=== PATIENT | female | born 1990 | race Caucasian/White ===

== ENCOUNTER 2022-03-30 11:28 | Emergency (ER) | payer OTHER, SELFPAY ==
[2022-03-30 11:35] VITALS: BP 134/80; PULSE 120; O2SAT 100
[2022-03-30 11:52] VITALS: BP 155/80; PULSE 122; RESP 18; TEMP 36.8; O2SAT 99; BMI 36.3
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
== END 2022-03-30 12:04 | disposition home or self-care (01) ==
LOC: HO.ED 12:01
PROVIDERS: Emergency Provider Emergency Medicine
DX: Z04.1 Encounter for examination and observation following transport accident (principal); M25.551 Pain in right hip
CPT/HCPCS: 99282

== ENCOUNTER 2022-10-25 08:35 | Outpatient (AMB) | payer OTHER, SELFPAY ==
[2022-10-25 08:38] VITALS: BP 130/68; PULSE 100; O2SAT 98; BMI 36.8
--- NOTE | 2022-10-25 08:38 | A.OFFPC_ITS ---
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 Allergies No Known Allergies Allergy (Verified 10/25/22 08:51) Medication List - Last Reconciled 10/25/22 by SAWYER Gonzalez etonogestrel (Nexplanon) subdermal Tobacco use date assessed: 10/25/22 Dental Screening Dental Screen Date: 10/25/22 Did you have a dental visit in the last 12 months?: Yes Did you have a dental problem in the last 6 months where you did not have access to dental care?: No Was dental information given to patient?: Patient has dentist HPI HPI Comments History of Present Illness Details 32-year-old new patient past medical history significant for anxiety and depression, presents today to establish care. Patient states numbness left eye that travels to her left side of her lip x1 year. Patient reports was evaluated at [facility] in May, reports her head CT scan was normal. Patient states she was told it was a problem with her nerves. Patient states that they prescribed her gabapetin and baclofen which just made her sleepy so she stopped taking it. Patient reports she continues to having left thigh numbness radiating to left lip that comes and goes and occasionally has some left-sided facial swelling when the numbness occurs. Records requested from [facility]. 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 States did have 1 episode of tingling in her wrist however that has resolved. Previous pcp: Mai Cook @ [facility] in [place]. Currently follows with [facility] for counseling services. [facility] Surgical History (Updated 10/25/22 @ 08:52 by SAWYER Gonzalez) Previous section Family History (Updated 10/25/22 @ 08:52 by SAWYER Gonzalez) Mother No problems noted. Father Diabetes Social History (Updated 10/25/22 @ 08:53 by SAWYER Gonzalez) Housing: House Alcohol intake: never Patient Tobacco Use Status: Never used Tobacco e-Cigarette/Vaping Use: Never Used service: No Current occupational status: employed Cognitive needs: No Hearing needs: No Vision needs: No Questionnaire PHQ-9 Over the last 2 weeks, how often have you been bothered by any of the following problems? 1. Little interest or pleasure in doing things: not at all 2. Feeling down, depressed, or hopeless: not at all 3. Trouble falling or staying asleep, or sleeping too much: not at all 4. Feeling tired or having little energy: not at all 5. Poor appetite or overeating: not at all 6. Feeling bad about yourself - or that you are a failure or have let yourself or your family down: not at all 7. Trouble concentrating on things, such as reading the newspaper or watching television: not at all 8. Moving or speaking so slowly that other people could have noticed. Or the opposite - being so fidgety or restless that you have been moving around a lot more than usual: not at all 9. Thoughts that you would be better off or of hurting yourself in some way: not at all Total score: 0 Depression Screening Interpretation: Negative Source: Developed by Drs. Huy Leon, Pascale Ulloa, Zack Conway and colleagues, with an educational riki from [employer]. Thrive Questionnaire Date Thrive assessed: 10/25/22 I am a: Patient What is your living situation today?: I have a steady place to live Within the past 12 months, did the food you bought not last and you didn't have the money to get more?: Never true Within the past 12 months, did you worry whether your food would run out before you got money to buy more?: Never true Do you have trouble paying for medicines?: No Do you have trouble getting transportation to medical appointments?: No Do you have trouble paying your heating and electricity bill?: No Do you have trouble taking care of your child, family member or friend?: No Do you have trouble with day-to-day activities such as bathing, preparing meals, shopping, managing finances, etc.?: No Are you currently unemployed and looking for a job?: No Are you interested in more education?: No AUDIT C Alcohol Use Questionnaire (AUDIT-C) 1. How often do you have a drink containing alcohol?: Never 3. How often do you have six or more drinks on one occasion?: Never Total Score: 0 ROLANDO-7 AMB Questionnaire ROLANDO-7 Date ROLANDO - 7 assessed: 10/25/22 Feeling nervous, anxious, or on edge: 0 = Not at all Not being able to stop or control worryin = Not at all Worrying too much about different things: 0 = Not at all Trouble relaxin = Not at all Being so restless that it is hard to sit still: 0 = Not at all Becoming easily annoyed or irritable: 0 = Not at all Feeling afraid as if something awful might happen: 0 = Not at all Total ROLANDO-7 score (0-4 normal; 5-9 mild; 10-14 moderate; 15-21 severe): 0 Source: Developed by Drs. Huy Leon, Pascale Ulloa, Zack Conway and colleagues, with an educational riki from [employer]. Review of Systems Const Denies chills, Denies fatigue, Denies fever(s) and Denies poor appetite Eyes Denies no additional complaints ENT Reports Normal hearing present Card Denies chest pain, Denies syncope, Denies rapid heart rate and Denies dyspnea Resp Denies cough and Denies dyspnea GI Denies change in stool character, Denies constipation, Denies diarrhea, Denies nausea and Denies vomiting Denies urinary frequency, Denies dysuria and Denies urinary urgency Neuro Reports Normal hearing present, Denies confusion and Denies syncope Psych Denies confusion Endo Denies fatigue Physical exam (Primary Care) Vital Signs: Last Vital Signs Pulse 100 10/25/22 08:38 BP 130/68 10/25/22 08:38 Pulse Ox 98 10/25/22 08:38 Oxygen Delivery Method Room Air 10/25/22 08:38 BMI result Body Mass Index 36.8 Tobacco/Smoking Status: Tobacco use Status Tobacco use date assessed 10/25/22 10/25/22 08:39 Patient Tobacco Use Status Never used Tobacco 10/25/22 08:53 e-Cigarette/Vaping Use Never Used 10/25/22 08:53 PHQ-9: PHQ-9 Score PHQ-9: Total score 0 10/25/22 08:50 Depression Screening Interpretation: Negative Thrive Assessment: Date of Thrive Assessment Date Thrive assessed 10/25/22 10/25/22 08:39 Const General: No confusion Orientation/consciousness: No confusion HENMT Head: Yes normocephalic and Yes atraumatic Eyes Conjunctivae: conjunctivae normal Chest Chest palpation & inspection: normal inspection of the chest Resp Effort & Inspection: normal respiratory effort Auscultation: clear to auscultation bilaterally, no crackles, no rhonchi and no wheezes Cardio Rate: regular rate Rhythm: regular rhythm Heart sounds: S1 normal heart sound present and S2 normal heart sound present GI Inspection: Yes normal to inspection Neuro General: No confusion Cranial nerves: Yes Normal hearing present Extrem General: No edema Assessment and Plan Assessment & Plan (1) Left facial numbness: Code(s): R20.0 - Anesthesia of skin Plan: Records requested from [facility]. Lab work ordered to further evaluate for any electrolyte or vitamin deficiencies. Referral entered to Neurology (2) Anxiety: Code(s): F41.9 - Anxiety disorder, unspecified Plan: Continue to follow with [facility] (3) Depression: Code(s): F32.A - Depression, unspecified Plan: Continue to follow with [facility]. Denies SI/HI. (4) Right wrist pain: Code(s): M25.531 - Pain in right wrist Plan: Can take [id number] ibuprofen as needed for pain and patient advised to use wrist splint while working and typing. If no improvement can further evaluate with EMG and nerve conduction studies for possible carpal tunnel syndrome. Plan Follow up in 2 months for PE Orders: Orders Vitamin B12 and Folate Today R20.0 - Anesthesia of skin Comprehensive [place]. Panel Fast Today R20.0 - Anesthesia of skin Lipid Panel Today Z13.220 - Encounter for screening for lipoid disorders TSH reflex Free T4 Today R20.0 - Anesthesia of skin Vitamin B1 Today R20.0 - Anesthesia of skin Vitamin D 25-OH Total Today R20.0 - Anesthesia of skin Complete Blood Count Auto Diff Today Z13.0 - Encounter for screening for diseases of the blood and blood-forming organs and certain disorders involving the immune mechanism Referrals Neurology Referral R20.0 - Anesthesia of skin Coding Level of Care Code New Pt Level 4 (62897) Diagnoses Left facial numbness R20.0 Anxiety F41.9 Depression F32.A Right wrist pain M25.531
== END 2022-10-25 09:07 | disposition home or self-care (01) ==
PROVIDERS: Visit Provider Nurse Practitioner Family
DX: R20.0 Anesthesia of skin (principal); F41.9 Anxiety disorder, unspecified; F32.A Depression, unspecified; M25.531 Pain in right wrist
CPT/HCPCS: 99204

== ENCOUNTER 2022-11-02 08:11 | Outpatient (REF) | payer OTHER, SELFPAY ==
[2022-11-02 09:18] LABS: Basophils Percent Auto 0.3 % (0-2); Eosinophils Absolute Auto 0.2 X10*3/uL (0.0-0.4); Hemoglobin 15.9 g/dl (12.0-16.0); Imm Gran Abs Auto 0.04 X10*3/uL (0.00-0.03); Imm Gran Pct Auto 0.4 % (0.0-0.4); Lymphocytes Absolute Auto 1.7 X10*3/uL (1.2-4.9); Lymphocytes Percent Auto 17.9 % (20-40); MANUAL DIFF FLAG NO; Mean Corpuscular HGB Conc 33.8 g/dl (31.0-35.0); Mean Corpuscular Hemoglobin 28.2 pg (27.0-33.0); Mean Corpuscular Volume 83.3 fL (80.0-98.0); Monocytes Absolute Auto 0.8 X10*3/uL (0.1-1.2); Monocytes Percent Auto 8.7 % (2-11); Neutrophils Absolute Auto 6.7 x10*3/uL (2.0-8.3); Neutrophils Percent Auto 70.7 % (45-73); Platelet Count 275 X10*3/uL (160-400); Red Blood Count 5.64 X10*6/uL (4.20-5.50); White Blood Count 9.4 X10*3/uL (4.8-10.8)
[2022-11-02 10:13] LABS: Alanine Aminotransferase 70 U/L (0-31); Albumin Level 4.5 g/dL (3.5-5.0); Alkaline Phosphatase 63 U/L (39-117); Anion Gap 16 (12-20); Aspartate Amino Transferase 31 U/L (5-31); Bilirubin Total 0.4 mg/dL (0.0-1.0); Blood Urea Nitrogen 8 mg/dL (9-16); Calcium 9.6 mg/dL (8.4-10.2); Carbon Dioxide 22 mmol/L (22-29); Chloride 108 mmol/L (96-108); Cholesterol 161 mg/dL; Estimated Glomerular Filt Rate > 60; Glucose Fasting 90 mg/dL (60-99); HDL Cholesterol 55 mg/dL; LDL Cholesterol Calculated 96 mg/dl; Sodium 142 mmol/L (135-145); Total Protein 7.9 g/dL (6.5-8.0); Triglycerides 51 mg/dL
[2022-11-02 10:27] LABS: TSH reflex Free T4 1.74 uIU/mL (0.32-4.0); Vitamin D 25-OH Total 35.4 ng/mL (>30)
[2022-11-02 10:40] LABS: Folate 13.2 ng/mL (> or = 4.0); Vitamin B12 524 pg/mL (200-900)
== END 2022-11-02 08:12 | disposition home or self-care (01) ==
LOC: HO.LAB 08:11
PROVIDERS: PCP Nurse Practitioner Family; Visit Provider Nurse Practitioner Family
DX: R20.0 Anesthesia of skin (principal); R22.0 Localized swelling, mass and lump, head; Z13.220 Encounter for screening for lipoid disorders; Z13.0 Encounter for screening for diseases of the blood and blood-forming organs and certain disorders involving the immune mechanism
CPT/HCPCS: 36415; 80053; 80061; 82306; 82607; 82746; 84443; 85025

== ENCOUNTER 2022-11-03 10:33 | Emergency (ER) | payer OTHER, SELFPAY ==
--- NOTE | ~2022-11-03 | XR_ITS ---
EXAMINATION: XR WRIST, RIGHT CLINICAL INFORMATION: Painful right wrist. COMPARISON: None available. TECHNIQUE: PA, lateral, scaphoid and oblique views of the right wrist. An indicator arrow points to the medial wrist. FINDINGS: The bones and soft tissues are normal. No fracture. Alignment is anatomic with normal joint spaces. No erosions or abnormal soft tissue calcifications. XR/XR wrist RT min 3V IMPRESSION: Unremarkable right wrist.
[2022-11-03 11:01] VITALS: BP 123/90; PULSE 83; RESP 16; TEMP 36.9; O2SAT 99; BMI 36.4
[2022-11-03 12:00] VITALS: BP 114/60; PULSE 71; RESP 16; O2SAT 99
--- NOTE | 2022-11-03 12:10 | ED_ITS ---
HPI - Extremity Problem General Chief complaint: Extremity Injury, Upper Stated complaint: R wrist swollen Time Seen by Provider: 11/03/22 11:23 Source: patient and RN notes reviewed Mode of arrival: ambulatory Limitations: no limitations History of Present Illness HPI Narrative: This is a 32-year-old female, with no significant past medical history, presenting to the emergency department with complaints of right wrist pain and tingling x2 weeks. Patient denies any recent trauma or injury. 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 She was seen by her primary care physician and was given a wrist splint. She has been wearing a wrist splint without any relief. Denies any fevers or chills. No other complaints or concerns at this time. MD Complaint: extremity pain and extremity swelling Onset (ago): week(s) Pain Consistency: constant Location: right and upper extremity Quality: aching Radiation: distal Relieving factors: nothing Exacerbating factors: nothing Associated symptoms: denies other symptoms Related Data Home Medications Medication Instructions Recorded Confirmed etonogestrel 68 mg subdermal subdermal 10/25/22 10/25/22 implant (Nexplanon) Previous Rx's Medication Instructions Recorded ibuprofen 600 mg tablet 600 mg PO Q6H PRN pain #30 tabs 11/03/22 Allergies Allergy/AdvReac Type Severity Reaction Status Date / Time No Known Allergies Allergy Verified 10/25/22 08:51 Review of Systems Review of Systems: Yes all other systems are reviewed and are negative Constitutional: Constitutional: Reports as per [facility] Past Medical History Surgical History Previous section Family History Family History Mother No problems noted. Father Diabetes Social History Social History Housing: House Alcohol intake: never Patient Tobacco Use Status: Never used Tobacco e-Cigarette/Vaping Use: Never Used Advance Directives: No Advance Directives Information Provided: Yes service: No Current occupational status: employed Cognitive needs: No Hearing needs: No Vision needs: No Physical Exam Vital Signs: Vital Signs: Last Vital Signs Temp 98.5 F 11/03/22 11:01 Pulse 71 11/03/22 12:00 Resp 16 11/03/22 12:00 BP 114/60 11/03/22 12:00 Pulse Ox 99 11/03/22 12:00 O2 Del Method Room Air 11/03/22 11:01 BMI result Body Mass Index 36.4 Const: General: cooperative, comfortable and no acute distress Orientation/consciousness: patient oriented x3 Limitations: no limitations HEENT: Head: Yes normal to inspection, Yes normocephalic and Yes atraumatic Ears: hearing grossly normal bilaterally General nose exam: Normal external nose present Face and sinus: Yes normal facial exam Mouth: Normal oral and palatal mucosa present, oropharynx normal and moist mucous membranes Throat: Yes posterior oropharynx normal Eyes: General: appearance normal, both eyes and all related structures Eyelids: Yes eyelids normal Conjunctivae: conjunctivae normal Sclerae: sclerae normal Pupils: Equal, round and reactive pupils present EOM: EOMs intact bilaterally Neck: Neck: Yes normal visual inspection, Yes full ROM and Yes no lymphadenopathy Lymphatic: no lymphadenopathy noted Chest: Chest palpation & inspection: normal inspection of the chest Resp: Effort & Inspection: normal respiratory effort and able to speak in complete sentences Auscultation: clear to auscultation bilaterally, no crackles, no rales, no rhonchi and no wheezes Cardio: Rate: regular rate Rhythm: regular rhythm Heart sounds: S1 normal heart sound present and S2 normal heart sound present GI: Inspection: Yes normal to inspection Skin: General skin exam: no rashes or lesions noted Trauma: no lacerations or abrasions Wounds: no wounds Neuro: General: patient oriented x3 and moves all extremities Cranial nerves: Yes Equal, round and reactive pupils present Extrem: Other: Right upper extremity without any overlying erythema, edema, increased warmth, or swelling. Tenderness to palpation along the right ulna are and radius. Range of motion is limited secondary to pain. Radial pulse 2 +. Extremities well perfused. Patient has positive Tinel's and feelings. General: Yes normal to inspection Right upper extremity: normal to inspection Left upper extremity: normal to inspection Right lower extremity: normal to inspection Left lower extremity: normal to inspection Medical Decision Making Medical Decision Making MDM Narrative: This is a 32-year-old female presenting to the emergency department with complaints of right wrist pain x2 weeks. Patient has positive Tinel's, positive Phalen's. X-ray revealing no bony abnormalities. Patient's symptoms consistent with carpal tunnel syndrome. Patient discharged on a course of ibuprofen. Encouraged to continue wearing wrist splint. Patient also given referral to Orthopedics if any new or worsening symptoms occur or if she would like to follow-up with them. Patient given return precautions. Patient stable for discharge. Differential Diagnosis Differential Diagnoses: The differential diagnosis associated with the presentation includes Wrist sprain, strain, contusion, carpal tunnel syndrome, septic joint-unlikely Independent Interpretation Interpretation: I personally reviewed the radiology report and x-rays, no bony abnormalities. Radiology Impression Discussion of test interpretation with radiology: I have reviewed the radiologist's reading. Radiologist Impression: EXAMINATION: XR WRIST, RIGHT CLINICAL INFORMATION: Painful right wrist.? COMPARISON: None available.? TECHNIQUE: PA, lateral, scaphoid and oblique views of the right wrist. An indicator arrow points to the medial wrist. FINDINGS: The bones and soft tissues are normal. No fracture. Alignment is anatomic with normal joint spaces. No erosions or abnormal soft tissue calcifications.? XR/XR wrist RT min 3V IMPRESSION: Unremarkable right wrist. ? ? Dictated By: Price Yi MD Discharge Plan Discharge Clinical Impression: Acute carpal tunnel syndrome of right wrist Patient Disposition: Home, Self-Care Instructions: Wrist Injury (ED), Paresthesia (ED), Arthralgia (ED), Swollen Joint (ED) Additional Instructions: Your symptoms are likely due to carpal tunnel syndrome. Please continue to wear splint provided by her primary care physician. Your x-rays did not show any broken bones today. Please take prescribed medication as directed for the next 5 days. Ice and resting your right wrist is going to help with the recovery process. I am also giving your a referral to Orthopedics, if your symptoms do not improve over the next 1-2 weeks, please call their office to set up an appointment. If any new or worsening symptoms occur please return for re-evaluation. Prescriptions: New ibuprofen 600 mg tablet 600 mg PO Q6H PRN (Reason: pain) Qty: 30 0RF No Action Nexplanon 68 mg implant subdermal
== END 2022-11-03 12:55 | disposition home or self-care (01) ==
PROVIDERS: Emergency Provider Emergency Medicine; PCP Nurse Practitioner Family
DX: G56.01 Carpal tunnel syndrome, right upper limb (principal)
CPT/HCPCS: 29125; 73110; 99284

== ENCOUNTER 2022-11-05 08:13 | Outpatient (REF) | payer OTHER, SELFPAY ==
[2022-11-11 05:23] LABS: Vitamin B1 8 nmol/L (8-30)
== END 2022-11-05 08:14 | disposition home or self-care (01) ==
LOC: HO.LAB 08:13
PROVIDERS: PCP Nurse Practitioner Family; Visit Provider Nurse Practitioner Family
DX: R20.0 Anesthesia of skin (principal)
CPT/HCPCS: 36415; 84425

== ENCOUNTER 2022-11-06 09:48 | Outpatient (REF) | payer OTHER, SELFPAY ==
--- NOTE | ~2022-11-06 | XR_ITS ---
EXAMINATION: XR HAND, RIGHT CLINICAL INFORMATION: Radial styloid tenosynovitis COMPARISON: Right wrist x-rays of 3 days previous. TECHNIQUE: PA, lateral, and oblique views of the right hand. FINDINGS: The bones and soft tissues are normal. No fracture. Alignment is anatomic. Joint spaces are maintained. No erosions or soft tissue calcifications. XR/XR hand RT min 3V IMPRESSION: Normal right hand.
== END 2022-11-06 09:49 | disposition home or self-care (01) ==
LOC: HO.HOSX 09:48
PROVIDERS: PCP Nurse Practitioner Family; Visit Provider Physical Medicine & Rehabilitation
DX: M25.531 Pain in right wrist (principal); G56.01 Carpal tunnel syndrome, right upper limb; M65.4 Radial styloid tenosynovitis [de Quervain]; R20.0 Anesthesia of skin; Z79.899 Other long term (current) drug therapy
CPT/HCPCS: 73130; 99202

== ENCOUNTER 2022-11-06 09:48 | Outpatient (AMB) | payer OTHER, SELFPAY ==
[2022-11-06 09:53] VITALS: BMI 36.4
--- NOTE | 2022-11-06 09:53 | MHC.OFFVIS ---
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 She was seen at the emergency room where she was given a wrist brace and iburprofen. the ibuprofen is not helpful but the brace provides mild releif. Her pain, numbness & tingling is felt primarily at the base of the right thumb. Allergies No Known Allergies Allergy (Verified 11/06/22 09:58) Medication List - Last Reconciled 11/06/22 by Mayra Sahu MD etonogestrel (Nexplanon) subdermal ibuprofen 600 mg PO Q6H PRN HPI HPI Comments History of Present Illness Details Right handed. History started with spontaneous onset of left sided facial weakness, 1 year. She has seen her PCP. CT scan head reported to be negative, done at [facility]. Neurology referral pending. No EMG done yet. Then 3-4 weeks ago, started to have right sided wrist/hand pain. Denies any fall or inciting injuries. Points to the right radial side of the wrist. Points to below the thumb. Numbness in the same area but denies numbness in other fingers. She admits to a lot of typing at work which could make the numbness even worse. She went to emergency room last Friday. She was prescribed with 600 mg ibuprofen which she has only been taking once a day. She was given a wrist brace. [facility] Surgical History Previous section Family History Mother No problems noted. 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 MSK: Inspection reveals appropriate head and neck positioning. No pain with palpation over the neck musculature. Cervical ROM was full. Spurling's sign negative. Bilateral shoulder ROM WNL. No ligamentous laxity or crepitance. No increased effusion. Hawkin's test is negative. No joint effusion noted. No deformity noted. No intrinsic hand weakness noted}. No atrophy noted. Abram test unable to do due to pain on right radial wrist. Carpal compression test slightly positive at the wrist. Tinel sign negative on elbow. There is some swelling are in right radial wrist but no tenderness over his scaphoid. Strength is 5/5 in all muscle groups tested. No increased tone noted. Neurological: Neurologic examination of the upper and lower extremities was nonfocal with intact sensation, muscle stretch reflexes and without focal motor deficits . Meng?s negative bilaterally. Babinski was down going bilaterally. Clonus was negative. Gait is non-antalgic without loss of balance. Results Reviewed Results Reviewed: I independently reviewed the results of the following: Right wrist x-ray was essentially normal. XR/XR wrist RT min 3V IMPRESSION: Unremarkable right wrist. I reviewed records from the following: Nose from emergency room Assessment & Plan Assessment & Plan (1) De Quervain's tenosynovitis, right: Code(s): M65.4 - Radial styloid tenosynovitis [de Quervain] (2) Carpal tunnel syndrome of right wrist: Code(s): G56.01 - Carpal tunnel syndrome, right upper limb (3) Right wrist pain: Code(s): M25.531 - Pain in right wrist (4) Left facial numbness: Code(s): R20.0 - Anesthesia of skin Plan Exam suggestive of right de Quervain tenosynovitis, but I cannot completely rule out possible carpal tunnel syndrome which would be adding and causing to pain and numbness. She was prescribed ibuprofen 600 mg t.i.d. at the emergency room but she is only taking it once a day. Discussed with patient that she may increase to t.i.d. for at least 7 days with full stomach. Side effects discussed. We will change her brace to a thumb spica splint which she will wear during the day, this is mainly for de Quervain tenosynovitis. She can still wear the resting hand splint at night which would be helpful for carpal tunnel syndrome. We will order NCS/EMG to rule out carpal tunnel syndrome. Because her pain is a little bit more diffuse, we will do had x-rays today. Lastly, will refer her to Occupational therapy. Assessment and plan discussed with patent, and patient was agreeable. All questions were answered thoroughly. Follow-up 6-8 weeks after she has done some OT. Call sooner if symptoms are getting worse. We could consider injection if getting more severe Orders: Orders OT Evaluation and Treatment Today G56.01 - Carpal tunnel syndrome, right upper limb, M25.531 - Pain in right wrist, M65.4 - Radial styloid tenosynovitis [de Quervain] XR hand RT min 3V Today M25.531 - Pain in right wrist, M65.4 - Radial styloid tenosynovitis [de Quervain] NE nerve conduction velocity Today G56.01 - Carpal tunnel syndrome, right upper limb, M25.531 - Pain in right wrist, R20.0 - Anesthesia of skin Coding Level of Care Code New Pt Level 4 (79678) Diagnoses De Quervain's tenosynovitis, right M65.4 Carpal tunnel syndrome of right wrist G56.01 Right wrist pain M25.531 Left facial numbness R20.0
== END 2022-11-06 10:59 | disposition home or self-care (01) ==
PROVIDERS: PCP Nurse Practitioner Family; Visit Provider Physical Medicine & Rehabilitation
DX: M65.4 Radial styloid tenosynovitis [de Quervain] (principal); M25.531 Pain in right wrist; R20.0 Anesthesia of skin
CPT/HCPCS: 99204

== ENCOUNTER 2022-11-14 08:29 | Outpatient (REF) | payer OTHER, SELFPAY ==
[2022-11-14 11:02] LABS: Alanine Aminotransferase 84 U/L (0-31); Albumin Level 4.1 g/dL (3.5-5.0); Alkaline Phosphatase 49 U/L (39-117); Aspartate Amino Transferase 49 U/L (5-31); Bilirubin Direct 0.2 mg/dL (0.0-0.5); Bilirubin Total 0.7 mg/dL (0.0-1.0); Total Protein 7.5 g/dL (6.5-8.0)
== END 2022-11-14 08:30 | disposition home or self-care (01) ==
LOC: HO.LAB 08:29
PROVIDERS: PCP Nurse Practitioner Family; Visit Provider Nurse Practitioner Family
DX: R74.01 Elevation of levels of liver transaminase levels (principal)
CPT/HCPCS: 36415; 80076

== ENCOUNTER 2022-11-23 08:31 | Outpatient (REF) | payer OTHER, SELFPAY ==
[2022-11-23 10:16] LABS: Alanine Aminotransferase 73 U/L (0-31); Albumin Level 4.2 g/dL (3.5-5.0); Alkaline Phosphatase 53 U/L (39-117); Aspartate Amino Transferase 37 U/L (5-31); Bilirubin Direct 0.3 mg/dL (0.0-0.5); Bilirubin Total 0.6 mg/dL (0.0-1.0); Total Protein 7.1 g/dL (6.5-8.0)
[2022-11-25 04:33] LABS: HBS Num1 12.92 mIU/mL (0-7.99); Hepatitis A Antibody IgM 0.21 Index (0-0.79); Hepatitis B Core Antibody Nonreactive (Nonreactive); Hepatitis B Surface Antigen Negative (Negative); ~HepC Num1 0.14 S/CO (0.00-0.79); ~Hepatitis A Antibody IgM Nonreactive (Nonreactive); ~Hepatitis B Surface Antibody REACTIVE (Nonreactive); ~Hepatitis C Antibody Nonreactive (Nonreactive)
== END 2022-11-23 08:32 | disposition home or self-care (01) ==
LOC: HO.LAB 08:31
PROVIDERS: PCP Nurse Practitioner Family; Visit Provider Nurse Practitioner Family
DX: R79.89 Other specified abnormal findings of blood chemistry (principal)
CPT/HCPCS: 36415; 80076; 86704; 86706; 86709; 86803; 87340

== ENCOUNTER 2022-12-05 08:56 | Outpatient (REF) | payer OTHER, SELFPAY ==
--- NOTE | ~2022-12-05 | US_ITS ---
EXAMINATION: US ABDOMEN COMPLETE CLINICAL INFORMATION: Other specified abnormal findings of blood chemistry. COMPARISON: None available. TECHNIQUE: Real-time imaging of the abdominal viscera. FINDINGS: PANCREAS: Normal. ABDOMINAL AORTA: The proximal, mid, and distal segments are normal in caliber. INFERIOR VENA CAVA: Visualized portions are normal. LIVER: The liver is normal in size. The liver contour is normal. There is diffuse increased liver parenchymal echogenicity common with pericholecystic sparing. No focal hepatic lesion. There is no intrahepatic biliary duct dilatation seen. GALLBLADDER: Normal. The gallbladder is physiologically distended without evidence of stones, sludge, polyps, wall thickening or pericholecystic fluid. COMMON BILE DUCT: Normal in caliber measuring 0.4 cm in diameter. RIGHT KIDNEY: Normal. No hydronephrosis. No renal calculi or focal parenchymal lesions. The kidney measures 11.3 cm in maximum dimension. LEFT KIDNEY: Normal. No hydronephrosis. No renal calculi or focal parenchymal lesions. The kidney measures 12.2 cm in maximum dimension. SPLEEN: Normal. The spleen measures 11.5 cm in maximum dimension. FREE FLUID: None. US/US abdomen complete IMPRESSION: There is generalized increase in hepatic echotexture, consistent with fatty infiltration or hepatocellular disease. Please correlate clinically. Characteristic pericholecystic sparing favors fatty infiltration. No focal hepatic mass or intrahepatic biliary dilatation is seen.
== END 2022-12-05 08:57 | disposition home or self-care (01) ==
LOC: HO.US 08:56
PROVIDERS: PCP Nurse Practitioner Family; Visit Provider Nurse Practitioner Family
DX: R79.89 Other specified abnormal findings of blood chemistry (principal)
CPT/HCPCS: 76700

== ENCOUNTER 2022-12-19 10:07 | Outpatient (AMB) | payer OTHER, SELFPAY ==
--- NOTE | 2022-12-19 10:25 | A.OFFVIS_ITS ---
Intake Vital Signs 12/19/22 10:27 Height 4 ft 11 in Weight 180 lb BMI 36.4 Intake Visit Reasons: OV-Right Wrist Intake Note: Kianna 32yr old female presents today for her right hand CTS and De Quervain's tenosynovitis. States braces has helped a little. States she wasn't aware she had to have an EMG done due to no one reaching out to her. States she has not done O.T due to department not reaching out either. Allergies No Known Allergies Allergy (Verified 12/19/22 10:43) Medication List - Last Reconciled 12/19/22 by Mayra Sahu MD etonogestrel (Nexplanon) subdermal ibuprofen 600 mg PO Q6H PRN HPI HPI Comments History of Present Illness Details Right handed. Initially seen for right sided wrist/hand pain. She denied any fall or inciting injuries. She has been wearing a thumb spica splint since the last time I saw her. Reports improvement. 0/10 pain now. Denies any numbness. She did not have the EMG done or OT. [facility] Medical History (Updated 12/10/22 @ 08:21 by SAWYER Gonzalez) Fatty liver disease, nonalcoholic Surgical History Previous section Family History Mother No problems noted. 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 MSK: No joint effusion noted. No deformity noted. No intrinsic hand weakness noted. No atrophy noted. Abram test no negative. Carpal compression test also negative today. Tinel sign negative on elbow. No visible swelling or redness. Strength is 5/5 in all muscle groups tested. No increased tone noted. Neurological: Neurologic examination of the upper and lower extremities was nonfocal with intact sensation, muscle stretch reflexes and without focal motor deficits . Meng?s negative bilaterally. Gait is non-antalgic without loss of balance. Assessment & Plan Assessment & Plan (1) De Quervain's tenosynovitis, right: Code(s): M65.4 - Radial styloid tenosynovitis [de Quervain] Plan De Quervain tenosynovitis appears to have improved since wearing thumb spica splint. She denies any more numbness so we will discontinue orders for EMG. We will still give her a list of OT locations if she decides to go. If pain recu rs, 1st line of treatment is icing, relative rest and wearing the thumb spica splint. Assessment and plan discussed with patient, and patient was agreeable. All questions were answered thoroughly. Mayra Sahu MD, RHODA Board Certified, [place] [employer] and [employer] (ABPMR) Board Certified, [place] [employer] Electro[employer] (ABEM) Coding Level of Care Code Est Pt Level 3 (51876) Diagnoses De Quervain's tenosynovitis, right M65.4
[2022-12-19 10:27] VITALS: BMI 36.4
== END 2022-12-19 10:55 | disposition home or self-care (01) ==
PROVIDERS: PCP Nurse Practitioner Family; Visit Provider Physical Medicine & Rehabilitation
DX: M65.4 Radial styloid tenosynovitis [de Quervain] (principal)
CPT/HCPCS: 99213

== ENCOUNTER → 2022-12-19 10:07 | Outpatient (BNVA) | payer OTHER, SELFPAY | PROVIDERS: PCP Nurse Practitioner Family; Visit Provider Physical Medicine & Rehabilitation | DX: G56.01 Carpal tunnel syndrome, right upper limb (principal); M65.4 Radial styloid tenosynovitis [de Quervain] | CPT/HCPCS: 99212 ==

== ENCOUNTER → 2022-12-20 08:51 | Outpatient (BNVA) | payer OTHER, SELFPAY | PROVIDERS: PCP Nurse Practitioner Family; Visit Provider Physician Assistant Surgical ==

== ENCOUNTER 2023-01-02 10:58 | Outpatient (AMB) | payer OTHER, SELFPAY ==
[2023-01-02 11:10] VITALS: BP 116/78; PULSE 99; O2SAT 98; BMI 37.0
--- NOTE | 2023-01-02 11:10 | MHC.PC.OV ---
Vital Signs 01/02/23 11:10 Height 4 ft 11 in Weight 183 lb BMI 37.0 BP 116/78 Blood Pressure Location Lt brachial Position Sitting Pulse 99 Pulse Source Pulse Oximeter Pulse Oximetry (%) 98 Oxygen Delivery Method Room Air Intake Visit Reasons: Annual exam [employer] Required: No Accompanied by: Self / Same As Patient Allergies No Known Allergies Allergy (Verified 01/02/23 11:25) Medication List - Last Reconciled 01/02/23 by SAWYER Gonzalez etonogestrel (Nexplanon) subdermal ibuprofen 600 mg PO Q6H PRN Tobacco use date assessed: 01/02/23 Dental Screening Dental Screen Date: 01/02/23 Did you have a dental visit in the last 12 months?: Yes Did you have a dental problem in the last 6 months where you did not have access to dental care?: No Was dental information given to patient?: Patient has dentist HPI HPI Comments History of Present Illness Details 32-year-old female past medical history significant for trigeminal neuralgia, right de Quervain tenosynovitis, elevated LFTs. Review of the notes patient currently orthopedic for this which recommended wearing right wrist splint and icing and patient was provided with occupational therapy and area if pain flares up again. Patient denies chest pain, palpitations, shortness of breath and syncope. Patient does still report numbness left-sided face comes and goes, patient states has upcoming appointment with Neurology scheduled. Patient reports that her breasts feel heavier since been on Nexplanon. Patient denies any breast pain, nipple discharge or breast lumps. Patient advised to report this to her OBGYN at her upcoming appointment. Eye exam: November 2022 Pap smear: Apt scheduled 01/12/23 COUNTS INCLUDE 234 BEDS AT THE [facility] Medical History Fatty liver disease, nonalcoholic Surgical History Previous section Family History Mother No problems noted. 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 1. Little interest or pleasure in doing things: not at all 2. Feeling down, depressed, or hopeless: not at all 3. Trouble falling or staying asleep, or sleeping too much: not at all 4. Feeling tired or having little energy: not at all 5. Poor appetite or overeating: not at all 6. Feeling bad about yourself - or that you are a failure or have let yourself or your family down: not at all 7. Trouble concentrating on things, such as reading the newspaper or watching television: not at all 8. Moving or speaking so slowly that other people could have noticed. Or the opposite - being so fidgety or restless that you have been moving around a lot more than usual: not at all 9. Thoughts that you would be better off or of hurting yourself in some way: not at all Total score: 0 Depression Screening Interpretation: Negative Depression Screening Done: Yes 72580 - PHQ-9 Billing: Yes Source: Developed by Drs. Huy Leon, Pascale Ulloa, Zack Conway and colleagues, with an educational riki from [employer]. Thrive Questionnaire Date Thrive assessed: 01/02/23 I am a: Patient What is your living situation today?: I have a steady place to live Within the past 12 months, did the food you bought not last and you didn't have the money to get more?: Never true Within the past 12 months, did you worry whether your food would run out before you got money to buy more?: Never true Do you have trouble paying for medicines?: No Do you have trouble getting transportation to medical appointments?: No Do you have trouble paying your heating and electricity bill?: No Do you have trouble taking care of your child, family member or friend?: No Do you have trouble with day-to-day activities such as bathing, preparing meals, shopping, managing finances, etc.?: No Are you currently unemployed and looking for a job?: No Are you interested in more education?: No Please select the resources that you would like help with: None Currently or been in a relationship where the following occur: no concerns reported AUDIT C Alcohol Use Questionnaire (AUDIT-C) 1. How often do you have a drink containing alcohol?: Never 3. How often do you have six or more drinks on one occasion?: Never Total Score: 0 ROLANDO-7 AMB Questionnaire ROLANDO-7 Date ROLANDO - 7 assessed: 01/02/23 Feeling nervous, anxious, or on edge: 0 = Not at all Not being able to stop or control worryin = Not at all Worrying too much about different things: 0 = Not at all Trouble relaxin = Not at all Being so restless that it is hard to sit still: 0 = Not at all Becoming easily annoyed or irritable: 0 = Not at all Feeling afraid as if something awful might happen: 0 = Not at all Total ROLANDO-7 score (0-4 normal; 5-9 mild; 10-14 moderate; 15-21 severe): 0 Source: Developed by Drs. Huy Leon, Pascale Ulloa, Zack Conway and colleagues, with an educational riki from [employer]. ROLANDO-7 Assessment Billing ROLANDO-7 Assessment Tool: ROLANDO-7 Assessment 19616 Review of Systems Const Denies chills, Denies fatigue, Denies fever(s) and Denies poor appetite Eyes Denies no additional complaints ENT Reports Normal hearing present Card Denies chest pain, Denies syncope, Denies rapid heart rate and Denies dyspnea Resp Denies cough and Denies dyspnea GI Denies change in stool character, Denies constipation, Denies diarrhea, Denies nausea and Denies vomiting Denies urinary frequency, Denies dysuria and Denies urinary urgency Neuro Reports Normal hearing present, Denies confusion and Denies syncope Psych Denies confusion Endo Denies fatigue Physical exam (Primary Care) Vital Signs: Last Vital Signs Pulse 99 01/02/23 11:10 BP 116/78 01/02/23 11:10 Pulse Ox 98 01/02/23 11:10 Oxygen Delivery Method Room Air 01/02/23 11:10 BMI result Body Mass Index 37.0 Tobacco/Smoking Status: Tobacco use Status Tobacco use date assessed 01/02/23 01/02/23 11:14 Patient Tobacco Use Status Never used Tobacco 01/02/23 11:14 e-Cigarette/Vaping Use Never Used 01/02/23 11:14 PHQ-9: PHQ-9 Score PHQ-9: Total score 0 01/02/23 11:16 Depression Screening Interpretation: Negative Thrive Assessment: Date of Thrive Assessment Date Thrive assessed 01/02/23 01/02/23 11:14 Currently or been in a relationship where the following occur: no concerns reported Const General: No confusion Orientation/consciousness: No confusion HENMT Head: Yes normocephalic and Yes atraumatic Ears: external ears normal and TM's normal bilaterally General nose exam: Normal external nose present and Normal nasal mucous membranes and turbinates present Face and sinus: Yes normal facial exam and Yes sinuses nontender Mouth: moist mucous membranes Throat: Yes tonsils normal Eyes Conjunctivae: conjunctivae normal Sclerae: sclerae normal Pupils: Equal, round and reactive pupils present and Pupils normal by confrontation EOM: EOMs intact bilaterally Direct Ophthalmoscopy: normal light reflex Neck Neck: Yes no lymphadenopathy and Yes supple Thyroid: Thyroid normal Chest Chest palpation & inspection: normal inspection of the chest Resp Effort & Inspection: normal respiratory effort Auscultation: clear to auscultation bilaterally, no crackles, no rhonchi and no wheezes Cardio Rate: regular rate Rhythm: regular rhythm Peripheral pulses: radial pulses present and dorsalis pedis present GI Inspection: Yes normal to inspection Palpation (GI): Soft to palpation, nontender and No hepatosplenomegaly present Auscultation: normoactive bowel sounds Skin General skin exam: no rashes or lesions noted Neuro General: No confusion Cranial nerves: Yes Equal, round and reactive pupils present and Yes Normal hearing present Cognition (Neuro): normal cognition Gait exam (Neuro): Normal gait present Motor exam (neuro): 5/5 motor strength present throughout Deep tendon reflexes (DTR's): Right brachioradialis reflex intensity grade: 2+, Left brachioradialis reflex intensity grade: 2+, Right patellar reflex intensity grade: 2+ and Left patellar reflex intensity grade: 2+ Extrem General: No edema Assessment and Plan Assessment & Plan (1) Fatty liver disease, nonalcoholic: Code(s): K76.0 - Fatty (change of) liver, not elsewhere classified Plan: Continue to follow low-cholesterol diet. (2) De Quervain's tenosynovitis, right: Code(s): M65.4 - Radial styloid tenosynovitis [de Quervain] Plan: Continue to use ice and wrist splint as needed for pain. Can follow-up with orthopedic p.r.n.. (3) Physical exam, annual: Code(s): Z00.00 - Encounter for general adult medical examination without abnormal findings Plan: Follow-up in 1 year for annual physical exam. Coding Level of Care Code Est Pt Prev Care 18-39y(34225) Diagnoses Fatty liver disease, nonalcoholic K76.0 De Quervain's tenosynovitis, right M65.4 Physical exam, annual Z00.00 Additional Codes ROLANDO-7 Assessment Billing - ROLANDO-7 Assessment Tool: ROLANDO-7 Assessment 58332 ([id number])
== END 2023-01-02 11:32 | disposition home or self-care (01) ==
PROVIDERS: PCP Nurse Practitioner Family; Visit Provider Nurse Practitioner Family
DX: K76.0 Fatty (change of) liver, not elsewhere classified (principal); M65.4 Radial styloid tenosynovitis [de Quervain]; Z00.00 Encounter for general adult medical examination without abnormal findings
CPT/HCPCS: 99395

== ENCOUNTER 2023-01-07 09:04 | Outpatient (REF) | payer OTHER, SELFPAY ==
[2023-01-09 22:28] LABS: TS Negative Control Passed; TS Panel A 3; TS Panel B 0; TS Positive Control Passed; TSpotTB Negative (Negative)
== END 2023-01-07 09:05 | disposition home or self-care (01) ==
LOC: HO.LAB 09:04
PROVIDERS: PCP Nurse Practitioner Family; Visit Provider Nurse Practitioner Family
DX: Z11.1 Encounter for screening for respiratory tuberculosis (principal)
CPT/HCPCS: 36415; 86481

== ENCOUNTER 2023-06-10 08:03 | Outpatient (REF) | payer OTHER, SELFPAY ==
--- NOTE | ~2023-06-10 | MR_ITS ---
EXAMINATION: MR BRAIN WITH AND WITHOUT CONTRAST CLINICAL INFORMATION: Left-sided facial numbness/swelling, concern for trigeminal neuropathy COMPARISON: None. TECHNIQUE: MRI of the brain was obtained using routine sequences before and following administration of intravenous contrast. A total of 8.5 mL of Gadavist was administered intravenously. FINDINGS: No abnormal enhancement or mass along the intracranial and extracranial course of the trigeminal nerves. Normal fluid signal intensity of Meckel's caves. No evidence of neurovascular compression along the cisternal segments of the trigeminal nerves. Fat within the periorbital fissures, pterygopalatine fossa, trigeminal fat pad, and mandibular alveolar foramina is preserved. No acute infarct. The GRE sequence is without susceptibility artifact to suggest acute or chronic blood products. No extra-axial fluid collection. The ventricles and sulci are normal in size and configuration without significant volume loss or hydrocephalus. No abnormal intraparenchymal or leptomeningeal enhancement. No significant mass effect or herniation pattern. Normal enhancement of the dural venous sinuses. Normal appearance of the intracranial arterial flow voids. Normal appearance of the midline structures. The orbits are grossly unremarkable. Retention cyst in the right maxillary sinus alveolar recess and otherwise mild patchy paranasal sinus mucosal thickening. Trace right mastoid tip effusion. Normal marrow signal. Partially herniated right than left sublingual glands into the submandibular spaces via mylohyoid boutonniere defects. MR/MR head/brain wo/w con IMPRESSION: No evidence of neurovascular compression of the left trigeminal nerve, as clinically queried. No abnormality along the extracranial course of the trigeminal nerve segments. No acute intracranial abnormality.
[2023-06-10] MEDS: gadobutroL 10 ML VIAL IVPUSH (08:40)
== END 2023-06-10 08:04 | disposition home or self-care (01) ==
LOC: HO.MRI 08:03
PROVIDERS: PCP Physician Assistant; Visit Provider Psychiatry & Neurology Neurology
DX: G50.9 Disorder of trigeminal nerve, unspecified (principal)
CPT/HCPCS: 70553; A9585

== ENCOUNTER 2023-06-25 13:06 | Outpatient (REF) | payer OTHER, SELFPAY ==
[2023-06-25 15:09] LABS: Erythrocyte Sedimentation Rate 5 MM/HR (0-20)
[2023-06-26 11:04] LABS: Lyme Abs Screen <0.90 index
== END 2023-06-25 13:07 | disposition home or self-care (01) ==
LOC: HO.LAB 13:06
PROVIDERS: PCP Physician Assistant; Visit Provider Psychiatry & Neurology Neurology
DX: G50.9 Disorder of trigeminal nerve, unspecified (principal)
CPT/HCPCS: 36415; 85652; 86617; 86618

== ENCOUNTER 2023-07-02 10:47 | Outpatient (AMB) | payer OTHER, SELFPAY ==
--- NOTE | 2023-07-02 10:56 | A.OFFVIS_ITS ---
Intake Intake Visit Reasons: O/V De Quervain's tenosynovitis, right Intake Note: Kianna is a 32yr old right hand dominant female who presents today for a follow up for her right hand CTS and De Quervain's tenosynovitis. Patient reports her pain is getting worse and she is noticing some swelling. Patient states that she hasn't started with OT due to having COVID. Allergies No Known Allergies Allergy (Verified 07/02/23 10:59) HPI HPI Comments History of Present Illness Details Right handed. Initially seen for right sided wrist/hand pain. She denied any fall or inciting injuries. She has been wearing a thumb spica splint since the last time I saw her. Reports improvement. 0/10 pain when I saw her last November. Denied any numbness. She did not have the EMG done or OT. She said she did okay from November 30 just last month. Started having pain and numbness on right wrist spreading to all her fingers. Denies any new injuries or falls. She has been taking ibuprofen as needed. Wearing the wrist splint. [facility] Medical History Fatty liver disease, nonalcoholic Surgical History Previous section Family History Mother No problems noted. 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 MSK: No joint effusion noted. No deformity noted. No intrinsic hand weakness noted. No atrophy noted. Abram test no negative. Carpal compression test positive right. Tinel sign negative on elbow. No visible swelling or redness. No trigger finger. Strength is 5/5 in all muscle groups tested. No increased tone noted. Neurological: Neurologic examination of the upper and lower extremities was nonfocal with intact sensation, muscle stretch reflexes and without focal motor deficits . Meng?s negative bilaterally. Gait is non-antalgic without loss of balance. Office Procedures Therapeutic Injection Therapeutic Injection Details: Consent obtained. Patient places right hand palm up. Wrist is cleansed with betadine solution. A 25 gauge needle is inserted just ulnar to the palmaris longus tendon and at the proximal wrist crease. The needle is inserted at a 30- degree angle and directed towards the ring finger. A solution containing 20mg Kenalog is injected. Patient tolerated procedure well without complications. Post-injection instructions given. [id number] Tunnel Injection, therapeutic All charges added?: Procedure code (CPT) selection complete Office Meds triamcinolone acetonide 40 mg/mL suspension for injection Performing Provider: Mayra Sahu MD Performing Location: [facility] [place] [facility] Documented (not given) by: Mayra Sahu MD on 07/02/23 11:59 Dose Route Admin Location Dispensed Lot Number Expiration Date [facility] Coin [employer] 20 mg Tendon Sheath Inj. mL Results Reviewed Results Reviewed: I independently reviewed the results of the following: Right wrist x-ray was essentially normal. XR/XR wrist RT min 3V IMPRESSION: Unremarkable right wrist. I reviewed records from the following: Nose from emergency room Assessment & Plan Assessment & Plan (1) Carpal tunnel syndrome of right wrist: Code(s): G56.01 - Carpal tunnel syndrome, right upper limb Plan Shows signs of CTS right. Affects wrist without objective signs of de quervain tenosynovitis. She has not done EMG yet which I highly suggest she schedules ANDREW, will help facilitate. Continue wrist splint especially at night. Offered ibuprofen for a week which she defers. She wanted to trial injection today. Which she tolerated without complications. Assessment and plan discussed with patient, and patient was agreeable. All questions were answered thoroughly. Mayra Sahu MD, RHODA Board Certified, [place] [employer] and Rehabilitation (ABPMR) Board Certified, [place] [employer] Electrodiagnostic [employer] (ABEM) Orders: Orders Trigger Point Injection Today G56.01 - Carpal tunnel syndrome, right upper limb Medications: New triamcinolone acetonide 20 mg (0.5 mL) Tendon Sheath Inj. ONCE 0.5 mL 0RF G56.01 - Carpal tunnel syndrome, right upper limb Coding Level of Care Code Est Pt Level 3 (06309) Diagnoses Carpal tunnel syndrome of right wrist G56.01 CPT Codes Therapeutic Injection - Ther Injection 3: [id number] Tunnel Injection, therapeutic ([id number])
== END 2023-07-02 11:30 | disposition home or self-care (01) ==
PROVIDERS: PCP Physician Assistant; Visit Provider Physical Medicine & Rehabilitation
DX: G56.01 Carpal tunnel syndrome, right upper limb (principal)
CPT/HCPCS: 20526; 99213

== ENCOUNTER → 2023-07-02 10:47 | Outpatient (BNVA) | payer OTHER, SELFPAY | PROVIDERS: PCP Physician Assistant; Visit Provider Physical Medicine & Rehabilitation | DX: G56.01 Carpal tunnel syndrome, right upper limb (principal) | CPT/HCPCS: 20526; 99212; J3301 ==

== ENCOUNTER 2023-07-17 23:05 | Emergency (ER) | payer OTHER, SELFPAY ==
[2023-07-17 23:37] VITALS: BP 123/56; PULSE 77; RESP 16; TEMP 36.9; O2SAT 99; BMI 36.4
[2023-07-18 01:56] LABS: MANUAL DIFF FLAG NO
[2023-07-18 01:57] LABS: Basophils Percent Auto 0.3 % (0-2); Eosinophils Absolute Auto 0.3 X10*3/uL (0.0-0.4); Eosinophils Percent Auto 2.6 % (0-4); Hematocrit 47.5 % (37.0-47.0); Hemoglobin 16.3 g/dl (12.0-16.0); Imm Gran Abs Auto 0.05 X10*3/uL (0.00-0.03); Imm Gran Pct Auto 0.5 % (0.0-0.4); Lymphocytes Absolute Auto 2.4 X10*3/uL (1.2-4.9); Lymphocytes Percent Auto 24.6 % (20-40); Mean Corpuscular HGB Conc 34.3 g/dl (31.0-35.0); Mean Corpuscular Hemoglobin 28.7 pg (27.0-33.0); Mean Corpuscular Volume 83.6 fL (80.0-98.0); Mean Platelet Volume 10.6 fL (9.4-12.3); Monocytes Percent Auto 10.6 % (2-11); Neutrophils Absolute Auto 5.9 x10*3/uL (2.0-8.3); Neutrophils Percent Auto 61.4 % (45-73); Platelet Count 285 X10*3/uL (160-400); Red Blood Count 5.68 X10*6/uL (4.20-5.50); Red Cell Distribution Width 12.2 % (11.0-16.0); White Blood Count 9.6 X10*3/uL (4.8-10.8)
[2023-07-18 02:15] LABS: COVID-19 Test Negative (Negative); IDNOW Serial# 08D9AD1C; IDNOW Serial# 152EDE1D; Influenza A Negative (Negative); Influenza B2 Negative (Negative)
[2023-07-18 02:26] LABS: Alanine Aminotransferase 53 U/L (0-31); Albumin Level 4.3 g/dL (3.5-5.0); Alkaline Phosphatase 56 U/L (39-117); Anion Gap 13 (12-20); Aspartate Amino Transferase 25 U/L (5-31); Bilirubin Total 0.4 mg/dL (0.0-1.0); Blood Urea Nitrogen 14 mg/dL (9-16); Calcium 9.9 mg/dL (8.4-10.2); Carbon Dioxide 24 mmol/L (22-29); Chloride 108 mmol/L (96-108); Creatinine Clr Calc Pharmacy 91.9; Estimated Glomerular Filt Rate > 60; Glucose Random 88 mg/dL (60-115); Potassium 4.1 mmol/L (3.3-5.1); Sodium 141 mmol/L (135-145); Total Protein 7.8 g/dL (6.5-8.0)
[2023-07-18] MEDS: SUMAtriptan succinate 6 MG/0.5 ML VIAL SUBCUT (04:59)
--- NOTE | 2023-07-18 05:31 | PC.NURSE ---
Pt stating she wants to leave, advised that she is due for pain reassessment and declines stating she still has a migraine. Agitated at this time and states she just wants to leave. Pt ambulatory out of department with steady gait and all personal belongings in no acute distress. Dr. Lozano made aware.
--- NOTE | 2023-07-18 05:36 | ED_ITS ---
HPI - Headache General Chief Complaint: Headache Stated Complaint: headache left facial swollen and pressure Time Seen by Provider: 07/18/23 04:46 Source: patient Mode of arrival: ambulatory Limitations: no limitations History of Present Illness HPI Narrative: patient with a long history of left sided headache followed by neurology who presents with the same MD elicited complaint: headache Pertinent past history: migraines Onset (ago): hour(s) Onset description: while at rest Location: left Severity: moderate Related Data Home Medications ?Medication ?Instructions ?Recorded ?Confirmed etonogestrel 68 mg subdermal subdermal 10/25/22 01/02/23 implant (Nexplanon) Previous Rx's ?Medication ?Instructions ?Recorded ibuprofen 600 mg tablet 600 mg PO Q6H PRN pain #30 tabs 11/03/22 nystatin 100,000 unit/gram topical 1 appl topical TID #15 grams 02/14/23 powder hydroxyzine HCl 25 mg tablet 25 mg PO BEDTIME PRN anxiety #30 05/12/23 tabs clotrimazole-betamethasone 1 1 appl topical BID 30 days #45 06/05/23 %-0.05 % topical cream grams Allergies Allergy/AdvReac Type Severity Reaction Status Date / Time No Known Allergies Allergy Verified 07/17/23 23:39 Review of Systems 2 Review of Systems: Yes all other systems are reviewed and are negative Neurologic: Denies Sensory deficit (Neuro) PMFSH Past Medical History Medical History Fatty liver disease, nonalcoholic Surgical History Previous section Family History Family History Mother No problems noted. 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 Cognitive needs: No Hearing needs: No Vision needs: No Physical Exam 2 Vital Signs: Vital Signs: Last Vital Signs Temp 98.5 F 07/17/23 23:37 Pulse 77 07/17/23 23:37 Resp 16 07/17/23 23:37 BP 123/56 L 07/17/23 23:37 Pulse Ox 99 07/17/23 23:37 O2 Del Method Room Air 07/17/23 23:37 BMI result Body Mass Index 36.4 Const: General: healthy appearing Nutritional Appearance: average body habitus Orientation/consciousness: oriented to person and patient oriented x3 Limitations: no limitations HEENT: Head: Yes normal to inspection Ears: external ears normal General nose exam: Normal external nose present Mouth: Normal oral and palatal mucosa present and oropharynx normal Throat: Yes posterior oropharynx normal Eyes: General: appearance normal, both eyes and all related structures Neck: Other: supple Neck: Yes normal visual inspection Chest: Chest palpation & inspection: normal inspection of the chest Resp: Auscultation: clear to auscultation bilaterally Cardio: Jugular venous distension: no JVD Rate: regular rate Rhythm: r egular rhythm Heart sounds: S1 normal heart sound present and S2 normal heart sound present GI: Inspection: Yes normal to inspection Palpation (GI): Soft to palpation, nontender and No hepatosplenomegaly present Auscultation: normal bowel sounds : General: Yes no CVA tenderness Back/Spine/Pelvis: Back: no CVA tenderness Skin: General skin exam: no rashes or lesions noted Neuro: General: oriented to person and patient oriented x3 Cranial nerves: Yes CN's II-XII intact bilaterally Motor exam (neuro): 5/5 motor strength present throughout Sensory Exam: No Sensory deficit (Neuro) Extrem: General: Yes normal to inspection Psych: Appearance: grossly normal Course Reevaluation(s) Reevaluation #1: Gave the patient sq imitrex and she decided to leave after Time: 05:38 Medications Administered Discontinued Medications Generic Name Dose Route Start Last Admin Trade Name Freq PRN Reason Stop Dose Admin Sumatriptan Succinate 6 mg 07/18/23 04:50 07/18/23 04:59 Sumatriptan Succinate 6 Mg/0.5 Ml Vial SUBCUT 07/18/23 04:51 6 mg ONCE ONE Administration Medical Decision Making Differential Diagnosis Differential Diagnoses: The differential diagnosis associated with the presentation includes (migraine MONTENEGRO, headache were all considered) Lab Data 07/18/23 01:51 07/18/23 01:51 Labs: Lab Results 04/19/24 Range/Units 01:51 WBC 9.6 (4.8-10.8) X10*3/uL RBC 5.68 H (4.20-5.50) X10*6/uL Hgb 16.3 H (12.0-16.0) g/dl Hct 47.5 H (37.0-47.0) % MCV 83.6 (80.0-98.0) fL MCH 28.7 (27.0-33.0) pg MCHC 34.3 (31.0-35.0) g/dl RDW 12.2 (11.0-16.0) % Plt Count 285 (160-400) X10*3/uL MPV 10.6 (9.4-12.3) fL Immature Gran % (Auto) 0.5 H (0.0-0.4) % Neut % (Auto) 61.4 (45-73) % Lymph % (Auto) 24.6 (20-40) % [place] % (Auto) 10.6 (2-11) % Eos % (Auto) 2.6 (0-4) % Baso % (Auto) 0.3 (0-2) % Lymph # (Auto) 2.4 (1.2-4.9) X10*3/uL [place] # (Auto) 1.0 (0.1-1.2) X10*3/uL Eos # (Auto) 0.3 (0.0-0.4) X10*3/uL Baso # (Auto) 0.0 (0.0-0.2) X10*3/uL Abs Immat Gran (auto) 0.05 H (0.00-0.03) X10*3/uL Absolute Neuts (auto) 5.9 (2.0-8.3) x10*3/uL Absolute Nucleated RBC 0.000 (0.0-0.012) X10*3/uL Nucleated RBC % (auto) 0.0 (0.0-0.2) /100WBC Sodium 141 (135-145) mmol/L Potassium 4.1 (3.3-5.1) mmol/L Chloride 108 (96-108) mmol/L Carbon Dioxide 24 (22-29) mmol/L Anion Gap 13 (12-20) BUN 14 (9-16) mg/dL Creatinine 0.82 (0.5-1.4) mg/dL Estim Creat Clear Calc 91.9 Estimated GFR > 60 Random Glucose 88 (60-115) mg/dL Calcium 9.9 (8.4-10.2) mg/dL Total Bilirubin 0.4 (0.0-1.0) mg/dL AST 25 (5-31) U/L ALT 53 H (0-31) U/L Alkaline Phosphatase 56 (39-117) U/L Total Protein 7.8 (6.5-8.0) g/dL Albumin 4.3 (3.5-5.0) g/dL COVID-19 (JASBIR) Negative (Negative) COVID-19 Clin Com See Note Influenza Type A (BONNIE) Negative (Negative) Influenza Type B (BONNIE) Negative (Negative) Influenza A & B Note See Note Tests considered The following testing was considered but not selected: CT of brain considered but patient with long history of the same, non focal neuro exam Discharge Plan Discharge Clinical Impression: Migraine Patient Disposition: Home, Self-Care Instructions: Migraine Headache (ED) Prescriptions: No Action nystatin 100,000 unit/gram powder 1 appl topical TID Qty: 15 0RF hydroxyzine HCl 25 mg tablet 25 mg PO BEDTIME PRN (Reason: anxiety) Qty: 30 1RF clotrimazole-betamethasone 1-0.05 % cream 1 appl topical BID 30 Days Qty: 45 0RF ibuprofen 600 mg tablet 600 mg PO Q6H PRN (Reason: pain) Qty: 30 0RF Nexplanon 68 mg implant subdermal triamcinolone acetonide 40 mg/mL suspension 20 mg Tendon Sheath Inj. ONCE Qty: 0.5 0RF Referrals: Darren Carias PA-C [Primary Care Provider] - 3 days Discharge Date/Time: 07/18/23 05:34 Print Language: Luxembourgish
== END 2023-07-18 05:34 | disposition home or self-care (01) ==
PROVIDERS: Emergency Provider Emergency Medicine; PCP Physician Assistant
DX: G43.909 Migraine, unspecified, not intractable, without status migrainosus (principal); Z11.52 Encounter for screening for COVID-19
CPT/HCPCS: 80053; 85025; 87502; 87635; 96372; 99283; 99284; J3030

== ENCOUNTER 2023-07-24 13:29 | Outpatient (REF) | payer OTHER, SELFPAY ==
--- NOTE | 2023-07-24 13:35 | EMG_ITS ---
Chief complaint: Continued right wrist pain No improvement from Carpal Tunnel Syndrome injection. Wrist and hand x-rays are normal. Negative Abram test. Wearing wrist splint. Reason for referral: Evaluate for Carpal Tunnel Syndrome Procedure done: Right upper extremity NCS/EMG Precautions and/or limitations: None The limb temperature was monitored continuously and remained between 32-36 degrees C during the performance of the NCS. Nerve Conduction Studies Anti Sensory Summary Table ?Stim Site NR Onset (ms) Norm Onset (ms) Peak (ms) Norm Peak (ms) O-P Amp (?V) Norm O-P Amp Site1 Site2 Delta-0 (ms) Dist (cm) Remy (m/s) Norm Remy (m/s) Right Median Anti Sensory (2nd Digit) Wrist ? 2.2 2.8 <3.6 52.7 >10 Wrist 2nd Digit 2.2 14.0 64 Right Ulnar Anti Sensory (5th Digit) Wrist ? 2.3 2.8 <3.7 25.2 >15.0 Wrist 5th Digit 2.3 14.0 61 Motor Summary Table ?Stim Site NR Onset (ms) Norm Onset (ms) O-P Amp (mV) Norm O-P Amp iAmp (mV) Amp (1st) (%) Site1 Site2 Delta-0 (ms) Dist (cm) Remy (m/s) Norm Remy (m/s) Right Median Motor (Abd Poll Brev) Wrist ? 2.8 <3.9 14.2 >4.5 16.4 100.0 Elbow Wrist 3.5 16.5 47 >45 Elbow ? 6.3 12.7 14.4 89.4 Right Ulnar Motor (Abd Dig Minimi) Wrist ? 2.4 <3.0 11.4 >5 13.7 100.0 B Elbow Wrist 2.8 17.0 61 >45 B Elbow ? 5.2 10.9 14.0 95.6 A Elbow B Elbow 1.1 10.0 91 >45 A Elbow ? 6.3 10.5 13.8 92.1 Comparison Summary Table ?Stim Site NR Peak (ms) Norm Peak (ms) P-T Amp (?V) Site1 Site2 Delta-P (ms) Norm Delta (ms) Right Median/Radial Dig I Comparison (Digit 1 - 10cm) Median ? 2.3 <2.9 68.3 Median Radial 0.0 Radial ? 2.3 <2.8 24.9 EMG ?Side Muscle Nerve Root Ins Act Fibs Psw Amp Dur Poly Recrt Int Pat Comment Right 1stDorInt Ulnar C8-T1 Nml Nml Nml Nml Nml 0 Nml Complete Right FlexCarRad Median C6-7 Nml Nml Nml Nml Nml 0 Nml Complete Right Biceps Musculocut C5-6 Nml Nml Nml Nml Nml 0 Nml Complete Right Triceps Radial C6-7-8 Nml Nml Nml Nml Nml 0 Nml Complete Right Deltoid Axillary C5-6 Nml Nml Nml Nml Nml 0 Nml Complete FINDINGS: All motor and sensory nerves tested showed normal latencies, amplitudes and conduction velocities. Concentric needle EMG was performed in selected muscles of the right upper extremity. Study did not reveal signs of electric abnormalities as shown in the table below. IMPRESSION: 1. This is a normal study. 2. There is no electrodiagnostic evidence for median neuropathy, ulnar neuropathy, brachial plexopathy, or cervical radiculopathy. Thank you for your kind referral. Mayra Sahu MD, RHODA Board Certified, [place] [employer] and [employer] (ABPMR) Board Certified, [place] Board [employer] Electro[employer]ostic [employer] (ABEM) CODIN [id number] MTDD
== END 2023-07-24 13:30 | disposition home or self-care (01) ==
LOC: HO.NEURO 13:29
PROVIDERS: Visit Provider Physical Medicine & Rehabilitation
DX: G56.01 Carpal tunnel syndrome, right upper limb (principal)
CPT/HCPCS: 95886; 95909

== ENCOUNTER → 2023-07-24 13:35 | Outpatient (BNV) | payer OTHER, SELFPAY | PROVIDERS: Visit Provider Physical Medicine & Rehabilitation | DX: M25.531 Pain in right wrist (principal) | CPT/HCPCS: 95886; 95909 ==

== ENCOUNTER 2023-08-07 09:14 | Outpatient (REF) | payer OTHER, SELFPAY ==
[2023-08-07 10:52] LABS: Uric Acid 4.8 mg/dL (2.4-5.7)
[2023-08-10 14:58] LABS: Anti Nuclear Antibody Pattern Nuclear, Homogeneous; Anti Nuclear Antibody Screen POSITIVE (NEGATIVE)
== END 2023-08-07 09:15 | disposition home or self-care (01) ==
LOC: HO.LAB 09:14
PROVIDERS: PCP Internal Medicine; Visit Provider Physical Medicine & Rehabilitation
DX: M25.531 Pain in right wrist (principal)
CPT/HCPCS: 36415; 84550; 86038; 86039; 86431

== ENCOUNTER 2023-09-09 09:01 | Outpatient (AMB) | payer OTHER, SELFPAY ==
--- NOTE | 2023-09-09 09:02 | MHC.OFFVIS ---
Intake Visit Reasons: OV- EMG RT hand/arm second opinion Intake Note: Kianna 32 yr old female presents today for her EMG review. Last seen with Dr. Parish who gave patient a CTS injection. States injection helped a little with her pain. She states she has tingling in her wrist and fingers. Allergies No Known Allergies Allergy (Verified 09/09/23 09:22) HPI HPI OV- EMG RT hand/arm second opinion: Details: Kianna is a 32 year old right hand dominant woman who presents for a NCS review of her right hand numbness. She complains of tingling in her right wrist, along with weakness. She says when typing her wrist will go numb and she says her fingers get stuck and she demonstrates then being stuck together in adduction and mostly extended. She says she gets tingling in all her fingers of her right hand, intermittent and she says once or twice a month, and her last episode of finger numbness was last week. She has been seen by Dr. Parish for wrist pain, and she received a carpal tunnel injection on 07/02/23. She says this gave her mild relief but she continues to have numbness & pain. She is scheduled to be seen by a Crew Clerk on 10/21/23 for wrist pain. 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 She says she cannot do her job due to her pain & numbness. She was upset today in clinic. [facility] Medical History Fatty liver disease, nonalcoholic Surgical History Previous section Family History Mother No problems noted. 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 Cognitive needs: No Hearing needs: No Vision needs: No Review of Systems Const All systems reviewed & are unremarkable except as noted in HPI and below Physical Exam Const General: cooperative, healthy appearing and no acute distress Orientation/consciousness: patient oriented x3 HEENT Head: Yes normocephalic and Yes atraumatic Eyes EOM: EOMs intact bilaterally Resp Effort & Inspection: normal respiratory effort and able to speak in complete sentences Cardio Jugular venous distension: no JVD Skin General skin exam: turgor normal Rashes: no rashes Neuro General: patient oriented x3 Extrem Other: Evaluation of Right Upper Extremity: The patient is alert, oriented, and in no acute distress Neuro: Median, Ulnar, Radial nerves motor and sensory intact and sensation is normal to the tips of all digits No thenar or intrinsic wasting Good APB muscle belly firing and good finger cross Vascular: Cap refill brisk ROM: She can make a fist and extend all her digits No locking or catching Skin: No lacerations or abrasions. General: No swelling No Ecchymosis. No Erythema or evidence of infection. Nerve Conduction study: IMPRESSION: 1. This is a normal study. 2. There is no electrodiagnostic evidence for median neuropathy, ulnar neuropathy, brachial plexopathy, or cervical radiculopathy. Mayra Sahu MD, RHODA 07/25/23 Psych Appearance: grossly normal Affect: normal affect Attitude: cooperative Assessment & Plan Assessment & Plan (1) Right wrist pain: Code(s): M25.531 - Pain in right wrist Category: Medical (2) Numbness of right hand: Code(s): R20.0 - Anesthesia of skin Category: Medical Plan Assessment & Plan: 1. Right volar wrist numbness & pain, S/P carpal tunnel injection Date of injection: 07/02/[address] Parish. 2. Right hand numbness In all digits Symptoms intermittent & occur about twice a month NCS negative for carpal tunnel syndrome or cervical radiculopathy I educated her about carpal tunnel syndrome and reviewed her NCS with her No operative intervention with a negative NCS and occasional symptoms At this point the patient became very angry that I wasn't going to do anything for her and left the clinic. Scribed for Serina Fletcher MD by Alan Cifuentes, site medical director, on 09/09/23 at 10:05 AM, EST. Coding Level of Care Code New Pt Level 3 (84817) Diagnoses Right wrist pain M25.531 Numbness of right hand R20.0
== END 2023-09-09 10:19 | disposition home or self-care (01) ==
PROVIDERS: Visit Provider Orthopaedic Surgery
DX: M25.531 Pain in right wrist (principal); R20.0 Anesthesia of skin
CPT/HCPCS: 99203

== ENCOUNTER → 2023-09-09 09:01 | Outpatient (BNVA) | payer OTHER, SELFPAY | PROVIDERS: Visit Provider Orthopaedic Surgery | DX: M25.531 Pain in right wrist (principal); R20.0 Anesthesia of skin | CPT/HCPCS: 99202 ==

== ENCOUNTER 2023-09-15 08:29 | Outpatient (AMB) | payer OTHER, SELFPAY ==
--- NOTE | 2023-09-15 08:31 | A.OFFVIS_ITS ---
Vital Signs 09/15/23 08:37 Height 4 ft 11 in Weight 181 lb 14.102 oz BMI 36.7 BP 118/76 Blood Pressure Location Rt brachial Position Sitting Pulse 97 Pulse Source Pulse Oximeter Pulse Oximetry (%) 96 Oxygen Delivery Method Room Air Intake Visit Reasons: Rt Wrist Pain/+ RF ? RA Intake Note: New patient presents today for consult, referred by Ortho for +RF and wrist pain Reports pain, swelling, tingling, numbing. Symptoms started approx Has tried Financial Assistance Advisor Required: No Allergies No Known Allergies Allergy (Verified 09/15/23 08:45) HPI Comments Details: Ms. Hutchison 32 yoF presents for evaluation of Right wrist (DeQuervain) and +RF. Today it is not as bad as it was last year per patient and she mainly feels it when she picks up heavier items. She describes that there is numbness when there is swelling and pain. --Referred by ortho --Right radial hand and wrist, swelling pain - about 1 year. --Meloxicam helps a little --EMG studies done, DeQuervain injection - helped for a couple weeks --elevated liver enzymes - fatty liver per patient --Nexpalon Control - denies hx of blood clots --denies known history of family CTD or inflammatory arthritis; no personal hx of CA; Paternal GPa colon ca --no other joint swelling or pain --no rash, scalp sores, or hair shedding, no dry eyes, dry mouth or sores; denies other symptoms of CTD; no GI or concerns --denies smoking. ETOH Right handed. Initially seen for right sided wrist/hand pain. She denied any fall or inciting injuries. She has been wearing a thumb spica splint since the last time I saw her. Reports improvement. 0/10 pain when I saw her last November. Denied any numbness. She did not have the EMG done or OT. She said she did okay from November 30 just last month. Started having pain and numbness on right wrist spreading to all her fingers. Denies any new injuries or falls. She has been taking ibuprofen as needed. Wearing the wrist splint. [facility] Medical History Fatty liver disease, nonalcoholic Surgical History Previous section Family History Mother No problems noted. 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 External ear normal. NOSE/SINUS:? Airflow through both nares, no nasal discharge, no bleeding THROAT:? Oral mucosa moist, no ulcerations NECK:? No thyromegaly or masses, no adenopathy, trachea midline. HEART:? Regular rhythm, S1-S2 heard, no murmurs, rubs or gallops. LUNG:? Clear to percussion and auscultation EXTREMITIES:? No edema, no calf tenderness, normal peripheral pulses. NEURO:? Oriented and alert x3.? No focal weakness.? Reflexes symmetric.? Gait normal. SKIN:? There are no skin lesions evident. No objective signs of Raynaud's phenomenon. JOINT EXAM: Cervical Spine:.? Full range of motion without pain; no tenderness. Thoracic Spine:.? No scoliosis.? No tenderness on palpation. Lumbar Spine:.? Alignment normal.? Full range of motion without pain, no tenderness. Chest Wall:.? No tenderness, swelling, increased warmth or erythema. Hands:.? Normal pain-free range of motion without tenderness, swelling, increased warmth or erythema. Able to make a full fist and has a good color maker strength. Wrists:.? Normal range of motion with Right mild tenderness, trace radial swelling but no increased warmth or erythema. Elbows:. Normal pain-free range of motion without tenderness, swelling, increased warmth or erythema. Shoulders:.?? Full range of motion without pain. No tenderness, weakness, swelling, increased warmth or erythema. Hips:.? Full range of motion without pain. Hip bursa:.? No tenderness. Knees:.?? Normal pain-free range of motion without tenderness, swelling, increased warmth or erythema.? There is no effusion or crepitation Ankles:.? Normal pain-free range of motion without tenderness, swelling, increased warmth or erythema. Feet:.? Normal pain-free range of motion without tenderness, swelling, increased warmth or erythema. Tender points:? No tenderness to digital palpation at the occiput, trapezius, second rib, lateral epicondyle, knees, greater trochanter and gluteal area bilaterally. ? Results Reviewed Results Reviewed: Laboratory Tests 06/25/23 07/18/23 08/07/23 13:08 01:51 09:41 WBC 9.6 RBC 5.68 H Hgb 16.3 H Hct 47.5 H ESR 5 Creatinine 0.82 Estim Creat Clear Calc 91.9 Uric Acid 4.8 AST 25 ALT 53 H Rheumatoid Factor 85.0 H DEENA Titer 1:80 H EXAMINATION: XR HAND, RIGHT CLINICAL INFORMATION: Radial styloid tenosynovitis COMPARISON: Right wrist x-rays of 3 days previous. TECHNIQUE: PA, lateral, and oblique views of the right hand. FINDINGS: The bones and soft tissues are normal. No fracture. Alignment is anatomic. Joint spaces are maintained. No erosions or soft tissue calcifications. XR/XR hand RT min 3V IMPRESSION: Normal right hand. COMPARISON: None available. TECHNIQUE: Real-time imaging of the abdominal viscera. FINDINGS: PANCREAS: Normal. ABDOMINAL AORTA: The proximal, mid, and distal segments are normal in caliber. INFERIOR VENA CAVA: Visualized portions are normal. LIVER: The liver is normal in size. The liver contour is normal. There is diffuse increased liver parenchymal echogenicity common with pericholecystic sparing. No focal hepatic lesion. There is no intrahepatic biliary duct dilatation seen. GALLBLADDER: Normal. The gallbladder is physiologically distended without evidence of stones, sludge, polyps, wall thickening or pericholecystic fluid. COMMON BILE DUCT: Normal in caliber measuring 0.4 cm in diameter. RIGHT KIDNEY: Normal. No hydronephrosis. No renal calculi or focal parenchymal lesions. The kidney measures 11.3 cm in maximum dimension. LEFT KIDNEY: Normal. No hydronephrosis. No renal calculi or focal parenchymal lesions. The kidney measures 12.2 cm in maximum dimension. SPLEEN: Normal. The spleen measures 11.5 cm in maximum dimension. FREE FLUID: None. US/US abdomen complete IMPRESSION: There is generalized increase in hepatic echotexture, consistent with fatty infiltration or hepatocellular disease. Please correlate clinically. Characteristic pericholecystic sparing favors fatty infiltration. No focal hepatic mass or intrahepatic biliary dilatation is seen. Assessment & Plan Assessment & Plan (1) Right wrist pain: Code(s): M25.531 - Pain in right wrist Category: Medical (2) De Quervain's tenosynovitis, right: Code(s): M65.4 - Radial styloid tenosynovitis [de Quervain] Category: Medical (3) Elevated ferritin, hemoglobin, and red blood cell count: Code(s): R79.89 - Other specified abnormal findings of blood chemistry; D58.2 - Other hemoglobinopathies; R71.8 - Other abnormality of red blood cells Category: Medical (4) Rheumatoid factor positive: Code(s): R76.8 - Other specified abnormal immunological findings in serum Category: Medical (5) Hypovitaminosis D: Code(s): E55.9 - Vitamin D deficiency, unspecified Category: Medical Plan #Right Wrist Pain/+RF(85): This combination may give the impression for RA. However, the patient has no other joint pain swelling, especially to the small joints of her hands. Her symptoms are more clinically, Dequervain tendinitis and CTS. Imaging I personally reviewed shows normal right hand and wrist. I will obtain additional labs, for further evaluation. I discussed the RA treatment options with the patient. She has agreed that for now, we will treat with a course of prednisone. If not resolved we will then start low dose MTX or HCQ but I do not think at this time we should start a DMARD. We discussed the monitoring that would be needed with immunomodulators. Additionally, with MTX, there would be additional concern, given the fatty liver she reports and also the baseline elevated ALT (58) that could be worsened on MTX. #Elevated Hgb, RBC, ALT and RF: This combination of elements can indicated that the patient may need further workup for Hemachomoatosis which can also cause joint pain. I have ordered Panel and and also Liver antibodies- The imaging reports Fatty liver. #Hypo D: Will recheck patient completed supplements I spent 40 minutes reviewing history, evaluating patient and documenting Orders: Orders Creatine Kinase Total Today M25.531 - Pain in right wrist, M65.4 - Radial styloid tenosynovitis [de Quervain], R76.8 - Other specified abnormal immunol ogical findings in serum, R79.89 - Other specified abnormal findings of blood chemistry Hepatitis A,B,C Profile Today R79.89 - Other specified abnormal findings of blood chemistry, Z11.9 - Encounter for screening for infectious and parasitic diseases, unspecified Immunofixation Pnl, Serum Today M25.531 - Pain in right wrist, M65.4 - Radial styloid tenosynovitis [de Quervain], R76.8 - Other specified abnormal immunological findings in serum, R79.89 - Other specified abnormal findings of blood chemistry Immunoglobulins,IgG IgA IgM Today M25.531 - Pain in right wrist, M65.4 - Radial styloid tenosynovitis [de Quervain], R76.8 - Other specified abnormal immunological findings in serum, R79.89 - Other specified abnormal findings of blood chemistry Complement C3 Today M25.531 - Pain in right wrist, M65.4 - Radial styloid tenosynovitis [de Quervain], R76.8 - Other specified abnormal immunological findings in serum, R79.89 - Other specified abnormal findings of blood chemistry Anti Extractable Nuclear Ag Today M25.531 - Pain in right wrist, M65.4 - Radial styloid tenosynovitis [de Quervain], R76.8 - Other specified abnormal immunological findings in serum, R79.89 - Other specified abnormal findings of blood chemistry Anti DNA DS Antibody Today M25.531 - Pain in right wrist, M65.4 - Radial styloid tenosynovitis [de Quervain], R76.8 - Other specified abnormal immunological findings in serum, R79.89 - Other specified abnormal findings of blood chemistry DEENA Reflex Titer and Pattern Today M25.531 - Pain in right wrist, M65.4 - Radial styloid tenosynovitis [de Quervain], R76.8 - Other specified abnormal immunological findings in serum, R79.89 - Other specified abnormal findings of blood chemistry Anti-Centromere B Antibodies Today M25.531 - Pain in right wrist, M65.4 - Radial styloid tenosynovitis [de Quervain], R76.8 - Other specified abnormal immunological findings in serum, R79.89 - Other specified abnormal findings of blood chemistry Scleroderma 70 Antibody Today M25.531 - Pain in right wrist, M65.4 - Radial styloid tenosynovitis [de Quervain], R76.8 - Other specified abnormal immunological findings in serum, R79.89 - Other specified abnormal findings of blood chemistry Vitamin D 25-OH (D2 and D3) Today E55.9 - Vitamin D deficiency, unspecified Smooth Muscle Antibody Today M25.531 - Pain in right wrist, M65.4 - Radial styloid tenosynovitis [de Quervain], R76.8 - Other specified abnormal immunological findings in serum, R79.89 - Other specified abnormal findings of blood chemistry Mitochondrial Antibody Today M25.531 - Pain in right wrist, M65.4 - Radial styloid tenosynovitis [de Quervain], R76.8 - Other specified abnormal immunological findings in serum, R79.89 - Other specified abnormal findings of blood chemistry Ferritin Today D58.2 - Other hemoglobinopathies, R71.8 - Other abnormality of red blood cells, R79.89 - Other specified abnormal findings of blood chemistry IRON PROFILE Today D58.2 - Other hemoglobinopathies, R71.8 - Other abnormality of red blood cells, R79.89 - Other specified abnormal findings of blood chemistry Erythrocyte Sedimentation Rate Today M25.531 - Pain in right wrist, M65.4 - Radial styloid tenosynovitis [de Quervain], R76.8 - Other specified abnormal immunological findings in serum, R79.89 - Other specified abnormal findings of blood chemistry Complete Blood Count Auto Diff Today M25.531 - Pain in right wrist, M65.4 - Radial styloid tenosynovitis [de Quervain], R76.8 - Other specified abnormal immunological findings in serum, R79.89 - Other specified abnormal findings of blood chemistry Comprehensive Met. Panel Today M25.531 - Pain in right wrist, M65.4 - Radial styloid tenosynovitis [de Quervain], R76.8 - Other specified abnormal immunological findings in serum, R79.89 - Other specified abnormal findings of blood chemistry C Reactive Protein Today M25.531 - Pain in right wrist, M65.4 - Radial styloid tenosynovitis [de Quervain], R76.8 - Other specified abnormal immunological findings in serum, R79.89 - Other specified abnormal findings of blood chemistry Cyclic Citrullinated Peptide Today M25.531 - Pain in right wrist, M65.4 - Radial styloid tenosynovitis [de Quervain], R76.8 - Other specified abnormal immunological findings in serum, R79.89 - Other specified abnormal findings of blood chemistry Complement C4 Today M25.531 - Pain in right wrist, M65.4 - Radial styloid tenosynovitis [de Quervain], R76.8 - Other specified abnormal immunological findings in serum, R79.89 - Other specified abnormal findings of blood chemistry Angiotensin Converting Enzyme Today M25.531 - Pain in right wrist, M65.4 - Radial styloid tenosynovitis [de Quervain], R76.8 - Other specified abnormal immunological findings in serum, R79.89 - Other specified abnormal findings of blood chemistry Aldolase Today M25.531 - Pain in right wrist, M65.4 - Radial styloid tenosynovitis [de Quervain], R76.8 - Other specified abnormal immunological findings in serum, R79.89 - Other specified abnormal findings of blood chemistry Protein Electrophoresis, Serum Today M25.531 - Pain in right wrist, M65.4 - Radial styloid tenosynovitis [de Quervain], R76.8 - Other specified abnormal immunological findings in serum, R79.89 - Other specified abnormal findings of blood chemistry Sjogren's Antibodies Today M25.531 - Pain in right wrist, M65.4 - Radial styloid tenosynovitis [de Quervain], R76.8 - Other specified abnormal immunological findings in serum, R79.89 - Other specified abnormal findings of blood chemistry Thyroid Stimulating Hormone Today M25.531 - Pain in right wrist, M65.4 - Radial styloid tenosynovitis [de Quervain], R76.8 - Other specified abnormal immunological findings in serum, R79.89 - Other specified abnormal findings of blood chemistry T Spot TB Today R79.89 - Other specified abnormal findings of blood chemistry, Z11.9 - Encounter for screening for infectious and parasitic diseases, unspecified UA w Microscopic Today M25.531 - Pain in right wrist, M65.4 - Radial styloid tenosynovitis [de Quervain], R76.8 - Other specified abnormal immunological findings in serum, R79.89 - Other specified abnormal findings of blood chemistry Liver Kidney Microsomal Ab Today M25.531 - Pain in right wrist, M65.4 - Radial styloid tenosynovitis [de Quervain], R76.8 - Other specified abnormal immunological findings in serum, R79.89 - Other specified abnormal findings of blood chemistry Transferrin Today D58.2 - Other hemoglobinopathies, R71.8 - Other abnormality of red blood cells, R79.89 - Other specified abnormal findings of blood chemistry Thyroglobulin Antibodies Today M25.531 - Pain in right wrist, M65.4 - Radial styloid tenosynovitis [de Quervain], R76.8 - Other specified abnormal immunological findings in serum, R79.89 - Other specified abnormal findings of blood chemistry Thyroid Peroxidase Antibodies Today M25.531 - Pain in right wrist, M65.4 - Radial styloid tenosynovitis [de Quervain], R76.8 - Other specified abnormal immunological findings in serum, R79.89 - Other specified abnormal findings of blood chemistry Coding Level of Care Code New Pt Level 4 (14565) Complex EM visit Add On G2211 Diagnoses Right wrist pain M25.531 De Quervain's tenosynovitis, right M65.4 Elevated ferritin, hemoglobin, and red blood cell count R79.89; D58.2; R71.8 Rheumatoid factor positive R76.8 Hypovitaminosis D E55.9
[2023-09-15 08:37] VITALS: BP 118/76; PULSE 97; O2SAT 96; BMI 36.7
== END 2023-09-15 09:29 | disposition home or self-care (01) ==
PROVIDERS: PCP Internal Medicine; Visit Provider Nurse Practitioner Family
DX: M25.531 Pain in right wrist (principal); M65.4 Radial styloid tenosynovitis [de Quervain]; R79.89 Other specified abnormal findings of blood chemistry; D58.2 Other hemoglobinopathies; R71.8 Other abnormality of red blood cells; R76.8 Other specified abnormal immunological findings in serum; E55.9 Vitamin D deficiency, unspecified
CPT/HCPCS: 99204; G2211

== ENCOUNTER → 2023-09-15 08:29 | Outpatient (BNVA) | payer OTHER, SELFPAY | PROVIDERS: PCP Internal Medicine; Visit Provider Nurse Practitioner Family | DX: M25.531 Pain in right wrist (principal); M65.4 Radial styloid tenosynovitis [de Quervain]; R76.8 Other specified abnormal immunological findings in serum; R79.89 Other specified abnormal findings of blood chemistry; R71.8 Other abnormality of red blood cells; D58.2 Other hemoglobinopathies; E55.9 Vitamin D deficiency, unspecified | CPT/HCPCS: 99202 ==

== ENCOUNTER 2023-09-15 09:37 | Outpatient (REF) | payer OTHER, SELFPAY ==
[2023-09-15 10:22] LABS: MANUAL DIFF FLAG NO
[2023-09-15 10:28] LABS: Basophils Percent Auto 0.4 % (0-2); Eosinophils Absolute Auto 0.1 X10*3/uL (0.0-0.4); Eosinophils Percent Auto 1.4 % (0-4); Hematocrit 44.9 % (37.0-47.0); Hemoglobin 15.7 g/dl (12.0-16.0); Imm Gran Abs Auto 0.01 X10*3/uL (0.00-0.03); Imm Gran Pct Auto 0.1 % (0.0-0.4); Lymphocytes Percent Auto 13.5 % (20-40); Mean Corpuscular Hemoglobin 29.3 pg (27.0-33.0); Mean Corpuscular Volume 83.8 fL (80.0-98.0); Mean Platelet Volume 11.2 fL (9.4-12.3); Monocytes Absolute Auto 0.5 X10*3/uL (0.1-1.2); Monocytes Percent Auto 7.6 % (2-11); Neutrophils Absolute Auto 5.5 x10*3/uL (2.0-8.3); Platelet Count 228 X10*3/uL (160-400); Red Blood Count 5.36 X10*6/uL (4.20-5.50); Red Cell Distribution Width 12.1 % (11.0-16.0); White Blood Count 7.1 X10*3/uL (4.8-10.8)
[2023-09-15 10:48] LABS: Alanine Aminotransferase 70 U/L (0-31); Albumin Level 4.4 g/dL (3.5-5.0); Alkaline Phosphatase 46 U/L (39-117); Anion Gap 11 (12-20); Aspartate Amino Transferase 35 U/L (5-31); Bilirubin Total 0.5 mg/dL (0.0-1.0); Blood Urea Nitrogen 5 mg/dL (9-16); C Reactive Protein 0.11 mg/dL (< or = 0.50); Calcium 9.6 mg/dL (8.4-10.2); Carbon Dioxide 26 mmol/L (22-29); Chloride 107 mmol/L (96-108); Estimated Glomerular Filt Rate > 60; Glucose Random 82 mg/dL (60-115); Sodium 140 mmol/L (135-145); Total Protein 7.5 g/dL (6.5-8.0)
[2023-09-15 11:08] LABS: Erythrocyte Sedimentation Rate 6 MM/HR (0-20)
[2023-09-15 11:15] LABS: HBS Num1 12.55 mIU/mL (0-7.99); Hepatitis B Core Antibody Nonreactive (Nonreactive); Hepatitis B Surface Antigen Negative (Negative); ~HepC Num1 0.18 S/CO (0.00-0.79); ~Hepatitis A Antibody IgM Nonreactive (Nonreactive); ~Hepatitis B Surface Antibody REACTIVE (Nonreactive); ~Hepatitis C Antibody Nonreactive (Nonreactive)
[2023-09-16 11:48] LABS: Complement C3 155 mg/dL (83-193)
[2023-09-16 19:48] LABS: SM/Ribonucleoprotein Ab <1.0 NEG AI (<1.0 NEG); Smith Protein <1.0 NEG AI (<1.0 NEG)
[2023-09-17 16:42] LABS: IgA 412 mg/dL (47-310); IgG 844 mg/dL (600-1640); IgM 135 mg/dL (50-300)
== END 2023-09-15 09:38 | disposition home or self-care (01) ==
LOC: HO.10HDL 09:37
PROVIDERS: Visit Provider Nurse Practitioner Family
DX: M65.4 Radial styloid tenosynovitis [de Quervain] (principal); M25.531 Pain in right wrist; R76.8 Other specified abnormal immunological findings in serum; R79.89 Other specified abnormal findings of blood chemistry; Z11.9 Encounter for screening for infectious and parasitic diseases, unspecified
CPT/HCPCS: 36415; 80053; 82550; 82784; 85025; 85652; 86140; 86160; 86235; 86334; 86704; 86706; 86709; 86803; 87340

== ENCOUNTER 2023-10-25 11:35 | Outpatient (AMB) | payer OTHER, SELFPAY ==
[2023-10-25 11:38] VITALS: BP 130/80; PULSE 82; TEMP 36.6; O2SAT 98; BMI 36.6
--- NOTE | 2023-10-25 11:38 | MHC.OFFWIV ---
Intake Vital Signs 10/25/23 11:38 Height 4 ft 11 in Weight 181 lb BMI 36.6 BP 130/80 Blood Pressure Location Rt brachial Position Sitting Pulse 82 Pulse Source Pulse Oximeter Temp 97.9 F Temp Source Oral Pulse Oximetry (%) 98 Intake Visit Reasons: EP/ Lt leg cyst Intake Note: pt is here for left upper thigh, pt states there is a cyst and its painful Patient Tobacco Use Status: Never used Tobacco Allergies No Known Allergies Allergy (Verified 10/25/23 11:49) Medication List - Last Reconciled 10/25/23 by ARIANNA Escalona etonogestrel (Nexplanon) subdermal hydroxyzine HCl 25 mg PO BEDTIME PRN Do you need a note to return to daycare/school/sports/work: Yes HPI HPI Comments History of Present Illness Details PLEASANT 33-YEAR-OLD FEMALE HERE TODAY WITH A RECURRENT CYST TO THE INSIDE OF HER LEFT THIGH. Reports that she had this same area several months ago. She was seen at another urgent care and given antibiotics. The area resolved until recently when it returned. The area is painful. There is no drainage. She does not smoke. 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 On the inside of the left buttocks is a raised cystic area, overlying skin is pink, tender to touch, no extending erythema or drainage Plan Appears to be a hidradenitis suppurativa cyst. Advised to avoid friction and shear. Keep the skin clean and dry. Can use a Sitz bath using Epsom salt and or reduced bleach. Take antibiotics as directed. If this continues to be a recurrent issue recommended a follow up with primary care to request a dermatology referral. This note is constructed using voice recognition software. While every effort has been made to ensure accuracy in director market research, still errors may have been included Sometimes, these errors may affect the content or meaning of the given sentence . [facility] Medical History (Updated 10/25/23 @ 11:56 by ARIANNA Escalona) Elevated ferritin, hemoglobin, and red blood cell count Hypovitaminosis D Screening examination for infectious disease Rheumatoid factor positive Fatty liver disease, nonalcoholic Surgical History Previous section Family History Mother No problems noted. 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 Medications: New doxycycline hyclate 100 mg PO BID 10 days 20 caps 0RF Coding Level of Care Code Est Pt Level 3 (15781) Diagnoses Hidradenitis L73.2
== END 2023-10-25 12:13 | disposition home or self-care (01) ==
PROVIDERS: PCP Internal Medicine; Visit Provider Nurse Practitioner Family
DX: L73.2 Hidradenitis suppurativa (principal)
CPT/HCPCS: 99051; 99213

== ENCOUNTER 2023-11-12 12:50 | Outpatient (AMB) | payer OTHER, SELFPAY ==
--- NOTE | 2023-11-12 12:55 | MHC.OFFVIS ---
Vital Signs 11/12/23 12:56 Height 4 ft 11 in Weight 183 lb 3.266 oz BMI 37.0 BP 118/78 Blood Pressure Location Lt brachial Position Sitting Pulse 96 Pulse Source Pulse Oximeter Pulse Oximetry (%) 98 Oxygen Delivery Method Room Air Intake Visit Reasons: De Quervain's tenosynovitis, right Intake Note: Patient is here for re-evaluate on De Quervain's tenosunvitis, right side, patient states the pain won't go away. Allergies No Known Allergies Allergy (Verified 11/12/23 13:00) Medication List - Last Reconciled 11/12/23 by Ama Jimenez MD doxycycline hyclate 100 mg PO BID 10 days etonogestrel (Nexplanon) subdermal hydroxyzine HCl 25 mg PO BEDTIME PRN HPI Comments Details: This is a 33-year-old female who presents for follow-up of right wrist pain. The pain is on the radial aspect of her right wrist. She also had tingling numbness of hands. Patient has had her wrist pain for more than 6 months now, she was evaluated by Dr. Mayra Parish and had a steroid injection for de Quervain tenosynovitis as well as an injection for carpal tunnel syndrome. She stated that the injection helped only very briefly. Her labs showed a positive rheumatoid factor. Her mother has rheumatoid arthritis. Patient was given a prednisone taper by Lillie Miranda last visit. She stated that it only provided short-term relief. She continues to have the same pain. She Not have pain or swelling in any other joint. She denies any skin rashes, fevers or weight loss. 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 Cognitive needs: No Hearing needs: No Vision needs: No Review of Systems Musc Reports arthralgias and Reports limited range of motion Physical Exam Vital Signs: Last Vital Signs Pulse 96 11/12/23 12:56 BP 118/78 11/12/23 12:56 Pulse Ox 98 11/12/23 12:56 Oxygen Delivery Method Room Air 11/12/23 12:56 BMI result Body Mass Index 37.0 Const General: cooperative, healthy appearing and comfortable Nutritional Appearance: obese morbidly obese Orientation/consciousness: patient oriented x3 Limitations: no limitations HEENT Head: Yes normocephalic and Yes atraumatic Mouth: moist mucous membranes Resp Effort & Inspection: normal respiratory effort and able to speak in complete sentences Auscultation: clear to auscultation bilaterally Cardio Rate: regular rate Rhythm: regular rhythm Skin General skin exam: no rashes or lesions noted Neuro General: patient oriented x3 Extrem Other: Minimal right wrist swelling radially Positive Abram's test on the right 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 TECHNIQUE: PA, lateral, and oblique views of the right hand. FINDINGS: The bones and soft tissues are normal. No fracture. Alignment is anatomic. Joint spaces are maintained. No erosions or soft tissue calcifications. XR/XR hand RT min 3V IMPRESSION: Normal right hand. Assessment & Plan Assessment & Plan (1) Right wrist pain: Code(s): M25.531 - Pain in right wrist Category: Medical Plan: This is a 33-year-old female who presents for evaluation of chronic right wrist pain. Patient has had a steroid injection for de Quervain tenosynovitis as well as a steroid injection for right carpal tunnel syndrome. She states that injection only provided short-term relief. She also was prescribed a prednisone taper for relief. She states that it provides short term relief. Her labs showed a positive rheumatoid factor. Her mother has rheumatoid arthritis. Clinically, patient has de Quervain tenosynovitis. Her hand x-ray was unremarkable. I discussed the nature of this condition. It isn't overuse tendonitis. Advised patient to try to rest her hand as much as possible and use a thumb splint. Apply Voltaren gel topically. I do not see any other involved joints or tendons that would suggest active rheumatoid arthritis. I will order a right wrist MRI for further evaluation Follow-up in about 2 months (2) Elevated LFTs: Code(s): R79.89 - Other specified abnormal findings of blood chemistry Category: Medical Plan I spent 30 minutes reviewing patient's chart, evaluating patient, ordering diagnostic workup, counseling patient and documenting in the chart Orders: Orders Ferritin Today D58.2 - Other hemoglobinopathies, R71.8 - Other abnormality of red blood cells, R79.89 - Other specified abnormal findings of blood chemistry Protein Electrophoresis, Serum Today M25.531 - Pain in right wrist, M65.4 - Radial styloid tenosynovitis [de Quervain], R76.8 - Other specified abnormal immunological findings in serum, R79.89 - Other specified abnormal findings of blood chemistry Scleroderma 70 Antibody Today M25.531 - Pain in right wrist, M65.4 - Radial styloid tenosynovitis [de Quervain], R76.8 - Other specified abnormal immunological findings in serum, R79.89 - Other specified abnormal findings of blood chemistry Sjogren's Antibodies Today M25.531 - Pain in right wrist, M65.4 - Radial styloid tenosynovitis [de Quervain], R76.8 - Other specified abnormal immunological findings in serum, R79.89 - Other specified abnormal findings of blood chemistry Smooth Muscle Antibody 09/15/23 R79.89 - Other specified abnormal findings of blood chemistry Thyroid Peroxidase Antibodies Today E07.9 - Disorder of thyroid, unspecified UA w Microscopic Today M32.9 - Systemic lupus erythematosus, unspecified DEENA Reflex Titer and Pattern 09/15/23 M25.531 - Pain in right wrist, M65.4 - Radial styloid tenosynovitis [de Quervain], R76.8 - Other specified abnormal immunological findings in serum, R79.89 - Other specified abnormal findings of blood chemistry Complement C4 Today M25.531 - Pain in right wrist, M65.4 - Radial styloid tenosynovitis [de Quervain], R76.8 - Other specified abnormal immunological findings in serum, R79.89 - Other specified abnormal findings of blood chemistry Cyclic Citrullinated Peptide Today M25.531 - Pain in right wrist IRON PROFILE Today D58.2 - Other hemoglobinopathies, R71.8 - Other abnormality of red blood cells, R79.89 - Other specified abnormal findings of blood chemistry Liver Kidney Microsomal Ab Today R79.89 - Other specified abnormal findings of blood chemistry Mitochondrial Antibody Today M25.531 - Pain in right wrist, M65.4 - Radial styloid tenosynovitis [de Quervain], R76.8 - Other specified abnormal immunological findings in serum, R79.89 - Other specified abnormal findings of blood chemistry T Spot TB 09/15/23 Z11.7 - Encounter for testing for latent tuberculosis infection Thyroglobulin Antibodies Today E07.9 - Disorder of thyroid, unspecified Transferrin Today D58.2 - Other hemoglobinopathies, R71.8 - Other abnormality of red blood cells, R79.89 - Other specified abnormal findings of blood chemistry Protein Creatinine Ratio, Ur Today M32.9 - Systemic lupus erythematosus, unspecified MR wrist RT wo con Today M25.531 - Pain in right wrist Coding Level of Care Code Est Pt Level 4 (17467) Diagnoses Right wrist pain M25.531 Elevated LFTs R79.
[2023-11-12 12:56] VITALS: BP 118/78; PULSE 96; O2SAT 98; BMI 37.0
== END 2023-11-12 13:24 | disposition home or self-care (01) ==
PROVIDERS: PCP Internal Medicine; Visit Provider Student in an Organized Health Care Education/Training Program
DX: M25.531 Pain in right wrist (principal); R79.89 Other specified abnormal findings of blood chemistry
CPT/HCPCS: 99214

== ENCOUNTER → 2023-11-12 12:50 | Outpatient (BNVA) | payer OTHER, SELFPAY | PROVIDERS: PCP Internal Medicine; Visit Provider Student in an Organized Health Care Education/Training Program | DX: M25.531 Pain in right wrist (principal); G56.01 Carpal tunnel syndrome, right upper limb; G89.29 Other chronic pain; M65.4 Radial styloid tenosynovitis [de Quervain]; R79.89 Other specified abnormal findings of blood chemistry | CPT/HCPCS: 99212 ==

== ENCOUNTER 2023-11-18 07:27 | Outpatient (REF) | payer OTHER, SELFPAY ==
[2023-11-18 08:26] LABS: Iron 88 mcg/dL (30-160); Percent Iron Saturation 35 % (15-50); Total Iron Binding Capacity 252 mcg/dL (228-428); Unsaturated Iron Binding 164 ug/dL
[2023-11-18 08:41] LABS: Ferritin 193 ng/mL (10-122); Thyroid Stimulating Hormone 0.97 uIU/mL (0.32-4.0)
[2023-11-18 08:46] LABS: Appearance Urine Clear; Color Urine Yellow; Glucose Urine UA Negative (Negative); Leukocyte Esterase Urine Small (1+) (Negative); Nitrite Urine Negative (Negative); Specific Gravity - Urine 1.025 (1.005-1.025); UMIC TRIGGER UA YES; Urine Blood Negative (Negative); Urine Ketones Trace mg/dL (Negative); Urine Protein Trace mg/dL (Neg-Trace)
[2023-11-18 09:07] LABS: Bacteria Urine 2+ (None Seen); Hyaline Casts Urine 0-2 /LPF (0-2); RBC Urine 0-2 /HPF (0-2); WBC Urine 0-5 /HPF (0-5)
[2023-11-18 09:10] LABS: Creatinine Urine 199.16 mg/dL; Protein/Creatinine Ratio, Ur 0.08 (<0.2); Total Protein Urine Random 16 mg/dL (<12)
[2023-11-19 10:14] LABS: Transferrin 230 mg/dL (188-341)
[2023-11-19 10:58] LABS: Thyroglobulin Antibodies <1 IU/mL (< or = 1); Thyroid Peroxidase Antibodies <1 IU/mL (<9)
[2023-11-19 18:34] LABS: Anti DNA DS Antibody <1 IU/mL
[2023-11-19 20:38] LABS: Antibody to SS-A Antigen <1.0 NEG AI (<1.0 NEG); Antibody to SS-B Antigen <1.0 NEG AI (<1.0 NEG); Scleroderma 70 Antibody <1.0 NEG AI (<1.0 NEG)
[2023-11-20 14:14] LABS: Cyclic Citrullinated Peptide <16 UNITS
[2023-11-21 11:32] LABS: Prot Elec - Alpha1 0.3 g/dL (0.2-0.3); Prot Elec - Alpha2 0.7 g/dL (0.5-0.9); Prot Elec - Beta 1 0.5 g/dL (0.4-0.6); Prot Elec - Beta 2 0.5 g/dL (0.2-0.5); Prot Elec - Gamma 0.9 g/dL (0.8-1.7); Prot Elec - Total Protein 6.8 g/dL (6.1-8.1)
[2023-11-21 12:47] LABS: Mitochondrial Antibodies NEGATIVE (NEGATIVE)
[2023-11-21 17:12] LABS: TS Negative Control Passed; TS Panel A 2; TS Panel B 1; TS Positive Control Passed; TSpotTB Negative (Negative)
[2023-11-23 14:43] LABS: Vitamin D 25-OH, D2 <4 ng/mL; Vitamin D 25-OH, D3 21 ng/mL; Vitamin D 25-OH, Total 21 ng/mL (30-100)
[2023-11-23 16:04] LABS: Smooth Muscle Antibody <20 U (<20)
[2023-11-24 22:09] LABS: Aldolase 4.6 U/L (<=8.1)
[2023-11-25 13:49] LABS: Liver Kidney Microsomal Ab <=20.0 U (<=20.0)
[2023-11-25 20:03] LABS: Anti Nuclear Antibody Pattern Nuclear, Homogeneous; Anti Nuclear Antibody Screen POSITIVE (NEGATIVE)
== END 2023-11-18 07:28 | disposition home or self-care (01) ==
LOC: HO.LAB 07:27
PROVIDERS: Nurse Practitioner Family; PCP Physician Assistant; Visit Provider Student in an Organized Health Care Education/Training Program
DX: Z11.7 Encounter for testing for latent tuberculosis infection (principal); M32.9 Systemic lupus erythematosus, unspecified; M65.4 Radial styloid tenosynovitis [de Quervain]; M25.531 Pain in right wrist; R79.89 Other specified abnormal findings of blood chemistry; D58.2 Other hemoglobinopathies; E07.9 Disorder of thyroid, unspecified; E55.9 Vitamin D deficiency, unspecified; R76.8 Other specified abnormal immunological findings in serum
CPT/HCPCS: 36415; 81001; 82085; 82306; 82570; 82728; 83540; 84156; 84165; 84443; 84466; 86015; 86038; 86039; 86160; 86200; 86225; 86235; 86376; 86381; 86481; 86800

== ENCOUNTER 2023-12-11 16:36 | Outpatient (REF) | payer OTHER, SELFPAY ==
--- NOTE | ~2023-12-11 | MR_ITS ---
EXAMINATION: MR WRIST WITHOUT CONTRAST, RIGHT CLINICAL INFORMATION: Right wrist pain and swelling. Worsening. COMPARISON: Right wrist radiographs dated 11/03/2022. TECHNIQUE: MRI of the wrist was performed using routine sequences on a high-field scanner. FINDINGS: TRIANGULAR FIBROCARTILAGE: Intact. INTRINSIC LIGAMENTS: Intact. TENDONS/MEDIAN NERVE: Trace fluid within the extensor carpi radialis brevis, extensor carpal radialis longus, and extensor pollicis brevis tendon sheath, consistent with minimal tenosynovitis. A transverse tendon tear or tendon retraction. Intact median nerve. ARTICULAR CARTILAGE/BONE: No acute fracture or dislocation. No marrow edema or evidence of acute osseous injury. Normal carpal alignment. Intact articular cartilage. No concerning lytic or blastic osseous lesion. JOINT FLUID/SOFT TISSUES: Trace radiocarpal joint effusion. Small synovial recess versus ganglion cyst dorsal to the scapholunate articulation measuring up to 0.5 cm. No soft tissue mass. MR/MR wrist RT wo con IMPRESSION: 1. Trace fluid within the extensor carpi radialis brevis, extensor carpal radialis longus, and extensor pollicis brevis tendon sheath, consistent with minimal tenosynovitis. No transverse tendon tear or tendon retraction. 2. Trace radiocarpal joint effusion. Synovial recess versus ganglion cyst dorsal to the scapholunate articulation measuring 0.5 cm. 3. No acute osseous injury. Electronically signed by: Matthew Jo MD 12/12/2023 01:29 PM EDT
== END 2023-12-11 16:37 | disposition home or self-care (01) ==
LOC: HO.MRI 16:36
PROVIDERS: PCP Physician Assistant; Visit Provider Student in an Organized Health Care Education/Training Program
DX: M25.531 Pain in right wrist (principal)
CPT/HCPCS: 73221

== ENCOUNTER 2023-12-23 07:32 | Outpatient (AMB) | payer OTHER, SELFPAY ==
--- NOTE | 2023-12-23 07:35 | A.OFFVIS_ITS ---
Vital Signs 12/23/23 07:39 Height 4 ft 11 in Weight 180 lb 1.883 oz BMI 36.4 BP 120/72 Blood Pressure Location Rt brachial Position Sitting Pulse 72 Pulse Source Pulse Oximeter Pulse Oximetry (%) 97 Oxygen Delivery Method Room Air Intake Visit Reasons: De Quervain tenosynovitis Intake Note: Patient presents for De Quervain Tenosynovitis. Allergies No Known Allergies Allergy (Verified 12/23/23 07:38) Medication List - Last Reconciled 12/23/23 by Ama Jimenez MD doxycycline hyclate 100 mg PO BID 10 days etonogestrel (Nexplanon) subdermal hydroxyzine HCl 25 mg PO BEDTIME PRN [thumb spica Wear nightly and as much as possible throughout the day] HPI Comments Details: Patient returns for follow-up after completion of her right wrist MRI. She continues to feel about the same. Continues to have right wrist pain. Initial history: This is a 33-year-old female who presents for follow-up of right wrist pain. The pain is on the radial aspect of her right wrist. She also had tingling numbness of hands. Patient has had her wrist pain for more than 6 months now, she was evaluated by Dr. Mayra Parish and had a steroid injection for de Quervain tenosynovitis as well as an injection for carpal tunnel syndrome. She stated that the injection helped only very briefly. Her labs showed a positive rheumatoid factor. Her mother has rheumatoid arthritis. Patient was given a prednisone taper by Lillie Miranda last visit. She stated that it only provided short-term relief. She continues to have the same pain. She Not have pain or swelling in any other joint. She denies any skin rashes, fevers or weight loss. 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 Cognitive needs: No Hearing needs: No Vision needs: No Female Reproductive History Menstrual Total pregnancies: 4 Full term: 2 Ab induced: 1 Ab spontaneous: 1 Review of Systems Musc Reports arthralgias and Reports limited range of motion Physical Exam Vital Signs: Last Vital Signs Pulse 72 12/23/23 07:39 BP 120/72 12/23/23 07:39 Pulse Ox 97 12/23/23 07:39 Oxygen Delivery Method Room Air 12/23/23 07:39 BMI result Body Mass Index 36.4 Const General: cooperative, healthy appearing and comfortable Nutritional Appearance: obese morbidly obese Orientation/consciousness: patient oriented x3 Limitations: no limitations HEENT Head: Yes normocephalic and Yes atraumatic Mouth: moist mucous membranes Resp Effort & Inspection: normal respiratory effort and able to speak in complete sentences Cardio Rate: regular rate Rhythm: regular rhythm Skin General skin exam: no rashes or lesions noted Neuro General: patient oriented x3 Extrem Other: Minimal right wrist swelling radially Right wrist tenderness and significant pain with flexion-extension Positive Abram's test on the right Normal range of motion of elbows and shoulders without pain No knee pain with flexion-extension Normal nailfold capillaroscopy Results Reviewed Results Reviewed: EXAMINATION: MR WRIST WITHOUT CONTRAST, RIGHT CLINICAL INFORMATION: Right wrist pain and swelling. Worsening. COMPARISON: Right wrist radiographs dated 11/03/2022. TECHNIQUE: MRI of the wrist was performed using routine sequences on a high-field scanner. FINDINGS: TRIANGULAR FIBROCARTILAGE: Intact. INTRINSIC LIGAMENTS: Intact. TENDONS/MEDIAN NERVE: Trace fluid within the extensor carpi radialis brevis, extensor carpal radialis longus, and extensor pollicis brevis tendon sheath, consistent with minimal tenosynovitis. A transverse tendon tear or tendon retraction. Intact median nerve. ARTICULAR CARTILAGE/BONE: No acute fracture or dislocation. No marrow edema or evidence of acute osseous injury. Normal carpal alignment. Intact articular cartilage. No concerning lytic or blastic osseous lesion. JOINT FLUID/SOFT TISSUES: Trace radiocarpal joint effusion. Small synovial recess versus ganglion cyst dorsal to the scapholunate articulation measuring up to 0.5 cm. No soft tissue mass. MR/MR wrist RT wo con IMPRESSION: 1. Trace fluid within the extensor carpi radialis brevis, extensor carpal radialis longus, and extensor pollicis brevis tendon sheath, consistent with minimal tenosynovitis. No transverse tendon tear or tendon retraction. 2. Trace radiocarpal joint effusion. Synovial recess versus ganglion cyst dorsal to the scapholunate articulation measuring 0.5 cm. 3. No acute osseous injury. Electronically signed by: Matthew Jo MD 12/12/2023 Assessment & Plan Assessment & Plan (1) Seropositive rheumatoid arthritis: Comment: ++RF -ve CCP dx 11/2023 Code(s): M05.9 - Rheumatoid arthritis with rheumatoid factor, unspecified Category: Medical Plan: This is a 33-year-old female who presents for evaluation of chronic right wrist pain. Patient has had a steroid injection for de Quervain tenosynovitis as well as a steroid injection for right carpal tunnel syndrome. Injection only provided short-term relief. She also was prescribed a prednisone taper for relief. She states that it provides short term relief. Her labs showed a positive rheumatoid factor. Her mother has rheumatoid arthritis. Her right wrist MRI was consistent with inflammatory arthritis. Clinical picture consistent with new onset seropositive rheumatoid arthritis and we will need to start DMARDs. Patient has chronically elevated LFTs and DMARDs such as methotrexate, leflunomide, sulfasalazine can not be used. Discussed risks and benefits of Enbrel. Patient agreed to proceed. Start prior authorization for Enbrel Labs before next visit in 3 months (2) High risk medication use: Code(s): Z79.899 - Other half-way (current) drug therapy Category: Medical Plan: Side effects of Enbrel were discussed with the patient in detail including increased risk of infection, demyelinating disease, reactivation of latent TB, possible increased risk of solid and skin tumors. Patient fully aware. Advised patient to seek medical care ANDREW if patient has an infection and advised patient to stop the medication until the infection is resolved. Plan I spent 24 minutes reviewing patient's chart, evaluating patient, ordering diagnostic workup, counseling patient and documenting in the chart Orders: Orders Comprehensive Met. Panel 3 Months M05.9 - Rheumatoid arthritis with rheumatoid factor, unspecified C Reactive Protein 3 Months M05.9 - Rheumatoid arthritis with rheumatoid factor, unspecified Erythrocyte Sedimentation Rate 3 Months M05.9 - Rheumatoid arthritis with rheumatoid factor, unspecified Complete Blood Count Auto Diff 3 Months M05.9 - Rheumatoid arthritis with rheumatoid factor, unspecified Medications: New Enbrel SureClick (etanercept) 50 mg subcut QWEEK 4 mL 2RF NS Coding Level of Care Code Est Pt Level 4 (63595) Diagnoses Seropositive rheumatoid arthritis M05.9 High risk medication use Z79.899
[2023-12-23 07:39] VITALS: BP 120/72; PULSE 72; O2SAT 97; BMI 36.4
== END 2023-12-23 08:01 | disposition home or self-care (01) ==
PROVIDERS: PCP Physician Assistant; Visit Provider Student in an Organized Health Care Education/Training Program
DX: M05.79 Rheumatoid arthritis with rheumatoid factor of multiple sites without organ or systems involvement (principal); Z79.899 Other long term (current) drug therapy; M65.4 Radial styloid tenosynovitis [de Quervain]
CPT/HCPCS: 99214

== ENCOUNTER → 2023-12-23 07:32 | Outpatient (BNVA) | payer OTHER, SELFPAY | PROVIDERS: PCP Physician Assistant; Visit Provider Student in an Organized Health Care Education/Training Program | DX: M05.9 Rheumatoid arthritis with rheumatoid factor, unspecified (principal); Z79.899 Other long term (current) drug therapy | CPT/HCPCS: 99212 ==

== ENCOUNTER 2024-02-10 16:46 | Outpatient (REF) | payer OTHER, SELFPAY ==
--- NOTE | ~2024-02-10 | XR_ITS ---
EXAMINATION: XR CHEST CLINICAL INFORMATION: Chest pain unspecified COMPARISON: None available. TECHNIQUE: 2 views of the chest were obtained. FINDINGS: Lungs clear. No pleural effusions. Heart and pulmonary vessels are normal. XR/XR chest 2V IMPRESSION: No active disease. Electronically signed by: Cornelius Artis MD 02/10/2024 05:54 PM [facility]
== END 2024-02-10 16:47 | disposition home or self-care (01) ==
LOC: HO.XRAY 16:46
PROVIDERS: PCP Physician Assistant; Visit Provider Physician Assistant
DX: R07.9 Chest pain, unspecified (principal)
CPT/HCPCS: 71046

== ENCOUNTER → 2024-02-11 15:47 | Outpatient (REF) | payer OTHER, SELFPAY ==
--- NOTE | 2024-02-11 15:49 | ECG_ITS ---
Test Reason : CHEST PAIN Blood Pressure : / mmHG Vent. Rate : 082 BPM Atrial Rate : 082 BPM P-R Int : 130 ms QRS Dur : 080 ms QT Int : 366 ms P-R-T Axes : 023 023 005 degrees QTc Int : 427 ms Normal sinus rhythm Nonspecific ST and T wave abnormality Abnormal ECG No previous ECGs available Referred By: Darren Carias Electronically Signed By:Weston Ramesh
[2024-02-11 17:03] LABS: Hematocrit 43.1 % (37.0-47.0); Hemoglobin 14.8 g/dl (12.0-16.0); Mean Corpuscular HGB Conc 34.3 g/dl (31.0-35.0); Mean Corpuscular Hemoglobin 28.7 pg (27.0-33.0); Mean Corpuscular Volume 83.7 fL (80.0-98.0); Mean Platelet Volume 11.6 fL (9.4-12.3); Platelet Count 190 X10*3/uL (160-400); Red Blood Count 5.15 X10*6/uL (4.20-5.50); Red Cell Distribution Width 12.3 % (11.0-16.0); White Blood Count 6.9 X10*3/uL (4.8-10.8)
[2024-02-11 17:38] LABS: Anion Gap 14 (12-20); Blood Urea Nitrogen 9 mg/dL (9-16); Calcium 9.5 mg/dL (8.4-10.2); Carbon Dioxide 20 mmol/L (22-29); Chloride 107 mmol/L (96-108); Estimated Glomerular Filt Rate > 60; Glucose Random 138 mg/dL (60-115); Sodium 137 mmol/L (135-145)
[2024-02-11 17:54] LABS: TSH reflex Free T4 0.81 uIU/mL (0.32-4.0)
== END ==
LOC: HO.CARD 15:47
PROVIDERS: PCP Physician Assistant; Visit Provider Physician Assistant
DX: R07.9 Chest pain, unspecified (principal); R00.0 Tachycardia, unspecified
CPT/HCPCS: 36415; 80048; 84443; 85027; 93005

== ENCOUNTER → 2024-02-11 15:49 | Outpatient (BNV) | payer OTHER, SELFPAY | PROVIDERS: PCP Physician Assistant; Visit Provider Internal Medicine Cardiovascular Disease | DX: R07.9 Chest pain, unspecified (principal) | CPT/HCPCS: 93010 ==

== ENCOUNTER 2024-02-12 18:30 | Emergency (ER) | payer OTHER, SELFPAY ==
--- NOTE | ~2024-02-12 | XR_ITS ---
EXAMINATION: XR CHEST CLINICAL INFORMATION: Chest pain COMPARISON: 02/10/2024 TECHNIQUE: Frontal view of the chest was obtained. FINDINGS: No focal consolidation, pulmonary edema, or pleural effusion. Stable cardiomediastinal silhouette. XR/XR chest 1V IMPRESSION: No acute cardiopulmonary findings. Electronically signed by: Fred Isaac MD 02/12/2024 07:44 PM [facility]
--- NOTE | 2024-02-12 18:31 | ECG_ITS ---
Test Reason : cp Blood Pressure : / mmHG Vent. Rate : 078 BPM Atrial Rate : 078 BPM P-R Int : 130 ms QRS Dur : 078 ms QT Int : 366 ms P-R-T Axes : 045 027 011 degrees QTc Int : 417 ms Normal sinus rhythm Normal ECG When compared with ECG of 11-FEB-2024 15:46, No significant change was found Referred By: Randa Vance Electronically Signed By:Weston Ramesh
[2024-02-12 18:44] VITALS: BP 129/63; PULSE 81; RESP 20; TEMP 36.8; O2SAT 100; BMI 37.2
--- NOTE | 2024-02-12 18:44 | ED_ITS ---
HPI - Chest Pain General Chief Complaint: Chest Pain Stated Complaint: chest pain, abnormal ekg 02/10 Time Seen by Provider: 02/13/24 00:10 Source: patient, RN notes reviewed and old records reviewed Mode of arrival: ambulatory Limitations: no limitations History of Present Illness ED Provider: [place] [facility] narrative: 33-year-old female with past medical history significant for tachycardia, hidradenitis, fatty liver, anxiety and depression presents for evaluation of left-sided chest pain. Patient reports chest pain that started 2 days ago Her pain is constant, left-sided. She reports some numbness in her left arm. The pain is worse with movement She denies any other associated symptoms including palpitations, shortness of breath, cough. She denies any heavy lifting or injury to her chest. Her pain is 7/10. She went to her primary doctor yesterday and had labs, EKG, chest x-ray. She was told she had an abnormal EKG but otherwise everything was unremarkable. Related Data Home Medications ?Medication ?Instructions ?Recorded ?Confirmed etonogestrel 68 mg subdermal subdermal 10/25/22 11/12/23 implant (Nexplanon) Previous Rx's ?Medication ?Instructions ?Recorded doxycycline hyclate 100 mg capsule 100 mg PO BID 10 days #20 caps 10/25/23 thumb spica #1 ea 11/24/23 Enbrel SureClick 50 mg/mL (1 mL) 50 mg subcut QWEEK #4 mL 01/22/24 subcutaneous pen injector (etanercept) hydroxyzine HCl 25 mg tablet 25 mg PO BEDTIME PRN anxiety #30 02/09/24 tabs Allergies Allergy/AdvReac Type Severity Reaction Status Date / Time No Known Allergies Allergy Verified 02/12/24 18:45 Review of Systems 2 Constitutional: Constitutional: Denies body ache(s), Denies chills and Denies headache(s) Eyes: Eyes: Denies blurry vision ENT: Denies vertigo, Denies dizziness and Denies headache(s) Cardiovascular: Cardiovascular: Reports chest pain, Denies rapid heart rate, Denies leg edema, Denies dyspnea and Denies dyspnea on exertion Respiratory: Respiratory: Denies cough, Denies dyspnea and Denies dyspnea on exertion Gastrointestinal: Gastrointestinal: Denies abdominal pain, Denies nausea and Denies vomiting Musculoskeletal: Musculoskeletal: Denies back pain, Denies arthralgias, Denies joint swelling, Denies limited range of motion, Reports numbness and Reports radiating pain into limb Integumentary/Breasts: Skin/Breast: Denies rash Neurologic: Denies vertigo, Denies dizziness, Denies headache(s) and Reports numbness Psychiatric: Psychiatric: Reports anxiety [facility] Past Medical History Medical History (Updated 02/13/24 @ 00:20 by Vito Bojorquez) Hypovitaminosis D Screening examination for infectious disease Fatty liver disease, nonalcoholic Surgical History Previous section Family History Family History Mother Rheumatoid arthritis Father Diabetes Social History Social History Housing: House Unable to assess alcohol history related to: Unknown Alcohol intake: never Patient Tobacco Use Status: Never used Tobacco e-Cigarette/Vaping Use: Never Used Use of substances other than those prescribed or required for medical reasons: Unknown Advance Directives: No Advance Directives Information Provided: No service: No Current occupational status: employed 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 Cognitive needs: No Hearing needs: No Vision needs: No Physical Exam 2 Vital Signs: Vital Signs: Last Vital Signs Temp 98 F 02/12/24 22:42 Pulse 67 02/12/24 22:42 Resp 18 02/12/24 22:42 BP 116/65 02/12/24 22:42 Pulse Ox 100 02/12/24 22:42 O2 Del Method Room Air 02/12/24 22:42 BMI result Body Mass Index 37.2 Const: General: healthy appearing, comfortable, no acute distress, alert and awake Nutritional Appearance: well nourished Orientation/consciousness: p atient oriented x3 HEENT: Head: Yes normocephalic and Yes atraumatic Eyes: Eyelids: Yes eyelids normal Conjunctivae: conjunctivae normal S clerae: sclerae normal Corneas: corneas normal Pupils: Equal, round and reactive pupils present EOM: EOMs intact bilaterally Neck: Neck: Yes full ROM Resp: Effort & Inspection: normal respiratory effort, able to speak in complete sentences and not labored Cardio: Rate: regular rate Rhythm: regular rhythm GI: Inspection: No distended Palpation (GI): Soft to palpation, not firm, nontender, no guarding and not rigid Skin: General skin exam: elasticity normal Neuro: General: patient oriented x3 Cranial nerves: Yes Equal, round and reactive pupils present and Yes Bilaterally intact EOM present Cognition (Neuro): normal cognition Course Course Course Narrative: This is a Rapid Medical Exam performed in triage by Randa Vance PA-C. Full HPI, ROS and PE to be performed by primary ED provider. 33 yo F w/pmhx fatty liver presenting to the ED c/o left sided CP x2 days, constant, described as sharp/stabbing. denies SOB, dizziness, N/V, travel, LE edema PE: nontoxic appearing, ambulating w/steady gait, talking in complete sentences Plan: EKG, labs, CXR Medical Decision Making Medical Decision Making [facility] Narrative: 33-year-old female with past medical history as documented above presents for evaluation of left-sided chest pain. Her EKG today is nonischemic. This is a normal sinus rhythm. Her troponin is negative, chest x-ray is clear. Out for ACS. There was no evidence of pneumonia, pleural effusion. The patient has no GI symptoms to suggest GERD. Her pain is reproducible on exam. Her pain is most likely musculoskeletal in origin versus anxiety. Her well's criteria score is a 0, less likely PE. We will treat the patient symptomatically and she will follow up with her PCP Differential Diagnosis Differential Diagnoses: The differential diagnosis associated with the presentation includes Chest pain Chest wall strain Anxiety Costochondritis Pneumonia Bronchitis Lab Data [facility] Lab Attestation statement: I reviewed the patient's lab results. No leukocytosis or anemia. Normal platelet count. No electrolyte abnormalities. Random glucose elevated to 129 but the patient is not a diabetic, no evidence of DKA. Troponin negative 02/12/24 19:47 02/12/24 19:47 Labs: Lab Results 02/12/24 Range/Units 19:47 WBC 8.2 (4.8-10.8) X10*3/uL RBC 5.39 (4.20-5.50) X10*6/uL Hgb 15.7 (12.0-16.0) g/dl Hct 44.4 (37.0-47.0) % MCV 82.4 (80.0-98.0) fL MCH 29.1 (27.0-33.0) pg MCHC 35.4 H (31.0-35.0) g/dl RDW 12.2 (11.0-16.0) % Plt Count 233 (160-400) X10*3/uL MPV 10.8 (9.4-12.3) fL Immature Gran % (Auto) 0.4 (0.0-0.4) % Neut % (Auto) 56.9 (45-73) % Lymph % (Auto) 31.2 (20-40) % Cowley % (Auto) 7.8 (2-11) % Eos % (Auto) 3.2 (0-4) % Baso % (Auto) 0.5 (0-2) % Lymph # (Auto) 2.6 (1.2-4.9) X10*3/uL Cowley # (Auto) 0.6 (0.1-1.2) X10*3/uL Eos # (Auto) 0.3 (0.0-0.4) X10*3/uL Baso # (Auto) 0.0 (0.0-0.2) X10*3/uL Abs Immat Gran (auto) 0.03 (0.00-0.03) X10*3/uL Absolute Neuts (auto) 4.7 (2.0-8.3) x10*3/uL Absolute Nucleated RBC 0.000 (0.0-0.012) X10*3/uL Nucleated RBC % (auto) 0.0 (0.0-0.2) /100WBC Sodium 136 (135-145) mmol/L Potassium 3.8 (3.3-5.1) mmol/L Chloride 103 (96-108) mmol/L Carbon Dioxide 24 (22-29) mmol/L Anion Gap 13 (12-20) BUN 10 (9-16) mg/dL Creatinine 0.80 (0.5-1.4) mg/dL Estim Creat Clear Calc 94.4 Estimated GFR > 60 Random Glucose 129 H (60-115) mg/dL Calcium 9.1 (8.4-10.2) mg/dL Magnesium 2.1 (1.6-2.6) mg/dL Total Bilirubin 0.4 (0.0-1.0) mg/dL Direct Bilirubin 0.2 (0.0-0.5) mg/dL AST 37 H (5-31) U/L ALT 80 H (0-31) U/L Alkaline Phosphatase 46 (39-117) U/L Troponin I High Sens < 2.7 (<3.5-17.0) ng/L Total Protein 7.3 (6.5-8.0) g/dL Albumin 4.3 (3.5-5.0) g/dL Influenza Type A (PCR) NEGATIVE (Negative) Influenza Type B (PCR) NEGATIVE (Negative) RSV RNA Qual (PCR) NEGATIVE (Negative) SARS-CoV-2 RNA (RT-PCR) NEGATIVE (Negative) Independent Interpretation I performed an independent interpretation of an: EKG (Normal sinus rhythm with a rate of 78 beats per minute. No ST segment elevations or depressions) Discharge Plan Discharge Clinical Impression: Atypical chest pain Patient Disposition: Home, Self-Care Instructions: Chest Pain (ED) Additional Instructions: Your workup in the ER today is reassuring. This includes your blood work, your chest x-ray, your EKG Your symptom is most likely musculoskeletal in origin. Follow-up with your primary doctor, return for new or worsening symptoms. I recommend using ibuprofen or Tylenol for the pain in the meantime Prescriptions: No Action (DME) thumb spica See Rx Instructions .Route .MEDSUPPLY Qty: 1 0RF Rx Instructions: Wear nightly and as much as possible throughout the day Enbrel SureClick 50 mg/mL (1 mL) pen injector 50 mg subcut QWEEK Qty: 4 2RF hydroxyzine HCl 25 mg tablet 25 mg PO BEDTIME PRN (Reason: anxiety) Qty: 30 3RF doxycycline hyclate 100 mg capsule 100 mg PO BID 10 Days Qty: 20 0RF Nexplanon 68 mg implant subdermal triamcinolone acetonide 40 mg/mL suspension 20 mg Tendon Sheath Inj. ONCE Qty: 0.5 0RF Stand Alone Forms: Work/School Release Print Language: Eritrean
[2024-02-12 19:52] LABS: MANUAL DIFF FLAG NO
[2024-02-12 20:01] LABS: Basophils Percent Auto 0.5 % (0-2); Eosinophils Absolute Auto 0.3 X10*3/uL (0.0-0.4); Eosinophils Percent Auto 3.2 % (0-4); Hematocrit 44.4 % (37.0-47.0); Hemoglobin 15.7 g/dl (12.0-16.0); Imm Gran Abs Auto 0.03 X10*3/uL (0.00-0.03); Imm Gran Pct Auto 0.4 % (0.0-0.4); Lymphocytes Absolute Auto 2.6 X10*3/uL (1.2-4.9); Lymphocytes Percent Auto 31.2 % (20-40); Mean Corpuscular HGB Conc 35.4 g/dl (31.0-35.0); Mean Corpuscular Hemoglobin 29.1 pg (27.0-33.0); Mean Corpuscular Volume 82.4 fL (80.0-98.0); Mean Platelet Volume 10.8 fL (9.4-12.3); Monocytes Absolute Auto 0.6 X10*3/uL (0.1-1.2); Monocytes Percent Auto 7.8 % (2-11); Neutrophils Absolute Auto 4.7 x10*3/uL (2.0-8.3); Neutrophils Percent Auto 56.9 % (45-73); Platelet Count 233 X10*3/uL (160-400); Red Blood Count 5.39 X10*6/uL (4.20-5.50); Red Cell Distribution Width 12.2 % (11.0-16.0); White Blood Count 8.2 X10*3/uL (4.8-10.8)
[2024-02-12 20:09] LABS: Alanine Aminotransferase 80 U/L (0-31); Albumin Level 4.3 g/dL (3.5-5.0); Alkaline Phosphatase 46 U/L (39-117); Anion Gap 13 (12-20); Aspartate Amino Transferase 37 U/L (5-31); Bilirubin Direct 0.2 mg/dL (0.0-0.5); Bilirubin Total 0.4 mg/dL (0.0-1.0); Blood Urea Nitrogen 10 mg/dL (9-16); Calcium 9.1 mg/dL (8.4-10.2); Carbon Dioxide 24 mmol/L (22-29); Chloride 103 mmol/L (96-108); Creatinine Clr Calc Pharmacy 94.4; Estimated Glomerular Filt Rate > 60; Glucose Random 129 mg/dL (60-115); Magnesium 2.1 mg/dL (1.6-2.6); Potassium 3.8 mmol/L (3.3-5.1); Sodium 136 mmol/L (135-145); Total Protein 7.3 g/dL (6.5-8.0)
[2024-02-12 20:21] LABS: Troponin-I High Sensitivity < 2.7 ng/L (<3.5-17.0)
[2024-02-12 20:33] LABS: Influenza A PCR NEGATIVE (Negative); Influenza B PCR NEGATIVE (Negative); Resp Syncy Virus RNA Qual PCR NEGATIVE (Negative); SARS COV2 PCR INHOUSE NEGATIVE (Negative)
[2024-02-12 22:42] VITALS: BP 116/65; PULSE 67; RESP 18; TEMP 36.6; O2SAT 100
[2024-02-13] MEDS: Ketorolac Tromethamine 30 MG/ML VIAL IM (01:01)
[2024-02-13 01:05] VITALS: BP 116/65; PULSE 67; RESP 18; TEMP 36.6; O2SAT 100
== END 2024-02-13 01:06 | disposition home or self-care (01) ==
PROVIDERS: Physician Assistant; Emergency Provider Emergency Medicine; PCP Physician Assistant
DX: R07.89 Other chest pain (principal); R00.0 Tachycardia, unspecified; L73.2 Hidradenitis suppurativa; R20.0 Anesthesia of skin; Z03.818 Encounter for observation for suspected exposure to other biological agents ruled out; Z79.899 Other long term (current) drug therapy
CPT/HCPCS: 0241U; 71045; 80048; 80076; 83735; 84484; 85025; 93005; 96372; 99284; J1885

== ENCOUNTER → 2024-02-12 18:31 | Outpatient (BNV) | payer OTHER, SELFPAY | PROVIDERS: Emergency Provider Emergency Medicine; PCP Physician Assistant; Visit Provider Internal Medicine Cardiovascular Disease | DX: R07.9 Chest pain, unspecified (principal) | CPT/HCPCS: 93010 ==

== ENCOUNTER 2024-06-10 13:56 | Outpatient (AMB) | payer OTHER, SELFPAY ==
--- NOTE | 2024-06-10 14:09 | MHC.OFFVIS ---
Vital Signs 06/10/24 14:11 Height 4 ft 11 in Weight 190 lb 4.143 oz BMI 38.4 BP 126/72 Blood Pressure Location Lt brachial Position Sitting Pulse 86 Pulse Source Pulse Oximeter Pulse Oximetry (%) 98 Oxygen Delivery Method Room Air Intake Visit Reasons: RA/ MD bird sooner appt Intake Note: Patient last seen by Doctor Ama Jimenez on 12/23/23. Presents today for RA follow up and test results.Patient concerned about bone popping up on her right hand since last week, pain and swelling awssociated with it. Allergies No Known Allergies Allergy (Verified 06/10/24 14:14) Medication List - Last Reconciled 06/10/24 by Afua Booth MD doxycycline hyclate 100 mg PO BID 10 days Enbrel SureClick (etanercept) 50 mg subcut QWEEK NS etonogestrel (Nexplanon) subdermal hydroxyzine HCl 25 mg PO BEDTIME PRN [thumb spica Wear nightly and as much as possible throughout the day] HPI Comments Details: patient is a 33-year-old female with seropositive rheumatoid arthritis here today for an urgent visit for right hand pain Interval History: Patient last seen 12/23/[address] Jimenez. At that time she was following up for right wrist pain. She had previously done an MRI. The wrists MRI was consistent with inflammatory arthritis and she was started on Enbrel. She reports doing well on Enbrel however had sudden onset of pain with a nodule involving the base of her right middle finger. 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 Rheumatologic History: Seropositive RA +++RF/-CCP Patient has chronically elevated LFTs and DMARDs such as methotrexate, leflunomide, sulfasalazine can not be used. Started Enbrel 11/2023 Initial history: presents for evaluation of Right wrist (DeQuervain) and +RF. Today it is not as bad as it was last year per patient and she mainly feels it when she picks up heavier items. She describes that there is numbness when there is swelling and pain. --Referred by ortho --Right radial hand and wrist, swelling pain - about 1 year. --Meloxicam helps a little --EMG studies done, DeQuervain injection - helped for a couple weeks --elevated liver enzymes - fatty liver per patient --Nexpalon Control - denies hx of blood clots --denies known history of family CTD or inflammatory arthritis; no personal hx of CA; Paternal GPa colon ca --no other joint swelling or pain --no rash, scalp sores, or hair shedding, no dry eyes, dry mouth or sores; denies other symptoms of CTD; no GI or concerns --denies smoking. ETOH Right handed. Initially seen for right sided wrist/hand pain. She denied any fall or inciting injuries. She has been wearing a thumb spica splint since the last time I saw her. Reports improvement. 0/10 pain when I saw her last November. Denied any numbness. She did not have the EMG done or OT. She said she did okay from November 30 just last month. Started having pain and numbness on right wrist spreading to all her fingers. Denies any new injuries or falls. She has been taking ibuprofen as needed. Wearing the wrist splint. 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 Cognitive needs: No Hearing needs: No Vision needs: No Review of Systems Const Details: Review of Systems Constitutional: Denies fever, chills, weight loss ENT: Denies vision changes, eye pain or eye redness, dental caries, dry mouth GI: Denies nausea, vomiting, diarrhea, abdominal pain, change in BM Pulm: Denies SOB, TURNER, hemoptysis, wheezing Cards: Denies chest pain, palpitations Skin: Denies Raynaud's, rash, nail changes, photosensitivity, UNIT ASSISTANT: Denies headaches, weakness, paresthesias, recurrent falls MSK: as per HPI All other systems reviewed and are unremarkable except noted above Physical Exam Vital Signs: Last Vital Signs Pulse 86 06/10/24 14:11 BP 126/72 06/10/24 14:11 Pulse Ox 98 06/10/24 14:11 Oxygen Delivery Method Room Air 06/10/24 14:11 BMI result Body Mass Index 38.4 Vital signs reviewed Physical Examination CONSTITUITIONAL Patient alert and cooperative. Well appearing and in no apparent painful distress HEENT Conjunctiva and sclera clear. Pupils equal round and reactive to light. No lymphadenopathy. CHEST/RESPIRATORY SYSTEM Normal respiratory effort and able to speak in complete sentences. Clear to auscultation bilaterally. No crackles, rales, rhonchi, wheezes heard. CARDIAC SYSTEM Regular rate and rhythm. S1 and S2 heard no murmurs. Radial pulses intact bilaterally MSK Hands: Good police commissioner strength bilaterally. No deformities noted. No synovitis noted to the MCPs, PIPs or DIPs. No tenderness to palpation of these joints. Tender nodule palpated in the palm of the hand at the base of the middle finger consistent with flexor tenosynovitis Wrists: Full range of motion at the wrists without pain. No tenderness to palpation or synovitis noted to the wrists. Elbows: Full range of motion without pain. No tenderness, weakness, swelling, increased warmth or erythema. Shoulders: Full range of motion without pain. No tenderness, weakness, swelling, increased warmth or erythema. Hips: Full range of motion without pain. Hip bursa: No tenderness to palpation Knees: Full range of motion. No tenderness, swelling, increased warmth or erythema.?No effusion or crepitations Ankles: Full range of motion. No tenderness, swelling, increased warmth or erythema.? Feet: Negative squeeze test. No tenderness to palpation or swelling of the MTPs. Tender points:?No tenderness to palpation of the bilateral trapezius, supraspinatus, greater trochanters, anterior costochondral junctions, bilateral gluteal areas, bilateral suboccipital muscle insertions SKIN Skin intact without rashes. Office Procedures AMB Joint Injection/Aspiration Joint Injection/Aspiration Details: Procedure was explained to the patient and consent was obtained. The area of interest was identified and confirmed with patient. This was subsequently cleaned with chlorhexidine x3. The area was then anesthetized using ethyl chloride spray. 20 mg Kenalog with 0.1 cc 1% lidocaine was injected without issue. Minimal to no bleeding. Patient tolerated procedure. Primary Site: right trigger finger Prep: site was prepped using aseptic technique and ethochloride spray was applied Injected: 20 mg of, Kenalog and 1% plain lidocaine Procedure: The patient tolerated the procedure well Coding 29630 - Bicipital Groove Injection Procedure code (CPT) selection complete Office Meds lidocaine (PF) 10 mg/mL (1 %) injection solution Performing Provider: Afua Booth MD Performing Location: [facility] Administered by: Afua Booth MD on 06/10/24 15:10 Dose Route Admin Location Dispensed Lot Number Expiration Date [facility] Quality Improvement Specialist 0.1 mL Infiltration right middle trigger fing 2 mL [id number] 06/29/26 11634-826-69 [facility] Kenalog 40 mg/mL suspension for injection Performing Provider: Afua Booth MD Performing Location: [facility] Administered by: Afua Booth MD on 06/10/24 15:10 Dose Route Admin Location Dispensed Lot Number Expiration Date [facility] Quality Improvement Specialist 20 mg Tendon Sheath Inj. right middle trigger fing 1 mL [id number] 09/28/25 [address]-8 [employer] Results Reviewed Results Reviewed: Laboratory Tests 02/12/24 04/19/24 19:47 07:35 WBC 5.9 RBC 5.30 Hgb 15.3 Hct 44.1 ESR 6 Sodium 138 Potassium 3.8 Chloride 110 H Carbon Dioxide 22 BUN 8 L Creatinine 0.66 AST 37 H 186 H ALT 80 H 418 H C-Reactive Protein 0.12 Immunology labs 09/15/23 11/18/23 09:45 07:53 Cycl Citrul Peptide IgG <16 DEENA Screen POSITIVE A DEENA Titer 1:160 H SS-A/Ro Antibody <1.0 NEG SS-B/La Antibody <1.0 NEG Sm (Allen) Antibody <1.0 NEG SM/CONVEX GRINDER IgG Antibody <1.0 NEG Scl-70 Scleroderma Ab <1.0 NEG Double Strand DNA Ab <1 Anti-Mitochondrial Ab NEGATIVE Anti-Smooth Muscle Ab <20 Thyroglobulin Antibody <1 Thyroid Peroxidase Ab <1 Stephanie/Kid Microsom Ab Int <=20.0 Complement C3 155 Complement C4 31 Assessment & Plan Assessment & Plan (1) Seropositive rheumatoid arthritis: Comment: ++RF -ve CCP dx 11/2023 Enbrel 11/2023. Effective Code(s): M05.9 - Rheumatoid arthritis with rheumatoid factor, unspecified Category: Medical Plan: #Seropositive RA Patient is a 33-year-old female with seropositive rheumatoid arthritis here today for an urgent visit for right middle finger trigger finger. With regards to her rheumatoid arthritis she is currently in remission and we will continue on the Enbrel Plan - Enbrel 50mg SC weekly - RTC 3 months - Labs to visit: CBC, CMP, ESR, CRP, hepatitis panel, T spot (2) Trigger finger, right middle finger: Code(s): M65.331 - Trigger finger, right middle finger Plan: #Right middle finger trigger finger Patient with right middle trigger finger status post steroid injection today. Recommend finger splint for 2-4 weeks to aid in healing (3) Transaminitis: Code(s): R74.01 - Elevation of levels of liver transaminase levels Plan: #Transaminitis Patient with significantly elevated AST and ALT. Has a previous abdominal ultrasound showing fatty liver. Repeat blood work today and get an updated ultrasound of the liver with elastography if persistently elevated Plan - CMP today - Abd US with elastography if worse (4) Encounter for monitoring of etanercept therapy: Code(s): Z51.81 - Encounter for therapeutic drug level monitoring; Z79.620 - rodent exterminator (current) use of immunosuppressive biologic Plan: #Long-term Use of TNF Inhibitors: Enbrel Discussed with the patient the benefits and risks of TNF inhibitors for the management of the rheumatic condition Benefits include reduce pain, maintenance of remission and reduction of flares as well as progression of the disease Risks include injection sites/infusion reactions, serious infections (such as bacterial infections, opportunistic infections), malignancy, delaminating syndromes, autoimmune phenomena, CHF exacerbations, palmar plantar psoriasis and cytopenias Recommended rotating injection sites, and holding medication during and for up to 1 week after resolution of a febrile illness or open skin wound Plan I spent 34 minutes reviewing the record and labs, taking a history, examining the patient, discussing the treatment plan, ordering diagnostic work up and documenting in the medical record Orders: Orders Comprehensive Met. Panel Today M05.9 - Rheumatoid arthritis with rheumatoid factor, unspecified C Reactive Protein 3 Months M05.9 - Rheumatoid arthritis with rheumatoid factor, unspecified Erythrocyte Sedimentation Rate 3 Months M05.9 - Rheumatoid arthritis with rheumatoid factor, unspecified AMB Joint Injection/Aspiration Today M65.331 - Trigger finger, right middle finger Complete Blood Count Auto Diff 3 Months M05.9 - Rheumatoid arthritis with rheumatoid factor, unspecified Comprehensive Met. Panel 3 Months M05.9 - Rheumatoid arthritis with rheumatoid factor, unspecified Hepatitis A,B,C Profile 3 Months M05.9 - Rheumatoid arthritis with rheumatoid factor, unspecified T Spot TB 3 Months M05.9 - Rheumatoid arthritis with rheumatoid factor, unspecified Medications: New Kenalog (triamcinolone acetonide) 20 mg (0.5 mL) Tendon Sheath Inj. ONCE 0.5 mL 0RF NS M65.331 - Trigger finger, right middle finger lidocaine (PF) 0.1 mL Infiltration ONCE 2 mL 0RF M65.331 - Trigger finger, right middle finger Refilled Enbrel SureClick (etanercept) 50 mg subcut QWEEK 4 mL 3RF NS M05.9 - Rheumatoid arthritis with rheumatoid factor, unspecified Discontinued doxycycline hyclate Discontinued Reason: Patient Completed Course 100 mg PO BID 10 days 20 caps 0RF Coding Level of Care Code Est Pt Level 4 (62235) Complex EM visit Add On G2211 Diagnoses Seropositive rheumatoid arthritis M05.9 Trigger finger, right middle finger M65.331 Transaminitis R74.01 Encounter for monitoring of etanercept therapy Z51.81; Z79.620 CPT Codes Coding - Joint 1: 09002 - Bicipital Groove Injection ([id number])
[2024-06-10 14:11] VITALS: BP 126/72; PULSE 86; O2SAT 98; BMI 38.4
--- OUTSIDE RECORDS SUMMARY | 2024-06-10 17:41 | XMS_ITS | Clinical Summary ---
Author Organization [facility] Address [address] [place] [phone] Phone Care Team Providers Care Manager Of Project Management Name Role Phone Zoraida Colon MD Primary Care Provider [phone] Allergies No known active allergies Medications acetaminophen (TYLENOL) 500 mg tablet Take 1 tablet (500 mg total) by mouth every 6 (six) hours if needed. 04/25/2022 Active cholecalciferol (VITAMIN D-3) 50 mcg (2,000 unit) tablet Take 1 tablet (2,000 Units total) by mouth 1 (one) time each day. 04/26/2022 Active hydrOXYzine HCL (ATARAX) 25 mg tablet Take 1-2 Tablets by mouth at bedtime as needed for Anxiety. 07/12/2022 Active meclizine (ANTIVERT) 25 mg tablet Take 1 Tablet by mouth 3 times daily as needed (vertigo). 04/25/2022 Active Active Problems Problem Noted Date Diagnosed Date Diarrhea 03/19/2024 Kidney stones 03/19/2024 Mucus in stool 03/19/2024 Class 2 obesity 03/19/2024 Chronic pain of right knee 11/11/2017 Obesity (BMI 30.0-34.9) 11/11/2017 Chronic tension-type headache, not intractable 0 08/29/2016 Immunizations Name Administration Dates Next Due HPV, Quadrivalent 01/25/2015,07/20/2014,05/25/19 15 Hepatitis B (Efgcwzv-M-Eqhyo , Recombivax HB-Adult) 19yo and older 11/08/2023,10/08/2023 Influenza trivalent, with preservative (Fluzone; Afluria) 6mo and older 01/13/2018,12/23/2016,12/23/2016,2012,12/12/2011 Influenza, Unspecified 12/23/2016 MMR, measles mumps and rubel la Live (Priorix; M-M-R II) 12mo and older 06/20/2021,05/11/2012 Moderna SARS-CoV-2 COVID-19, mRNA, LNP-S, preservative free 04/21/2021 PPD Test 08/19/2018,09/28/2014 Tdap Tetanus diptheria acell ular pertussis (Boostrix; Adacel) 7yo and older 12/23/2016,05/25/2014,09/18/2012,2012 Varicella live (Varivax) 12m o and older 10/08/2023 Surgical History Surgery Date Site/Laterality Comments SECTION 2012 PROCEDURE: HISTORICAL DELIVERY Medical History Medical History Date Comments Left lower quadrant pain DX:Left lower quadrant pain; COMMENT: Since March 25, 2019 Kidney stones DX:Kidney stones ; COMMENT: Noted in pelvis of left kidney without obstruction Diarrhea DX:Diarrhea Mucus in stool DX:Mucus in stoo l Family History Medical History Relation Name Comments Diabetes Father Dementia Maternal Grandfather Heart attack Maternal Grandmother Bipolar disorder Mother Colon cancer Paternal Grandfather Diabetes Paternal Grandmother Relation Name Status Comments Brother x 2 Alive Father Alive Maternal Grandfather Maternal Grandmother Mother Alive Paternal Grandfather Paternal Grandmother Alive Social History Tobacco Use Types Packs/Day Years Used Date Smoking Tobacco: Never Smokeless Tobacco: Never Alcohol Use Standard Drinks/Week Comments No 0 (1 standard drink = 0.6 oz pur e alcohol) Comments Unknown Sex and Gender Information Value Date Recorded Sex Assigned at Not on file Legal Sex Female 3:49 PM EST Gender Identity Not on file Sexual Orientation Not on file Obstetrics History Last Filed Vital Signs Vital Sign Reading Time Taken Comments Blood Pressure 117/52 02/26/2024 11:25 AM EST Pulse 84 02/26/2024 11:25 AM EST Temperature 36.7 ??C (98.1 ??F) 02/26/2024 11:[address] Respiratory Rate 16 02/26/2024 11:25 AM EST Oxygen Saturation 99% 02/26/2024 11:25 AM EST Inhaled Oxygen Concentration - - Weight 81.6 kg (180 lb) 02/26/2024 11:25 AM EST Height 149.9 cm (4' 11 ) 02/26/2024 11:25 AM EST Body Mass Index 36.36 02/26/2024 11:25 AM EST Plan of Treatment Health Maintenance Due Date Last Done Comments Cervical Cancer Screening: Pap Smear 10/07/2020 10/07/2017, 10/07/2017, 10/07/2017 Depression Screening 02/27/2022 HIV Screening 02/27/2022 Social Influencers of Health Screening 02/27/2022 COVID-19 Vaccine ( season) 2023 04/27/2021, 04/21/2021, 09/09/2020, Additional history exists Influenza Vaccine (#1) 2023 8, 12/23/2016, 12/23/2016, Additional history exists Hepatitis B Vaccines (3 of 3 - 19+ 3-dose series) 04/09/2024 11/08/2023, 10/08/2023 DTaP,Tdap,and Td Vaccines (5 - Td or Tdap) 12/23/2026 12/23/2016, 05/25/2014, 09/18/2012, Additional history exists Cholesterol Screening (Lipid Panel) 04/25/2027 04/25/2022 HPV Vaccines Completed 01/25/2015, 06/30, 05/25/2014 MMR Vaccines Aged Out 06/20/2021, 05/11/2012 No lo nger eligible based on patient's age to complete this topic Hepatitis C Screening Completed 04/25/2022 Varicella Vaccines Aged Out 10/08/2023 No longer eligible based on patient's age to complete this topic HIB Vaccines Aged Out No longer eligi ble based on patient's age to complete this topic Hepatitis A Vaccines Aged Out No long er eligible based on patient's age to complete this topic IPV Vaccines Aged Out No longer eligi ble based on patient's age to complete this topic Meningococcal ACWY Vaccine Aged Out N o longer eligible based on patient's age to complete this topic Meningococcal B Vacine Aged Out No lo nger eligible based on patient's age to complete this topic Pneumococcal Vaccine: Pediatrics (0 to 5 Years) and At-Risk Patients (6 to 64 Years) Aged Out No longer eligible based on patient's age to complete this topic RSV Immunization Patients Under 20 months Aged Out No longer eligible based on patient's age to complete this topic Procedures Procedure Name Priority Date/Time Associated Diagnosis Comments HEPATITIS C SCREENING Routine 04/25/2022 LIPID PANEL Routine 04/25/2022 PAP SMEAR Routine 10/07/2017 from Last 3 Months or Most Recently Relevant to Health Maintenance Results * Hepatitis C Screening (04/25/2022) Hepatitis C Screening abstracted Historical Provider HEALTH MAINTENANCE Final Result * (ABNORMAL) Lipid panel (04/25/2022) LDL/HDL Ratio 3 0 - 4 Triglycerides 65 0 - 150 mg/dL Cholesterol 189 0 - 200 mg/dL HDL 64 >=40 mg/dL LDL Cholesterol 112(A) 0 - 100 mg/dL Blood Venous blood specimen / Unknown Historical Provider LAB BLOOD ORDERABLES Winter l Result * Pap smear (10/07/2017) 10/07/2017 Narrative HISTORICAL TESTING LAB RESULTING AGENCY - 10/14/2017 3:45 PM EDT [id number] THINPREP PAP, IMAGED: ATYPICAL SQUAMOUS CELLS OF UNDETERMINED SIGNIFICANCE (ASCUS) ??. RESULTS OF APTIMA HIGH RISK HPV ASSAY: ? NEGATIVE ?(SEROTYPES 16,18,31,33,35, 39,45,51,52,56,58,59,66,68) REGINA JOSEPH(ASCP) (CASE SCREENED 10 09 2017) ROSITA WASHINGTON M.D., PATHOLOGIST (CASE ELECTRONICALLY SIGNED 10 14 2017) ADEQUACY: SATISFACTORY. ENDOCERVICAL/TRANSFORMATION ZONE COMPONENT PRESENT. SOURCE: THINPREP PAP HPV IF ASCUS, CERVICAL, IMAGED: CLINICAL INFORMATION: HPV IF DIAGNOSIS OF ASCUS. Z12.4, Z01.419 Eduardo Tabor CNM LAB CYTOLOGY ORDERA BLES Final Result HISTORICAL TESTING LAB RESULTING AGENCY from Last 3 Months or Most Recently Relevant to Health Maintenance Insurance MEDICAID - [place] Care Teams Manager Of Project Management Relationship Specialty Start Date End Date Zoraida Colon MD [address] [place] [address] PCP - General Internal Medicine 06/01/15
--- OUTSIDE RECORDS SUMMARY | 2024-06-10 17:41 | XMS_ITS | Encounter Summary ---
Author Organization [employer] Address [address] [place] [address] Care Team Providers Care Foam Machine Operator Name Role Phone Unavailable Primary Care Provider Unavailabl e Encounter Details Date Type Department Care Team (Latest Contact Info) Description 12/22/2020 Abstract [facility] CONVERSIONS Dental, Provider, DDS Social History Tobacco Use Types Packs/Day Years Used Date Smoking Tobacco: Never Assessed Comments Unknown Sex and Gender Information Value Date Recorded Sex Assigned at Female 01/28/2022 10:36 AM EDT Legal Sex Female 10:36 AM EDT Gender Identity Female 01/28/2022 10:36 AM EDT Sexual Orientation Straight 01/28/2022 10 :36 AM EDT documented as of this encounter Plan of Treatment Not on file documented as of this encounter Visit Diagnoses Not on filedocumented in this encounter
--- OUTSIDE RECORDS SUMMARY | 2024-06-10 17:41 | XMS_ITS | Clinical Summary ---
Author Organization [employer] Address [address] [place] [address] Care Team Providers Care Teletypewriter Operator Name Role Phone Unavailable Primary Care Provider Unavailabl e Social History Tobacco Use Types Packs/Day Years Used Date Smoking Tobacco: Never Assessed Comments Unknown Sex and Gender Information Value Date Recorded Sex Assigned at Female 01/28/2022 10:36 AM EDT Legal Sex Female 10:36 AM EDT Gender Identity Female 01/28/2022 10:36 AM EDT Sexual Orientation Straight 01/28/2022 10 :36 AM EDT Plan of Treatment Health Maintenance Due Date Last Done Comments Depression Screening 1991 Alcohol/Substance Use Screening 2003 Tobacco Screening 2003 Family Planning (PISQ) 10/15/2006 DTaP/Tdap/Td Vaccines (1 - Tdap) 10/15/2010 Hepatitis B Vaccines (1 of 3 - 19+ 3-dose series) 10/15/2010 Pap Smear 10/15/2012 Cervical Cancer Screening 10/15/2021 HPV/Cotest 10/15/2021 COVID-19 Vaccine ( - 2023-2 5 season) 2023 Influenza Vaccine (#1) 2023 Zoster Vaccines (1 of 2) 10/15/2041 RSV Patients and Pa tients Aged 60 years or older (1 - 1-dose 75+ series) 10/15/2066 HIB Vaccines Aged Out No longer eligi ble based on patient's age to complete this topic HPV Vaccines Aged Out No longer eligi ble based on patient's age to complete this topic Hepatitis A Vaccines Aged Out No long er eligible based on patient's age to complete this topic IPV Vaccines Aged Out No longer eligi ble based on patient's age to complete this topic Meningococcal Vaccine Aged Out No mendez petey eligible based on patient's age to complete this topic Pneumococcal Vaccine: Pediat rics (0 to 5 Years) and At-Risk Patients (6 to 49) Years) Aged Out No longer eligible b ased on patient's age to complete this topic RSV under 20 months Aged Out No longe r eligible based on patient's age to complete this topic Rotavirus Vaccines Aged Out No longer eligible based on patient's age to complete this topic
== END 2024-06-10 14:53 | disposition home or self-care (01) ==
LOC: HO.RHE 13:56
PROVIDERS: PCP Physician Assistant; Visit Provider Student in an Organized Health Care Education/Training Program
DX: M05.79 Rheumatoid arthritis with rheumatoid factor of multiple sites without organ or systems involvement (principal); M65.331 Trigger finger, right middle finger; R74.01 Elevation of levels of liver transaminase levels; Z51.81 Encounter for therapeutic drug level monitoring; Z79.620 Long term (current) use of immunosuppressive biologic
CPT/HCPCS: 20550; 99214; G2211

== ENCOUNTER → 2024-06-10 13:56 | Outpatient (BNVA) | payer OTHER, SELFPAY | PROVIDERS: PCP Physician Assistant; Visit Provider Student in an Organized Health Care Education/Training Program | DX: M65.331 Trigger finger, right middle finger (principal); M05.9 Rheumatoid arthritis with rheumatoid factor, unspecified; R74.01 Elevation of levels of liver transaminase levels; Z51.81 Encounter for therapeutic drug level monitoring; Z79.620 Long term (current) use of immunosuppressive biologic | CPT/HCPCS: 20550; 99212; J3300 ==

== ENCOUNTER 2024-06-12 07:45 | Outpatient (REF) | payer OTHER, SELFPAY ==
--- OUTSIDE RECORDS SUMMARY | 2024-06-12 07:47 | XMS_ITS | Encounter Summary ---
Author Organization [facility] Address [address] [place] [address] Care Team Providers Care Human Resources Supervisor Name Role Phone Zoraida Colon MD Primary Care Provider [phone] Stacey Hobson MD Primary Care Provider [phone] [facility], [facility] Primary Care Provider Unavailabl e Encounter Details Date Type Department Care Team Description 03/06/2016 Refill Adult Medicine [address] [address] Radha Leavitt PA Social History Tobacco Use Types Packs/Day Years Used Date Smoking Tobacco: Never Alcohol Use Standard Drinks/Week Comments No 0 (1 standard drink = 0.6 oz pur e alcohol) Sex Assigned at Date Recorded Female 08/16/2020 11:17 AM EDT Job Start Date Occupation Industry Not on file Not on file Not on file documented as of this encounter Miscellaneous Notes * Telephone Encounter - Misael Marie - 03/07/2016 8:40 AM ESTFrom: Kianna Varela To: Radha Hayes PA-C Sent: 03/06/2016 9:02 AM EST Subject: Medication Renewal Request Original authorizing provider: KAMRAN Sofia would like a refill of the following medications: Naproxen 500 MG Tab EC [Radha Hayes PA-C] cyclobenzaprine (FLEXERIL) 10 MG tablet [Radha Hayes PA-C] Preferred pharmacy: [facility] [address] [place] [address] [facility] Comment: documented in this encounter Plan of Treatment Not on file documented as of this encounter Visit Diagnoses Not on filedocumented in this encounter Care Teams Human Resources Supervisor Relationship Specialty Start Date End Date Zoraida Colon MD [address] [place] [address] PCP - General Internal Medicine 06/01/15 03/04/22 Stacey Hobson MD [address] [place] [address] PCP - General Internal Medicine 03/05/22 07/30/22 [facility], Pcp [address] [place] [address] PCP - General Internal Medicine 07/31/22 documented as of this encounter
--- OUTSIDE RECORDS SUMMARY | 2024-06-12 07:47 | XMS_ITS | Encounter Summary ---
Author Organization [facility] Address [address] [place] [address] Care Team Providers Care Event Staff Name Role Phone Zoraida Colon MD Primary Care Provider [phone] Stacey Hobson MD Primary Care Provider [phone] [facility], [facility] Primary Care Provider [facility] Encounter Details Date Type Department Care Team Description 09/27/2021 Pt. Referral Request [facility] Husam [address] [place] [id number] Md Husam Social History Tobacco Use Types Packs/Day Years Used Date Smoking Tobacco: Never Smokeless Tobacco: Never Alcohol Use Standard Drinks/Week Comments No 0 (1 standard drink = 0.6 oz pur e alcohol) Education Answer Date Recorded What is the highest level of school you have completed or the highest degree you have received? 12th grade 05/11/2021 Sex Assigned at Date Recorded Female 08/16/2020 11:17 AM EDT Job Start Date Occupation Industry Not on file Not on file Not on file documented as of this encounter Plan of Treatment Not on file documented as of this encounter Visit Diagnoses Not on filedocumented in this encounter Care Teams Event Staff Relationship Specialty Start Date End Date Zoraida Colon MD [address] [place] [address] PCP - General Internal Medicine 06/01/15 03/04/22 Stacey Hobson MD [address] [place] [address] PCP - General Internal Medicine 03/05/22 07/30/22 [facility], Pcp [address] [place] [address] PCP - General Internal Medicine 07/31/22 documented as of this encounter
--- OUTSIDE RECORDS SUMMARY | 2024-06-12 07:47 | XMS_ITS | Clinical Summary ---
Author Organization [facility] Address [address] [place] [phone] Phone Care Team Providers Care Network Solutions Architect Name Role Phone Zoraida Colon MD Primary Care Provider [phone] Allergies No known active allergies Medications acetaminophen [...] Due HPV, Quadrivalent 01/25/2015,07/20/2014,05/25/19 15 Hepatitis B (Njhwvkx-C-Hsdvx , Recombivax HB-Adult) 19yo and older 11/08/2023,10/08/2023 [...] RESULTING AGENCY - 10/14/2017 3:45 PM EDT [id number] THINPREP PAP, IMAGED: ATYPICAL SQUAMOUS CELLS OF [...] Maintenance Insurance MEDICAID - [place] Care Teams Network Solutions Architect Relationship Specialty Start Date End Date Zoraida Colon MD [address] [place] [address] PCP - General Internal Medicine 06/01/15
--- OUTSIDE RECORDS SUMMARY | 2024-06-12 07:47 | XMS_ITS | Encounter Summary ---
Author Organization [facility] Address [address] [place] [address] Care Team Providers Care Adventure Therapist Name Role Phone Zoraida Colon MD Primary Care Provider [phone] Stacey Hobson MD Primary Care Provider [phone] [facility], [facility] Primary Care Provider Unavailabl e Encounter Details Date Type Department Care Team Description 05/18/2021 Pt. Non Urgent Medical Question Adult Medicine [address] [id number] Zoraida Colon MD [address] [place] [address] [phone] Social History Tobacco Use Types Packs/Day Years [...] file Not on file Not on file COVID-19 Exposure Response Date Recorded In the last month, have you been in contact with someone who was confirmed or suspected to have Coronavirus / COVID-19? No / Unsure 05/18/2021 8:47 AM EST documented as of this encounter Plan of Treatment Not on file documented as of this encounter Visit Diagnoses Not on filedocumented in this encounter Care Teams Adventure Therapist Relationship Specialty Start Date End Date Zoraida Colon MD [address] [place] [phone] PCP - General Internal Medicine 06/01/15 03/04/22 Stacey Hobson MD [address] [place] [address] PCP - General Internal Medicine 03/05/22 07/30/22 [place] [address] PCP - General Internal Medicine 07/31/22 documented as of this encounter
--- OUTSIDE RECORDS SUMMARY | 2024-06-12 07:47 | XMS_ITS | Encounter Summary ---
Author Organization [facility] Address [address] [facility] [place] [address] Care Team Providers Care Online Tutor Name Role Phone Zoraida Colon MD Primary Care Provider [phone] Staecy Hobson MD Primary Care Provider [phone] [facility], Pcp Primary Care Provider Unavailabl e Encounter Details Date Type Department Care Team Description 06/20/2017 Transfer Records Medical Records [address] [place] [id number] Abstract, Provider Social History Tobacco Use Types Packs/Day Years [...] on filedocumented in this encounter Care Teams Online Tutor Relationship Specialty Start Date End Date Zoraida Colon MD [address] [place] [address] PCP - General Internal Medicine 06/01/15 03/04/22 Stacey Hobson MD [address] [place] [address] PCP - General Internal Medicine 03/05/22 07/30/22 [facility], Pcp [address] [place] [address] PCP - General Internal Medicine 07/31/22 documented as of this encounter
--- OUTSIDE RECORDS SUMMARY | 2024-06-12 07:47 | XMS_ITS | Clinical Summary ---
Author Organization [facility] Address [address] [facility] [place] [address] Care Team Providers Care Mosaicist Name Role Phone Community, Pcp Primary Care Provider Unavailabl e Allergies No known active allergies Medications Medication Sig Dispensed Refills Start Date End Date Status Meclizine HCl 25 MG Tab Take 1 Tablet by mouth 3 times daily as needed (vertigo). 90 Tablet 1 04/25/2022 Active acetaminophen (TYLENOL) 500 MG tablet Take 1 Tablet by mouth every 6 hours as needed for Pain. 30 Tablet 2 04/25/2022 Active Cholecalciferol (Vitamin D) 50 MCG (1999 UT) Tab Take 1 Tablet by mouth daily. 30 Tablet 1 04/26/2022 Active hydrOXYzine (ATARAX) 25 MG tablet Take 1-2 Tablets by mouth at bedtime as needed for Anxiety. 90 Tablet 0 07/12/2022 Active Active Problems Problem Noted Date Obesity (BMI 30.0-34.9) 11/11/2017 Chronic pain of right knee 11/11/2017 Chronic tension-type headache, not intra ctable 08/29/2016 Kidney stones Diarrhea Mucus in stool Resolved Problems Problem Noted Date Resolved Date NO ACTIVE MEDICAL PROBLEMS 04/28/201412/23 Anterior knee pain 12/23/2012 04/28/2014 Left lower quadrant pain 020 Immunizations Name Administration Dates Next Due COVID-19 (Moderna) 04/21/2021,09/09/2020, 021 Flu (Generic) 01/13/2018,12/23/2016,12/12/2011 HPV (Gardasil) 01/25/2015,07/20/2014,05/25/2014 Influenza (> 6 Months) 12/15/2012 Influenza Flu (PT Reported) 12/23/2016 MMR (Lgennse-Wniwn-Rmkbuqn) 06/20/2021, 3 PPD-RBMG 08/19/2018,09/28/2014 Tdap 12/23/2016,05/25/2014,09/18/2012 ,04/14/2012 Family History Medical History Relation Name Comments Diabetes Father Dementia Maternal Grandfather PR Maternal Grandmother Bipolar Disorder Mother Cancer of the Colon Paternal Grandfather Diabetes Paternal Grandmother Relation Name [...] file Not on file Not on file Last Filed Vital Signs Vital Sign Reading Time Taken Comments Blood Pressure 133/75 04/25/2022 10:14 AM EST Pulse 77 04/25/2022 10:14 AM EST Temperature 36.2 ??C (97.1 ??F) 04/25/2022 10:[address] Respiratory Rate 16 08/06/2021 2:33 PM EDT Oxygen Saturation 98% 04/25/2022 10:14 AM EST Inhaled Oxygen Concentration - - Weight 80.7 kg (178 lb) 04/25/2022 10:14 AM EST Height 149.9 cm (4' 11 ) 04/25/2022 10:14 AM EST Body Mass Index 35.95 04/25/2022 10:14 AM EST Plan of Treatment Health Maintenance Due Date Last Done Comments CERVICAL CANCER SCREENING 10/07/20202017, 10/21/2012 (External Completion) Covid-19 Vaccine (4 - 2022-2 4 season) 2023 04/21/2021, 09/09/2020, 08/12/2020 INFLUENZA (#1) 2023 12/23/2016, 04/01 (External Completion), 12/15/2012 BMI CHECK/ADVISE 03/31/2024 04/25/2022, 01/2022, 10/27/2018, Additional history exists DEPRESSION SCREENING/FOLLOWUP 03/31/2024 05/11/2021, 08/19/2018 SOCIAL NEEDS SCREENING 03/31/2024 (Completed), 08/19/2018 DTAP/TDAP/TD (6 - Td or Tdap) 12/23/2026, 05/25/2014, 04/28/2014 (Refused), Additional history exists BASELINE HEALTH EXAM 18-39 04/25/202704/25, 05/18/2021, 05/11/2021, Additional history exists CHOLESTEROL SCREENING 04/25/2027 04/25/2022 , 05/18/2021, 06/13/2014, Additional history exists PNEUMOCOCCAL VACCINE FOR HIG H RISK PATIENTS (#1) 10/15/2056 Care Teams Mosaicist Relationship Specialty Start Date End Date Community, Pcp PCP - General Internal Medicine 07/31/22
--- OUTSIDE RECORDS SUMMARY | 2024-06-12 07:47 | XMS_ITS | Encounter Summary ---
Author Organization [facility] Address [address] [place] [address] Care Team Providers Care Upholstery Bundler Name Role Phone Zoraida Colon MD Primary Care Provider [phone] Stacey Hobson MD Primary Care Provider [phone] [facility], Pcp Primary Care Provider Unavailabl e Encounter Details Date Type Department Care Team Description 10/30/2018 Pt. Non Urgent Medical Question Adult Medicine [address] [phone] Zoraida Colon MD [address] [place] [address] Social History Tobacco Use Types Packs/Day Years [...] encounter Miscellaneous Notes * Telephone Encounter - Sydni Kasper M.A. - 10/30/2018 12:33 PM EDTFrom: Kianna Varela To: Zoraida Colon MD Sent: 10/30/2018 12:27 PM EDT Subject: Good afternoon Just need a letter of my physical with my tb on it for work. documented in this encounter Plan of Treatment Not on file documented as of this encounter Visit Diagnoses Not on filedocumented in this encounter Care Teams Upholstery Bundler Relationship Specialty Start Date End Date Zoraida Colon MD [address] [place] [address] PCP - General Internal Medicine 06/01/15 03/04/22 Stacey Hobson MD [address] [place] [address] PCP - General Internal Medicine 03/05/22 07/30/[address] [address] PCP - General Internal Medicine 07/31/22 documented as of this encounter
--- OUTSIDE RECORDS SUMMARY | 2024-06-12 07:47 | XMS_ITS | Encounter Summary ---
Author Organization [facility] Address [address] [place] [address] Care Team Providers Care Courtroom Deputy Or Calendar Clerk Name Role Phone Zoraida Colon MD Primary Care Provider [phone] Stacey Hobson MD Primary Care Provider [phone] [facility], [facility] Primary Care Provider Unavailabl e Reason for Visit * Reason Onset Date Comments Medication 10/18/2021 Encounter Details Date Type Department Care Team Description 10/18/2021 Refill Gastroenterology [facility] [address] [place] [phone] Mike Will MD [address] [place] [phone] Medication Social History Tobacco Use Types Packs/Day Years [...] Exposure Response Date Recorded In the last 10 days, have yo u been in contact with someone who was confirmed or suspected to have Coronavirus/COVID-19? No / Unsure 10/18/2021 12:45 PM EDT documented as of this encounter Plan of Treatment Not on file documented as of this encounter Visit Diagnoses Not on filedocumented in this encounter Care Teams Courtroom Deputy Or Calendar Clerk Relationship Specialty Start Date End Date Zoraida Colon MD [address] [place] [phone] PCP - General Internal Medicine 06/01/15 03/04/22 Stacey Hobson MD [address] [place] [address] PCP - General Internal Medicine 03/05/22 07/30/[address] [address] PCP - General Internal Medicine 07/31/22 documented as of this encounter
--- OUTSIDE RECORDS SUMMARY | 2024-06-12 07:47 | XMS_ITS | Encounter Summary ---
Author Organization [facility] Address [address] [place] [address] Care Team Providers Care Shop Mechanic Name Role Phone Zoraida Colon MD Primary Care Provider [phone] Stacey Hobson MD Primary Care Provider [phone] [facility], Pcp Primary Care Provider Unavailabl e Encounter Details Date Type Department Care Team Description 09/17/2017 Pt. Non Urgent Medic al Question OBGYN - [place] [address] [place] [address] Eduardo Tabor CNM Social History Tobacco Use Types Packs/Day Years Used Date Smoking Tobacco: Never Smokeless Tobacco: Never Alcohol Use Standard Drinks/Week Comments No 0 (1 standard drink = 0.6 oz pur e alcohol) Sex Assigned at Date Recorded Female 08/16/2020 11:17 AM EDT Job Start Date Occupation Industry Not on file Not on file Not on file documented as of this encounter Progress Notes * Shante Hopper - 09/18/2017 7:46 AM EDTFrom: Kianna Varela To: Eduardo Tabor CNM Sent: 09/17/2017 7:41 PM EDT Subject: hi I called the other day and nurse that I spoke to told me you didnt have nothing available my name is kianna Varela date of 1990 My left side been hurting alot near my pelvic area and is just getting worse the pain? Kianna Varela documented in this encounter Plan of Treatment Not on file documented as of this encounter Visit Diagnoses Not on filedocumented in this encounter Care Teams Shop Mechanic Relationship Specialty Start Date End Date Zoraida Colon MD [address] [place] [address] PCP - General Internal Medicine 06/01/15 03/04/22 Stacey Hobson MD [address] [place] [address] PCP - General Internal Medicine 03/05/22 07/30/22 [facility], [address] [address] PCP - General Internal Medicine 07/31/22 documented as of this encounter
--- OUTSIDE RECORDS SUMMARY | 2024-06-12 07:47 | XMS_ITS | Encounter Summary ---
Author Organization [facility] Address [address] [place] [address] Care Team Providers Care Tow Truck Operator Name Role Phone Stacey Hobson MD Primary Care Provider [phone] [facility], Pcp Primary Care Provider Unavailabl e Reason for Visit * Reason Onset Date Comments Mychart Rx Refill 07/04/2022 Encounter Details Date Type Department Care Team Description 07/04/2022 Refill Adult Medicine [facility] [address] [place] [address] Sivan Yadav PA [address] [place] [address] Mychart Rx Refill Social History Tobacco Use Types Packs/Day Years [...] encounter Miscellaneous Notes * Telephone Encounter - Marietta Machuca - 07/12/2022 3:43 PM EDT pended * Telephone Encounter - Jazlyn Olmstead M.A. - 07/09/2022 11:40 AM EDT Routing to correct pool - pt has [place] PCP, LUIS & dexter w/PCP. documented in this encounter Plan of Treatment Not on file documented as of this encounter Visit Diagnoses Not on filedocumented in this encounter Care Teams Tow Truck Operator Relationship Specialty Start Date End Date Stacey Hobson MD PCP - General Internal Medicine 03/05/22 07/30/22 [facility], Pcp PCP - General Internal Medicine 07/31/22 documented as of this encounter
--- OUTSIDE RECORDS SUMMARY | 2024-06-12 07:47 | XMS_ITS | Encounter Summary ---
Author Organization [facility] Address [address] [place] [address] Care Team Providers Care Real Estate Inspector Name Role Phone Zoraida Colon MD Primary Care Provider [phone] Stacey Hobson MD Primary Care Provider [phone] [facility], [facility] Primary Care Provider Unavailabl e Reason for Visit * Reason Onset Date Comments Work note 02/23/2019 Encounter Details Date Type Department Care Team Description 02/23/2019 Telephone Adult Medicine [address] [address] Nadia Cuenca PA-C Work note Social History Tobacco Use Types Packs/Day Years [...] encounter Miscellaneous Notes * Telephone Encounter - April Murrieta M.A. - 02/23/2019 3:52 PM EST Patient was all set with letter from yesterday, the dates were correct and she'll keep the letter Nadia gave her in the office on 02/22. * Telephone Encounter - Nadia Cuenca PA-C - 02/23/2019 11:57 AM EST Letter printed, okay to place in patient pickup * Telephone Encounter - Mari Schmidt M.A. - 02/23/2019 9:13 AM EST Please see msg below, new letter pending approval. Please print and sign * Telephone Encounter - Nuzhat Larry - 02/23/2019 9:02 AM EST Patient is calling for clarification on the work note she was given yesterday. Work note states to return to work on 02/23. Patient states she starts her shift at midnight but sometimes starts at 11 pm. Does note need to list 02/24 as returning? Please call patient at [phone] documented in this encounter Plan of Treatment Not on file documented as of this encounter Visit Diagnoses Not on filedocumented in this encounter Care Teams Real Estate Inspector Relationship Specialty Start Date End Date Zoraida Colon MD [address] [place] [address] PCP - General Internal Medicine 06/01/15 03/04/22 Stacey Hobson MD [address] [place] [address] PCP - General Internal Medicine 03/05/22 07/30/22 [facility], [place] [address] PCP - General Internal Medicine 07/31/22 documented as of this encounter
--- OUTSIDE RECORDS SUMMARY | 2024-06-12 07:47 | XMS_ITS | Encounter Summary ---
Author Organization [facility] Address [address] [place] [address] Care Team Providers Care Bank Representative Name Role Phone Name, John CORRAL Primary Care Provider UnavailZoraida Corey MD Primary Care Provider [phone] Stacey Hobson MD Primary Care Provider [phone] [facility], Pcp Primary Care Provider Unavailmonty sandra Encounter Details Date Type Department Care Team Description 03/06/2012 Release of Information Medical Records [address] [place] [id number] Abstract, Provider Social History Tobacco Use Types Packs/Day Years Used Date Smoking Tobacco: Never Alcohol Use Standard Drinks/Week Comments Not Asked 0 (1 standard drink = 0.6 oz pur e alcohol) Sex Assigned at Date Recorded Female 08/16/2020 11:17 AM EDT Job Start Date Occupation Industry Not on file Not on file Not on file documented as of this encounter Plan of Treatment Not on file documented as of this encounter Visit Diagnoses Not on filedocumented in this encounter Care Teams Bank Representative Relationship Specialty Start Date End Date Name, MD John PCP - General Internal Medicine 03/05/12 05/31/15 Zoraida Colon MD [address] [place] [address] PCP - General Internal Medicine 06/01/15 03/04/22 Stacey Hobson MD [address] [place] [address] PCP - General Internal Medicine 03/05/22 07/30/22 [facility], Pcp [address] [place] [address] PCP - General Internal Medicine 07/31/22 documented as of this encounter
--- OUTSIDE RECORDS SUMMARY | 2024-06-12 07:47 | XMS_ITS | Encounter Summary ---
Author Organization [facility] Address [address] [place] [address] Care Team Providers Care Card Game Operator Name Role Phone Name, John CORRAL Primary Care Provider Unavailabl e Zoraida Colon MD Primary Care Provider [phone] Stacey Hobson MD Primary Care Provider [phone] [facility], [facility] Primary Care Provider Unavailmonty sandra Encounter Details Date Type Department Care Team Description 12/15/2013 Panel Installer Report Medical Records [address] [place] [address] Pio Keene MD Social History Tobacco Use Types Packs/Day Years [...] on filedocumented in this encounter Care Teams Card Game Operator Relationship Specialty Start Date End Date Name, MD John PCP - General Internal Medicine 03/05/12 05/31/15 Zoraida Colon MD [address] [place], [place] [phone] PCP - General Internal Medicine 06/01/15 03/04/22 Stacey Hobson MD [address] [place] [address] PCP - General Internal Medicine 03/05/22 07/30/22 [facility], Pcp [address] [place] [address] PCP - General Internal Medicine 07/31/22 documented as of this encounter
--- OUTSIDE RECORDS SUMMARY | 2024-06-12 07:47 | XMS_ITS | Encounter Summary ---
Author Organization [facility] Address [address] [place] [address] Care Team Providers Care Station Engineer Name Role Phone Zoraida Colon MD Primary Care Provider [phone] Stacey Hobson MD Primary Care Provider [phone] [facility], [facility] Primary Care Provider Unavailabl e Encounter Details Date Type Department Care Team Description 06/13/2020 Refill Adult Medicine [address] [address] Radha Simon PA-C Social History Tobacco Use Types Packs/Day Years [...] encounter Miscellaneous Notes * Telephone Encounter - Casi Leblanc - 06/13/2020 2:36 PM EDT Ov 12/02/19 Ov 08/15/20 Lab Results Component Value Date NA 141 03/10/2018 K 4.3 03/10/2018 CO2 23.4 03/10/2018 CL 104 03/10/2018 BUN 10 03/10/2018 CREAT 0.7 03/10/2018 GLU 84 03/10/2018 CA 9.2 03/10/2018 GFR > 60 03/10/2018 documented in this encounter Plan of Treatment Not on file documented as of this encounter Visit Diagnoses Not on filedocumented in this encounter Care Teams Station Engineer Relationship Specialty Start Date End Date Zoraida Colon MD [address] [place] [address] PCP - General Internal Medicine 06/01/15 03/04/22 Stacey Hobson MD [address] [place] [address] PCP - General Internal Medicine 03/05/22 07/30/22 [facility], [place] [address] PCP - General Internal Medicine 07/31/22 documented as of this encounter
--- OUTSIDE RECORDS SUMMARY | 2024-06-12 07:47 | XMS_ITS | Encounter Summary ---
Author Organization [facility] Address [address] [place] [address] Care Team Providers Care Eligibility Supervisor Name Role Phone Zoraida Colon MD Primary Care Provider [phone] Stacey Hobson MD Primary Care Provider [phone] [facility], Pcp Primary Care Provider Unavailabl e Encounter Details Date Type Department Care Team Description 05/24/2017 Pt. Non Urgent Medic al Question OBGYN - [place] [address] [place] [address] Eduardo Tabor CNM Social History Tobacco Use [...] encounter Progress Notes * Shante Hopper - 05/26/2017 8:52 AM ESTFrom: Kianna Varela To: Eduardo Tabor CNM Sent: 05/24/2017 2:33 PM EST Subject: Question My name is kianna Varela my date of is 1990. I was wondering if there's a chance I can be even though I have the nexplanon. Because I think am documented in this encounter Plan of Treatment Not on file documented as of this encounter Visit Diagnoses Not on filedocumented in this encounter Care Teams Eligibility Supervisor Relationship Specialty Start Date End Date Zoraida Colon MD [address] [place] [address] PCP - General Internal Medicine 06/01/15 03/04/22 Stacey Hobson MD [address] [place] [address] PCP - General Internal Medicine 03/05/22 07/30/[address] [address] PCP - General Internal Medicine 07/31/22 documented as of this encounter
--- OUTSIDE RECORDS SUMMARY | 2024-06-12 07:47 | XMS_ITS | Encounter Summary ---
Author Organization [facility] Address [address] [place] [address] Care Team Providers Care Senior Sales Representative Name Role Phone Zoraida Colon MD Primary Care Provider [phone] Stacey Hobson MD Primary Care Provider [phone] [facility], Pcp Primary Care Provider Unavailabl e Encounter Details Date Type Department Care Team Description 06/16/2021 Pt. Non Urgent Medical Question Adult Medicine [address] [address] Wilda Ascencio PA-C [address] [place] [address] Need for prophylactic vaccination with iikqsqo-cqcio-eqapma a (MMR) vaccine (Primary Dx) Social History Tobacco Use Types Packs/Day Years [...] have Coronavirus / COVID-19? No / Unsure 06/15/2021 12:18 PM EDT documented as of this encounter Miscellaneous Notes * Telephone Encounter - Sydni Kasper M.A. - 06/18/2021 8:45 AM EDTFrom: Kianna Varela To: Rivera Ascencio Sent: 06/16/2021 12:50 PM EDT Subject: Question regarding MUMPS ANTIBODY I would like to schedule an appointment to get the series of the mmr vaccine documented in this encounter Plan of Treatment Scheduled Orders Name Type Priority Associated Diagnoses Orde r Schedule MMR VIRUS IMMUNIZATION, SUBCUT Immunizations/I njection Routine Need for prophylactic vaccination with txdljay-delzp-ejjauhz (MMR) vaccine 2 Occurrences starting 06/18/2021 until 06/18/2022, 1 completed documented as of this encounter Visit Diagnoses Diagnosis Need for prophylactic vaccination with uvescqj-zupjw-bpjljbv (MMR) vaccine- Primary documented in this encounter Care Teams Senior Sales Representative Relationship Specialty Start Date End Date Zoraida Colon MD [address] [place] [address] PCP - General Internal Medicine 06/01/15 03/04/22 Stacey Hobson MD [address] [place] [address] PCP - General Internal Medicine 03/05/22 07/30/22 [facility], [place] [address] [place] [address] PCP - General Internal Medicine 07/31/22 documented as of this encounter
--- OUTSIDE RECORDS SUMMARY | 2024-06-12 07:47 | XMS_ITS | Encounter Summary ---
Author Organization [facility] Address [address] [place] [address] Care Team Providers Care Slasher Tender Helper Name Role Phone Zoraida Colon MD Primary Care Provider [phone] Stacey Hobson MD Primary Care Provider [phone] [facility], [facility] Primary Care Provider Unavailabl e Reason for Visit * Reason Onset Date Comments My Chart Appointment 03/19/2016 Encounter Details Date Type Department Care Team Description 03/19/2016 Telephone Adult Medicine [facility] [address] [place] [phone] Zoraida Colon MD [address] [place] [address] [phone] My Chart Appointment Social History Tobacco Use Types Packs/Day Years Used Date Smoking Tobacco: Never Alcohol Use Standard Drinks/Week Comments No 0 (1 standard drink = 0.6 oz pur e alcohol) Sex Assigned at Date Recorded Female 08/16/2020 11:17 AM EDT Job Start Date Occupation Industry Not on file Not on file Not on file documented as of this encounter Miscellaneous Notes * Telephone Encounter - India Winter - 03/19/2016 1:12 PM EST Tried to call Pt number listed is not in service. * Telephone Encounter - India Corrigan - 03/19/2016 12:27 PM EST Patient has scheduled a visit through My Chart. Please call patient to triage for appropriateness. Date appointment is booked: 03/19 Appointment scheduled with [facility] Reason for appointment: have not been feeling good pain in stomach and nauseous documented in this encounter Plan of Treatment Not on file documented as of this encounter Visit Diagnoses Not on filedocumented in this encounter Care Teams Slasher Tender Helper Relationship Specialty Start Date End Date Zoraida Colon MD [address] [place] [address] PCP - General Internal Medicine 06/01/15 03/04/22 Stacey Hobson MD [address] [place] [address] PCP - General Internal Medicine 03/05/22 07/30/22 [facility], Pcp [address] [place] [address] PCP - General Internal Medicine 07/31/22 documented as of this encounter
--- OUTSIDE RECORDS SUMMARY | 2024-06-12 07:48 | XMS_ITS | Encounter Summary ---
Author Organization [employer] Address [address] [place] [address] Care Team Providers Care Manager Architectural Name Role Phone Unavailable Primary Care Provider [...]
--- OUTSIDE RECORDS SUMMARY | 2024-06-12 07:48 | XMS_ITS | Encounter Summary ---
Author Organization [facility] Address [address] [place] [address] Care Team Providers Care Night Court Magistrate Name Role Phone Zoraida Colon MD Primary Care Provider [phone] Stacey Hobson MD Primary Care Provider [phone] [facility], [facility] Primary Care Provider Unavailabl e Encounter Details Date Type Department Care Team Description 11/05/2017 Refill OBGYN - [place] [address] [place] [address] Marielos Bond CNM [address] [place], [place] [phone] Social History Tobacco Use Types Packs/Day Years [...] encounter Miscellaneous Notes * Telephone Encounter - Alina Cody M.A. - 11/06/2017 9:34 AM EDTFrom: Kianna Varela To: Marielos Bond CNM Sent: 11/05/2017 9:02 PM EDT Subject: Medication Renewal Request Original authorizing provider: DANIELLE Samson would like a refill of the following medications: ibuprofen (ADVIL,MOTRIN) 800 MG tablet [Marielos Bond CNM] Preferred pharmacy: [id number] [address] Comment: please documented in this encounter Plan of Treatment Not on file documented as of this encounter Visit Diagnoses Not on filedocumented in this encounter Care Teams Night Court Magistrate Relationship Specialty Start Date End Date Zoraida Colon MD [address] [place] [address] PCP - General Internal Medicine 06/01/15 03/04/22 Stacey Hobson MD [address] [place] [address] PCP - General Internal Medicine 03/05/22 07/30/22 [facility], Pcp [address] [place] [address] PCP - General Internal Medicine 07/31/22 documented as of this encounter
--- OUTSIDE RECORDS SUMMARY | 2024-06-12 07:48 | XMS_ITS | Clinical Summary ---
Author Organization [employer] Address [address] [facility] [address] [place] [address] Care Team Providers Care Gunstock Spray Unit Feeder Name Role Phone Unavailable Primary Care Provider [...]
[2024-06-12 07:59] LABS: MANUAL DIFF FLAG NO
[2024-06-12 08:31] LABS: Basophils Percent Auto 0.3 % (0-2); Eosinophils Absolute Auto 0.2 X10*3/uL (0.0-0.4); Eosinophils Percent Auto 2.6 % (0-4); Hematocrit 43.9 % (37.0-47.0); Hemoglobin 15.2 g/dl (12.0-16.0); Imm Gran Abs Auto 0.02 X10*3/uL (0.00-0.03); Imm Gran Pct Auto 0.3 % (0.0-0.4); Lymphocytes Absolute Auto 1.4 X10*3/uL (1.2-4.9); Lymphocytes Percent Auto 23.5 % (20-40); Mean Corpuscular HGB Conc 34.6 g/dl (31.0-35.0); Mean Corpuscular Hemoglobin 28.4 pg (27.0-33.0); Mean Corpuscular Volume 81.9 fL (80.0-98.0); Mean Platelet Volume 11.2 fL (9.4-12.3); Monocytes Absolute Auto 0.4 X10*3/uL (0.1-1.2); Monocytes Percent Auto 6.3 % (2-11); Neutrophils Absolute Auto 3.9 x10*3/uL (2.0-8.3); Platelet Count 241 X10*3/uL (160-400); Red Blood Count 5.36 X10*6/uL (4.20-5.50); Red Cell Distribution Width 12.1 % (11.0-16.0); White Blood Count 5.8 X10*3/uL (4.8-10.8)
[2024-06-12 09:08] LABS: Alanine Aminotransferase 57 U/L (0-31); Albumin Level 4.1 g/dL (3.5-5.0); Alkaline Phosphatase 50 U/L (39-117); Anion Gap 13 (12-20); Aspartate Amino Transferase 29 U/L (5-31); Bilirubin Total 0.7 mg/dL (0.0-1.0); Blood Urea Nitrogen 9 mg/dL (9-16); C Reactive Protein < 0.10 mg/dL (< or = 0.50); Calcium 8.8 mg/dL (8.4-10.2); Carbon Dioxide 20 mmol/L (22-29); Chloride 110 mmol/L (96-108); Estimated Glomerular Filt Rate > 60; Glucose Random 140 mg/dL (60-115); Potassium 3.6 mmol/L (3.3-5.1); Sodium 139 mmol/L (135-145); Total Protein 7.5 g/dL (6.5-8.0)
[2024-06-12 09:32] LABS: HBS Num1 146.42 mIU/mL (0-7.99); HBc Num1 0.13 S/CO (0.00-0.79); HBsAGNum1 0.24 S/CO (0.00-0.99); Hepatitis A Antibody IgM 0.14 Index (0-0.79); Hepatitis B Core Antibody Nonreactive (Nonreactive); Hepatitis B Surface Antigen Negative (Negative); ~HepC Num1 0.25 S/CO (0.00-0.79); ~Hepatitis A Antibody IgM Nonreactive (Nonreactive); ~Hepatitis B Surface Antibody REACTIVE (Nonreactive); ~Hepatitis C Antibody Nonreactive (Nonreactive)
[2024-06-12 09:39] LABS: Erythrocyte Sedimentation Rate 10 MM/HR (0-20)
== END 2024-06-12 07:46 | disposition home or self-care (01) ==
LOC: HO.LAB 07:45
PROVIDERS: PCP Physician Assistant; Visit Provider Student in an Organized Health Care Education/Training Program
DX: M05.9 Rheumatoid arthritis with rheumatoid factor, unspecified (principal)
CPT/HCPCS: 36415; 80053; 85025; 85652; 86140; 86704; 86706; 86709; 86803; 87340

== ENCOUNTER 2024-06-24 06:21 | Outpatient (REF) | payer OTHER, SELFPAY ==
[2024-06-24 07:11] LABS: Hematocrit 45.6 % (37.0-47.0); Hemoglobin 15.5 g/dl (12.0-16.0); Mean Corpuscular Hemoglobin 28.2 pg (27.0-33.0); Mean Corpuscular Volume 83.1 fL (80.0-98.0); Mean Platelet Volume 11.3 fL (9.4-12.3); Platelet Count 231 X10*3/uL (160-400); Red Blood Count 5.49 X10*6/uL (4.20-5.50); Red Cell Distribution Width 12.1 % (11.0-16.0); White Blood Count 6.3 X10*3/uL (4.8-10.8)
[2024-06-24 07:20] LABS: Estimated Average Glucose 134 mg/dL; Hemoglobin A1c % 6.3 % (<6.0); Total Hemoglobin (HGBA1C) 4113.2662 umol/L
[2024-06-24 07:47] LABS: Alanine Aminotransferase 54 U/L (0-31); Albumin Level 4.3 g/dL (3.5-5.0); Alkaline Phosphatase 52 U/L (39-117); Anion Gap 10 (12-20); Aspartate Amino Transferase 31 U/L (5-31); Bilirubin Total 0.6 mg/dL (0.0-1.0); Blood Urea Nitrogen 10 mg/dL (9-16); Calcium 9.4 mg/dL (8.4-10.2); Carbon Dioxide 25 mmol/L (22-29); Chloride 109 mmol/L (96-108); Cholesterol 151 mg/dL (<200); Estimated Glomerular Filt Rate > 60; Glucose Fasting 135 mg/dL (60-99); HDL Cholesterol 56 mg/dL (>40); LDL Cholesterol Calculated 87 mg/dL (<100); Sodium 139 mmol/L (135-145); Total Protein 7.2 g/dL (6.5-8.0); Triglycerides 42 mg/dL (<150)
== END 2024-06-24 06:22 | disposition home or self-care (01) ==
LOC: HO.LAB 06:21
PROVIDERS: PCP Physician Assistant; Visit Provider Physician Assistant
DX: E11.9 Type 2 diabetes mellitus without complications (principal)
CPT/HCPCS: 36415; 80053; 80061; 83036; 85027

== ENCOUNTER 2024-07-16 08:35 | Outpatient (AMB) | payer OTHER, SELFPAY ==
--- NOTE | 2024-07-16 08:37 | A.OFFVIS_ITS ---
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 MANAGER-[facility] Er-chest pain- High blood preasure Fire Prevention Captain Required: No Accompanied by: Self / Same As Patient Allergies No Known Allergies Allergy (Verified 06/10/24 14:14) Medication List - Last Reconciled 07/16/24 by PRINCESS Kasper blood pressure monitor As directed blood sugar diagnostic (FreeStyle Lite Strips) Testing once a day as needed blood-glucose meter (FreeStyle Lite Meter kit) As directed Enbrel SureClick (etanercept) 50 mg subcut QWEEK NS etonogestrel (Nexplanon) subdermal hydroxyzine HCl 25 mg PO BEDTIME PRN lancets (FreeStyle Lancets) Testing once a day as needed pioglitazone 15 mg PO DAILY 30 days HPI HPI 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 She recently went to the [facility] Emergency room for this symptom but left prior to full evaluation. She described the onset of sharp chest pain approximately one month ago. The pain occurs intermittently and can persist throughout the day without a predictable pattern. The episodes appear unrelated to physical activities such as deep breathing or changes in bod y position, though she does notice the pain more during faster-paced activities. She reports feeling dizzy and experiencing headaches alongside the pain, but has not experienced fainting or loss of consciousness. On one occasion, her blood pressure was elevated during an episode of pain, though daily measurements generally range in the 120s to 130s systolic. She feels fatigued and has shortness of breath accompanying these episodes. There is a notable family history of cardiovascular disease, as her grandmother suffered a myocardial infarction in her 70s. The patient denies regular use of ant ihypertensive medication despite being prescribed hydrochlorothiazide after a single episode of elevated blood pressure. The patient does not currently engage in structured exercise due to fear of provoking her chest pain. 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 She has a diagnosis of prediabetes. She does not smoke or use alcohol. 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 Cognitive needs: No Hearing needs: No Vision needs: No Review of Systems Const All systems reviewed & are unremarkable except as noted in HPI and below Denies chills, Denies fatigue, Denies fever(s), Denies frequent falls, Denies weakness, Denies weight gain and Denies weight loss ENT Denies dizziness Card Details: palpitations Reports chest pain, Reports chest pain at rest, Reports chest pain with activity, Denies leg edema, Reports lightheadedness, Reports palpitations, Reports dyspnea, Reports dyspnea on exertion and Reports orthopnea Resp Denies cough, Reports dyspnea and Reports dyspnea on exertion GI Denies bloating and Denies change in bowel habits Musc Denies muscle weakness, Denies numbness and Denies tingling Neuro Denies dizziness, Denies frequent falls, Denies numbness, Denies tingling and Denies weakness Endo Denies fatigue and Reports palpitations Physical Exam Vital Signs: Last Vital Signs Pulse 81 07/16/24 08:41 BP 130/64 07/16/24 08:41 BMI result Body Mass Index 38.4 Const General: cooperative, healthy appearing, comfortable and no acute distress Orientation/consciousness: patient oriented x3 Neck Neck: Yes normal visual inspection and Yes no JVD Resp Effort & Inspection: normal respiratory effort Auscultation: clear to auscultation bilaterally, no rales, no rhonchi and no wheezes Cardio Rate: regular rate Rhythm: regular rhythm Heart sounds: S1 normal heart sound present, S2 normal heart sound present, no murmurs and no rubs Neuro General: patient oriented x3 Extrem General: Yes normal to inspection, No no pedal edema and No calf tenderness Psych Appearance: grossly normal Mental Status: mental status grossly normal Speech and movement: Normal speech and movement present Office Procedures EKG Details: Today, read by me, normal sinus rhythm, nonspecific T-wave abnormality, rate 81, QTC 422 milliseconds [id number], Complete Assessment & Plan Assessment & Plan (1) Chest pain: Code(s): R07.9 - Chest pain, unspecified Category: Medical Plan: Intermittent sharp pain not clearly brought on by exertional activities: Atypical. -checking ETT and echo (2) Palpitations: Code(s): R00.2 - Palpitations Category: Medical Plan: Report of heart palpitation, rapid heartbeat at times with chest discomfort. - checking Holter (3) HTN (hypertension): Code(s): I10 - Essential (primary) hypertension Category: Medical Plan: She denies a diagnosis of hypertension. Blood pressure normal range today. Plan I discussed the patient's symptoms and the likelihood of them being non-cardiac in origin, given that EKG findings are normal, and the patient is young. The plan involves non-invasive testing to conclusively rule out cardiac etiology: an echocardiogram will evaluate heart structure, a treadmill test will assess her cardiovascular response to exertion, and a heart monitor will record her cardiac rhythm over time. Risks, benefits, and reasons for these tests were provided, and the patient consented to proceed. The likely prognosis, if tests are normal, would focus attention on potential musculoskeletal causes, reassuring her about any immediate cardiac concerns. The importance of follow-up was emphasized, and she will be contacted to schedule these evaluations. Orders: Orders CA echo transthoracic complete Today I10 - Essential (primary) hypertension, R07.9 - Chest pain, unspecified CA stress test Today I10 - Essential (primary) hypertension, R07.9 - Chest pain, unspecified ECG 3 day holter monitor Today R00.2 - Palpitations Patient Instructions: - Await call from Centralized Scheduling Department for tests - Contact office with any new or worsening symptoms - Maintain usual activities but avoid strenuous exercise until evaluation is complete - Monitor and record episodes of chest pain, noting triggering factors and symptoms - Seek urgent care if experiencing severe, persistent chest pain accompanied by alarming symptoms like fainting or severe shortness of breath Coding Level of Care Code New Pt Level 4 (21375) Complex EM visit Add On G2211 Diagnoses Chest pain R07.9 Palpitations R00.2 HTN (hypertension) I10 CPT Codes EKG - CPT: 10197-[id number], Complete ([id number]) Time Spent (min) 28
[2024-07-16 08:41] VITALS: BP 130/64; PULSE 81; BMI 38.4
--- OUTSIDE RECORDS SUMMARY | 2024-07-16 08:55 | XMS_ITS | Clinical Summary ---
Author Organization [employer] Address [address] [place] [address] Care Team Providers Care Trade Show Manager Name Role Phone Unavailable Primary Care Provider [...]
--- OUTSIDE RECORDS SUMMARY | 2024-07-16 08:55 | XMS_ITS | Clinical Summary ---
Author Organization [facility] Address [address] [place] [address] Phone Care Team Providers Care Health Information Technologist Name Role Phone Zoraida Colon MD Primary Care Provider [phone] Allergies No known active allergies Medications acetaminophen [...] Chronic tension-type headache, not intractable 0 08/29/2016 Encounters Date Type Department Care Team Description 07/07/2024 5:53 PM EDT - 07/07/2024 10:32 PM EDT Emergency [facility] Emergency [address] [place] [address] Discharge Disposition: Left Against Medical Advice from Last 3 Months Immunizations Name Administration Dates Next Due HPV, Quadrivalent 01/25/2015,07/20/2014,05/25/19 15 Hepatitis B (Iyqwwyc-R-Lnefr , Recombivax HB-Adult) 19yo and older 11/08/2023,10/08/2023 [...] Mucus in stool DX:Mucus in stoo l HTN (hypertension) Family History Medical History Relation Name Comments [...] Sign Reading Time Taken Comments Blood Pressure 149/72 07/07/2024 6:10 PM EDT Pulse 110 07/07/2024 6:10 PM EDT Temperature 37.1 ??C (98.8 ??F) 07/07/2024 6:10 PM ED T Respiratory Rate 16 07/07/2024 6:10 PM EDT Oxygen Saturation 100% 07/07/2024 6:10 PM EDT Inhaled Oxygen Concentration - - Weight 81.6 kg (180 lb) 07/07/2024 6:10 PM EDT Height 149.9 cm (4' 11 ) 07/07/2024 6:10 PM EDT Body Mass Index 36.36 07/07/2024 6:10 PM EDT Plan of Treatment Health Maintenance Due Date Last Done Comments Cervical Cancer Screening: Pap Smear 10/07/2020 10/07/2017, 10/07/2017, 10/07/2017 Depression Screening 02/27/2022 HIV Screening 02/27/2022 Social Influencers of Health Screening 02/27/2022 COVID-19 Vaccine ( season) 2023 04/21/2021, 09/09/2020, 08/12/2020 Hepatitis B Vaccines (3 of 3 - 19+ 3-dose series) 04/09/2024 11/08/2023, 10/08/2023 Influenza Vaccine (Season Ended) 2024 01/13/2018, 12/23/2016, 12/23/2016, Additional history exists DTaP,Tdap,and Td Vaccines (5 - Td or [...] age to complete this topic Meningococcal B Vaccine Aged Out No l onger eligible based on patient's age to complete this topic Pneumococcal Vaccine: Pediatrics (0 to 5 Years) and At-Risk Patients (6 to 64 Years) Aged Out No longer eligible based on patient's age to complete this topic RSV Immunization Patients Under 20 months Aged Out No longer eligible based on patient's age to complete this topic Procedures Procedure Name Priority Date/Time Associated Diagnosis Comments ECG ANNOTATED 07/08/2024 CBC WITH AUTO DIFFERENTIAL STAT 07/07/2024 6:11 PM EDT B-TYPE NATRIURETIC PEPTIDE STAT 07/07/2024 6:11 PM EDT MAGNESIUM STAT 07/07/2024 6:11 PM EDT LIPASE STAT 07/07/2024 6:11 PM EDT COMPREHENSIVE METABOLIC PANEL STAT 07/07/2024 6:11 PM EDT CBC AND DIFFERENTIAL STAT 07/07/2024 6:11 PM EDT TROPONIN I HIGH SENSITIVITY STAT 07/07/2024 6:11 PM EDT ECG 12-LEAD STAT 07/07/2024 6:05 PM EDT HM HEPATITIS C SCREENING Routine 04/25/2022 LIPID PANEL Routine 04/25/2022 PAP SMEAR Routine 10/07/2017 from Last 3 Months or Most Recently Relevant to Health Maintenance Results * ECG-Annotated (07/08/2024) us Provider Onbase MD ECG ORDERABLES Final Result * Troponin I high sensitivity (07/07/2024 6:11 PM EDT) [facility] High Sensitivity Troponin I <3 <=54 ng/L LAB CHEMISTRY METHOD 07/07/2024 6:54 PM EDT [facility] Blood Venous blood specimen / Unknown Venipuncture / Unknown 07/07/2024 6:11 PM EDT 07/07/2024 6:17 PM EDT Narrative [facility] - 07/07/2024 6:54 PM EDT High levels of biotin in samples may falsely decrease hsTroponin values. ??Use caution when interpreting hsTroponin results in patients taking biotin who exhibit renal impairment (eGFR <60) or in patients taking more than 20 mg/day of biotin. us Fabien New DO LAB BLOOD ORDERABLES Final Res ult [facility] [address] [place] [address], * (ABNORMAL) CBC auto differential (07/07/2024 6:11 PM EDT) [facility] WBC 7.9 4.8 - 10.8 K/mcL LAB HEMETOLOGY METHOD 07/07/2024 6:33 PM EDT [facility] RBC 5.50(H) 3.80 - 4.80 M/mcL LAB HEMETOLOGY METHOD 07/07/2024 6:33 PM EDT [facility] Hemoglobin 15.7 11.5 - 16.0 g/dL LAB HEMETOLOGY METHOD 07/07/2024 6:33 PM EDT [facility] Hematocrit 46.2 35.0 - 47.0 % LAB HEMETOLOGY METHOD 07/07/2024 6:33 PM EDT [facility] MCV 84.6 79.0 - 98.0 FL LAB HEMETOLOGY METHOD 07/07/2024 6:33 PM EDT [facility] MCH 28.8 27.0 - 32.0 pcg LAB HEMETOLOGY METHOD 07/07/2024 6:33 PM EDT [facility] MCHC 34.0 32.0 - 37.0 g/dL LAB HEMETOLOGY METHOD 07/07/2024 6:33 PM [facility] RDW 12.2 11.0 - 15.0 % LAB HEMETOLOGY METHOD 07/07/2024 6:33 PM T [facility] Platelets 228 130 - 400 K/mcL LAB HEMETOLOGY METHOD 07/07/2024 6:33 PM [facility] MPV 11.3(H) 7.0 - 11.0 FL LAB HEMETOLOGY METHOD 07/07/2024 6:33 PM [facility] NRBC 0.0 <1.0 % LAB HEMETOLOGY METHOD 07/07/2024 6:33 PM [facility] NRBC Absolute 0.00 <0.10 K/mcL LAB HEMETOLOGY METHOD 07/07/2024 6:33 PM [facility] Neutrophils Relative 58.9 % LAB HEMETOLOGY METHOD 07/07/2024 6:33 PM [facility] Lymphocytes Relative 29.3 % LAB HEMETOLOGY METHOD 07/07/2024 6:33 PM [facility] Monocytes Relative 7.9 % LAB HEMETOLOGY METHOD 07/07/2024 6:33 PM [facility] Eosinophils Relative 3.0 % LAB HEMETOLOGY METHOD 07/07/2024 6:33 PM [facility] Basophils Relative 0.5 % LAB HEMETOLOGY METHOD 07/07/2024 6:33 PM [facility] Immature Granulocytes Relative 0.4 % LAB HEMETOLOGY METHOD 07/07/2024 6:33 PM [facility] Neutrophils Absolute 4.67 1.50 - 7.00 K/mcL LAB HEMETOLOGY METHOD 07/07/2024 6:33 PM EDT [facility] Lymphocytes Absolute 2.33 1.00 - 5.00 K/mcL LAB HEMETOLOGY METHOD 07/07/2024 6:33 PM EDT [facility] Monocytes Absolute 0.63 0.20 - 1.00 K/mcL LAB HEMETOLOGY METHOD 07/07/2024 6:33 PM EDT [facility] Eosinophils Absolute 0.24 0.00 - 0.50 K/[facility] LAB HEMETOLOGY METHOD 07/07/2024 6:33 PM EDT [facility] Basophils Absolute 0.04 0.00 - 0.20 K/mcL LAB HEMETOLOGY METHOD 07/07/2024 6:33 PM EDT [facility] Immature Granulocytes Absolute 0.03 0.00 - 0.03 K/[facility] LAB HEMETOLOGY METHOD 07/07/2024 6:33 PM EDT [facility] Blood Venous blood specimen / Unknown Venipuncture / Unknown 07/07/2024 6:11 PM EDT 07/07/2024 6:17 PM EDT us Fabien New DO LAB BLOOD ORDERABLES Final Res ult [facility] [address] [place] [address], * B-type natriuretic peptide (07/07/2024 6:11 PM EDT) BNP <2 <=100 pcg/mL LAB CHEMISTRY METHOD 07/07/2024 7:01 PM EDT [facility] Blood Venous blood specimen / Unknown Venipuncture / Unknown 07/07/2024 6:11 PM EDT 07/07/2024 6:17 PM EDT us Fabien New DO LAB BLOOD ORDERABLES Final Res ult Performing Organization Address [facility]/ZIP Co de Phone Number [facility] [address] [place] [address], [place] [phone] * Magnesium (07/07/2024 6:11 PM EDT) Pathologist [facility] Magnesium 2.3 1.9 - 2.6 mg/dL LAB CHEMISTRY METHOD 07/07/2024 6:56 PM EDT [facility] Blood Venous blood specimen / Unknown Venipuncture / Unknown 07/07/2024 6:11 PM EDT 07/07/2024 6:17 PM EDT Fabien New DO LAB BLOOD ORDERABLES Final Res ult Performing Organization Address [facility] de Phone Number [facility] [address] [place] [address], [place] [phone] * Lipase (07/07/2024 6:11 PM EDT) [facility] Lipase 33 13 - 75 unit/L LAB CHEMISTRY METHOD 07/07/2024 6:56 PM EDT [facility] Blood Venous blood specimen / Unknown Venipuncture / Unknown 07/07/2024 6:11 PM EDT 07/07/2024 6:17 PM EDT Fabien New DO LAB BLOOD ORDERABLES Final Res ult Performing Organization Address City/[facility]/ZIP Co de Phone Number [facility] [address] [place] [address], [place] [phone] * Comprehensive metabolic panel (07/07/2024 6:11 PM EDT) Sodium 136 133 - 145 mmol/L LAB CHEMISTRY METHOD 07/07/2024 6:56 PM EDT [facility] Potassium 3.5 3.5 - 5.5 mmol/L LAB CHEMISTRY METHOD 07/07/2024 6:56 PM [facility] Chloride 106 96 - 110 mmol/L LAB CHEMISTRY METHOD 07/07/2024 6:56 PM [facility] CO2 24 21 - 32 mmol/L LAB CHEMISTRY METHOD 07/07/2024 6:56 PM [facility] Anion Gap 6 3 - 11 LAB CHEMISTRY METHOD 07/07/2024 6:56 PM [facility] Glucose 91 70 - 100 mg/dL LAB CHEMISTRY METHOD 07/07/2024 6:56 PM [facility] BUN 12 5 - 25 mg/dL LAB CHEMISTRY METHOD 07/07/2024 6:56 PM [facility] Creatinine 0.76 0.50 - 1.10 mg/dL LAB CHEMISTRY METHOD 07/07/2024 6:56 PM [facility] eGFR 107 >=60 mL/min/1. 73m2 LAB CHEMISTRY METHOD 07/07/2024 6:56 PM [facility] Comment:Calculation based on the??Chronic Kidney Disease Epidemiology Collaboration (CKD-EPI) equation refit??without adjustment for race. BUN/Creatinine Ratio 15.8 LAB CHEMISTRY METHOD 07/07/2024 6:56 PM [facility] Calcium 9.4 8.5 - 10.5 mg/dL LAB CHEMISTRY METHOD 07/07/2024 6:56 PM [facility] AST (SGOT) 23 10 - 42 unit/L LAB CHEMISTRY METHOD 07/07/2024 6:56 PM [facility] ALT (SGPT) 48 10 - 60 unit/L LAB CHEMISTRY METHOD 07/07/2024 6:56 PM [facility] Alkaline Phosphatase 54 42 - 121 unit/L LAB CHEMISTRY METHOD 07/07/2024 6:56 PM [facility] Total Protein 7.6 6.0 - 8.0 g/dL LAB CHEMISTRY METHOD 07/07/2024 6:56 PM EDT [facility] Albumin 4.1 3.2 - 5.0 g/dL LAB CHEMISTRY METHOD 07/07/2024 6:56 PM EDT [facility] Total Bilirubin 0.4 0.0 - 1.4 mg/dL LAB CHEMISTRY METHOD 07/07/2024 6:56 PM EDT [facility] Blood Venous blood specimen / Unknown Venipuncture / Unknown 07/07/2024 6:11 PM EDT 07/07/2024 6:17 PM EDT Fabien New DO LAB BLOOD ORDERABLES Final Res ult [facility] [address] [place] [address], [place] [phone] * ECG 12 lead (07/07/2024 6:05 PM EDT) Ventricular Rate ECG 87 BPM [facility] Atrial Rate 87 BPM GEMUSE P-R Interval 132 ms GEMUSE QRS Duration 80 ms GEMUSE Q-T Interval 358 ms GEMUSE QTc 430 ms GEMUSE P Wave Langford 32 degrees GEMUSE R Lang[place] 25 degrees GEMUSE T Lang[place] 2 degrees GEMUSE ECG Interpretation Normal sinus rhythm Nonspecific T wave abnormality Abnormal ECG When compared with ECG of 29-JUN-2010 13:43, Nonspecific T wave abnormality now evident in Anterior leads Confirmed by MD Kd, Timoteo ([id number]) on 07/09/2024 1:06:57 AM GEMUSE 07/07/2024 6:05 PM EDT 07/09/2024 1:06 AM EDT Fabien New DO ECG ORDERABLES Final Result [facility] * Hepatitis C Screening (04/25/2022) Pathologist [facility] Hepatitis C Screening abstracted Historical Provider HEALTH [...] RESULTING AGENCY - 10/14/2017 3:45 PM EDT [id number] THINPREP PAP, IMAGED: ATYPICAL SQUAMOUS CELLS OF [...] IF DIAGNOSIS OF ASCUS. Z12.4, Z01.419 Eduardo OTOOLE LAB CYTOLOGY ORDERA BLES Final Result HISTORICAL TESTING LAB RESULTING AGENCY from Last 3 Months or Most Recently Relevant to Health Maintenance Insurance [facility] [employer] Care Teams Health Information Technologist Relationship Specialty Start Date End Date Zoraida Colon MD [address] [place] [id number] PCP - General Internal Medicine 06/01/15
--- OUTSIDE RECORDS SUMMARY | 2024-07-16 08:55 | XMS_ITS | Encounter Summary ---
Author Organization [employer] Address [address] [place] [address] Care Team Providers Care Substitute School Nurse Name Role Phone Unavailable Primary Care Provider [...]
== END 2024-07-16 09:13 | disposition home or self-care (01) ==
LOC: HO.HCS 08:35
PROVIDERS: PCP Physician Assistant; Visit Provider Nurse Practitioner Family
DX: R07.9 Chest pain, unspecified (principal); R00.2 Palpitations; I10 Essential (primary) hypertension
CPT/HCPCS: 93010; 99204; G2211

== ENCOUNTER → 2024-07-16 08:35 | Outpatient (BNVA) | payer OTHER, SELFPAY | PROVIDERS: PCP Physician Assistant; Visit Provider Nurse Practitioner Family | DX: R07.9 Chest pain, unspecified (principal); R00.2 Palpitations; I10 Essential (primary) hypertension | CPT/HCPCS: 93005; 99202 ==

== ENCOUNTER 2024-08-19 15:57 | Outpatient (AMB) | payer OTHER, SELFPAY ==
[2024-08-19 16:05] VITALS: BP 130/72; PULSE 84; TEMP 36.2; O2SAT 99; BMI 38.7
--- NOTE | 2024-08-19 16:05 | MHC.PC.OV ---
Vital Signs 08/19/24 16:05 Height 4 ft 11 in Weight 191 lb 8 oz BMI 38.7 BP 130/72 Blood Pressure Location Lt brachial Position Sitting Pulse 84 Pulse Source Pulse Oximeter Temp 97.1 F Temp Source Temporal Artery Scan Pulse Oximetry (%) 99 Oxygen Delivery Method Room Air Intake Visit Reasons: PE Resident Buyer Required: No Accompanied by: Self / Same As Patient Allergies No Known Allergies Allergy (Verified 08/19/24 16:31) Medication List - Last Reconciled 08/19/24 by Darren Carias PA-C blood pressure monitor As directed blood sugar diagnostic (FreeStyle Lite Strips) Testing once a day as needed blood-glucose meter (FreeStyle Lite Meter kit) As directed Enbrel SureClick (etanercept) 50 mg subcut QWEEK NS etonogestrel (Nexplanon) subdermal hydroxyzine HCl 25 mg PO BEDTIME PRN lancets (FreeStyle Lancets) Testing once a day as needed Tobacco use date assessed: 08/19/24 Dental Screening Dental Screen Date: 08/19/24 HPI PE HPI Details Patient is a 33-year-old female here today for routine annual physical. Patient has a past medical history significant obesity, rheumatoid arthritis and impaired glucose metabolism Concern-- > she reports she has been having more frequent headaches. Has not been able to use Tylenol or ibuprofen due to elevated liver enzymes secondary to Enbrel weekly injections. PLAN: Will supply patient was sumatriptan 25 mg to use as needed for migraine headaches .. Rheumatoid arthritis: Followed by [facility]ology. She continues on Enbrel weekly injections. Did have elevated liver enzymes secondary to the injections. She has discontinued Tylenol and ibuprofen due to the elevated liver enzymes. . Impaired glucose metabolism: Most recent labs showing elevated fasting blood sugar 135 and an A1c is 6.3. We did discuss starting metformin though she wanted to work on lifestyle and dietary modifications. .. Class 2 obesity: Patient does understand her BMI is over 35 and will work on being more physically active and adapting to better eating habits to reduce her weight. 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 [facility] Medical History Hypovitaminosis D Screening examination for infectious disease Fatty liver disease, nonalcoholic Surgical History Previous section Family History Mother Rheumatoid arthritis Father Diabetes Social History (Updated 08/19/24 @ 16:35 by Darren Carias PA-C) Housing: House Unable to assess alcohol history related to: Unknown Alcohol intake: never Patient Tobacco Use Status: Never used Tobacco e-Cigarette/Vaping Use: Never Used service: No Current occupational status: employed 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 1. Little interest or pleasure in doing things: more than half the days 2. Feeling down, depressed, or hopeless: more than half the days 3. Trouble falling or staying asleep, or sleeping too much: nearly every day 4. Feeling tired or having little energy: nearly every day 5. Poor appetite or overeating: nearly every day 6. Feeling bad about yourself - or that you are a failure or have let yourself or your family down: more than half the days 7. Trouble concentrating on things, such as reading the newspaper or watching television: not at all 8. Moving or speaking so slowly that other people could have noticed. Or the opposite - being so fidgety or restless that you have been moving around a lot more than usual: not at all 9. Thoughts that you would be better off or of hurting yourself in some way: not at all Total score: 15 27680 - PHQ-9 Billing: Yes Source: Developed by Drs. Huy Leon, Pascale Ulloa, Zack Conway and colleagues, with an educational riki from [employer]. Thrive Questionnaire Date Thrive assessed: 08/19/24 I am a: Patient What is your living situation today?: I have a steady place to live Within the past 12 months, did the food you bought not last and you didn't have the money to get more?: Never true Within the past 12 months, did you worry whether your food would run out before you got money to buy more?: Never true Do you have trouble paying for medicines?: No Do you have trouble getting transportation to medical appointments?: No Do you have trouble paying your heating and electricity bill?: No Do you have trouble taking care of your child, family member or friend?: No Do you have trouble with day-to-day activities such as bathing, preparing meals, shopping, managing finances, etc.?: No Are you currently unemployed and looking for a job?: No Are you interested in more education?: No Please select the resources that you would like help with: None Currently or been in a relationship where the following occur: No concerns reported THRIVE Score: 0 AUDIT C Alcohol Use Questionnaire (AUDIT-C) 1. How often do you have a drink containing alcohol?: Never 2. How many drinks containing alcohol do you have on a typical day when you are drinking?: 1 or 2 3. How often do you have six or more drinks on one occasion?: Never Total Score: 0 ROLANDO-7 AMB Questionnaire ROLANDO-7 Date ROLANDO - 7 assessed: 08/19/24 Feeling nervous, anxious, or on edge: 1 = Several days Not being able to stop or control worryin = Nearly every day Worrying too much about different things: 2 = More than half the days Trouble relaxin = Nearly every day Being so restless that it is hard to sit still: 3 = Nearly every day Becoming easily annoyed or irritable: 3 = Nearly every day Feeling afraid as if something awful might happen: 3 = Nearly every day Total ROLANDO-7 score (0-4 normal; 5-9 mild; 10-14 moderate; 15-21 severe): 18 Source: Developed by Drs. Huy Leon, Pascale Ulloa, Zack Conway and colleagues, with an educational riki from [employer]. ROLANDO-7 Assessment Billing ROLANDO-7 Assessment Tool: ROLANDO-7 Assessment 39591 Review of Systems Const Denies body aches, Denies chills, Denies excessive sweating, Denies fatigue, Denies fever(s) and Reports headache(s) Eyes Denies blurry vision ENT Denies dysphagia, Denies vertigo, Denies dizziness, Reports headache(s), Denies hearing loss and Denies tinnitus Card Denies chest pain, Denies chest pain with activity, Denies syncope, Denies irregular heart rhythm and Denies dyspnea Resp Denies chest congestion, Denies cough, Denies hemoptysis, Denies dyspnea and Denies wheezing GI Denies abdominal pain, Denies melena, Denies hematochezia, Denies coffee ground emesis, Denies dysphagia, Denies diarrhea, Denies nausea and Denies vomiting Denies urinary frequency, Denies dysuria, Denies urinary hesitancy and Denies urinary urgency Musc Denies arthralgias, Denies limited range of motion, Denies muscle cramps and Denies muscle weakness Skin/Breast Denies rash and Denies skin ulcer Neuro Denies Abnormal speech present, Denies confusion, Denies vertigo, Denies dizziness, Denies syncope, Reports headache(s), Denies memory loss and Denies seizure-like activity Psych Denies anxiety, Denies confusion, Denies depression, Denies memory loss, Denies panic attacks and Denies paranoia Endo Denies excessive sweating, Denies fatigue, Denies flushing, Denies polydipsia and Denies polyuria Aller/Immun Denies wheezing Physical exam (Primary Care) Vital Signs: Last Vital Signs Temp 97.1 F 08/19/24 16:05 Pulse 84 08/19/24 16:05 BP 130/72 08/19/24 16:05 Pulse Ox 99 08/19/24 16:05 Oxygen Delivery Method Room Air 08/19/24 16:05 BMI result Body Mass Index 38.7 BMI Assessment/Plan discussion: High BMI High, discussed plan: lifestyle, weight reduction, dietary and physical activity Tobacco/Smoking Status: Tobacco use Status Tobacco use date assessed 08/19/24 08/19/24 16:07 Patient Tobacco Use Status Never used Tobacco 08/19/24 16:35 e-Cigarette/Vaping Use Never Used 08/19/24 16:35 PHQ-9: PHQ-9 Score PHQ-9: Total score 15 08/19/24 16:35 Thrive Assessment: Date of Thrive Assessment Date Thrive assessed 08/19/24 08/19/24 16:07 Currently or been in a relationship where the following occur: No concerns reported Const Other: Obese General: cooperative, comfortable, no acute distress, alert and awake; No confusion Orientation/consciousness: oriented to person, oriented to place, patient oriented x3 and No confusion HENMT Head: Yes normocephalic Ears: external ears normal and TM's normal bilaterally Face and sinus: No sinus tenderness Mouth: Normal oral and palatal mucosa present and tongue normal Teeth and gingiva: dentition normal and gingiva normal Throat: Yes posterior oropharynx normal, Yes tonsils normal and Yes uvula midline Eyes Conjunctivae: conjunctivae normal Sclerae: sclerae normal Pupils: Equal, round and reactive pupils present EOM: EOMs intact bilaterally Direct Ophthalmoscopy: No no photophobia Neck Neck: Yes no lymphadenopathy, No tender and Yes no JVD Thyroid: Thyroid normal Carotids: no bruits Chest Chest palpation & inspection: no tenderness Resp Effort & Inspection: normal respiratory effort, no audible wheezes, not labored and no stridor Auscultation: no crackles, no rales, no rhonchi and no wheezes Cardio Jugular venous distension: no JVD Rate: regular rate, not bradycardic and not tachycardic Rhythm: regular rhythm Bruits: no carotid bruits Peripheral pulses: Peripheral pulses 2+ throughout GI Inspection: Yes normal to inspection, No abdominal wall ecchymosis and No visible herniation Palpation (GI): Soft to palpation, nontender, no guarding, not rigid and No hepatosplenomegaly present Auscultation: normoactive bowel sounds General: Yes no CVA tenderness Back/Spine/Pelvis Back: no CVA tenderness and No back tenderness Cervical Spine: cervical ROM normal Thoracic/Lumbar Spine: thoracic and lumbar spine normal to inspection, straight leg raise negative bilaterally, No thoraco-lumbar ROM limited and No lumbar spinal tenderness Skin Lesions: no lesions Rashes: no rashes Wounds: no wounds Neuro General: oriented to person, oriented to place, patient oriented x3, CN's II-XI intact bilaterally and No confusion Cranial nerves: Yes Equal, round and reactive pupils present and Yes Normal accommodation reflex present Cognition (Neuro): normal cognition Speech: No Abnormal speech present Gait exam (Neuro): Normal gait present Motor exam (neuro): 5/5 motor strength present throughout Extrem Right upper extremity: full ROM; no cyanosis Left upper extremity: full ROM; no cyanosis Right lower extremity: no edema Left lower extremity: no edema Psych Appearance: grossly normal Mental Status: mental status grossly normal Affect: normal affect Attitude: cooperative Thought process: Normal thought process present Coding Level of Care Code Est Pt Prev Care 18-39y(38323) Diagnoses Primary hypertension I10 Hypertension type: primary hypertension Seropositive rheumatoid arthritis M05.9 Migraine without status migrainosus, not intractable, unspecified migraine type G43.909 Migraine type: unspecified Status migrainosus presence: without status migrainosus Intractability: not intractable Annual physical exam Z00.00 Impaired glucose metabolism R73.09 Additional Codes ROLANDO-7 Assessment Billing - ROLANDO-7 Assessment Tool: ROLANDO-7 Assessment 44895 ([id number]) PHQ-9 - 49688 - PHQ-9 Billing: Yes ([id number]) Assessment & Plan Assessment & Plan (1) HTN (hypertension): Code(s): I10 - Essential (primary) hypertension Category: Medical Qualifiers: Hypertension type: primary hypertension Qualified Code(s): I10 - Essential (primary) hypertension Plan: She denies a diagnosis of hypertension. Blood pressure normal range today. (2) Seropositive rheumatoid arthritis: Comment: ++RF -ve CCP dx 11/2023 Enbrel 11/2023. Effective Code(s): M05.9 - Rheumatoid arthritis with rheumatoid factor, unspecified Category: Medical Plan: Patient continues to follow Rheumatology and does get Enbrel injections which helped to reduce her joint pains. Of note in March 2024 she did have elevated liver enzymes simvastatin to be due to her disease modifying drug. Most recent liver enzymes much improved. (3) Migraine: Code(s): G43.909 - Migraine, unspecified, not intractable, without status migrainosus Category: Medical Qualifiers: Migraine type: unspecified Status migrainosus presence: without status migrainosus Intractability: not intractable Qualified Code(s): G43.909 - Migraine, unspecified, not intractable, without status migrainosus Plan: Patient does report more frequent headaches as of late thus has been trying to take a bit more ibuprofen though has concerned about her liver enzymes. Will supply patient with sumatriptan to use for her migraine headaches. (4) Annual physical exam: Code(s): Z00.00 - Encounter for general adult medical examination without abnormal findings Category: Medical Plan: As per HPI (5) Impaired glucose metabolism: Code(s): R73.09 - Other abnormal glucose Category: Medical Plan: Patient's most recent fasting blood sugar elevated and A1c in prediabetic range. Patient does understand this and will work on dietary modifications and being more physically active. We did discuss perhaps starting metformin though patient is concerned about overall side effects of this medication. Goal A1c is to be below 6.0
== END 2024-08-19 16:46 | disposition home or self-care (01) ==
LOC: HO.HMCH 15:58
PROVIDERS: PCP Physician Assistant; Visit Provider Physician Assistant
DX: I10 Essential (primary) hypertension (principal); M05.9 Rheumatoid arthritis with rheumatoid factor, unspecified; G43.909 Migraine, unspecified, not intractable, without status migrainosus; Z00.00 Encounter for general adult medical examination without abnormal findings; R73.09 Other abnormal glucose

== ENCOUNTER → 2024-08-19 15:57 | Outpatient (BNVA) | payer OTHER, SELFPAY | PROVIDERS: PCP Physician Assistant; Visit Provider Physician Assistant | DX: Z00.00 Encounter for general adult medical examination without abnormal findings (principal); R06.9 Unspecified abnormalities of breathing; E66.812 Obesity, class 2; I10 Essential (primary) hypertension; M05.9 Rheumatoid arthritis with rheumatoid factor, unspecified; G43.909 Migraine, unspecified, not intractable, without status migrainosus; R73.09 Other abnormal glucose; Z68.38 Body mass index [BMI] 38.0-38.9, adult | CPT/HCPCS: 96127; 99395 ==

== ENCOUNTER → 2024-08-24 08:46 | Outpatient (REF) | payer OTHER, SELFPAY ==
--- NOTE | 2024-08-24 08:49 | CA_ITS ---
Transthoracic Echocardiogram Patient (Last, First, Middle): Kianna Varela, Gender: Female Date of : 1990 Age: 33 Procedure Date: 08/24/2024 Procedure Type: Transthoracic Echocardiogram Location: OP Height: 149.86 cm Weight: 86.64 kg BSA: 1.81 m2 Heart Rate: bpm BP: 130 / 72 mmHg Police Matron: JJ Referring MD: Flavia Castillo TRANSVERSE ABDOMINAL MUSCLE SURGEON[facility] Pediatrician: Farrukh Love MD Symptoms: R07.9 - Chest pain, unspecified Study Quality: Adequate ECG Rhythm: Sinus Conclusions: - Normal study Findings Left Ventricle Normal left ventricular size, thickness, and systolic function. The visually estimated ejection fraction is between 55-60%. Spectral Doppler is indicative of a normal filling pattern. Peak GLS is -19%, within normal limits. Right Ventricle Normal right ventricular cavity size and systolic function. Atria Both atria are normal in size. Interatrial shunt cannot be excluded. Aortic Valve Normal aortic valve structure and function. There is no aortic valve stenosis. There is no aortic valve regurgitation. Mitral Valve Normal mitral valve structure and function. There is trace mitral valve regurgitation. There is no mitral valve stenosis. Pulmonic Valve The pulmonic valve is likely normal. Tricuspid Valve Normal tricuspid valve structure. There is trace tricuspid valve regurgitation. The right ventricular systolic pressure is normal. The right ventricular systolic pressure is 13 mmHg. Normal right atrial pressure. There is no evidence of pulmonary hypertension. Great Vessels All visible segments of the aorta are normal in size. The visualized portions of the pulmonary artery and branches are normal. Venous The inferior vena cava is normal in size and collapses greater than 50% with inspiration. Pericardium/Pleural There is no evidence of pericardial effusion. Prior Study Comparison No prior study available for comparison. Measurements 2D Linear Measurements IVSd: 0.90 0.6-0.9/0.6-1.0 cm LVIDd: 5.08 3.9-5.3/4.2-5.9 cm LVIDd Index: 2.81 2.4-3.2/2.2-3.1 cm/m2 LVIDs: 3.23 2.0-3.6 cm LVPWd: 0.76 0.7-1.1 cm LA Diam: 3.30 2.7-3.8/3.0-4.0 cm LAIDs Index: 1.82 1.5-2.3 cm/m2 LV Mass: 182.51 67-162/88-224 g LV Mass Index: 100.84 43-95/49-115 g/m2 LVOT Diam: 2.00 3.0+(-)1.3 cm 2D Systolic Function EF 4C: 58.30 >55% EF 2C: 53.00 >55% EF BiP: 55.40 >55% Mitral Valve MV Pk E: 0.76 MV PK A: 0.66 MV Decel Time: 192.00 E/A: 1.10 E'Lateral: 12.90 E'Medial: 9.14 E/E' Med: 8.30 E/E' Lat: 5.90 PHT: 56.00 MVA PHT: 3.93 Decel [place]: 3.98 Aortic Valve AoV Pk Remy: 1.25 AoV Mn Remy: 0.93 AoV VTI: 0.27 AoV Pk Grad: 6.00 Aov Mn Grad: 4.00 HERMINIO Cont.VTI: 2.38 LVOT LVOT Pk Remy: 1.04 LVOT Mn Remy: 0.71 LVOT VTI: 0.20 LVOT Pk Grad: 4.00 LVOT Mn Grad: 2.00 LVOT Diam: 2.00 LVOT Area: 3.14 Diastolic Function MV Pk E: 0.76 MV Pk A: 0.66 E/A: 1.10 E'Medial: 9.14 E/E' Med: 8.30 E' Laterial: 12.90 E/E' Lat: 5.90 Right Ventricle TAPSE (mm): 22.20 TVS' Remy: 11.30 Tricuspid Valve TR Pk Remy: 1.60 TR Pk Grad: 10.00 RA Press: 3.00 RVSP: 13.00 Great Vessels Aorta Sinus of Valsalva: 2.85 2.0-3.[address] Ridge: 2.45 1.7-3.4 cm Ao Asc: 2.50 2.1-3.4 cm Ao Arch: 2.30 Updated in Other Vendor System with Status of Final Farrukh Love MD electronically signed on 08/25/2024 3:25:24 PM with status of Final
--- NOTE | 2024-08-24 08:49 | CA_ITS ---
Acquisition Time: 2024-08-24 09:56:08 Total Exercise Time: 00:06:51 Test Indications: CP, SOB Medications: SEE H&P Protocol: OTILIA Max HR: 162 BPM 86% of Pred: 188 BPM Max BP: 140/58 mmHG Max Work Load: 8.2 METS Exercise stress test with exercise 6 mins 51 secs of Otilia Protocol, achieving 86% MPHR, with reports of mild SOB and 7/10 mid chest tightness that started in Stage 1 and stayed constant throughout, without any arrythmias, with normotensive response to exercise. Without EKG changes meeting criteria for ischemia. In recovery, chest tightness resolved and breathing returned to baseline. Will order stress echo to further evaluate the CP. Test reviewed with Dr. Love. Referred By: Flavia Castillo Electronically Signed By: Sam Alfredo
--- OUTSIDE RECORDS SUMMARY | 2024-08-24 09:05 | XMS_ITS | Clinical Summary ---
Author Organization [facility] Address [address] [place] [address] Phone Care Team Providers Care Athletic Monitor Name Role Phone Zoraida Colon MD Primary Care Provider [phone] Allergies No known active allergies Medications acetaminophen [...] EDT - 07/07/2024 10:32 PM EDT Emergency [facility] Emergency [address] [place] [address] Discharge Disposition: Left Against Medical Advice from Last 3 Months Immunizations Name Administration Dates Next Due HPV, Quadrivalent 01/25/2015,07/20/2014,05/25/19 15 Hepatitis B (Qeluomw-V-[id number] , Recombivax HB-Adult) 19yo and older 11/08/2023,10/08/2023 [...] I high sensitivity (07/07/2024 6:11 PM EDT) [facility] High Sensitivity Troponin I <3 <=54 ng/L LAB CHEMISTRY METHOD 07/07/2024 6:54 PM EDT [facility] Blood Venous blood specimen / Unknown Venipuncture / Unknown 07/07/2024 6:11 PM EDT 07/07/2024 6:17 PM EDT Narrative [facility] - 07/07/2024 6:54 PM EDT High levels of biotin in samples may falsely decrease hsTroponin values. ??Use caution when interpreting hsTroponin results in patients taking biotin who exhibit renal impairment (eGFR <60) or in patients taking more than 20 mg/day of biotin. us Fabien New DO LAB BLOOD ORDERABLES Final Res ult [facility] [address] [place] [address], * (ABNORMAL) CBC auto differential (07/07/2024 6:11 PM EDT) [facility] WBC 7.9 4.8 - 10.8 K/mcL LAB HEMETOLOGY METHOD 07/07/2024 6:33 PM EDT [facility] RBC 5.50(H) 3.80 - 4.80 M/mcL LAB HEMETOLOGY METHOD 07/07/2024 6:33 PM EDT [facility] Hemoglobin 15.7 11.5 - 16.0 g/dL LAB HEMETOLOGY METHOD 07/07/2024 6:33 PM EDT [facility] Hematocrit 46.2 35.0 - 47.0 % LAB HEMETOLOGY METHOD 07/07/2024 6:33 PM EDT [facility] MCV 84.6 79.0 - 98.0 FL LAB HEMETOLOGY METHOD 07/07/2024 6:33 PM EDT [facility] MCH 28.8 27.0 - 32.0 pcg LAB HEMETOLOGY METHOD 07/07/2024 6:33 PM EDT [facility] MCHC 34.0 32.0 - 37.0 g/dL LAB HEMETOLOGY METHOD 07/07/2024 6:33 PM [facility] RDW 12.2 11.0 - 15.0 % LAB HEMETOLOGY METHOD 07/07/2024 6:33 PM T [facility] Platelets 228 130 - 400 K/mcL LAB HEMETOLOGY METHOD 07/07/2024 6:33 PM [facility] MPV 11.3(H) 7.0 - 11.0 FL LAB HEMETOLOGY METHOD 07/07/2024 6:33 PM [facility] NRBC 0.0 <1.0 % LAB HEMETOLOGY METHOD 07/07/2024 6:33 PM [facility] NRBC Absolute 0.00 <0.10 K/mcL LAB HEMETOLOGY METHOD 07/07/2024 6:33 PM [facility] Neutrophils Relative 58.9 % LAB HEMETOLOGY METHOD 07/07/2024 6:33 PM [facility] Lymphocytes Relative 29.3 % LAB HEMETOLOGY METHOD 07/07/2024 6:33 PM [facility] Monocytes Relative 7.9 % LAB HEMETOLOGY METHOD 07/07/2024 6:33 PM [facility] Eosinophils Relative 3.0 % LAB HEMETOLOGY METHOD 07/07/2024 6:33 PM [facility] Basophils Relative 0.5 % LAB HEMETOLOGY METHOD 07/07/2024 6:33 PM [facility] Immature Granulocytes Relative 0.4 % LAB HEMETOLOGY METHOD 07/07/2024 6:33 PM [facility] Neutrophils Absolute 4.67 1.50 - 7.00 K/mcL LAB HEMETOLOGY METHOD 07/07/2024 6:33 PM EDT [facility] Lymphocytes Absolute 2.33 1.00 - 5.00 K/mcL LAB HEMETOLOGY METHOD 07/07/2024 6:33 PM EDT [facility] Monocytes Absolute 0.63 0.20 - 1.00 K/mcL LAB HEMETOLOGY METHOD 07/07/2024 6:33 PM EDT [facility] Eosinophils Absolute 0.24 0.00 - 0.50 K/[facility] LAB HEMETOLOGY METHOD 07/07/2024 6:33 PM EDT [facility] Basophils Absolute 0.04 0.00 - 0.20 K/mcL LAB HEMETOLOGY METHOD 07/07/2024 6:33 PM EDT [facility] Immature Granulocytes Absolute 0.03 0.00 - 0.03 K/[facility] LAB HEMETOLOGY METHOD 07/07/2024 6:33 PM EDT [facility] Blood Venous blood specimen / Unknown Venipuncture / Unknown 07/07/2024 6:11 PM EDT 07/07/2024 6:17 PM EDT us Fabien New DO LAB BLOOD ORDERABLES Final Res ult [facility] [address] [place] [address], * B-type natriuretic peptide (07/07/2024 6:11 PM EDT) BNP <2 <=100 pcg/mL LAB CHEMISTRY METHOD 07/07/2024 7:01 PM EDT [facility] Blood Venous blood specimen / Unknown Venipuncture / Unknown 07/07/2024 6:11 PM EDT 07/07/2024 6:17 PM EDT us Fabien New DO LAB BLOOD ORDERABLES Final Res ult Performing Organization Address [facility]/ZIP Co de Phone Number [facility] [address] [place] [address], [place] [phone] * Magnesium (07/07/2024 6:11 PM EDT) Pathologist [facility] Magnesium 2.3 1.9 - 2.6 mg/dL LAB CHEMISTRY METHOD 07/07/2024 6:56 PM EDT [facility] Blood Venous blood specimen / Unknown Venipuncture / Unknown 07/07/2024 6:11 PM EDT 07/07/2024 6:17 PM EDT Fabien New DO LAB BLOOD ORDERABLES Final Res ult Performing Organization Address [facility] de Phone Number [facility] [address] [place] [address], [place] [phone] * Lipase (07/07/2024 6:11 PM EDT) [facility] Lipase 33 13 - 75 unit/L LAB CHEMISTRY METHOD 07/07/2024 6:56 PM EDT [facility] Blood Venous blood specimen / Unknown Venipuncture / Unknown 07/07/2024 6:11 PM EDT 07/07/2024 6:17 PM EDT Fabien New DO LAB BLOOD ORDERABLES Final Res ult Performing Organization Address City/[facility]/ZIP Co de Phone Number [facility] [address] [place] [address], [place] [phone] * Comprehensive metabolic panel (07/07/2024 6:11 PM EDT) Sodium 136 133 - 145 mmol/L LAB CHEMISTRY METHOD 07/07/2024 6:56 PM EDT [facility] Potassium 3.5 3.5 - 5.5 mmol/L LAB CHEMISTRY METHOD 07/07/2024 6:56 PM [facility] Chloride 106 96 - 110 mmol/L LAB CHEMISTRY METHOD 07/07/2024 6:56 PM [facility] CO2 24 21 - 32 mmol/L LAB CHEMISTRY METHOD 07/07/2024 6:56 PM [facility] Anion Gap 6 3 - 11 LAB CHEMISTRY METHOD 07/07/2024 6:56 PM [facility] Glucose 91 70 - 100 mg/dL LAB CHEMISTRY METHOD 07/07/2024 6:56 PM [facility] BUN 12 5 - 25 mg/dL LAB CHEMISTRY METHOD 07/07/2024 6:56 PM [facility] Creatinine 0.76 0.50 - 1.10 mg/dL LAB CHEMISTRY METHOD 07/07/2024 6:56 PM [facility] eGFR 107 >=60 mL/min/1. 73m2 LAB CHEMISTRY METHOD 07/07/2024 6:56 PM [facility] Comment:Calculation based on the??Chronic Kidney Disease Epidemiology Collaboration (CKD-EPI) equation refit??without adjustment for race. BUN/Creatinine Ratio 15.8 LAB CHEMISTRY METHOD 07/07/2024 6:56 PM [facility] Calcium 9.4 8.5 - 10.5 mg/dL LAB CHEMISTRY METHOD 07/07/2024 6:56 PM [facility] AST (SGOT) 23 10 - 42 unit/L LAB CHEMISTRY METHOD 07/07/2024 6:56 PM [facility] ALT (SGPT) 48 10 - 60 unit/L LAB CHEMISTRY METHOD 07/07/2024 6:56 PM [facility] Alkaline Phosphatase 54 42 - 121 unit/L LAB CHEMISTRY METHOD 07/07/2024 6:56 PM [facility] Total Protein 7.6 6.0 - 8.0 g/dL LAB CHEMISTRY METHOD 07/07/2024 6:56 PM EDT [facility] Albumin 4.1 3.2 - 5.0 g/dL LAB CHEMISTRY METHOD 07/07/2024 6:56 PM EDT [facility] Total Bilirubin 0.4 0.0 - 1.4 mg/dL LAB CHEMISTRY METHOD 07/07/2024 6:56 PM EDT [facility] Blood Venous blood specimen / Unknown Venipuncture / Unknown 07/07/2024 6:11 PM EDT 07/07/2024 6:17 PM EDT Fabien New DO LAB BLOOD ORDERABLES Final Res ult [facility] [address] [place] [address], [place] [phone] * ECG 12 lead (07/07/2024 6:05 PM EDT) Ventricular Rate ECG 87 BPM [facility] Atrial Rate 87 BPM [facility] P-R Interval 132 ms [facility] QRS Duration 80 ms [facility] Q-T Interval 358 ms G[facility] QTc 430 ms GEMUSE P Wave [place] 32 degrees GEMUSE R [place] 25 degrees GEMUSE T [place] 2 degrees GEMUSE ECG Interpretation Normal sinus rhythm Nonspecific T wave abnormality Abnormal ECG When compared with ECG of 29-JUN-2010 13:43, Nonspecific T wave abnormality now evident in Anterior leads Confirmed by MD Kd, Timoteo ([id number]) on 07/09/2024 1:06:57 AM [facility] 07/07/2024 6:05 PM EDT 07/09/2024 1:06 AM EDT Fabien New DO ECG ORDERABLES Final Result [facility] * Hepatitis C Screening (04/25/2022) Pathologist [facility] Hepatitis C Screening abstracted Historical Provider HEALTH [...] RESULTING AGENCY - 10/14/2017 3:45 PM EDT [id number] THINPREP PAP, IMAGED: ATYPICAL SQUAMOUS CELLS OF [...] Most Recently Relevant to Health Maintenance Insurance [facility] [facility] Care Teams Athletic Monitor Relationship Specialty Start Date End Date Zoraida Colon MD [address] [place] [id number] PCP - General Internal Medicine 06/01/15
== END ==
LOC: HO.CARD 08:46
PROVIDERS: PCP Physician Assistant; Visit Provider Nurse Practitioner Family
DX: R07.9 Chest pain, unspecified (principal); R00.2 Palpitations; I10 Essential (primary) hypertension
CPT/HCPCS: 93017; 93242; 93306

== ENCOUNTER → 2024-08-24 08:49 | Outpatient (BNV) | payer OTHER, SELFPAY | PROVIDERS: PCP Physician Assistant | DX: R06.02 Shortness of breath (principal); R07.9 Chest pain, unspecified | CPT/HCPCS: 93016; 93018; 93320; 93350; 93356 ==

== ENCOUNTER 2024-09-18 07:47 | Outpatient (REF) | payer OTHER, SELFPAY ==
[2024-09-18 09:17] LABS: Albumin Level 4.2 g/dL (3.5-5.0); Alkaline Phosphatase 45 U/L (39-117); Anion Gap 10 (12-20); Aspartate Amino Transferase 44 U/L (5-31); Bilirubin Total 0.6 mg/dL (0.0-1.0); Blood Urea Nitrogen 8 mg/dL (9-16); Calcium 8.9 mg/dL (8.4-10.2); Carbon Dioxide 24 mmol/L (22-29); Chloride 108 mmol/L (96-108); Estimated Glomerular Filt Rate > 60; Glucose Random 124 mg/dL (60-115); Potassium 4.1 mmol/L (3.3-5.1); Sodium 138 mmol/L (135-145)
[2024-09-18 09:32] LABS: Alanine Aminotransferase 100 U/L (0-31)
== END 2024-09-18 07:48 | disposition home or self-care (01) ==
LOC: HO.LAB 07:47
PROVIDERS: PCP Physician Assistant; Visit Provider Student in an Organized Health Care Education/Training Program
DX: M05.9 Rheumatoid arthritis with rheumatoid factor, unspecified (principal)
CPT/HCPCS: 36415; 80053

== ENCOUNTER 2024-09-20 06:49 | Outpatient (REF) | payer OTHER, SELFPAY ==
[2024-09-23 17:58] LABS: TS Negative Control Passed; TS Panel A 0; TS Panel B 0; TS Positive Control Passed; TSpotTB Negative (Negative)
== END 2024-09-20 06:50 | disposition home or self-care (01) ==
LOC: HO.LAB 06:49
PROVIDERS: PCP Physician Assistant; Visit Provider Student in an Organized Health Care Education/Training Program
DX: M05.9 Rheumatoid arthritis with rheumatoid factor, unspecified (principal)
CPT/HCPCS: 36415; 86481

== ENCOUNTER 2024-09-24 07:14 | Outpatient (AMB) | payer OTHER, SELFPAY ==
--- OUTSIDE RECORDS SUMMARY | 2024-09-24 07:17 | XMS_ITS | Clinical Summary ---
Author Organization [facility] Address [address] [place] [address] Phone Care Team Providers Care Still Operator Gin Name Role Phone Zoraida Colon MD Primary Care Provider [phone] Allergies No known active allergies Medications acetaminophen [...] EDT - 07/07/2024 10:[address] [facility] Emergency [address] [place] [address] Discharge Disposition: Left Against Medical Advice from Last 3 Months Immunizations Name Administration Dates Next Due HPV, Quadrivalent 01/25/2015,07/20/2014,05/25/19 15 Hepatitis B ([id number] , Recombivax HB-Adult) 19yo and older 11/08/2023,10/08/2023 [...] 110 07/07/2024 6:10 PM EDT Temperature 37.1 C (98.8 F) 07/07/2024 6:10 PM EDT Respiratory Rate 16 07/07/2024 6:10 PM EDT [...] I high sensitivity (07/07/2024 6:11 PM EDT) [facility] High Sensitivity Troponin I <3 <=54 ng/L LAB CHEMISTRY METHOD 07/07/2024 6:54 PM EDT [facility] Blood Venous blood specimen / Unknown Venipuncture / Unknown 07/07/2024 6:11 PM EDT 07/07/2024 6:17 PM EDT Narrative [facility] - 07/07/2024 6:54 PM EDT High levels of biotin in samples may falsely decrease hsTroponin values. Use caution when interpreting hsTroponin results in patients taking biotin who exhibit renal impairment (eGFR <60) or in patients taking more than 20 mg/day of biotin. us Fabien New DO LAB BLOOD ORDERABLES Final Res ult [facility] [address] [place] [address], * (ABNORMAL) CBC auto differential (07/07/2024 6:11 PM EDT) [facility] WBC 7.9 4.8 - 10.8 K/mcL LAB HEMETOLOGY METHOD 07/07/2024 6:33 PM EDT [facility] RBC 5.50(H) 3.80 - 4.80 M/mcL LAB HEMETOLOGY METHOD 07/07/2024 6:33 PM EDT [facility] Hemoglobin 15.7 11.5 - 16.0 g/dL LAB HEMETOLOGY METHOD 07/07/2024 6:33 PM EDT [facility] Hematocrit 46.2 35.0 - 47.0 % LAB HEMETOLOGY METHOD 07/07/2024 6:33 PM EDT [facility] MCV 84.6 79.0 - 98.0 FL LAB HEMETOLOGY METHOD 07/07/2024 6:33 PM EDT [facility] MCH 28.8 27.0 - 32.0 pcg LAB HEMETOLOGY METHOD 07/07/2024 6:33 PM [facility] MCHC 34.0 32.0 - 37.0 g/dL LAB HEMETOLOGY METHOD 07/07/2024 6:33 PM [facility] RDW 12.2 11.0 - 15.0 % LAB HEMETOLOGY METHOD 07/07/2024 6:33 PM [facility] Platelets 228 130 - 400 K/mcL LAB HEMETOLOGY METHOD 07/07/2024 6:33 PM [facility] MPV 11.3(H) 7.0 - 11.0 FL LAB HEMETOLOGY METHOD 07/07/2024 6:33 PM [facility] NRBC 0.0 <1.0 % LAB HEMETOLOGY METHOD 07/07/2024 6:33 PM [facility] NRBC Absolute 0.00 <0.10 K/mcL LAB HEMETOLOGY METHOD 07/07/2024 6:33 PM [facility] Neutrophils Relative 58.9 % LAB HEMETOLOGY METHOD 07/07/2024 6:33 PM [facility] Lymphocytes Relative 29.3 % LAB HEMETOLOGY METHOD 07/07/2024 6:33 PM [facility] Monocytes Relative 7.9 % LAB HEMETOLOGY METHOD 07/07/2024 6:33 PM [facility] Eosinophils Relative 3.0 % LAB HEMETOLOGY METHOD 07/07/2024 6:33 PM [facility] Basophils Relative 0.5 % LAB HEMETOLOGY METHOD 07/07/2024 6:33 PM [facility] Immature Granulocytes Relative 0.4 % LAB HEMETOLOGY METHOD 07/07/2024 6:33 PM [facility] Neutrophils Absolute 4.67 1.50 - 7.00 K/mcL LAB HEMETOLOGY METHOD 07/07/2024 6:33 PM EDT [facility] Lymphocytes Absolute 2.33 1.00 - 5.00 K/mcL LAB HEMETOLOGY METHOD 07/07/2024 6:33 PM EDT [facility] Monocytes Absolute 0.63 0.20 - 1.00 K/mcL LAB HEMETOLOGY METHOD 07/07/2024 6:33 PM EDT [facility] Eosinophils Absolute 0.24 0.00 - 0.50 K/[facility] LAB HEMETOLOGY METHOD 07/07/2024 6:33 PM EDT [facility] Basophils Absolute 0.04 0.00 - 0.20 K/[facility] HEMETOLOGY METHOD 07/07/2024 6:33 PM EDT [facility] Immature Granulocytes Absolute 0.03 0.00 - 0.03 K/[facility] HEMETOLOGY METHOD 07/07/2024 6:33 PM EDT [facility] Blood Venous blood specimen / Unknown Venipuncture / Unknown 07/07/2024 6:11 PM EDT 07/07/2024 6:17 PM EDT us Fabien New DO LAB BLOOD ORDERABLES Final Res ult [facility] [address] [place] [address], * B-type natriuretic peptide (07/07/2024 6:11 PM EDT) BNP <2 <=100 pcg/mL LAB CHEMISTRY METHOD 07/07/2024 7:01 PM EDT [facility] Blood Venous blood specimen / Unknown Venipuncture / Unknown 07/07/2024 6:11 PM EDT 07/07/2024 6:17 PM EDT us Fabien New DO LAB BLOOD ORDERABLES Final Res ult Performing Organization Address [facility] Co de Phone Number [facility] [address] [place] [address], [place] [phone] * Magnesium (07/07/2024 6:11 PM EDT) Pathologist [facility] Magnesium 2.3 1.9 - 2.6 mg/dL LAB CHEMISTRY METHOD 07/07/2024 6:56 PM EDT [facility] Blood Venous blood specimen / Unknown Venipuncture / Unknown 07/07/2024 6:11 PM EDT 07/07/2024 6:17 PM EDT us Fabien New DO LAB BLOOD ORDERABLES Final Res ult Performing Organization Address [facility] de Phone Number [facility] [address] [place] [address], [place] [phone] * Lipase (07/07/2024 6:11 PM EDT) [facility] Lipase 33 13 - 75 unit/L LAB CHEMISTRY METHOD 07/07/2024 6:56 PM EDT [facility] Blood Venous blood specimen / Unknown Venipuncture / Unknown 07/07/2024 6:11 PM EDT 07/07/2024 6:17 PM EDT Fabien New DO LAB BLOOD ORDERABLES Final Res ult Performing Organization Address City/[facility]/ZIP Co de Phone Number [facility] [address] [place] [address], [place] [phone] * Comprehensive metabolic panel (07/07/2024 6:11 PM EDT) Sodium 136 133 - 145 mmol/L LAB CHEMISTRY METHOD 07/07/2024 6:56 PM EDT [facility] Potassium 3.5 3.5 - 5.5 mmol/L LAB CHEMISTRY METHOD 07/07/2024 6:56 PM [facility] Chloride 106 96 - 110 mmol/L LAB CHEMISTRY METHOD 07/07/2024 6:56 PM [facility] CO2 24 21 - 32 mmol/L LAB CHEMISTRY METHOD 07/07/2024 6:56 PM [facility] Anion Gap 6 3 - 11 LAB CHEMISTRY METHOD 07/07/2024 6:56 PM [facility] Glucose 91 70 - 100 mg/dL LAB CHEMISTRY METHOD 07/07/2024 6:56 PM [facility] BUN 12 5 - 25 mg/dL LAB CHEMISTRY METHOD 07/07/2024 6:56 PM [facility] Creatinine 0.76 0.50 - 1.10 mg/dL LAB CHEMISTRY METHOD 07/07/2024 6:56 PM [facility] eGFR 107 >=60 mL/min/1. 73m2 LAB CHEMISTRY METHOD 07/07/2024 6:56 PM [facility] Comment:Calculation based on the Chronic Kidney Disease Epidemiology Collaboration (CKD-EPI) equation refit without adjustment for race. BUN/Creatinine Ratio 15.8 LAB CHEMISTRY METHOD 07/07/2024 6:56 PM [facility] Calcium 9.4 8.5 - 10.5 mg/dL LAB CHEMISTRY METHOD 07/07/2024 6:56 PM [facility] AST (SGOT) 23 10 - 42 unit/L LAB CHEMISTRY METHOD 07/07/2024 6:56 PM [facility] ALT (SGPT) 48 10 - 60 unit/L LAB CHEMISTRY METHOD 07/07/2024 6:56 PM [facility] Alkaline Phosphatase 54 42 - 121 unit/L LAB CHEMISTRY METHOD 07/07/2024 6:56 PM [facility] Total Protein 7.6 6.0 - 8.0 g/dL LAB CHEMISTRY METHOD 07/07/2024 6:56 PM EDT [facility] Albumin 4.1 3.2 - 5.0 g/dL LAB CHEMISTRY METHOD 07/07/2024 6:56 PM EDT [facility] Total Bilirubin 0.4 0.0 - 1.4 mg/dL LAB CHEMISTRY METHOD 07/07/2024 6:56 PM EDT [facility] Blood Venous blood specimen / Unknown Venipuncture / Unknown 07/07/2024 6:11 PM EDT 07/07/2024 6:17 PM EDT Fabien New DO LAB BLOOD ORDERABLES Final Res ult [facility] [address] [place] [address], [place] [phone] * ECG 12 lead (07/07/2024 6:05 PM EDT) Pathologist [facility] Ventricular Rate ECG 87 BPM [facility] Atrial Rate 87 BPM [facility] P-R Interval 132 ms [facility] QRS Duration 80 ms [facility] Q-T Interval 358 ms [facility] QTc 430 ms GEMUSE P Wave [place] 32 degrees GEMUSE R [place] 25 degrees GEMUSE T [place] 2 degrees GEMUSE ECG Interpretation Normal sinus rhythm Nonspecific T wave abnormality Abnormal ECG When compared with ECG of 29-JUN-2010 13:43, Nonspecific T wave abnormality now evident in Anterior leads Confirmed by MD Kd, Cogswell ([id number]) on 07/09/2024 1:06:57 AM [facility] 07/07/2024 6:05 PM EDT 07/09/2024 1:06 AM EDT us Fabien New DO ECG ORDERABLES Final Result [facility] * Hepatitis C Screening (04/25/2022) Pathologist [facility] Hepatitis C Screening abstracted Historical Provider HEALTH MAINTENANCE Final Result * (ABNORMAL) Lipid panel (04/25/2022) LDL/HDL Ratio 3 0 - 4 Triglycerides 65 0 - 150 mg/dL Cholesterol 189 0 - 200 mg/dL HDL 64 >=40 mg/dL LDL Cholesterol 112(A) 0 - 100 mg/dL Blood Venous blood specimen / Unknown us Historical Provider MD LAB BLOOD ORDERABLES Winter l Result * Pap smear (10/07/2017) 10/07/2017 Narrative HISTORICAL TESTING LAB RESULTING AGENCY - 10/14/2017 3:45 PM EDT [id number] THINPREP PAP, IMAGED: ATYPICAL SQUAMOUS CELLS OF UNDETERMINED SIGNIFICANCE (ASCUS) . RESULTS OF APTIMA HIGH RISK HPV ASSAY: NEGATIVE (SEROTYPES 16,18,31,33,35, 39,45,51,52,56,58,59,66,68) REGINA JOSEPH(ASCP) (CASE SCREENED 10 [...] Most Recently Relevant to Health Maintenance Insurance [facility] [employer] Care Teams Still Operator Gin Relationship Specialty Start Date End Date Zoraida Colon MD [address] [place] [address] PCP - General Internal Medicine 06/01/15
[2024-09-24 07:22] VITALS: BP 110/72; PULSE 86; O2SAT 98; BMI 38.7
--- NOTE | 2024-09-24 07:22 | MHC.OFFVIS ---
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 At that time she was following up for right middle trigger finger. She received an injection but because of her work she could not rest the hand and she continued to experience pain Also complaining of swelling to one side of her face and she is concerned that this could be related to her RA Rheumatologic History: Seropositive RA +++RF/-CCP Patient has chronically elevated LFTs and DMARDs such as methotrexate, leflunomide, sulfasalazine can not be used. Started Enbrel 11/2023 Initial history: presents for evaluation of Right wrist (DeQuervain) and +RF. Today it is not as bad as it was last year per patient and she mainly feels it when she picks up heavier items. She describes that there is numbness when there is swelling and pain. --Referred by ortho --Right radial hand and wrist, swelling pain - about 1 year. --Meloxicam helps a little --EMG studies done, DeQuervain injection - helped for a couple weeks --elevated liver enzymes - fatty liver per patient --Nexpalon Control - denies hx of blood clots --denies known history of family CTD or inflammatory arthritis; no personal hx of CA; Paternal GPa colon ca --no other joint swelling or pain --no rash, scalp sores, or hair shedding, no dry eyes, dry mouth or sores; denies other symptoms of CTD; no GI or concerns --denies smoking. ETOH Right handed. Initially seen for right sided wrist/hand pain. She denied any fall or inciting injuries. She has been wearing a thumb spica splint since the last time I saw her. Reports improvement. 0/10 pain when I saw her last November. Denied any numbness. She did not have the EMG done or OT. She said she did okay from November 30 just last month. Started having pain and numbness on right wrist spreading to all her fingers. Denies any new injuries or falls. She has been taking ibuprofen as needed. Wearing the wrist splint. 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 Cognitive needs: No Hearing needs: No Vision needs: No Review of Systems Const Details: Review of Systems Constitutional: Denies fever, chills, weight loss ENT: Denies vision changes, eye pain or eye redness, dental caries, dry mouth GI: Denies nausea, vomiting, diarrhea, abdominal pain, change in BM Pulm: Denies SOB, TURNER, hemoptysis, wheezing Cards: Denies chest pain, palpitations Skin: Denies Raynaud's, rash, nail changes, photosensitivity, BOARD OF DIRECTORS: Denies headaches, weakness, paresthesias, recurrent falls MSK: as per HPI All other systems reviewed and are unremarkable except noted above Physical Exam Vital Signs: Last Vital Signs Pulse 86 09/24/24 07:22 BP 110/72 09/24/24 07:22 Pulse Ox 98 09/24/24 07:22 Oxygen Delivery Method Room Air 09/24/24 07:22 BMI result Body Mass Index 38.7 Vital signs reviewed Physical Examination CONSTITUITIONAL Patient alert and cooperative. Well appearing and in no apparent painful distress HEENT Conjunctiva and sclera clear. Pupils equal round and reactive to light. No lymphadenopathy. CHEST/RESPIRATORY SYSTEM Normal respiratory effort and able to speak in complete sentences. Clear to auscultation bilaterally. No crackles, rales, rhonchi, wheezes heard. CARDIAC SYSTEM Regular rate and rhythm. S1 and S2 heard no murmurs. 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 No deformities noted. No synovitis noted to the MCPs, PIPs or DIPs. No tenderness to palpation of these joints. Tender nodule palpated in the palm of the hand at the base of the middle finger consistent with flexor tenosynovitis Wrists: Full range of motion at the wrists without pain. No tenderness to palpation or synovitis noted to the wrists. Elbows: Full range of motion without pain. No tenderness, weakness, swelling, increased warmth or erythema. Shoulders: Full range of motion without pain. No tenderness, weakness, swelling, increased warmth or erythema. Hips: Full range of motion without pain. Hip bursa: No tenderness to palpation Knees: Full range of motion. No tenderness, swelling, increased warmth or erythema.?No effusion or crepitations Ankles: Full range of motion. No tenderness, swelling, increased warmth or erythema.? Feet: Negative squeeze test. No tenderness to palpation or swelling of the MTPs. Tender points:?No tenderness to palpation of the bilateral trapezius, supraspinatus, greater trochanters, anterior costochondral junctions, bilateral gluteal areas, bilateral suboccipital muscle insertions SKIN Skin intact without rashes. Results Reviewed Results Reviewed: Laboratory Tests 06/12/24 06/24/24 09/18/24 07:58 06:40 08:24 WBC 6.3 RBC 5.49 Hgb 15.5 Hct 45.6 Plt Count 231 ESR 10 Sodium 138 Potassium 4.1 Chloride 108 Carbon Dioxide 24 BUN 8 L Creatinine 0.64 Total Bilirubin 0.6 AST 31 44 H ALT 54 H 100 H C-Reactive Protein < 0.10 Immunology labs 09/15/23 11/18/23 09:45 07:53 Cycl Citrul Peptide IgG <16 DEENA Screen POSITIVE A DEENA Titer 1:160 H SS-A/Ro Antibody <1.0 NEG SS-B/La Antibody <1.0 NEG Sm (Allen) Antibody <1.0 NEG SM/TRAILHEAD CONSTRUCTION WORKER IgG Antibody <1.0 NEG Scl-70 Scleroderma Ab <1.0 NEG Double Strand DNA Ab <1 Anti-Mitochondrial Ab NEGATIVE Anti-Smooth Muscle Ab <20 Thyroglobulin Antibody <1 Thyroid Peroxidase Ab <1 Stephanie/Kid Microsom Ab Int <=20.0 Complement C3 155 Complement C4 31 Infectious serologies 06/12/24 09/20/24 07:58 07:02 Hepatitis A IgM Ab Nonreactive Hep Bs Antigen Negative Hep Bs Antibody REACTIVE Hep B Core Total Ab Nonreactive Hepatitis C Ab (EIA) Nonreactive TB Test (T-Spot) Com Negative Assessment & Plan Assessment & Plan (1) Seropositive rheumatoid arthritis: Comment: ++RF -ve CCP dx 11/2023 Enbrel 11/2023. Effective Code(s): M05.9 - Rheumatoid arthritis with rheumatoid factor, unspecified Category: Medical Plan: #Seropositive RA Patient is a 33-year-old female with seropositive rheumatoid arthritis here today for an urgent visit for right middle finger trigger finger. With regards to her rheumatoid arthritis she is currently in remission and we will continue on the Enbrel. Discussed with patient that RA does not cause unilateral facial swelling. Plan - Enbrel 50mg SC weekly - RTC 3 months - Labs to visit: CBC, CMP, ESR, CRP (2) Trigger finger, right middle finger: Code(s): M65.331 - Trigger finger, right middle finger Plan: #Right middle finger trigger finger Continues to have pain. 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 Has a previous abdominal ultrasound showing fatty liver. We will get an updated ultrasound of the liver with elastography Plan - Abd US with elastography (4) Encounter for monitoring of etanercept therapy: Code(s): Z51.81 - Encounter for therapeutic drug level monitoring; Z79.620 - [facility] (current) use of immunosuppressive biologic Plan: #Long-term Use of TNF Inhibitors: Enbrel Discussed with the patient the benefits and risks of TNF inhibitors for the management of the rheumatic condition Benefits include reduce pain, maintenance of remission and reduction of flares as well as progression of the disease Risks include injection sites/infusion reactions, serious infections (such as bacterial infections, opportunistic infections), malignancy, delaminating syndromes, autoimmune phenomena, CHF exacerbations, palmar plantar psoriasis and cytopenias Recommended rotating injection sites, and holding medication during and for up to 1 week after resolution of a febrile illness or open skin wound Plan I spent 25 minutes reviewing the record and labs, taking a history, examining the patient, discussing the treatment plan, ordering diagnostic work up and documenting in the medical record Orders: Orders Complete Blood Count Auto Diff 3 Months M05.9 - Rheumatoid arthritis with rheumatoid factor, unspecified Comprehensive Met. Panel 3 Months M05.9 - Rheumatoid arthritis with rheumatoid factor, unspecified C Reactive Protein 3 Months M05.9 - Rheumatoid arthritis with rheumatoid factor, unspecified Erythrocyte Sedimentation Rate 3 Months M05.9 - Rheumatoid arthritis with rheumatoid factor, unspecified US abdomen francois w elastography Today K76.0 - Fatty (change of) liver, not elsewhere classified Referrals Hand Surgery Referral M65.331 - Trigger finger, right middle finger Coding Level of Care Code Est Pt Level 3 (84730) Complex EM visit Add On G2211 Diagnoses Seropositive rheumatoid arthritis M05.9 Trigger finger, right middle finger M65.331 Transaminitis R74.01 Encounter for monitoring of etanercept therapy Z51.81; Z79.620
== END 2024-09-24 08:01 | disposition home or self-care (01) ==
LOC: HO.RHE 07:15
PROVIDERS: PCP Physician Assistant; Visit Provider Student in an Organized Health Care Education/Training Program
DX: M05.79 Rheumatoid arthritis with rheumatoid factor of multiple sites without organ or systems involvement (principal); M65.331 Trigger finger, right middle finger; R74.01 Elevation of levels of liver transaminase levels; Z51.81 Encounter for therapeutic drug level monitoring; Z79.620 Long term (current) use of immunosuppressive biologic
CPT/HCPCS: 99213; G2211

== ENCOUNTER → 2024-09-24 07:14 | Outpatient (BNVA) | payer OTHER, SELFPAY | PROVIDERS: PCP Physician Assistant; Visit Provider Student in an Organized Health Care Education/Training Program | DX: M05.9 Rheumatoid arthritis with rheumatoid factor, unspecified (principal); M65.331 Trigger finger, right middle finger; M65.4 Radial styloid tenosynovitis [de Quervain]; K76.0 Fatty (change of) liver, not elsewhere classified; R74.01 Elevation of levels of liver transaminase levels; Z79.620 Long term (current) use of immunosuppressive biologic; Z51.81 Encounter for therapeutic drug level monitoring | CPT/HCPCS: 99212 ==

== ENCOUNTER 2024-12-20 08:52 | Outpatient (REF) | payer OTHER, SELFPAY ==
--- OUTSIDE RECORDS SUMMARY | 2024-12-17 06:56 | XMS_ITS | Encounter Summary ---
Author Organization [email or web address] Address [address] [place] [address] Care Team Providers Care Director Marketing Analytics Name Role Phone Darren Carias Primary Care Provider [phone] Reason for Visit * Auth/Cert (Routine) Specialty Diagnoses / Procedures Referred By Contac t Referred To Contact Diagnoses Acquired trigger finger of right middle finger Right carpal tunnel syndrome TRIGGER FINGER RIGHT MIDDLE,RIGHT CARPAL TUNNEL SYNDROME Procedures OR ENDOSCOPY WRIST SURGICAL WITH RELEASE TRANSVERSE CARPAL LIGAMENT OR INCISION TENDON SHEATH ENDOSCOPIC RELEASE RIGHT CARPAL TUNNEL, A-1 CHANDU RELEASE RIGHT MIDDLE FINGER ENDOSCOPIC RELEASE RIGHT CARPAL TUNNEL, A-1 CHANDU RELEASE RIGHT MIDDLE FINGER Adan Avilez MD [address] [place] [address] Phone: tel: fax: [facility] OR [address] [place] [address] Phone: tel: Referral ID Status Reason Start Date Expiration Date Visits Re quested Visits Authorized [id number] 1 1 Encounter Details Date Type Department Care Team (Latest Contact Info) Description 12/17/2024 6:56 AM EDT - 12/17/2024 10:54 AM EDT Hospital Encounter [facility] OR [address] [place] [address] Adan Avilez MD [address] [place] [address] Acquired trigger finger of right middle finger; Right carpal tunnel syndrome Discharge Disposition: Home or Self Care Social History Tobacco Use Types Packs/Day Years Used Date Smoking Tobacco: Never Smokeless Tobacco: Never Alcohol Use Standard Drinks/Week Comments No 0 (1 standard drink = 0.6 oz pur e alcohol) Interpersonal Safety Answer Date Record ed Physical Abuse 12/17/2024 Verbal Abuse 12/17/2024 Comments No Sex and Gender Information Value Date Recorded Sex Assigned at Not on file Legal Sex Female 3:49 PM EST Gender Identity Not on file Sexual Orientation Not on file documented as of this encounter Last Filed Vital Signs Vital Sign Reading Time Taken Comments Blood Pressure 127/83 12/17/2024 10:40 AM EDT Pulse 61 12/17/2024 10:40 AM EDT Temperature 36.7 C (98.1 F) 12/17/2024 10:06 AM EDT Respiratory Rate 16 12/17/2024 10:40 AM EDT Oxygen Saturation 100% 12/17/2024 10:40 AM EDT Inhaled Oxygen Concentration - - Weight 81.6 kg (180 lb) 12/17/2024 7:41 AM EDT Height 149.9 cm (4' 11 ) 12/17/2024 7:41 AM EDT Body Mass Index 36.36 12/17/2024 7:41 AM EDT documented in this encounter Discharge Instructions * Discharge Instructions* VLAD Dawkins - 12/17/2024 8:45 AM EDT - Apply ice packs for swelling and pain control; apply for 10-15 minutes at a time - Elevate postoperative hand to reduce swelling - Take Tylenol and ibuprofen to control pain - It is okay to move the fingers and thumb and to use the hand lightly as tolerated. - No driving until you can use the hand adequately to safely handling your vehicle. - Keep dressing clean and dry. Do not remove. Dressing change will be performed in office. Do not get wet - Call if you have any questions or concerns such as fever, redness, drainage, gross swelling, discoloration - Your postoperative visit should be within 10-14 days; Call to schedule an appointment if you do not have one to be seen. Follow up: 12/28 Dr. Avilez [address] [place] [address] * Attachments The following attachments cannot be sent through Care Everywhere. * Sedation (Chinese) documented in this encounter Medications at Time of Discharge acetaminophen (TYLENOL) 500 mg tablet Take 2 tablets (1,000 mg total) by mouth every 6 (six) hours if needed for mild pain for up to 10 days. 30 tablet 12/17/2024 5 EnbreL SureClick 50 mg/mL (1 mL) injection pen 50 mL (2,500 mg total) 1 (one) time per week. ON FRIDAY . CALLING DR Avilez office to see when should stop embrel 07/21/2024 etonogestrel (NEXPLANON SDRM) 68 mg by subdermal route 1 (one) time each day. Med inplanted in L arm 04/10/2019 hydrOXYzine HCL (ATARAX) 25 mg tablet 1 tablet (25 mg total) 1 (one) time each day if needed. 07/12/2022 ibuprofen (ADVIL,MOTRIN) 600 mg tablet Take 1 tablet (600 mg total) by mouth every 6 (six) hours if needed for mild pain for up to 10 days. 30 tablet 12/17/2024 5 documented as of this encounter Ordered Prescriptions Prescription Sig Dispense Quantity Refills Last Filled Start Date End Date acetaminophen (TYLENOL) 500 mg tablet Take 2 tablets (1,000 mg total) by mouth every 6 (six) hours if needed for mild pain for up to 10 days. 30 tablet 12/17/2024 5 ibuprofen (ADVIL,MOTRIN) 600 mg tablet Take 1 tablet (600 mg total) by mouth every 6 (six) hours if needed for mild pain for up to 10 days. 30 tablet 12/17/2024 5 documented in this encounter Discharge Disposition Disposition Code Departure Means Destination Comment s Home or Self Care documented in this encounter H&P Notes * VLAD Dawkins - 12/17/2024 8:41 AM EDT History Of Present Illness (include Chief Complaint): Kianna Varela is a 34 y.o. female presenting with right carpal tunnel syndrome and right middle finger trigger finger. Continues to have persistent numbness and tingling and triggering of her middle finger. She is in her normal state of health. Feeling well otherwise. Past Medical History: She has a past medical history of Arthritis, Cancer (CMS/HCC V24, CMS/HCC V28), Carpal tunnel syndrome of right wrist, Diarrhea, Left lower quadrant pain, Liver disease, Mucus in stool, and Trigger finger. She has no past medical history of Actinic keratosis, hx of, Malignant neoplasm of skin of face, orPersonal history of malignant melanoma of skin. Surgical History: She has a past surgical history that includes Section (2012); Other surgical history; and Section. Family History: family history includes Bipolar disorder in her mother; Colon cancer in her paternal grandfather; Dementia in her maternal grandfather; Diabetes in her father and paternal grandmother; Heart attack in her maternal grandmother. Social History: She reports that she has never smoked. She has never used smokeless tobacco. She reports that she does not drink alcohol and does not use drugs. Allergies: Patient has no known allergies. Home Medications: Medications Prior to Admission Medication Sig Dispense Refill Last Dose/Taking etonogestrel (NEXPLANON SDRM) 68 mg by subdermal route 1 (one) time each day. Med inplanted in L arm 12/02/2024 at 8:00 AM acetaminophen (TYLENOL) 500 mg tablet Take 1 tablet (500 mg total) by mouth every 6 (six) hours if needed. EnbreL SureClick 50 mg/mL (1 mL) injection pen 50 mL (2,500 mg total) 1 (one) time per week. ON FRIDAY . CALLING DR Avilez office to see when should stop embrel 12/10/2024 at 9:00 AM hydrOXYzine HCL (ATARAX) 25 mg tablet 1 tablet (25 mg total) 1 (one) time each day if needed. More than a month Review of Systems Constitutional: Negative for chills and fatigue. Respiratory: Negative for shortness of breath. Cardiovascular: Negative for chest pain. Skin: Negative for rash. Last Recorded Vitals: Blood pressure 118/60, pulse 77, temperature 36.2 ??C (97.1 ??F), resp. rate 16, height 1.499 m (59 ), weight 81.6 kg (180 lb), last menstrual period 11/27/2024, SpO2 99%. Physical Exam General: No acute distress well-appearing Cardiovascular: Regular rate and rhythm with palpable peripheral pulses Pulm: No increased work of breathing symmetric chest rise Abdomen: Nondistended Focused Exam: Right Upper Extremity Skin intact With full composite fist formation fingertip to distal palmar crease distance of 0 cm Fires EPL/FPL/FDP/IO SILT M/R/U TTP A1 chandu middle finger Relevant Results: Vitals: 12/17/24 0741 BP: 118/60 Pulse: 77 Resp: 16 Temp: 36.2 ??C (97.1 ??F) SpO2: 99% Assessment/Plan Active Problems: Acquired trigger finger of right middle finger Right carpal tunnel syndrome Right endoscopic carpal tunnel release, possible conversion to open procedure Right middle finger A1 chandu release documented in this encounter Procedure Notes * Marya Wade RN - 12/17/2024 10:28 AM EDT Mom at bedside, Dr. Avilez to see patient. * Adan Avilez MD - 12/17/2024 8:45 AM EDT ENDOSCOPIC RELEASE RIGHT CARPAL TUNNEL, A-1 CHANDU RELEASE RIGHT MIDDLE FINGER (R) OPERATIVE NOTE Date: 12/17/2024 Location: [facility] OR Name: Kianna Varela : 1990 Preoperative Diagnosis Pre-Op Diagnosis Codes: * Acquired trigger finger of right middle finger [M65.331] * Right carpal tunnel syndrome [G56.01] Post-op Diagnosis * Acquired trigger finger of right middle finger [M65.331] * Right carpal tunnel syndrome [G56.01] Procedure(s) and postoperative diagnosis: ENDOSCOPIC RELEASE RIGHT CARPAL TUNNEL, A-1 CHANDU RELEASE RIGHT MIDDLE FINGER [id number] - OR ENDOSCOPY WRIST SURGICAL WITH RELEASE TRANSVERSE CARPAL LIGAMENT ENDOSCOPIC RELEASE RIGHT CARPAL TUNNEL, A-1 CHANDU RELEASE RIGHT MIDDLE FINGER [id number] - OR INCISION TENDON SHEATH Surgeon(s) & Research Manufacturing Operator(s) Primary: Adan Avilez MD Staff: [employer] Clerk: Shania Mosher RN Physician Research Manufacturing Operator: VLAD Dawkins Scrub Person: Jenaro Carmona Physician Research Manufacturing Operator: VLAD Dawkins physician facilities assistant was required for assistance. They assisted with patient positioning, sterile prep, tissue retraction and wound closure. No other qualified facilities assistant or resident was available Anesthesia: MAC ASA: II Specimen: Specimens ID Source Type Tests Collected By Collected At Frozen? Priority Lab ID 1 Hand, Right Tissue TISSUE EXAM Adan Avilez MD 12/17/24 0956 No Description: RIGHT MIDDLE FINDER TENOSYNOVITIS Preoperative Information and Indication: Kianna Varela is a 34 y.o. female RHD PMH of rheumatoid arthritis on enbrel, who presented with right carpal tunnel syndrome and right middle finger trigger finger. Her carpal tunnel syndrome was confirmed with the CTS-6 diagnostic tool. She additionally has a recurrent middle finger trigger finger after a corticosteroid injection in May. She had persistent symptoms despite trial of bracing for carpal tunnel syndrome and previous trigger finger injection so I offered right endoscopic carpaltunnel release, possible conversion to open procedure and right middle finger trigger finger release of the A1 chandu Consent: I explained the procedure and postoperative protocol. I discussed the recovery period. I explained to the patient the risks and benefits of operative intervention to include but not be limited to therisk of anesthesia, bleeding, infection, damage to arteries tendons and nerves, persistent symptoms, recurrent symptoms, scar sensitivity, need for further surgery, and possible need for extensive postoperative therapy and immobilization, or even risk of . We also talked about the possible need of other surgery. The patient understood these risks and wished to proceed. Operative Details Position: supine Findings: tenosynovial inflammation of the FDS tendon, compression of the median nerve under the transverse carpal ligament Tourniquet time:24 minutes Description of Procedure: Patient was brought to the operating room and positioned supine. Right upper extremity was prepped and draped in routine sterile fashion. Surgical timeout was performed. 10 cc of 1% lidocaine was used to anesthetize the surgical site. Right upper arm tourniquet was placed and inflated to 250 mmhg. A 1.5 cm transverse incision was made in the proximal wrist crease of the wrist just ulnar to the palmaris longus tendon. Dissection was carried out bluntly down to the distal forearm fascia. Tenotomy scissors were used to spread through the fascia and the median nerve was identified underneath. Skin was elevated with skin hooks. The carpal tunnel was then sequentially dilated and endoscopic cannula inserted. Probe was used to confirm the placement of the endoscopic cannula distal enough and todefine the distal border of the transverse carpal ligament. The synovial elevator was used to clearthe synovium and fat from the undersurface of the transverse carpal tunnel ligament. The horizontalfibers of the transverse carpal ligament were clearly identified and released from distal to proximal from the level of fat pad to the wrist crease. A complete release was confirmed by the inability to visualize both leaflets of the carpal tunnel ligament in the same endoscopic image. The median nerve was visualized after release. I then made a 1.5 cm diagonal incision within the distal palmar crease directly over the A1 chandu of the middle finger, dissecting down through the skin and subcutaneous tissues bluntly. Great care was taken to protect the neurovascular bundle both radially and ulnarly. The A1 chandu was directly visualized and incised. The tendon sheath showed some thickening. After release of the chandu tendons were delivered from the wound and inspected. There was thick tenosynovial hypertrophy surrounding the FDS tendon. This was debrided and sent to pathology. After release, sedation was lightened and no triggering was found and the finger was able be fully extended passively at the metacarpal phalangeal and proximal interphalangeal joints. The wound was copiously irrigated. Hemostasis was obtained.Skin was closed with 4-0 nylon horizontal mattress sutures The carpal tunnel wound was well irrigated and closed using 4-0 monocryl and skin glue. Dry steriledressing was applied. Counts were correct. The patient tolerated the procedure well and was taken to the recovery room. Postoperative Information Closure: 4-0 nylon to trigger finger, 4-0 monocryl to carpal tunnel incision Estimated Blood Loss: less than 10 cc Complications: none Post-Operative Condition: Good condition Sponge/Needle Count: Correct Postoperative plan: Dressing: xeroform, 4x4 hi wrap, 2x2 and tegaderm to carpal tunnel incision Wound care: maintain dressing c/d/I until follow-up Immobilization: soft dressing Weight Bearing Status: NWB RUE, finger ROMAT Analgesia: ibuprofen/tylenol Follow-up:12/28/24 Imaging at follow-up: none Professional Services Attending Attestation: I was present for the lopez portions and immediately available for the non-keyportions. Credentials and Title of Author: Adan Avilez MD Credentials: MD. Title: Attending. * Raffi Pascual RN - 12/17/2024 7:37 AM EDT [id number] documented in this encounter Plan of Treatment Upcoming Encounters Date Type Department Care Team (Late st Contact Info) Description 12/28/2024 11:30 AM EDT Office Visit Orthopedic Surgery - [place] [id number] [address] Adan Avilez MD [address] [place] [address] Pending Results Name Type Priority Associated Diagnoses Date /Time POC , urine NO CHARGE screening manually resulted Point of Care Testing Routine 12/17/2024 7:47 AM EDT Tissue exam Pathology and Cytology Routine Acquired trigger finger of right middle finger Right carpal tunnel syndrome 12/17/2024 9:56 AM EDT Scheduled Orders Name Type Priority Associated Diagnoses Order Schedule POC , urine NO CHARGE screening manually resulted Point of Care Testing Routine Once for 1 Occurrences starting 12/17/2024 until 12/17/2024 Tissue exam Pathology and Cytology Timed Acquired trigger finger of right middle finger Right carpal tunnel syndrome Release Upon Ordering for 1 Occurrences starting 12/17/2024, 1 completed documented as of this encounter Visit Diagnoses Diagnosis Acquired trigger finger of right middle finger Right carpal tunnel syndrome Carpal tunnel syndrome documented in this encounter Admitting Diagnoses Diagnosis Acquired trigger finger of right middle finger Right carpal tunnel syndrome Carpal tunnel syndrome documented in this encounter Administered Medications Inactive Administered Medications - up to 3 most recent administrations Medication Order MAR Action Action Date Dose Rate Site lactated Ringer's infusion 100 mL/hr, intravenous, Continuous, Starting on Fri12/17/24 at 0830, Preprocedure New Bag 12/17/2024 9:07 AM EDT 7 5 mL/hr sodium chloride 0.9 % flush 10 mL 10 mL, intravenous, 2 times daily, First dose on Fri12/17/24 at 0900, Preprocedure sodium chloride 0.9 % flush 10 mL 10 mL, intravenous, As needed, line care, Starting on Fri12/17/24 at 0734, Preprocedure sodium chloride 0.9 % flush 10 mL 10 mL, intravenous, 2 times daily, First dose on Fri12/17/24 at 0900, Preprocedure sodium chloride 0.9 % flush 10 mL 10 mL, intravenous, As needed, line care, Starting on Fri12/17/24 at 0804, Preprocedure documented in this encounter Discontinued Medications Medication Sig Discontinue Reason Start Date End Da te cholecalciferol (VITAMIN D-3) 50 mcg (2,000 unit) tablet Take 1 tablet (2,000 Units total) by mouth 1 (one) time each day. Therapy completed 04/26/2022 12/07/2024 meclizine (ANTIVERT) 25 mg tablet Take 1 Tablet by mouth 3 times daily as needed (vertigo). Therapy completed 04/25/2022 12/07/2024 acetaminophen (TYLENOL) 500 mg tablet Take 1 tablet (500 mg total) by mouth every 6 (six) hours if needed. Stop Taking at Discharge 04/25/2022 12/17/2024 documented as of this encounter Historical Medications * This list may reflect changes made after this encounter. etonogestrel (NEXPLANON SDRM) 68 mg by subdermal route 1 (one) time each day. Med inplanted in L arm 04/10/2019 added in this encounter Active and Recently Administered Medications Times are shown in EDT. Scheduled Medication Order 12/15/2024 12/16/2024 12/17/2024 ceFAZolin (ANCEF) 2 g in sterile water 20 mL IV syringe (COMPLETED) 2 g, intravenous, Administer over 3 Minutes, Once, On Fri12/17/24 at 0800, For 1 dose, Preprocedure, Please give pre-op, Indication: Prophylaxis-Surgical 0918 (New Bag - Prov ider: Tanya Lorenzo CRNA) sodium chloride 0.9 % flush 10 mL(Linked Group 1) 10 mL, intravenous, 2 times daily, First dose on Fri12/17/24 at 0900, Preprocedure 0900 (Canceled Entry - Provider: Automatic Discharge Provider - Comment: Automatically canceled at discontinue of medication order) sodium chloride 0.9 % flush 10 mL(Linked Group 2) 10 mL, intravenous, 2 times daily, First dose on Fri12/17/24 at 0900, Preprocedure 0900 (Canceled Entry - Provider: Automatic Discharge Provider - Comment: Automatically canceled at discontinue of medication order) Continuous Medication Order 12/15/2024 12/16/2024 12/17/2024 lactated Ringer's infusion 100 mL/hr, intravenous, Continuous, Starting on Fri12/17/24 at 0830, Preprocedure 0907 (New Bag - Prov ider: Tanya Lorenzo CRNA)0958 (Stopped - Provider: Tanya Lorenzo CRNA) PRN Medication Order 12/15/2024 12/16/2024 12/17/2024 lidocaine (XYLOCAINE) 1 % injection (CANCELED) As needed, Starting on Fri12/17/24 at 0952, Intraprocedure 0952 (Given - Provid er: Adan Avilez MD - Comment: LOCAL) sodium chloride 0.9 % flush 10 mL(Linked Group 1) 10 mL, intravenous, As needed, line care, Starting on Fri12/17/24 at 0734, Preprocedure sodium chloride 0.9 % flush 10 mL(Linked Group 2) 10 mL, intravenous, As needed, line care, Starting on Fri12/17/24 at 0804, Preprocedure Linked Groups Order Group 1: Insert peripheral IV (CANCELED) STAT, Once, On Fri12/17/24 at 0735, For 1 occurrence, Preprocedure And Maintain IV access (CANCELED) Until discontinued, Starting on Fri12/17/24 at 0735, Until Specified, Preprocedure And Saline lock IV (CANCELED) Routine, Once, On Fri12/17/24 at 0735, For 1 occurrence, Preprocedure And sodium chloride 0.9 % flush 10 mLJump to med 10 mL, intravenous, 2 times daily, First dose on Fri12/17/24 at 0900, Preprocedure And sodium chloride 0.9 % flush 10 mLJump to med 10 mL, intravenous, As needed, line care, Starting on Fri12/17/24 at 0734, Preprocedure Group 2: Insert peripheral IV (CANCELED) STAT, Once, On Fri12/17/24 at 0805, For 1 occurrence, Preprocedure And Maintain IV access (CANCELED) Until discontinued, Starting on Fri12/17/24 at 0805, Until Specified, Preprocedure And Saline lock IV (CANCELED) Routine, Once, On Fri12/17/24 at 0805, For 1 occurrence, Preprocedure And sodium chloride 0.9 % flush 10 mLJump to med 10 mL, intravenous, 2 times daily, First dose on Fri12/17/24 at 0900, Preprocedure And sodium chloride 0.9 % flush 10 mLJump to med 10 mL, intravenous, As needed, line care, Starting on Fri12/17/24 at 0804, Preprocedure documented in this encounter Orders Medications Ordered That Last ht Not Have Been Administered Count Last Ordered Date First Ordered Date ceFAZolin (ANCEF) 2 g in travis rile water 20 mL IV syringe 1 12/17/2024 lactated Ringer's infusion 1 12/17/2024 lidocaine (XYLOCAINE) 1 % injection 1 12/17 sodium chloride 0.9 % flush 10 mL 4 025 Discharge Count Last Ordered Date First Orde red Date DISCHARGE PATIENT 1 12/17/2024 documented in this encounter Care Teams Director Marketing Analytics Relationship Specialty Start Date End Date Darren Carias PA [address] [place] [address] PCP - General Physician Research Manufacturing Operator 10/11/24 documented as of this encounter
--- OUTSIDE RECORDS SUMMARY | 2024-12-17 08:45 | XMS_ITS | Encounter Summary ---
Author Organization [email or web address] Address [address] [place] [address] Care Team Providers Care Customer Care Voice Consultant Name Role Phone Darren Carias Primary Care Provider [phone] Reason for Visit * Auth/Cert (Routine) Specialty Diagnoses / Procedures Referred By Contac t Referred To Contact Diagnoses Acquired trigger finger of right middle finger Right carpal tunnel syndrome TRIGGER FINGER RIGHT MIDDLE,RIGHT CARPAL TUNNEL SYNDROME Procedures NM ENDOSCOPY WRIST SURGICAL WITH RELEASE TRANSVERSE CARPAL LIGAMENT NM INCISION TENDON SHEATH ENDOSCOPIC RELEASE RIGHT CARPAL TUNNEL, A-1 CAHNDU RELEASE RIGHT MIDDLE FINGER ENDOSCOPIC RELEASE RIGHT CARPAL TUNNEL, A-1 CHANDU RELEASE RIGHT MIDDLE FINGER Adan Avilez MD [address] [place] [address] Phone: tel: fax: [facility] OR [address] [place] [address] Phone: tel: Referral ID Status Reason Start Date Expiration Date Visits Re quested Visits Authorized [id number] 1 1 Encounter Details Date Type Department Care Team (Late st Contact Info) Description 12/17/2024 8:45 AM EDT - 12/17/2024 10:15 AM EDT Surgery [facility] OR [address] [place] [address] Adan Avilez MD [address] [place] [address] ENDOSCOPIC RELEASE RIGHT CARPAL TUNNEL, A-1 CHANDU RELEASE RIGHT MIDDLE FINGER [96336 (CPT ) +1 more] Social History Tobacco Use Types Packs/Day Years [...] Sign Reading Time Taken Comments Blood Pressure 114/76 12/17/2024 10:06 AM EDT Pulse 74 12/17/2024 10:06 AM EDT Temperature 36.7 C (98.1 F) 12/17/2024 10:06 AM EDT Respiratory Rate 12 12/17/2024 10:06 AM EDT Oxygen Saturation 98% 12/17/2024 10:06 AM EDT Inhaled Oxygen Concentration - - [...] be seen. Follow up: 12/28 Dr. Avilez [address] [place] [address] [phone] * Attachments The following attachments cannot be sent through Care Everywhere. * Sedation (Trinidadian) documented in this encounter Medications at Time [...] FINGER (R) OPERATIVE NOTE Date: 12/17/2024 Location: [facility] OR Name: Kianna Varela : 1990 Preoperative Diagnosis Pre-Op Diagnosis Codes: * Acquired trigger finger of right middle finger [M65.331] * Right carpal tunnel syndrome [G56.01] Post-op Diagnosis * Acquired trigger finger of right middle finger [M65.331] * Right carpal tunnel syndrome [G56.01] Procedure(s) and postoperative diagnosis: ENDOSCOPIC RELEASE RIGHT CARPAL TUNNEL, A-1 CHANDU RELEASE RIGHT MIDDLE FINGER [address] - NM ENDOSCOPY WRIST SURGICAL WITH RELEASE TRANSVERSE CARPAL LIGAMENT ENDOSCOPIC RELEASE RIGHT CARPAL TUNNEL, A-1 CHANDU RELEASE RIGHT MIDDLE FINGER [address] - NM INCISION TENDON SHEATH Surgeon(s) & Box Bender(s) Primary: Adan Avilez MD Staff: Marble Chip Terrazzo Worker: Shania Mosher RN Physician Box Bender: VLAD Dawkins Scrub Person: Jenaro Carmona Physician Box Bender: VLAD Dawkins physician clinic assistant was required for assistance. They assisted with patient positioning, sterile prep, tissue retraction and wound closure. No other qualified clinic assistant or resident was available Anesthesia: MAC [...] Title of Author: Adan Avilez MD Credentials: . Title: Attending. * Raffi Pascual RN - 12/17/2024 7:37 AM EDT [phone] documented in this encounter Plan of Treatment Upcoming Encounters Date Type Department Care Team (Late st Contact Info) Description 12/28/2024 11:30 AM EDT Office Visit Orthopedic Surgery - [place] [id number] [address] Adan Avilez MD [address] [place] [address] Pending Results Name Type Priority Associated Diagnoses [...] Right carpal tunnel syndrome Carpal tunnel syndrome Acquired trigger finger of right middle finger [...] 12/17/2024 9:07 AM EDT 7 5 mL/hr lidocaine (XYLOCAINE) 1 % injection As needed, Starting on Fri12/17/24 at 0952, Intraprocedure Given 12/17/2024 9:52 AM EDT 10 mL sodium chloride 0.9 % flush 10 mL [...] 1 12/17/2024 lactated Ringer's infusion 1 12/17/2024 sodium chloride 0.9 % flush 10 mL 4 025 Discharge Count Last Ordered Date First Orde red Date DISCHARGE PATIENT 1 12/17/2024 documented in this encounter Care Teams Customer Care Voice Consultant Relationship Specialty Start Date End Date Darren Carias PA [address] [place] [address] PCP - General Physician Box Bender 10/11/24 documented as of this encounter
--- OUTSIDE RECORDS SUMMARY | 2024-12-17 09:07 | XMS_ITS | Encounter Summary ---
Author Organization [employer] Address [address] [place] [address] Care Team Providers Care Photographer Finish Name Role Phone Darren Carias Primary Care Provider [phone]- [phone] Reason for Visit * Auth/Cert (Routine) Specialty Diagnoses / Procedures Referred By Contac t Referred To Contact Diagnoses Acquired trigger finger of right middle finger Right carpal tunnel syndrome TRIGGER FINGER RIGHT MIDDLE,RIGHT CARPAL TUNNEL SYNDROME Procedures PA ENDOSCOPY WRIST SURGICAL WITH RELEASE TRANSVERSE CARPAL LIGAMENT PA INCISION TENDON SHEATH ENDOSCOPIC RELEASE RIGHT CARPAL TUNNEL, A-1 CHANDU RELEASE RIGHT MIDDLE FINGER ENDOSCOPIC RELEASE RIGHT CARPAL TUNNEL, A-1 CHANDU RELEASE RIGHT MIDDLE FINGER Adan Avilez MD [address] [place] [address] Phone: tel: fax: [facility] OR [address] [place] [address] Phone: tel: Referral ID Status Reason Start Date Expiration Date Visits Re quested Visits Authorized [id number] 1 1 Encounter Details Date Type Department Care Team (Late st Contact Info) Description 12/17/2024 9:07 AM EDT Anesthesia Event [facility] OR [address] [place] [address] Vito Perez MD [address] [place] [id number] Anesthesia Record Procedure Summary Procedure Name Responsible Anesthesiologist Anesthesia Start Time Anesthesia Stop Time ENDOSCOPIC RELEASE RIGHT CARPAL TUNNEL, A-1 CHANDU RELEASE RIGHT MIDDLE FINGER (Right: Wrist) Vito Perez MD 12/17/24 0907 12/17/24 1008 Events Date Time Event Comment 12/17/2024 0804 0906 In Room 0907 An Start 0907 An Start Data The patient wa s reevaluated immediately before moderate or deep sedation use and before anesthesia induction. 0913 Anesthesia Ready 0927 An Tourn Inflated Up @ right arm @ 250mmHg 0950 An Tourn Deflated 0955 Proc Fin 0959 an stop data 1000 Out of Room 1008 Handoff to RN I completed my handoff to the receiving nurse during which we: 1. Identified the patient 2. Identified the responsible provider 3. Reviewed the pertinent medical history 4. Discussed the surgical course 5. Reviewed intra-op anesthesia management and issues during anesthesia 6. Set expectations for post-procedure period 7. Allowed opportunity for questions and acknowledgement of understanding. 1008 An Stop Meds Name Total fentaNYL 0.05 mg/mL 100 mcg midazolam 1 mg/mL 2 mg ondansetron 2 mg/mL 4 mg propofol (DIPRIVAN) injection 10 mg/mL 2 80 mg propofol (DIPRIVAN) infusion 10 mg/mL 13 0.56 mg lidocaine PF (XYLOCAINE-MPF) local injec tion 2% 100 mg ceFAZolin (ANCEF) 2 g in sterile water 2 0 mL IV syringe 2 g ketorolac (TORADOL) injection 30 mg 30 m g lactated Ringer's infusion 700 mL * Agents No agents on file. * Blood No blood administrations on file. Lines, Drains, and Airways Type Details Placement Removal Wound Incision; 12/17/24; N; Yes; Wrist; Anterior, Right 12/17/24 0000 by Shania Mosher RN Wound Incision; 12/17/24; N; Yes; Hand; Anterior, Right 12/17/24 0000 by Shania Mosher RN Peripheral IV Placement Date: 12/17/24; Placement Time: 075; Catheter Size: 20 G; Orientation: Left, Posterior; Location: Hand; Site Prep: Chlorhexidine; Local Anesth: None; Inserted by: azra pascual; Insertion Attempts: 1; Patient Tolerance: Tolerated well; Removal Date: 12/17/24; Removal Time: 1048 12/17/24 0757 by Raffi Pascual RN 12/17/24 1048 by Marya Wade RN documented in this encounter Social History Tobacco Use Types Packs/Day Years [...] as of this encounter Progress Notes * Tanya Lorenzo CRNA - 12/17/2024 10:08 AM EDT Patient: Kianna Varela Procedure Summary Date: 12/17/24 Room / [facility]: [facility] OR [address] [place] [address] OR Anesthesia Start: 906 Anesthesia Stop: 100 Procedure: ENDOSCOPIC RELEASE RIGHT CARPAL TUNNEL, A-1 CHANDU RELEASE RIGHT MIDDLE FINGER (Right: Wrist) Diagnosis: Acquired trigger finger of right middle finger Right carpal tunnel syndrome (TRIGGER FINGER RIGHT MIDDLE,RIGHT CARPAL TUNNEL SYNDROME) Surgeons: Adan Avilez MD Responsible Provider: Vito Perez MD Anesthesia Type: MAC ASA Status: 2 Anesthesia Plan: MAC Last Vitals: Vitals Value Taken Time BP 114/76 12/17/24 1006 Temp 36.7 ??C (98.1 ??F) 12/17/24 1006 Pulse 74 12/17/24 1006 Resp 12 12/17/24 1006 SpO2 98 % 12/17/24 1006 Pain Score: 0 - No pain Anesthesia Post Evaluation Patient location during evaluation: PACU Patient participation: complete - patient participated Level of consciousness: awake Pain management: adequate Airway patency: patent Anesthetic complications: no Cardiovascular status: acceptable Respiratory status: acceptable Hydration status: acceptable Nausea: No Vomiting: No There were no known notable events for this encounter. * Vito Perez MD - 12/17/2024 8:03 AM EDT Relevant Problems Neuro/Psych (+) Chronic tension-type headache, not intractable Clinical information reviewed: Tobacco Allergies Meds Med Hx Surg Hx OB Status Fam Hx Soc Hx Anesthesia Plan ASA 2 Anesthesia Plan: MAC Anesthesia Risks Discussed serious complications, dental injury, nausea, pain, sore throat, allergic reaction and corneal abrasion Anesthetic plan and risks discussed with patient. Anesthesia Evaluation No history of anesthetic complications Airway Mallampati: II Dental - normal exam Pulmonary - normal exam (-) COPD, asthma, sleep apnea Cardiovascular Exercise tolerance: good (-) hypertension, past OK, dysrhythmias Rhythm: regular Rate: normal Neuro/Psych (+) headaches (-) seizures, CVA Comments: Normal ROM in cervical spine GI/Hepatic/Renal (-) GERD, liver disease, renal disease Endo/Other (+) arthritis (RA) (-) diabetes mellitus Abdominal (+) obese PONV RISK SCORE: 2 Vitals: 12/07/24 1300 12/17/24 0741 BP: 118/60 Pulse: 77 Resp: 16 Temp: 36.2 ??C (97.1 ??F) SpO2: 99% Weight: 81.6 kg (180 lb) 81.6 kg (180 lb) Height: 1.499 m (59 ) 1.499 m (59 ) LMP: 11/27/2024 SpO2 Readings from Last 1 Encounters: 12/17/24 99% WBC Date Value Ref Range Status 10/29/2024 9.5 4.8 - 10.8 K/mcL Final RBC Date Value Ref Range Status 10/29/2024 5.20 (H) 3.80 - 4.80 M/mcL Final Hemoglobin Date Value Ref Range Status 10/29/2024 15.0 11.5 - 16.0 g/dL Final Hematocrit Date Value Ref Range Status 10/29/2024 43.9 35.0 - 47.0 % Final Platelets Date Value Ref Range Status 10/29/2024 247 130 - 400 K/mcL Final MCV Date Value Ref Range Status 10/29/2024 84.3 79.0 - 98.0 FL Final No Known Allergies STOP BANG: STOP-Bang Total Score: 1 (12/17/2024 7:41 AM) NPO Status: Time of Last Liquid: 2200 Time of Last Solid: 2199 documented in this encounter Plan of Treatment Upcoming Encounters Date Type Department Care Team (Late st Contact Info) Description 12/28/2024 11:30 AM EDT Office Visit Orthopedic Surgery - [place] [address] [facility] [address] [place] [address] Adan Avilez MD [address] [place] [address] documented as of this encounter Visit Diagnoses Not on filedocumented in this encounter Administered Medications Inactive Administered Medications - up to 3 most recent administrations Medication Order MAR Action Action Date Dose Rate Site ceFAZolin (ANCEF) 2 g in sterile water 20 mL IV syringe 2 g, intravenous, Administer over 3 Minutes, Once, On Fri12/17/24 at 0800, For 1 dose, Preprocedure, Please give pre-op, Indication: Prophylaxis-Surgical New Bag 12/17/2024 9:18 AM EDT 2 g fentaNYL (PF) (SUBLIMAZE) injection intravenous, As needed, Starting on Fri12/17/24 at 0913, Anesthesia Intraprocedure Given 12/17/2024 9:47 AM EDT 25 mcg Given 12/17/2024 9:44 AM EDT 25 mcg Given 12/17/2024 9:26 AM EDT 25 mcg ketorolac (TORADOL) injection intravenous, As needed, Starting on Fri12/17/24 at 1005, Anesthesia Intraprocedure Given 12/17/2024 10:05 AM EDT 30 mg lactated Ringer's infusion 100 mL/hr, intravenous, Continuous, Starting on Fri12/17/24 at 0830, Preprocedure New Bag 12/17/2024 9:07 AM EDT 75 mL/hr lidocaine (PF) (XYLOCAINE-MPF) 2 % injection injection, As needed, Starting on Fri12/17/24 at 0913, Anesthesia Intraprocedure Given 12/17/2024 9:13 AM EDT 100 mg midazolam (VERSED) injection intravenous, As needed, Starting on Fri12/17/24 at 0905, Anesthesia Intraprocedure Given 12/17/2024 9:05 AM EDT 2 mg ondansetron (PF) (ZOFRAN) injection intravenous, As needed, Starting on Fri12/17/24 at 0921, Anesthesia Intraprocedure Given 12/17/2024 9:21 AM EDT 4 mg propofoL (DIPRIVAN) infusion 10 mg/mL intravenous, Continuous PRN, Starting on Fri12/17/24 at 0913, Anesthesia Intraprocedure New Bag 12/17/2024 9:13 AM EDT 100 mcg/kg/min 48.96 mL/hr propofoL (DIPRIVAN) injection intravenous, As needed, Starting on Fri12/17/24 at 0914, Anesthesia Intraprocedure Given 12/17/2024 9:46 AM EDT 50 mg Given 12/17/2024 9:44 AM EDT 30 mg Given 12/17/2024 9:33 AM EDT 70 mg documented in this encounter Care Teams Photographer Finish Relationship Specialty Start Date End Date Darren Carias PA [address] [place] [address] PCP - General Physician Pacs Specialist 10/11/24 documented as of this encounter
[2024-12-20 09:13] LABS: MANUAL DIFF FLAG NO
[2024-12-20 09:37] LABS: Hematocrit 45.4 % (37.0-47.0); Hemoglobin 16.1 g/dl (12.0-16.0); Imm Gran Abs Auto 0.02 X10*3/uL (0.00-0.03); Imm Gran Pct Auto 0.3 % (0.0-0.4); Lymphocytes Absolute Auto 1.6 X10*3/uL (1.2-4.9); Mean Corpuscular HGB Conc 35.5 g/dl (31.0-35.0); Mean Corpuscular Hemoglobin 29.1 pg (27.0-33.0); Mean Corpuscular Volume 81.9 fL (80.0-98.0); NRBC Abs Auto 0.000 X10*3/uL (0.0-0.012); NRBC Pct Auto 0.0 /100WBC (0.0-0.2); Platelet Count 235 X10*3/uL (160-400); Red Blood Count 5.54 X10*6/uL (4.20-5.50); White Blood Count 6.3 X10*3/uL (4.8-10.8)
[2024-12-20 09:44] LABS: Hemoglobin A1C 182.6766 umol/L; Total Hemoglobin (HGBA1C) 4205.3833 umol/L
[2024-12-20 10:08] LABS: Alanine Aminotransferase 48 U/L (0-31); Albumin Level 4.7 g/dL (3.5-5.0); Alkaline Phosphatase 44 U/L (39-117); Anion Gap 10 (12-20); Aspartate Amino Transferase 31 U/L (5-31); Blood Urea Nitrogen 7 mg/dL (9-16); Calcium 9.5 mg/dL (8.4-10.2); Carbon Dioxide 26 mmol/L (22-29); Chloride 108 mmol/L (96-108); Estimated Glomerular Filt Rate > 60; Potassium 4.5 mmol/L (3.3-5.1); Sodium 139 mmol/L (135-145); Total Protein 7.6 g/dL (6.5-8.0)
--- OUTSIDE RECORDS SUMMARY | 2024-12-20 10:15 | XMS_ITS | Clinical Summary ---
Author Organization [employer] Address [address] [facility] [address] [place] [address] Care Team Providers Care Motion Study Analyst Name Role Phone Unavailable Primary Care Provider [...] Date Last Done Comments Depression Screening 1991 Disability Screening 1991 Alcohol/Substance Use Screening 2003 Tobacco Screening 2003 Family Planning (PISQ) 10/15/2006 HPV Vaccines (1 - 3-dose series) 10/15/2006 DTaP/Tdap/Td Vaccines (1 - Tdap) 10/15/2010 Hepatitis B Vaccines (1 of 3 - 19+ 3-dose series) 10/15/2010 Pap Smear 10/15/2012 Cervical Cancer Screening 10/15/2021 HPV/Cotest 10/15/2021 COVID-19 Vaccine ( - 2023-2 5 season) 2024 Influenza Vaccine (#1) 2024 Zoster Vaccines (1 of 2) 10/15/2041 RSV [...] Years) and At-Risk Patients (6 to 49) Years Aged Out No longer eligible b ased on patient's age to complete this topic RSV under 20 months Aged Out No longe r eligible based on patient's age to complete this topic Rotavirus Vaccines Aged Out No longer eligible based on patient's age to complete this topic
--- OUTSIDE RECORDS SUMMARY | 2024-12-20 10:15 | XMS_ITS | Encounter Summary ---
Author Organization [employer] Address [address] [facility] [address] [place] [address] Care Team Providers Care Supervisor Customer Services Name Role Phone Unavailable Primary Care Provider [...]
--- OUTSIDE RECORDS SUMMARY | 2024-12-20 10:15 | XMS_ITS | Clinical Summary ---
Author Organization [facility] Address [address] [place] [address] Phone Care Team Providers Care Website/Blog Editor Name Role Phone Darren Carias Primary Care Provider Allergies No known active allergies Medications hydrOXYzine HCL (ATARAX) 25 mg tablet 1 tablet (25 mg total) 1 (one) time each day if needed. 3 Active EnbreL SureClick 50 mg/mL (1 mL) injection pen 50 mL (2,500 mg total) 1 (one) time per week. ON FRIDAY . CALLING DR Avilez office to see when should stop embrel 5 Active etonogestrel (NEXPLANON SDRM) 68 mg by subdermal route 1 (one) time each day. Med inplanted in L arm 0 Active ibuprofen (ADVIL,MOTRIN) 600 mg tablet Take 1 tablet (600 mg total) by mouth every 6 (six) hours if needed for mild pain for up to 10 days. 30 tablet 5 12/28/19 25 Active acetaminophen (TYLENOL) 500 mg tablet Take 2 tablets (1,000 mg total) by mouth every 6 (six) hours if needed for mild pain for up to 10 days. 30 tablet 5 12/28/19 25 Active acetaminophen (TYLENOL) 500 mg tablet Take 1 tablet (500 mg total) by mouth every 6 (six) hours if needed. 3 12/18/19 25 Discontinu ed(Stop Taking at Discharge) cholecalciferol (VITAMIN D-3) 50 mcg (2,000 unit) tablet Take 1 tablet (2,000 Units total) by mouth 1 (one) time each day. 3 12/08/19 25 Discontinu ed(Therapy completed) meclizine (ANTIVERT) 25 mg tablet Take 1 Tablet by mouth 3 times daily as needed (vertigo). 3 12/08/19 25 Discontinu ed(Therapy completed) Active Problems Problem Noted Date Diagnosed Date Acquired trigger finger of right middle finger 0 10/26/2024 Right carpal tunnel syndrome 10/26/2024 Diarrhea 03/19/2024 Kidney stones 03/19/2024 Mucus in stool 03/19/2024 Class 2 obesity 03/19/2024 Chronic pain of right knee 11/11/2017 Obesity (BMI 30.0-34.9) 11/11/2017 Chronic tension-type headache, not intractable 0 08/29/2016 Encounters Date Type Department Care Team Description 12/17/2024 9:07 AM EDT Anesthesia Event [facility] Main OR [address] [place] [address] [phone] Vito Perez MD 12/17/2024 8:45 AM EDT - 12/17/2024 10:[address] [facility] OR [address] [place] [address] [phone] Adan Avilez MD ENDOSCOPIC RELEASE RIGHT CARPAL TUNNEL, A-1 CHANDU RELEASE RIGHT MIDDLE FINGER [60010 (CPT ) +1 more] 12/17/2024 6:56 AM EDT - 12/17/2024 10:54 AM EDT Hospital Encounter [facility] OR [address] [place] [address] [phone] Adan Avilez MD Acquired trigger finger of right middle finger; Right carpal tunnel syndrome Discharge Disposition: Home or Self Care 11/17/2024 [place] [facility] [address] [place] [phone] Adan Avilez MD 10/29/2024 9:28 PM EDT - 10/29/2024 11:30 PM EDT Emergency [facility] Emergency [address] [place] [phone] Chest pain with low risk for cardiac etiology (Primary Dx); Acute nonintractable headache, unspecified headache type Discharge Disposition: Home or Self Care 10/26/2024 3:30 PM EDT Office Visit Orthopedic Surgery [facility] [address] [facility] [address] [place] [phone] Adan Avilez MD Acquired trigger finger of right middle finger (Primary Dx); Right carpal tunnel syndrome 10/11/2024 2:00 PM EDT Consult [facility] [place] [address] [phone] Linda Figueroa PA Acquired trigger finger of right middle finger (Primary Dx); Right carpal tunnel syndrome from Last 3 Months Immunizations Name Administration Dates Next Due HPV, Quadrivalent 01/25/2015,07/20/2014,05/25/19 15 Hepatitis B (Buhtdub-H-Yjfhb , Recombivax HB-Adult) 19yo and older 11/08/2023,10/08/2023 [...] Site/Laterality Comments SECTION 2012 PROCEDURE: HISTORICAL DELIVERY OTHER SURGICAL HISTORY SECTION, LOW TRANSVERSE Medical History Medical History Date Comments Left lower quadrant pain DX:Left lower quadrant pain; COMMENT: Since March 25, 2019 Diarrhea DX:Diarrhea Mucus in stool DX:Mucus in stoo l Liver disease fatty liver Cancer (CMS/HCC V24, CMS/HCC V28) Arthritis RA Trigger finger R Carpal tunnel syndrome of right wrist Family History Medical History Relation Name Comments [...] Mass Index 36.36 12/17/2024 7:41 AM EDT Plan of Treatment Upcoming Encounters Date Type Department Care Team (Late st Contact Info) Description 12/28/2024 11:30 AM EDT Office Visit Orthopedic Surgery - [place] [address] [phone] Adan Avilez MD [address] [place] [address] Health Maintenance Due Date Last Done Comments Cervical Cancer Screening: Pap Smear 10/07/2020 10/07/2017, 10/07/2017, 10/07/2017 HIV Screening 02/27/2022 Social Influencers of Health Screening 02/27/2022 Depression Screening 03/31/2024 Hepatitis B Vaccines (3 of 3 - 19+ 3-dose series) 04/09/2024 11/08/2023, 10/08/2023 COVID-19 Vaccine ( - season) 2024 04/21/2021, 09/09/2020, 08/12/2020 Influenza Vaccine (#1) 2024 8, 12/23/2016, 12/23/2016, Additional history exists DTaP,Tdap,and Td Vaccines (5 - Td or Tdap) 12/23/2026 12/23/2016, 05/25/2014, 09/18/2012, Additional history exists Cholesterol Screening (Lipid Panel) 04/25/2027 04/25/2022 RSV Immunization Adult Patients (1 - 1-dose 75+ series) 10/15/2066 HPV Vaccines Completed 01/25/2015, 06/30, 05/25/2014 MMR [...] 5 Years) and At-Risk Patients (6 to 49 Years) Aged Out No longer eligible based on patient's age to complete this topic RSV Immunization Patients Under 20 months Aged Out No longer eligible based on patient's age to complete this topic Procedures Procedure Name Priority Date/Time Associated Diagnosis Comments ECG ANNOTATED 10/30/2024 TROPONIN I HIGH SENSITIVITY Timed 10/29/2024 10:22 PM EDT CBC WITH AUTO DIFFERENTIAL STAT 10/29/2024 8:36 PM EDT B-TYPE NATRIURETIC PEPTIDE STAT 10/29/2024 8:36 PM EDT MAGNESIUM STAT 10/29/2024 8:36 PM EDT LIPASE STAT 10/29/2024 8:36 PM EDT COMPREHENSIVE METABOLIC PANEL STAT 10/29/2024 8:36 PM EDT CBC AND DIFFERENTIAL STAT 10/29/2024 8:36 PM EDT TROPONIN I HIGH SENSITIVITY Timed 10/29/2024 8:36 PM EDT ECG 12-LEAD STAT 10/29/2024 8:33 PM EDT HM HEPATITIS C SCREENING Routine 04/25/2022 LIPID PANEL Routine 04/25/2022 PAP SMEAR Routine 10/07/2017 from Last 3 Months or Most Recently Relevant to Health Maintenance Results * ECG-Annotated (10/30/2024) us Provider Onbase MD ECG ORDERABLES Final Result * Troponin I high sensitivity (10/29/2024 10:22 PM EDT) Only the most recent of2 resultswithin the time period is included. High Sensitivity Troponin I 3 <=54 ng/L LAB CHEMISTRY METHOD 10/29/2024 10:57 PM EDT [facility] Blood Venous blood specimen / Unknown Venipuncture / Unknown 10/29/2024 10:22 PM EDT 10/29/2024 10:31 PM EDT Narrative [facility] - 10/29/2024 10:57 PM EDT High levels of biotin in samples may falsely decrease hsTroponin values. Use caution when interpreting hsTroponin results in patients taking biotin who exhibit renal impairment (eGFR <60) or in patients taking more than 20 mg/day of biotin. us Manjeet Kevin MD LAB BLOOD ORDERABLES Winter thorne Result [facility] [address] [place] [address], [place] [phone] * (ABNORMAL) CBC auto differential (10/29/2024 8:36 PM EDT) WBC 9.5 4.8 - 10.8 K/mcL LAB HEMETOLOGY METHOD 10/29/2024 9:18 PM EDT [facility] RBC 5.20(H) 3.80 - 4.80 M/mcL LAB HEMETOLOGY METHOD 10/29/2024 9:18 PM EDT [facility] Hemoglobin 15.0 11.5 - 16.0 g/dL LAB HEMETOLOGY METHOD 10/29/2024 9:18 PM EDT [facility] Hematocrit 43.9 35.0 - 47.0 % LAB HEMETOLOGY METHOD 10/29/2024 9:18 PM EDT [facility] MCV 84.3 79.0 - 98.0 FL LAB HEMETOLOGY METHOD 10/29/2024 9:18 PM EDT [facility] MCH 28.8 27.0 - 32.0 pcg LAB HEMETOLOGY METHOD 10/29/2024 9:18 PM EDT [facility] MCHC 34.2 32.0 - 37.0 g/dL LAB HEMETOLOGY METHOD 10/29/2024 9:18 PM EDT [facility] RDW 12.2 11.0 - 15.0 % LAB HEMETOLOGY METHOD 10/29/2024 9:18 PM EDT [facility] Platelets 247 130 - 400 K/mcL LAB HEMETOLOGY METHOD [facility]24 [facility] MPV 11.0 7.0 - 11.0 FL LAB HEMETOLOGY METHOD 10/29/2024 9[facility] NRBC 0.0 <1.0 % LAB HEMETOLOGY METHOD 10/29/2024 9:18 PM EDT [facility] NRBC Absolute 0.00 <0.10 K/mcL LAB HEMETOLOGY METHOD 10/29/2024 9:[facility] Neutrophils Relative 57.1 % LAB HEMETOLOGY METHOD 10/29/2024 9:[facility] Lymphocytes Relative 31.3 % LAB HEMETOLOGY METHOD 10/29/2024 9:18 PM T [facility] Monocytes Relative 8.4 % LAB HEMETOLOGY METHOD 10/29/2024 9:18 PM [facility] Eosinophils Relative 2.5 % LAB HEMETOLOGY METHOD 10/29/2024 9:18 PM [facility] Basophils Relative 0.3 % LAB HEMETOLOGY METHOD 10/29/2024 9:18 PM [facility] Immature Granulocytes Relative 0.4 % LAB HEMETOLOGY METHOD 10/29/2024 9:18 PM [facility] Neutrophils Absolute 5.39 1.50 - 7.00 K/mcL LAB HEMETOLOGY METHOD 10/29/2024 9:[facility] Lymphocytes Absolute 2.96 1.00 - 5.00 K/mcL LAB HEMETOLOGY METHOD 10/29/2024 9:[facility] Monocytes Absolute 0.79 0.20 - 1.00 K/mcL LAB HEMETOLOGY METHOD 10/29/2024 9:18 PM EDT [facility] Eosinophils Absolute 0.24 0.00 - 0.50 K/mcL LAB HEMETOLOGY METHOD 10/29/2024 9:18 PM EDT [facility] Basophils Absolute 0.03 0.00 - 0.20 K/mcL LAB HEMETOLOGY METHOD 10/29/2024 9:18 PM EDT [facility] Immature Granulocytes Absolute 0.04(H) 0.00 - 0.03 K/mcL LAB HEMETOLOGY METHOD 10/29/2024 9:18 PM EDT [facility] Blood Venous blood specimen / Unknown Venipuncture / Unknown 10/29/2024 8:36 PM EDT 10/29/2024 9:05 PM EDT Manjeet Kevin MD LAB BLOOD ORDERABLES Winter l Result [facility] [address] [place] [address], [place] [phone] * B-type natriuretic peptide (10/29/2024 8:36 PM EDT) [facility] BNP 5 <=100 pcg/mL LAB CHEMISTRY METHOD 10/29/2024 9:52 PM EDT [facility] Blood Venous blood specimen / Unknown Venipuncture / Unknown 10/29/2024 8:36 PM EDT 10/29/2024 9:05 PM EDT Manjeet Kevin MD LAB BLOOD ORDERABLES Winter l Result [facility] [address] [place] [address], [place] [phone] * Magnesium (10/29/2024 8:36 PM EDT) Pathologist [facility] Magnesium 2.1 1.9 - 2.6 mg/dL LAB CHEMISTRY METHOD 10/29/2024 9:46 PM EDT [facility] Blood Venous blood specimen / Unknown Venipuncture / Unknown 10/29/2024 8:36 PM EDT 10/29/2024 9:05 PM EDT Manjeet Kevin MD LAB BLOOD ORDERABLES Winter l Result Performing Organization Address City/[facility]/ZIP Co de Phone Number [facility] [address] [place] [address], [place] [phone] * Lipase (10/29/2024 8:36 PM EDT) [facility] Lipase 29 13 - 75 unit/L LAB CHEMISTRY METHOD 10/29/2024 9:46 PM EDT [facility] Blood Venous blood specimen / Unknown Venipuncture / Unknown 10/29/2024 8:36 PM EDT 10/29/2024 9:05 PM EDT Manjeet Kevin MD LAB BLOOD ORDERABLES Winter l Result Performing Organization Address City/[facility]/ZIP Co de Phone Number [facility] [address] [place] [address], [place] [phone] * (ABNORMAL) Comprehensive metabolic panel (10/29/2024 8:36 PM EDT) [facility] Sodium 137 133 - 145 mmol/L LAB CHEMISTRY METHOD 10/29/2024 9:46 PM EDT [facility] Potassium 3.9 3.5 - 5.5 mmol/L LAB CHEMISTRY METHOD 10/29/2024 9:46 PM EDT [facility] Chloride 105 96 - 110 mmol/L LAB CHEMISTRY METHOD 10/29/2024 9:46 PM EDT [facility] CO2 27 21 - 32 mmol/L LAB CHEMISTRY METHOD 10/29/2024 9:46 PM [facility] Anion Gap 5 3 - 11 LAB CHEMISTRY METHOD 10/29/2024 9:46 PM [facility] Glucose 92 70 - 100 mg/dL LAB CHEMISTRY METHOD 10/29/2024 9:46 PM [facility] BUN 10 5 - 25 mg/dL LAB CHEMISTRY METHOD 10/29/2024 9:46 PM [facility] Creatinine 0.80 0.50 - 1.10 mg/dL LAB CHEMISTRY METHOD 10/29/2024 9:46 PM [facility] eGFR 100 >=60 mL/min/1. 73m2 LAB CHEMISTRY METHOD 10/29/2024 9:46 PM [facility] Comment:Calculation based on the Chronic Kidney Disease Epidemiology Collaboration (CKD-EPI) equation refit without adjustment for race. BUN/Creatinine Ratio 12.5 LAB CHEMISTRY METHOD 10/29/2024 9:46 PM [facility] Calcium 9.5 8.5 - 10.5 mg/dL LAB CHEMISTRY METHOD 10/29/2024 9:46 PM [facility] AST (SGOT) 32 10 - 42 unit/L LAB CHEMISTRY METHOD 10/29/2024 9:46 PM [facility] ALT (SGPT) 79(H) 10 - 60 unit/L LAB CHEMISTRY METHOD 10/29/2024 9:46 PM [facility] Alkaline Phosphatase 49 42 - 121 unit/L LAB CHEMISTRY METHOD 10/29/2024 9:46 PM [facility] Total Protein 7.1 6.0 - 8.0 g/dL LAB CHEMISTRY METHOD 10/29/2024 9:46 PM [facility] Albumin 4.0 3.2 - 5.0 g/dL LAB CHEMISTRY METHOD 10/29/2024 9:46 PM [facility] Total Bilirubin 0.5 0.0 - 1.4 mg/dL LAB CHEMISTRY METHOD 10/29/2024 9:46 PM EDT [facility] Blood Venous blood specimen / Unknown Venipuncture / Unknown 10/29/2024 8:36 PM EDT 10/29/2024 9:05 PM EDT Manjeet Kevin MD LAB BLOOD ORDERABLES Winter l Result Performing Organization Address [facility] Co de Phone Number [facility]) [facility] [address] [place] [address], [place] [phone] * ECG 12 lead (10/29/2024 8:33 PM EDT) Pathologist [facility] Ventricular Rate ECG 77 BPM GEMUSE Atrial Rate 77 BPM GEMUSE P-R Interval 144 ms GEMUSE QRS Duration 82 ms GEMUSE Q-T Interval 374 ms GEMUSE QTc 423 ms GEMUSE P Wave [place] 25 degrees GEMUSE R [place] 17 degrees GEMUSE ECG Interpretation Normal sinus rhythm Normal ECG When compared with ECG of 07-JUL-2024 18:05, No significant change was found Confirmed by Brock JURAOD YUFENG ([id number]) on 10/29/2024 9:07:42 PM GEMUSE 10/29/2024 8:33 PM EDT 10/29/2024 9:07 PM EDT Manjeet Kevin MD ECG ORDERABLES Final Res ult Performing Organization Address [facility]/ZIP Co de Phone Number GEMUSE * Hepatitis C Screening (04/25/2022) Pathologist [facility] Hepatitis C Screening abstracted Historical [...] RESULTING AGENCY - 10/14/2017 3:45 PM EDT [id number] THINPREP PAP, IMAGED: ATYPICAL SQUAMOUS CELLS OF [...] Z12.4, Z01.419 Eduardo OTOOLE LAB CYTOLOGY ORDERA GHISLAINE Final Result HISTORICAL TESTING LAB RESULTING AGENCY from Last 3 Months or Most Recently Relevant to Health Maintenance Insurance [facility] [place] [address] Advance Directives * Full Code - Default (Latest Code Status on File) Date Activated Date Inactivated Comments 12/17/2024 7:34 AM 12/17/2024 12:59 PM This is ord er is used when code status has not been discussed with the patient, or code status is otherwise unknown/unconfirmed To update the patient's code status, place a code status order. Do not modify or discontinue any currently active code status orders. Care Teams Website/Blog Editor Relationship Specialty Start Date End Date Darren Carias PA [address] [place] [phone] PCP - General Physician Story Teller 10/11/24
== END 2024-12-20 08:53 | disposition home or self-care (01) ==
LOC: HO.LAB 08:52
PROVIDERS: Absent Provider Student in an Organized Health Care Education/Training Program; Visit Provider Internal Medicine
DX: E11.9 Type 2 diabetes mellitus without complications (principal); M05.9 Rheumatoid arthritis with rheumatoid factor, unspecified
CPT/HCPCS: 36415; 80053; 83036; 85025; 85652; 86140

== ENCOUNTER 2024-12-23 15:14 | Outpatient (AMB) | payer OTHER, SELFPAY ==
[2024-12-23 15:33] VITALS: BP 126/84; PULSE 91; TEMP 36.3; O2SAT 99; BMI 37.9
--- NOTE | 2024-12-23 15:33 | A.OFFPC_ITS ---
Vital Signs 12/23/24 15:33 Height 4 ft 11 in Weight 187 lb 8 oz BMI 37.9 BP 126/84 Blood Pressure Location Lt brachial Position Sitting Pulse 91 Pulse Source Pulse Oximeter Temp 97.3 F Temp Source Temporal Artery Scan Pulse Oximetry (%) 99 Oxygen Delivery Method Room Air Intake Visit Reasons: f/u DMII / HTN Allergies No Known Allergies Allergy (Verified 12/23/24 16:04) Medication List - Last Reconciled 12/23/24 by Darren Carias PA-C blood pressure monitor As directed blood sugar diagnostic (FreeStyle Lite Strips) Testing once a day as needed blood-glucose meter (FreeStyle Lite Meter kit) As directed Enbrel SureClick (etanercept) 50 mg subcut QWEEK NS etonogestrel (Nexplanon) subdermal hydroxyzine HCl 25 mg PO BEDTIME PRN lancets (FreeStyle Lancets) Testing once a day as needed sumatriptan succinate take 1 tab at onset of headache; if no relief may repeat 1 tab after at least 2 hrs; max = 4 tabs/24 hr PO 30 days Tobacco use date assessed: 12/23/24 Dental Screening Dental Screen Date: 12/23/24 Did you have a dental visit in the last 12 months?: Yes Did you have a dental problem in the last 6 months where you did not have access to dental care?: No Was dental information given to patient?: Patient has dentist HPI f/u DMII / HTN HPI Details Patient is a 34-year-old female here today for follow up visit Patient has a past medical history significant obesity, rheumatoid arthritis and impaired glucose metabolism Recently underwent right carpal tunnel release surgery .. Rheumatoid arthritis: Followed by [facility]. She continues on Enbrel weekly injections. Did have elevated liver enzymes secondary to the injections. Recent liver enzymes stabilized. She has discontinued Tylenol and ibuprofen due to the elevated liver enzymes. . Impaired glucose metabolism: Most recent labs showing elevated fasting blood sugar 135 and an A1c is 6.3. We did discuss starting metformin though she wanted to work on lifestyle and dietary modifications. .. Class 2 obesity: Today's BMI of 37. Patient does understand her BMI is over 35 and will work on being more physically active and adapting to better eating habits to reduce her weight. 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 1. Little interest or pleasure in doing things: more than half the days 2. Feeling down, depressed, or hopeless: not at all 3. Trouble falling or staying asleep, or sleeping too much: nearly every day 4. Feeling tired or having little energy: several days 5. Poor appetite or overeating: not at all 6. Feeling bad about yourself - or that you are a failure or have let yourself or your family down: not at all 7. Trouble concentrating on things, such as reading the newspaper or watching television: not at all 8. Moving or speaking so slowly that other people could have noticed. Or the opposite - being so fidgety or restless that you have been moving around a lot more than usual: not at all 9. Thoughts that you would be better off or of hurting yourself in some way: not at all Total score: 6 Depression Screening Interpretation: Positive Depression Screening Follow-up: Existing condition Depression Screening Done: Yes 29229 - PHQ-9 Billing: Yes Source: Developed by Drs. Huy Leon, Pascale Ulloa, Zack Conway and colleagues, with an educational riki from [employer]. Thrive Questionnaire Date Thrive assessed: 08/19/24 I am a: Patient What is your living situation today?: I have a steady place to live Within the past 12 months, did the food you bought not last and you didn't have the money to get more?: Never true Within the past 12 months, did you worry whether your food would run out before you got money to buy more?: Never true Do you have trouble paying for medicines?: No Do you have trouble getting transportation to medical appointments?: No Do you have trouble paying your heating and electricity bill?: No Do you have trouble taking care of your child, family member or friend?: No Do you have trouble with day-to-day activities such as bathing, preparing meals, shopping, managing finances, etc.?: No Are you currently unemployed and looking for a job?: No Are you interested in more education?: No Please select the resources that you would like help with: None Currently or been in a relationship where the following occur: No concerns reported THRIVE Score: 0 AUDIT C Alcohol Use Questionnaire (AUDIT-C) 1. How often do you have a drink containing alcohol?: Never 3. How often do you have six or more drinks on one occasion?: Never Total Score: 0 ROLANDO-7 AMB Questionnaire ROLANDO-7 Date ROLANDO - 7 assessed: 12/23/24 Feeling nervous, anxious, or on edge: 0 = Not at all Not being able to stop or control worryin = Not at all Worrying too much about different things: 0 = Not at all Trouble relaxin = Not at all Being so restless that it is hard to sit still: 0 = Not at all Becoming easily annoyed or irritable: 0 = Not at all Feeling afraid as if something awful might happen: 0 = Not at all Total ROLANDO-7 score (0-4 normal; 5-9 mild; 10-14 moderate; 15-21 severe): 0 Source: Developed by Drs. Huy Leon, Pascale Ulola, Zack Conway and colleagues, with an educational riki from [employer]. ROLANDO-7 Assessment Billing ROLANDO-7 Assessment Tool: ROLANDO-7 Assessment 87654 Review of Systems Const Denies headache(s) Eyes Denies loss of vision ENT Denies vertigo, Denies dizziness, Denies headache(s) and Denies sore throat Card Denies chest pain, Denies leg edema and Denies lightheadedness Resp Denies cough, Denies hemoptysis and Denies wheezing GI Denies abdominal pain, Denies melena, Denies constipation, Denies diarrhea and Denies vomiting Denies urinary frequency, Denies dysuria and Denies urinary urgency Musc Denies arthralgias, Denies joint swelling, Denies numbness and Denies tingling Neuro Denies Abnormal speech present, Denies behavioral changes, Denies vertigo, Denies dizziness, Denies headache(s), Denies loss of vision, Denies memory loss, Denies numbness and Denies tingling Psych Denies anxiety, Denies behavioral changes, Denies depression, Denies memory loss and Denies panic attacks Pa/Lymph Denies easy bleeding and Denies easy bruising Aller/Immun Denies wheezing Physical exam (Primary Care) Vital Signs: Last Vital Signs Temp 97.3 F 12/23/24 15:33 Pulse 91 12/23/24 15:33 BP 126/84 12/23/24 15:33 Pulse Ox 99 12/23/24 15:33 Oxygen Delivery Method Room Air 12/23/24 15:33 BMI result Body Mass Index 37.9 BMI Assessment/Plan discussion: High BMI High, discussed plan: lifestyle, weight reduction, dietary and physical activity Tobacco/Smoking Status: Tobacco use Status Tobacco use date assessed 12/23/24 12/23/24 15:34 Patient Tobacco Use Status Never used Tobacco 12/23/24 15:34 e-Cigarette/Vaping Use Never Used 12/23/24 15:34 PHQ-9: PHQ-9 Score PHQ-9: Total score 6 12/23/24 16:04 Depression Screening Interpretation: Positive Depression Screening Follow-up: Existing condition Thrive Assessment: Date of Thrive Assessment Date Thrive assessed 08/19/24 12/23/24 15:34 Currently or been in a relationship where the following occur: No concerns reported Const General: healthy appearing, no acute distress, alert and awake Nutritional Appearance: well nourished Orientation/consciousness: oriented to person, oriented to place and oriented to time HENMT Ears: TM's normal bilaterally General nose exam: Normal nasal mucous membranes and turbinates present Eyes Conjunctivae: conjunctivae normal Sclerae: sclerae normal Pupils: Equal, round and reactive pupils present Neck Neck: Yes no lymphadenopathy and Yes no JVD Thyroid: Thyroid normal Carotids: no bruits Resp Effort & Inspection: normal respiratory effort and not tachypneic Auscultation: no crackles, no rales, no rhonchi and no wheezes Cardio Rate: regular rate Rhythm: regular rhythm Heart sounds: no murmurs and normal S1 and S2 GI Palpation (GI): Soft to palpation, nontender, no hepatomegaly and no splenomegaly Auscultation: normal bowel sounds Skin General skin exam: no rashes or lesions noted and dry skin Neuro General: oriented to person, oriented to place and oriented to time Cranial nerves: Yes Equal, round and reactive pupils present Speech: No Abnormal speech present Gait exam (Neuro): Normal gait present Motor exam (neuro): no tremor noted Extrem Right upper extremity: full ROM Left upper extremity: full ROM Right lower extremity: full ROM; no edema Left lower extremity: full ROM; no edema Psych Mental Status: mental status grossly normal Speech and movement: Normal speech and movement present Affect: normal affect Attitude: cooperative Thought process: Normal thought process present Coding Level of Care Code Est Pt Level 4 (86354) Diagnoses Impaired glucose metabolism R73.09 Seropositive rheumatoid arthritis M05.9 Migraine without status migrainosus, not intractable, unspecified migraine type G43.909 Intractability: not intractable Migraine type: unspecified Status migrainosus presence: without status migrainosus Class 2 obesity E66.812 Moderate episode of recurrent major depressive disorder F33.1 Depression Type: major depressive disorder Major depression recurrence: recurrent Active/Remission status: currently active Major depression episode severity: moderate Additional Codes ROLANDO-7 Assessment Billing - ROLANDO-7 Assessment Tool: ROLANDO-7 Assessment 96107 ([id number]) PHQ-9 - 74890 - PHQ-9 Billing: Yes ([id number]) Assessment & Plan Assessment & Plan (1) Impaired glucose metabolism: Code(s): R73.09 - Other abnormal glucose Category: Medical Plan: Patient's blood sugars have improved and A1c improved from 6.3-6.1 over last few months. She will continue working on lifestyle and dietary modifications to reduce her sugars. Goal A1c is to be below 6.0 (2) Seropositive rheumatoid arthritis: Comment: ++RF -ve CCP dx 11/2023 Enbrel 11/2023. Effective Code(s): M05.9 - Rheumatoid arthritis with rheumatoid factor, unspecified Category: Medical Plan: Patient continues to follow Rheumatology and does get Enbrel injections which helped to reduce her joint pains. Of note in March 2024 she did have elevated liver enzymes simvastatin to be due to her disease modifying drug. Most recent liver enzymes much improved. (3) Migraine: Code(s): G43.909 - Migraine, unspecified, not intractable, without status migrainosus Category: Medical Qualifiers: Intractability: not intractable Migraine type: unspecified Status migrainosus presence: without status migrainosus Qualified Code(s): G43.909 - Migraine, unspecified, not intractable, without status migrainosus Plan: Patient does report more frequent headaches as of late thus has been trying to take a bit more ibuprofen though has concerned about her liver enzymes. Will supply patient with sumatriptan to use for her migraine headaches. (4) Class 2 obesity: Code(s): E66.812 - Obesity, class 2 Category: Medical Plan: Patient does understand her BMI is over 35 and will continue working on being more physically active and adapting to better eating habits to reduce her weight. (5) Depression: Code(s): F32.A - Depression, unspecified Category: Medical Qualifiers: Depression Type: major depressive disorder Major depression recurrence: recurrent Active/Remission status: currently active Major depression episode severity: moderate Qualified Code(s): F33.1 - Major depressive disorder, recurrent, moderate Plan: Patient's PHQ-9 score positive for depression which has been existing condition for her. She is not interested in starting any new mental health medications. She does have hydroxyzine to use on a as needed basis for sleep. Orders: Orders Comprehensive [place]. Panel Fast 12/23/24 K76.0 - Fatty (change of) liver, not elsewhere classified Microalbumin, Random (w Creat) 12/23/24 I10 - Essential (primary) hypertension Hemoglobin A1c 12/23/24 R73.09 - Other abnormal glucose Complete Blood Count no Diff 12/23/24 K76.0 - Fatty (change of) liver, not elsewhere classified
--- OUTSIDE RECORDS SUMMARY | 2024-12-23 19:26 | XMS_ITS | Clinical Summary ---
Author Organization [employer] Address [address] [place] [address] Care Team Providers Care Bonded Strand Operator Name Role Phone Unavailable Primary Care [...]
--- OUTSIDE RECORDS SUMMARY | 2024-12-23 19:26 | XMS_ITS | Encounter Summary ---
Author Organization [employer] Address [address] [place] [address] Care Team Providers Care Radiological Technologist Name Role Phone Unavailable Primary Care Provider [...]
== END 2024-12-23 16:15 | disposition home or self-care (01) ==
LOC: HO.HMCH 15:15
PROVIDERS: PCP Physician Assistant; Visit Provider Physician Assistant
DX: M05.9 Rheumatoid arthritis with rheumatoid factor, unspecified (principal); F33.1 Major depressive disorder, recurrent, moderate; E66.812 Obesity, class 2; Z68.37 Body mass index [BMI] 37.0-37.9, adult; R73.09 Other abnormal glucose; G43.909 Migraine, unspecified, not intractable, without status migrainosus

== ENCOUNTER → 2024-12-23 15:14 | Outpatient (BNVA) | payer OTHER, SELFPAY | PROVIDERS: PCP Physician Assistant; Visit Provider Physician Assistant | DX: R73.09 Other abnormal glucose (principal); M05.9 Rheumatoid arthritis with rheumatoid factor, unspecified; G43.909 Migraine, unspecified, not intractable, without status migrainosus; E66.812 Obesity, class 2; Z68.37 Body mass index [BMI] 37.0-37.9, adult; F33.1 Major depressive disorder, recurrent, moderate; Z13.31 Encounter for screening for depression; Z13.39 Encounter for screening examination for other mental health and behavioral disorders | CPT/HCPCS: 96127; 99212 ==

== ENCOUNTER 2025-01-07 13:29 | Outpatient (AMB) | payer OTHER, SELFPAY ==
--- NOTE | 2025-01-07 14:04 | A.OFFVIS_ITS ---
Vital Signs 01/07/25 14:05 Height 4 ft 11 in Weight 189 lb 6.033 oz BMI 38.2 BP 100/70 Blood Pressure Location Rt brachial Position Sitting Pulse 86 Pulse Source Pulse Oximeter Pulse Oximetry (%) 98 Oxygen Delivery Method Room Air Intake Visit Reasons: follow up Intake Note: Patient presents for follow up on RA, has an ultrasound appointment on the . Accompanied by: Self / Same As Patient Allergies No Known Allergies Allergy (Verified 01/07/25 14:04) HPI Comments Details: patient is a 34-year-old female with seropositive rheumatoid arthritis here today for follow up Interval History: Patient last seen 09/24/24 with me - On Enbrel 50mg SC every week - Finger improved after injection - Complaining of swelling to one side of her face and she is concerned that this could be related to her RA - Discussed with patient that RA does not cause unilateral facial swelling - No changes made to medication Today - On Enbrel 50mg SC every week - Had hand surgery 12/17: carpal tunnel and trigger finger release - Still on leave from work - No other complaints - Wants to go back work Rheumatologic History: Seropositive RA +++RF/-CCP Patient has chronically elevated LFTs and DMARDs such as methotrexate, leflunomide, sulfasalazine can not be used. Started Enbrel 11/2023 Initial history: presents for evaluation of Right wrist (DeQuervain) and +RF. Today it is not as bad as it was last year per patient and she mainly feels it when she picks up heavier items. She describes that there is numbness when there is swelling and pain. --Referred by ortho --Right radial hand and wrist, swelling pain - about 1 year. --Meloxicam helps a little --EMG studies done, DeQuervain injection - helped for a couple weeks --elevated liver enzymes - fatty liver per patient --Nexpalon Control - denies hx of blood clots --denies known history of family CTD or inflammatory arthritis; no personal hx of CA; Paternal GPa colon ca --no other joint swelling or pain --no rash, scalp sores, or hair shedding, no dry eyes, dry mouth or sores; denies other symptoms of CTD; no GI or concerns --denies smoking. ETOH Right handed. Initially seen for right sided wrist/hand pain. She denied any fall or inciting injuries. She has been wearing a thumb spica splint since the last time I saw her. Reports improvement. 0/10 pain when I saw her last November. Denied any numbness. She did not have the EMG done or OT. She said she did okay from November 30 just last month. Started having pain and numbness on right wrist spreading to all her fingers. Denies any new injuries or falls. She has been taking ibuprofen as needed. Wearing the wrist splint. 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 Cognitive needs: No Hearing needs: No Vision needs: No Review of Systems Const Details: Review of Systems Constitutional: Denies fever, chills, weight loss ENT: Denies vision changes, eye pain or eye redness, dental caries, dry mouth GI: Denies nausea, vomiting, diarrhea, abdominal pain, change in BM Pulm: Denies SOB, TURNER, hemoptysis, wheezing Cards: Denies chest pain, palpitations Skin: Denies Raynaud's, rash, nail changes, photosensitivity, YIELD CLERK: Denies headaches, weakness, paresthesias, recurrent falls MSK: as per HPI All other systems reviewed and are unremarkable except noted above Physical Exam Exam Exam: Vital signs reviewed Physical Examination CONSTITUITIONAL Patient alert and cooperative. Well appearing and in no apparent painful distress MSK Hands * Right Hand: Able to make a fist. No swelling or tenderness to palpation of the MCPs, PIPs or DIPs. Scar noted to the base of the 3rd digit * Left Hand: Able to make a fist. No swelling or tenderness to palpation of the MCPs, PIPs or DIPs. Wrists * Right Wrist: Full ROM to flexion and extension. No swelling or TTP. Scar noted over volar wrist * Left Wrist: Full ROM to flexion and extension. No swelling or TTP Elbows * Right Elbow: Full ROM. No swelling or TTP. No TTP of the medial epicondyle. No TTP of the lateral epicondyle * Left Elbow: Full ROM. No swelling or TTP. No TTP of the medial epicondyle. No TTP of the lateral epicondyle Shoulders * Right shoulder: Full ROM. No swelling noted. No TTP of the AC joint. No TTP of the subacromial bursa. No TTP of the posterior shoulder * Left shoulder: Full ROM. No swelling noted. No TTP of the AC joint. No TTP of the subacromial bursa. No TTP of the posterior shoulder Knees * Right knee: Full ROM. No swelling noted. No TTP of the knee joint line. No TTP of pes anserine bursa * Left knee: Full ROM. No swelling noted. No TTP of the knee joint line. No TTP of pes anserine bursa. Ankles * Right ankle: Good ankle dorsiflexion and plantar flexion. No swelling. No TTP of the ankle joint * Left ankle: Good ankle dorsiflexion and plantar flexion. No swelling. No TTP of the ankle joint Feet * Right foot: Negative squeeze test * Left foot: Negative squeeze test Tender points? * No tenderness to palpation of the bilateral trapezius, supraspinatus, anterior costochondral junctions, bilateral suboccipital muscle insertions SKIN No rashes Vital Signs: Last Vital Signs Pulse 86 01/07/25 14:05 BP 100/70 01/07/25 14:05 Pulse Ox 98 01/07/25 14:05 Oxygen Delivery Method Room Air 01/07/25 14:05 BMI result Body Mass Index 38.2 Results Reviewed Results Reviewed: Laboratory Tests 12/20/24 09:10 WBC 6.3 RBC 5.54 H Hgb 16.1 H Hct 45.4 Plt Count 235 ESR 8 Sodium 139 Potassium 4.5 Chloride 108 Carbon Dioxide 26 BUN 7 L Creatinine 0.69 AST 31 ALT 48 H C-Reactive Protein < 0.04 Assessment & Plan Assessment & Plan (1) Seropositive rheumatoid arthritis: Comment: ++RF -ve CCP dx 11/2023 Enbrel 11/2023. Effective Code(s): M05.9 - Rheumatoid arthritis with rheumatoid factor, unspecified Category: Medical Plan: #Seropositive RA Patient is a 34-year-old female with seropositive rheumatoid arthritis here to day for follow up RA currently in remission with no tender or swollen joints Plan - Enbrel 50mg SC weekly - RTC 4 months - Labs to visit: CBC, CMP, ESR, CRP (2) Trigger finger, right middle finger: Code(s): M65.331 - Trigger finger, right middle finger Plan: #Right middle finger trigger finger S/p trigger finger release surgery (3) Transaminitis: Code(s): R74.01 - Elevation of levels of liver transaminase levels Plan: #Transaminitis Known to have fatty liver Awaiting Abd US Improved overall Plan - Abd US with elastography (4) Encounter for monitoring of etanercept therapy: Code(s): Z51.81 - Encounter for therapeutic drug level monitoring; Z79.620 - termite 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 (current) use of immunosuppressive biologic Plan: #Long-term Use of TNF Inhibitors: Enbrel Discussed with the patient the benefits and risks of TNF inhibitors for the management of the rheumatic condition Benefits include reduce pain, maintenance of remission and reduction of flares as well as progression of the disease Risks include injection sites/infusion reactions, serious infections (such as bacterial infections, opportunistic infections), malignancy, delaminating syndromes, autoimmune phenomena, CHF exacerbations, palmar plantar psoriasis and cytopenias Recommended rotating injection sites, and holding medication during and for up to 1 week after resolution of a febrile illness or open skin wound Plan I spent 35 minutes reviewing the record and labs, taking a history, examining the patient, discussing the treatment plan, ordering diagnostic work up and documenting in the medical record Coding Level of Care Code Est Pt Level 4 (42026) Complex EM visit Add On G2211 Diagnoses Seropositive rheumatoid arthritis M05.9 Trigger finger, right middle finger M65.331 Transaminitis R74.01 Encounter for monitoring of etanercept therapy Z51.81; Z79.620
[2025-01-07 14:05] VITALS: BP 100/70; PULSE 86; O2SAT 98; BMI 38.2
== END 2025-01-07 14:26 | disposition home or self-care (01) ==
LOC: HO.RHES 13:30
PROVIDERS: PCP Physician Assistant; Visit Provider Student in an Organized Health Care Education/Training Program
DX: M05.9 Rheumatoid arthritis with rheumatoid factor, unspecified (principal); M65.331 Trigger finger, right middle finger; R74.01 Elevation of levels of liver transaminase levels; Z51.81 Encounter for therapeutic drug level monitoring; Z79.620 Long term (current) use of immunosuppressive biologic
CPT/HCPCS: 99214

== ENCOUNTER → 2025-01-07 13:29 | Outpatient (BNVA) | payer OTHER, SELFPAY | PROVIDERS: PCP Physician Assistant; Visit Provider Student in an Organized Health Care Education/Training Program | DX: M05.79 Rheumatoid arthritis with rheumatoid factor of multiple sites without organ or systems involvement (principal); M65.331 Trigger finger, right middle finger; R74.01 Elevation of levels of liver transaminase levels; Z79.620 Long term (current) use of immunosuppressive biologic | CPT/HCPCS: 99212 ==

== ENCOUNTER 2025-01-17 10:17 | Outpatient (REF) | payer OTHER, SELFPAY ==
[2025-01-18 12:54] LABS: Bacterial Vaginosis PCR POSITIVE (Negative); Candida Group PCR DETECTED (Not Detect); Candida glab krusei PCR NOT DETECTED (Not Detect); Trichomonas vaginalis PCR NOT DETECTED (Not Detect)
== END 2025-01-17 10:18 | disposition home or self-care (01) ==
LOC: HO.LAB 10:17
PROVIDERS: Physician Assistant Medical; PCP Physician Assistant
DX: R30.0 Dysuria (principal); N89.8 Other specified noninflammatory disorders of vagina; Z13.89 Encounter for screening for other disorder; Z20.2 Contact with and (suspected) exposure to infections with a predominantly sexual mode of transmission
CPT/HCPCS: 81003; 81515; 87086; 99212

== ENCOUNTER 2025-01-17 13:01 | Outpatient (AMB) | payer OTHER, SELFPAY ==
--- NOTE | 2025-01-17 13:04 | MHC.OFFWIV ---
Intake Vital Signs 01/17/25 13:09 Height 4 ft 11 in Weight 189 lb BMI 38.2 BP 118/76 Blood Pressure Location Lt brachial Position Sitting Pulse 92 Pulse Source Pulse Oximeter Temp 98.5 F Temp Source Oral Pulse Oximetry (%) 98 Oxygen Delivery Method Room Air Intake Visit Reasons: EP UTI? Intake Note: Patient presents for lower abdominal pain, discharge & itching x1 week Patient Tobacco Use Status: Never used Tobacco Allergies No Known Allergies Allergy (Verified 01/17/25 13:15) Do you need a note to return to daycare/school/sports/work: No HPI HPI Comments History of Present Illness Details History - The patient is a 34-year-old female presenting with dysuria and increased urinary frequency. - Symptoms began a week ago, with increased severity at night. - No hematuria is present, but there is vaginal discharge and mild itching. - The discharge is consistent with her usual pattern, and both urinary and vaginal symptoms commenced simultaneously. - The patient uses an etonogestrel implant for contraception and is uncertain about her last menstrual period. - There is no concern for sexually transmitted infections. - She denies fever, chills, chest pain, SOB, abd pain, n/v/d. Physical Exam General: Cooperative, healthy appearing, comfortable, no acute distress and well developed Cardiac: Normal S1 and S2. RRR, no M/R/G noted. Respiratory: Normal respiratory effort and able to speak in complete sentences. Clear to auscultation bilaterally. No w/r/r noted. Skin: No rashes or lesions noted. GI: Normal inspection. Normal BS noted. Soft, non-tender, non-distended. No TTP of all 4 quadrants. No guarding or rebound tenderness noted. Back: Negative CVA bilaterally Patient was informed and verbally consented to the use of an ambient scribe for clinic note documentation during this visit. 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 [employer] Cognitive needs: No Hearing needs: No Vision needs: No Review of Systems Const All systems reviewed & are unremarkable except as noted in HPI and below Physical Exam Vital Signs: Last Vital Signs Temp 98.5 F 01/17/25 13:09 Pulse 92 01/17/25 13:09 BP 118/76 01/17/25 13:09 Pulse Ox 98 01/17/25 13:09 Oxygen Delivery Method Room Air 01/17/25 13:09 BMI result Body Mass Index 38.2 Results AMB Urinalysis, Automated UA Leukoctes 500 Rose/uL Last Edit by Iqra Clancy CMA on 01/17/25 13:32 UA Nitrite Negative Last Edit by Iqra Clancy CMA on 01/17/25 13:32 UA Urobilinogen 0.2 mg/dL Last Edit by Iqra Clancy CMA on 01/17/25 13:32 UA Protein 0 mg/dL Last Edit by Iqra Clancy CMA on 01/17/25 13:32 UA pH 6.0 Last Edit by Iqra Clancy CMA on 01/17/25 13:32 UA Blood 0 Chavez/uL Last Edit by Iqra Clancy CMA on 01/17/25 13:32 UA Specific [place] 1.015 Last Edit by Iqra Clancy CMA on 01/17/25 13:32 UA Ketone Negative Last Edit by Iqra Clancy CMA on 01/17/25 13:32 UA Bilirubin 0 mg/dL Last Edit by Iqra Clancy CMA on 01/17/25 13:32 UA Glucose 0 mg/dL Last Edit by Iqra Clancy CMA on 01/17/25 13:32 Results Reviewed Results Reviewed: Laboratory Last Values Urine pH (Auto) 6.0 01/17/25 13:29 Specific [place] (Auto) 1.015 01/17/25 13:29 Urine Protein (Auto) 0 mg/dL 01/17/25 13:29 Glucose (UA)(Auto) 0 mg/dL 01/17/25 13:29 Urine Ketones (Auto) Negative 01/17/25 13: Urine Blood (Auto) 0 Chavez/uL 01/17/25 13:29 Urine Nitrite (Auto) Negative 01/17/25 13:29 Urine Bilirubin (Auto) 0 mg/dL 01/17/25 13:29 Urine Urobilinogen (Auto) 0.2 mg/dL 01/17/25 13:29 Leukocyte Esterase (Auto) 500 Rose/uL H* 01/17/25 13:29 Assessment & Plan Assessment & Plan (1) Dysuria: Code(s): R30.0 - Dysuria (2) Vaginal discharge: Code(s): N89.8 - Other specified noninflammatory disorders of vagina Plan Most likely UTI and she may also have BV or yeast UA 3+leuko Plan - A urine culture was ordered to confirm the presence of a urinary tract infection. - A vaginal swab was ordered to assess for bacterial vaginosis or candidiasis. - Empirical treatment for urinary tract infection was initiated with oral antibiotics. - The patient will be contacted with results to adjust treatment if bacterial vaginosis or candidiasis is confirmed. - drink lots of fluids - follow up with PCP Orders: Orders Urine Culture Today N39.0 - Urinary tract infection, site not specified Bacterial Vaginosis Panel Today N89.8 - Other specified noninflammatory disorders of vagina AMB Urinalysis Automated Today Z13.9 - Encounter for screening, unspecified Coding Level of Care Code Est Pt Level 3 (61280) Diagnoses Dysuria R30.0 Vaginal discharge N89.8
[2025-01-17 13:09] VITALS: BP 118/76; PULSE 92; TEMP 36.9; O2SAT 98; BMI 38.2
== END 2025-01-17 14:03 | disposition home or self-care (01) ==
PROVIDERS: PCP Physician Assistant; Visit Provider Physician Assistant Medical
DX: R30.0 Dysuria (principal); N89.8 Other specified noninflammatory disorders of vagina; Z13.9 Encounter for screening, unspecified

== ENCOUNTER 2025-01-25 16:49 | Outpatient (REF) | payer OTHER, SELFPAY ==
--- OUTSIDE RECORDS SUMMARY | 2025-01-20 09:15 | XMS_ITS | Encounter Summary ---
Author Organization [facility] Address [address] [place] [address] Care Team Providers Care Switchbox Assembler Name Role Phone Darren Carias Primary Care Provider [phone] Reason for Visit * Reason Comments Post-op Surgery follow up fo r TF release and eCTR on 12/17/24; sometimes pain in wrist Encounter Details Date Type Department Care Team (Latest Contact Info) Description 01/20/2025 9:15 AM EDT Office Visit Orthopedic Surgery - [place] [address] [facility] [address] [place] [phone] Adan Avilez MD [address] [place] [address] Postoperative state (Primary Dx) Social History Tobacco Use Types Packs/Day Years Used Date Smoking Tobacco: Never Smokeless Tobacco: Never Alcohol Use Standard Drinks/Week Comments No 0 (1 standard drink = 0.6 oz pur e alcohol) Interpersonal Safety Answer Date Record ed Physical Abuse Unrecognized value 12/17/2024 Verbal Abuse Unrecognized value 12/17/2024 Comments No Sex and Gender Information Value Date Recorded Sex Assigned at Not on file Legal Sex Female 3:49 PM EST Gender Identity Not on file Sexual Orientation Not on file documented as of this encounter Last Filed Vital Signs Vital Sign Reading Time Taken Comments Blood Pressure - - Pulse - - Temperature - - Respiratory Rate - - Oxygen Saturation - - Inhaled Oxygen Concentration - - Weight 81.6 kg (180 lb) 01/20/2025 9:20 AM EDT Height 149.9 cm (4' 11 ) 01/20/2025 9:20 AM EDT Body Mass Index 36.36 01/20/2025 9:20 AM EDT documented in this encounter Progress Notes * Adan Avilez MD - 01/20/2025 9:15 AM EDT Date: January 20, 2025 Last seen: 01/04/2025 Procedure: Right endoscopic carpal tunnel release and release of the right middle finger A1 chayo for right trigger finger performed 12/17/2024 HPI: Kianna Varela is a 34 y.o. female presenting for followup after above procedure. She says that she has not had any numbness or tingling since the procedure. She has had some soreness when that handwith lifting. She says that the strength is not back to where it was and she has noticed some discomfort at the PIP joint of her long finger when she is using spray bottles. Objective Focused Exam: Right Upper Extremity Incision well-healed over the volar wrist crease as well as at the base of the long finger Previous area of desquamation is resolved with mild blanching erythema, no signs of infection Has full painless flexion extension at the MCP and PIP joint without contracture. She is able to make a full composite fist with a fingertip to distal palmar crease distance of 0 cm without triggering Fires EPL/FPL/FDP/IO/APB SILT M/R/U palpable radial pulse Imaging: No new imaging Assessment: Kianna Varela returns s/p the above procedure. Her incisions appear well- healed today without signs of infection or breakdown. She is at improvement in her nocturnal numbness. I discussed that we could consider a referral to hand therapy for strengthening if she felt that she needed some extra strengthening prior to returning to work. She declined a hand therapy referral. She says that she is eager to return to work as scheduled next Friday. Plan: Approximately 5 weeks status post Right endoscopic carpal tunnel release and release of the right middle finger A1 chayo for right trigger finger Weightbearing as tolerated - Follow-up on as-needed basis Adan Avilez MD documented in this encounter Plan of Treatment Not on file documented as of this encounter Visit Diagnoses Diagnosis Postoperative state- Primary Other postprocedural status documented in this encounter Care Teams Switchbox Assembler Relationship Specialty Start Date End Date Darren Carias PA [address] [place] [phone] PCP - General Physician Punchboard Stuffer 10/11/24 documented as of this encounter
[2025-01-25 18:47] LABS: Alanine Aminotransferase 63 U/L (0-31); Albumin Level 4.6 g/dL (3.5-5.0); Alkaline Phosphatase 46 U/L (39-117); Anion Gap 11 (12-20); Aspartate Amino Transferase 32 U/L (5-31); Blood Urea Nitrogen 11 mg/dL (9-16); Calcium 8.9 mg/dL (8.4-10.2); Carbon Dioxide 26 mmol/L (22-29); Chloride 106 mmol/L (96-108); Estimated Glomerular Filt Rate > 60; Potassium 4.4 mmol/L (3.3-5.1); Sodium 139 mmol/L (135-145); Total Protein 7.3 g/dL (6.5-8.0)
[2025-01-25 18:56] LABS: Microalbum/Creatinine Ratio Ur 12.8 ug/mg cr (<30)
[2025-01-25 19:05] LABS: Hematocrit 44.1 % (37.0-47.0); Hemoglobin 14.9 g/dl (12.0-16.0); Mean Corpuscular HGB Conc 33.8 g/dl (31.0-35.0); Mean Corpuscular Hemoglobin 28.1 pg (27.0-33.0); Mean Corpuscular Volume 83.1 fL (80.0-98.0); NRBC Abs Auto 0.000 X10*3/uL (0.0-0.012); NRBC Pct Auto 0.0 /100WBC (0.0-0.2); Platelet Count 232 X10*3/uL (160-400); Red Blood Count 5.31 X10*6/uL (4.20-5.50); White Blood Count 7.4 X10*3/uL (4.8-10.8)
[2025-01-25 19:59] LABS: Appearance Urine Clear; Glucose Urine UA Negative (Negative); PH 6.0 (5.0-9.0); Specific Gravity - Urine 1.020 (1.005-1.025); UMIC TRIGGER UACC YES
--- OUTSIDE RECORDS SUMMARY | 2025-01-25 20:15 | XMS_ITS | Encounter Summary ---
Author Organization [facility] Address [address] [place] [address] Care Team Providers Care Clinical Support Tech Name Role Phone Darren Carias Primary Care Provider [phone]- [phone] Encounter Details Date Type Department Care Team (Late st Contact Info) Description 12/22/2024 Telephone Orthopedic Surgery - [place] [address] [address] [phone] Adan Avilez MD [address] [place] [address] Social History Tobacco Use Types Packs/Day Years [...] on filedocumented in this encounter Care Teams Clinical Support Tech Relationship Specialty Start Date End Date Darren Carias PA [address] [place] [phone] PCP - General Physician Night Warehouse Selector 10/11/24 documented as of this encounter
--- OUTSIDE RECORDS SUMMARY | 2025-01-25 20:15 | XMS_ITS | Clinical Summary ---
Author Organization [employer] Address [address] [facility] [address] [place] [address] Care Team Providers Care Meter Maintenance Person Name Role Phone Unavailable Primary Care Provider [...]
--- OUTSIDE RECORDS SUMMARY | 2025-01-25 20:15 | XMS_ITS | Clinical Summary ---
Author Organization [facility] Address [address] [place] [address] Phone Care Team Providers Care Piercing Artist Name Role Phone Darren Carias Primary Care Provider Allergies No known active allergies Medications hydrOXYzine HCL (ATARAX) 25 mg tablet 1 tablet (25 mg total) 1 (one) time each day if needed. 07/13/19 23 Active EnbreL SureClick 50 mg/mL (1 mL) injection pen 50 mL (2,500 mg total) 1 (one) time per week. ON FRIDAY . CALLING DR Avilez office to see when should stop embrel 07/22/19 25 Active etonogestrel (NEXPLANON SDRM) 68 mg by subdermal route 1 (one) time each day. Med inplanted in L arm 04/10/19 20 Active blood sugar diagnostic (FreeStyle Lite Strips) test strip TESTING ONCE A DAY NEEDED 12/21/19 25 Active FreeStyle [place] Lite monitoring kit See administration instructions. 06/29/19 25 Active FreeStyle Lancets 28 gauge lancets TESTING ONCE A DAY NEEDED 12/21/19 25 Active omeprazole (PriLOSEC) [address] capsule Take 1 capsule (20 mg total) by mouth 1 (one) time each day. 01/01/20 25 Active SUMAtriptan (IMITREX) 25 mg tablet Take 1 tablet (25 mg total) by mouth 1 (one) time if needed. 12/21/19 25 Active ibuprofen (ADVIL,MOTRIN) 600 mg tablet Take 1 tablet (600 mg total) by mouth every 6 (six) hours if needed for mild pain for up to 10 days. 30 tablet 12/18/19 25 025 acetaminophen (TYLENOL) 500 mg tablet Take 2 tablets (1,000 mg total) by mouth every 6 (six) hours if needed for mild pain for up to 10 days. 30 tablet 12/18/19 25 025 Active Problems Problem Noted Date Diagnosed Date Acquired trigger finger of right middle finger 0 10/26/2024 Right carpal tunnel syndrome 10/26/2024 Diarrhea 03/19/2024 Kidney stones 03/19/2024 Mucus in stool 03/19/2024 Class 2 obesity 03/19/2024 Chronic pain of right knee 11/11/2017 Obesity (BMI 30.0-34.9) 11/11/2017 Chronic tension-type headache, not intractable 0 08/29/2016 Encounters Date Type Department Care Team Description 01/20/2025 9:15 AM EDT Office Visit Orthopedic Surgery [address] [address] Adan Avilez MD Postoperative state (Primary Dx) 01/04/2025 11:00 AM EDT Office Visit Orthopedic [address] [phone] Kerry Mancia PA Postoperative state (Primary Dx) 12/28/2024 11:30 AM EDT Office Visit Orthopedic [facility] [address] [address] Adan Avilez MD Postoperative state (Primary Dx) 12/22/2024 Telephone Orthopedic Surgery [place] [address] [address] Adan Avilez MD 12/22/2024 Telephone Orthopedic Surgery [place] [address] [address] Adan Avilez MD 12/17/2024 9:07 AM EDT Anesthesia Event [facility] [place] [address] [place] [phone] Vito Perez MD 12/17/2024 8:45 AM EDT - 12/17/2024 10:[address] [facility] OR [address] [place] [phone] Adan Avilez MD ENDOSCOPIC RELEASE RIGHT CARPAL TUNNEL, A-1 CHANDU RELEASE RIGHT MIDDLE FINGER [07711 (CPT ) +1 more] 12/17/2024 6:56 AM EDT - 12/17/2024 10:54 AM EDT Hospital Encounter [facility] OR [address] [place] [phone] Adan Avilez MD Acquired trigger finger of right middle finger; Right carpal tunnel syndrome Discharge Disposition: Home or Self Care 11/17/2024 Telephone Orthopedic Surgery [facility] [address] [phone] Adan Avilez MD 10/29/2024 9:28 PM EDT - 10/29/2024 11:[address] [facility] [address] [place] [phone] Chest pain with low risk for cardiac etiology (Primary Dx); Acute nonintractable headache, unspecified headache type Discharge Disposition: Home or Self Care 10/26/2024 3:30 PM EDT Office Visit Orthopedic [facility] [address] [phone] Adan Avilez MD Acquired trigger finger of right middle finger (Primary Dx); Right carpal tunnel syndrome from Last 3 Months Immunizations Immunization Administration Dates Next Due HPV, Quadrivalent 01/25/2015,07/20/2014,05/25/19 15 Hepatitis B (Hsqaroy-M-Kplpb , Recombivax HB-Adult) 19yo and older 11/08/2023,10/08/2023 [...] DELIVERY OTHER SURGICAL HISTORY SECTION, LOW TRANSVERSE TRIGGER FINGER RELEASE 12/17/2024 Right long finger CARPAL TUNNEL RELEASE 12/17/2024 Right Medical History Medical History Date Comments Left [...] Date Smoking Tobacco: Never Smokeless Tobacco: Never Tobacco Cessation:Counseling Given: Not Answered Alcohol Use Standard Drinks/Week Comments No 0 [...] F) 12/17/2024 10:06 AM EDT Respiratory Rate 14 01/04/2025 9:49 AM EDT Oxygen Saturation 100% 12/17/2024 10:40 AM EDT Inhaled Oxygen Concentration - - Weight 81.6 kg (180 lb) 01/20/2025 9:20 AM EDT Height 149.9 cm (4' 11 ) 01/20/2025 9:20 AM EDT Body Mass Index 36.36 01/20/2025 9:20 AM EDT Plan of Treatment Health Maintenance Due Date Last Done Comments Cervical Cancer Screening: Pap Smear 10/07/2020 10/07/2017, 10/07/2017, 10/07/2017 HIV Screening 02/27/2022 Social Influencers of Health Screening 02/27/2022 Depression Screening 03/31/2024 Hepatitis B Vaccines (3 of 3 - 19+ 3-dose series) 04/09/2024 11/08/2023, 10/08/2023 COVID-19 Vaccine ( season) 2024 04/21/2021, 09/09/2020, 08/12/2020 Influenza Vaccine (#1) 2024 8, 12/23/2016, 12/23/2016, Additional history exists DTaP,Tdap,and Td Vaccines (5 - Td or Tdap) 12/23/2026 12/23/2016, 05/25/2014, 09/18/2012, Additional history exists Cholesterol Screening (Lipid Panel) 04/25/2027 04/25/2022 RSV Immunization Adult Patients (1 - 1-dose 75+ series) 10/15/2066 HPV Vaccines Completed 01/25/2015, 2 05/2014, 05/25/2014 MMR Vaccines Aged Out 06/20/2021, 05/11/2012 [...] Procedure Name Priority Date/Time Associated Diagnosis Comments TISSUE EXAM Routine 12/17/2024 9:56 AM EDT Acquired trigger finger of right middle finger Right carpal tunnel syndrome NM INCISION TENDON SHEATH 12/17/2024 9:06 AM EDT Acquired trigger finger of right middle finger Right carpal tunnel syndrome Case Notes [facility] (rep Alan Virginia([phone]) NM ENDOSCOPY WRIST SURGICAL WITH RELEASE TRANSVERSE CARPAL LIGAMENT 12/17/2024 9:06 AM EDT Acquired trigger finger of right middle finger Right carpal tunnel syndrome Case Notes [facility] (rep Alan Virginia([phone]) ECG ANNOTATED 10/30/2024 TROPONIN I HIGH SENSITIVITY [...] ECG 12-LEAD STAT 10/29/2024 8:33 PM EDT HEPATITIS C SCREENING Routine 04/25/2022 LIPID PANEL Routine 04/25/2022 PAP SMEAR Routine 10/07/2017 from Last 3 Months or Most Recently Relevant to Health Maintenance Results * Tissue exam (12/17/2024 9:56 AM EDT) Final Diagnosis Hand, Right, middle finger-release: -FIBROTENDINOUS TISSUE WITH DEGENERATIVE CHANGES 12/20/2024 3:16 PM EDT [facility] Gross Description A. Hand, Right, middle finger tenosynovitis: Labeled hand R, right mid . Received in formalin with a Telfa pad is a 1.1 cm aggregate of irregular corbin-white fibromembranous tissue fragments which is submitted in toto wrapped in paper in one cassette, multiple pieces. RUBINA 12/20/2024 3:16 PM EDT [facility] Disclaimer Unless otherwise specified, all tissue is 10% NB formalin fixed and paraffin embedded. 12/20/2024 3:16 PM EDT [facility] Tissue Structure of right hand / Unknown 12/17/2024 9:56 AM EDT 12/17/2024 10:26 AM EDT us Adan Avilez MD LAB PATHOLOGY ORDERABLES Final R esult [facility] [address] [place] [address], * ECG-Annotated (10/30/2024) us Provider Onbase MD ECG ORDERABLES Final Result * Troponin I high sensitivity (10/29/2024 10:22 PM EDT) Only the most recent of2 resultswithin the time period is included. [facility] High Sensitivity Troponin I 3 <=54 ng/L LAB CHEMISTRY METHOD 10/29/2024 10:57 PM EDT [facility] Blood Venous blood specimen / Unknown Venipuncture / Unknown 10/29/2024 10:22 PM EDT 10/29/2024 10:31 PM EDT Narrative [facility] - 10/29/2024 10:57 PM EDT High levels of biotin in samples may falsely decrease hsTroponin values. Use caution when interpreting hsTroponin results in patients taking biotin who exhibit renal impairment (eGFR <60) or in patients taking more than 20 mg/day of biotin. us Manjeet Kevin MD LAB BLOOD ORDERABLES Winter l Result [facility] [address] [place] [address], * (ABNORMAL) CBC auto differential (10/29/2024 8:36 PM EDT) [facility] WBC 9.5 4.8 - 10.8 K/mcL LAB HEMETOLOGY METHOD 10/29/2024 9:18 PM EDT [facility] RBC 5.20(H) 3.80 - 4.80 M/mcL LAB HEMETOLOGY METHOD 10/29/2024 9:18 PM EDT [facility] Hemoglobin 15.0 11.5 - 16.0 g/dL LAB HEMETOLOGY METHOD 10/29/2024 9:18 PM EDT [facility] Hematocrit 43.9 35.0 - 47.0 % LAB HEMETOLOGY METHOD 10/29/2024 9:18 PM EDT [facility] MCV 84.3 79.0 - 98.0 FL LAB HEMETOLOGY METHOD 10/29/2024 9:18 PM EDT [facility] MCH 28.8 27.0 - 32.0 pcg LAB HEMETOLOGY METHOD 10/29/2024 9:18 PM EDT [facility] MCHC 34.2 32.0 - 37.0 g/dL LAB HEMETOLOGY METHOD 10/29/2024 9:18 PM EDT [facility] RDW 12.2 11.0 - 15.0 % LAB HEMETOLOGY METHOD 10/29/2024 9:18 PM EDT [facility] Platelets 247 130 - 400 K/mcL LAB HEMETOLOGY METHOD 10/29/2024 9:18 PM EDT [facility] MPV 11.0 7.0 - 11.0 FL LAB HEMETOLOGY METHOD 10/29/2024 9:[facility] NRBC 0.0 <1.0 % LAB HEMETOLOGY METHOD 10/29/2024 9:18 PM EDT [facility] NRBC Absolute 0.00 <0.10 K/mcL LAB HEMETOLOGY METHOD 10/29/2024 9:18 PM EDT [facility] Neutrophils Relative 57.1 % LAB HEMETOLOGY METHOD 10/29/2024 9:18 PM [facility] Lymphocytes Relative 31.3 % LAB HEMETOLOGY METHOD 10/29/2024 9:18 PM EDT [facility] Monocytes Relative 8.4 % LAB HEMETOLOGY METHOD 10/29/2024 9:18 PM EDT [facility] Eosinophils Relative 2.5 % LAB HEMETOLOGY METHOD 10/29/2024 9:18 PM EDT [facility] Basophils Relative 0.3 % LAB HEMETOLOGY METHOD 10/29/2024 9:18 PM [facility] Immature Granulocytes Relative 0.4 % LAB HEMETOLOGY METHOD 10/29/2024 9:18 PM EDT [facility] Neutrophils Absolute 5.39 1.50 - 7.00 K/mcL LAB HEMETOLOGY METHOD 10/29/2024 9:18 PM EDT [facility] Lymphocytes Absolute 2.96 1.00 - 5.00 K/mcL LAB HEMETOLOGY METHOD 10/29/2024 9:18 PM EDT [facility] Monocytes Absolute 0.79 0.20 - 1.00 K/mcL LAB HEMETOLOGY METHOD 10/29/2024 9:18 PM EDT [facility] Eosinophils Absolute 0.24 0.00 - 0.50 K/[facility] LAB HEMETOLOGY METHOD 10/29/2024 9:18 PM EDT [facility] Basophils Absolute 0.03 0.00 - 0.20 K/mcL LAB HEMETOLOGY METHOD 10/29/2024 9:18 PM EDT [facility] Immature Granulocytes Absolute 0.04(H) 0.00 - 0.03 K/mcL LAB HEMETOLOGY METHOD 10/29/2024 9:18 PM EDT [facility] Blood Venous blood specimen / Unknown Venipuncture / Unknown 10/29/2024 8:36 PM EDT 10/29/2024 9:05 PM EDT Manjeet Kevin MD LAB BLOOD ORDERABLES Winter l Result [facility] [address] [place] [address], * B-type natriuretic peptide (10/29/2024 8:36 PM EDT) BNP 5 <=100 pcg/mL LAB CHEMISTRY METHOD 10/29/2024 9:52 PM EDT [facility] Blood Venous blood specimen / Unknown Venipuncture / Unknown 10/29/2024 8:36 PM EDT 10/29/2024 9:05 PM EDT Manjeet Kevin MD LAB BLOOD ORDERABLES Winter l Result Performing Organization Address City/[facility]/ZIP Co de Phone Number [facility] [address] [place] [address], [place] [phone] * Magnesium (10/29/2024 8:36 PM EDT) Pathologist [facility] Magnesium 2.1 1.9 - 2.6 mg/dL LAB CHEMISTRY METHOD 10/29/2024 9:46 PM EDT [facility] Blood Venous blood specimen / Unknown Venipuncture / Unknown 10/29/2024 8:36 PM EDT 10/29/2024 9:05 PM EDT Manjeet Kevin MD LAB BLOOD ORDERABLES Winter l Result Performing Organization Address [facility]/ZIP Co de Phone Number [facility] [address] [place] [address], [place] [phone] * Lipase (10/29/2024 8:36 PM EDT) [facility] Lipase 29 13 - 75 unit/L LAB CHEMISTRY METHOD 10/29/2024 9:46 PM EDT [facility] Blood Venous blood specimen / Unknown Venipuncture / Unknown 10/29/2024 8:36 PM EDT 10/29/2024 9:05 PM EDT Manjeet Kevin MD LAB BLOOD ORDERABLES Winter l Result [facility] [address] [place] [address], [place] [phone] * (ABNORMAL) Comprehensive metabolic panel (10/29/2024 8:36 PM EDT) [facility] Sodium 137 133 - 145 mmol/L LAB CHEMISTRY METHOD 10/29/2024 9:46 PM EDT [facility] Potassium 3.9 3.5 - 5.5 mmol/L LAB CHEMISTRY METHOD 10/29/2024 9:46 PM [facility] Chloride 105 96 - 110 mmol/L LAB CHEMISTRY METHOD 10/29/2024 9:46 PM [facility] CO2 27 21 - 32 mmol/L LAB CHEMISTRY METHOD 10/29/2024 9:46 PM [facility] Anion Gap 5 3 - 11 LAB CHEMISTRY METHOD 10/29/2024 9:46 PM [facility] Glucose 92 70 - 100 mg/dL LAB CHEMISTRY METHOD 10/29/2024 9:46 PM [facility] BUN 10 5 - 25 mg/dL LAB CHEMISTRY METHOD 10/29/2024 9:46 PM [facility] Creatinine 0.80 0.50 - 1.10 mg/dL LAB CHEMISTRY METHOD 10/29/2024 9:46 PM [facility] eGFR 100 >=60 mL/min/1. 73m2 LAB CHEMISTRY METHOD 10/29/2024 9:46 PM [facility] Comment:Calculation based on the Chronic Kidney Disease Epidemiology Collaboration (CKD-EPI) equation refit without adjustment for race. BUN/Creatinine Ratio 12.5 LAB CHEMISTRY METHOD 10/29/2024 9:46 PM [facility] Calcium 9.5 8.5 - 10.5 mg/dL LAB CHEMISTRY METHOD 10/29/2024 9:46 PM [facility] AST (SGOT) 32 10 - 42 unit/L LAB CHEMISTRY METHOD 10/29/2024 9:46 PM [facility] ALT (SGPT) 79(H) 10 - 60 unit/L LAB CHEMISTRY METHOD 10/29/2024 9:46 PM [facility] Alkaline Phosphatase 49 42 - 121 unit/L LAB CHEMISTRY METHOD 10/29/2024 9:46 PM [facility] Total Protein 7.1 6.0 - 8.0 g/dL LAB CHEMISTRY METHOD 10/29/2024 9:46 PM EDT [facility] Albumin 4.0 3.2 - 5.0 g/dL LAB CHEMISTRY METHOD 10/29/2024 9:46 PM EDT [facility] Total Bilirubin 0.5 0.0 - 1.4 mg/dL LAB CHEMISTRY METHOD 10/29/2024 9:46 PM EDT [facility] Blood Venous blood specimen / Unknown Venipuncture / Unknown 10/29/2024 8:36 PM EDT 10/29/2024 9:05 PM EDT Manjeet Kevin MD LAB BLOOD ORDERABLES Winter l Result Performing Organization Address [facility]/ZIP Co de Phone Number [facility] [address] [place] [address], [place] [phone] * ECG 12 lead (10/29/2024 8:33 PM EDT) Ventricular Rate ECG 77 BPM [facility] Atrial Rate 77 BPM [facility] P-R Interval 144 ms [facility] QRS Duration 82 ms [facility] Q-T Interval 374 ms GEMUSE QTc 423 ms GEMUSE P Wave [place] 25 degrees GEMUSE R [place] 17 degrees GEMUSE ECG Interpretation Normal sinus rhythm Normal ECG When compared with ECG of 07-JUL-2024 18:05, No significant change was found Confirmed by Brock JURADO, ADAM ([id number]) on 10/29/2024 9:07:42 PM [facility] 10/29/2024 8:33 PM EDT 10/29/2024 9:07 PM EDT Manjeet Kevin MD ECG ORDERABLES Final Res ult Performing Organization Address City/[facility]/ZIP Co de Phone Number [facility] * Hepatitis C Screening (04/25/2022) HM Hepatitis C Screening abstracted Historical Provider HEALTH [...] RESULTING AGENCY - 10/14/2017 3:45 PM EDT [id number] THINPREP PAP, IMAGED: ATYPICAL SQUAMOUS CELLS OF [...] Most Recently Relevant to Health Maintenance Insurance [facility] Advance Directives * Full Code - Default [...] currently active code status orders. Care Teams Piercing Artist Relationship Specialty Start Date End Date Darren Carias PA [address] [place] [address] PCP - General Physician Buttonhole Facer 10/11/24
--- OUTSIDE RECORDS SUMMARY | 2025-01-25 20:15 | XMS_ITS | Encounter Summary ---
Author Organization [facility] Address [address] [place] [address] Care Team Providers Care Grey Goods Tester Name Role Phone Darren Carias Primary Care Provider [phone] Encounter Details Date Type Department Care Team (Late st Contact Info) Description 12/22/2024 Telephone Orthopedic Surgery - [place] [phone] [address] Adan Avilez MD [address] [place] [address] Social History Tobacco Use Types Packs/Day Years [...] as of this encounter Progress Notes * Chinyere Mcintyre - 12/22/2024 3:39 PM EDT Patient called to say she seems to be running a fever and is not feeling well and thinks it could be due to surgery.(Trigger finger) I advised her if she doesn't hear from us today and is not feelingbetter that she may need to go to ER or Urgent care. Please advise PT. Thanks documented in this encounter Plan of Treatment Not on file documented as of this encounter Visit Diagnoses Not on filedocumented in this encounter Care Teams Grey Goods Tester Relationship Specialty Start Date End Date Darren Carias PA [address] [place] [address] PCP - General Physician Asset Protection Specialist 10/11/24 documented as of this encounter
--- OUTSIDE RECORDS SUMMARY | 2025-01-25 20:15 | XMS_ITS | Encounter Summary ---
Author Organization [employer] Address [address] [facility] 7[address] [place] [address] Care Team Providers Care Checkman Name Role Phone Unavailable Primary Care Provider [...]
[2025-01-25 20:55] LABS: UACC Culture Trigger YES
== END 2025-01-25 16:50 | disposition home or self-care (01) ==
LOC: HO.LAB 16:49
PROVIDERS: PCP Physician Assistant; Visit Provider Physician Assistant
DX: I10 Essential (primary) hypertension (principal); K76.0 Fatty (change of) liver, not elsewhere classified; R73.09 Other abnormal glucose
CPT/HCPCS: 36415; 80053; 81001; 81003; 82043; 82570; 83036; 85027; 87086

== ENCOUNTER 2025-03-12 07:00 | Outpatient (REF) | payer OTHER, SELFPAY ==
--- OUTSIDE RECORDS SUMMARY | 2025-03-08 13:15 | XMS_ITS | Encounter Summary ---
Author Organization [facility] Address [address] [place] [address] Care Team Providers Care Defence Force Member Other Ranks Name Role Phone Darren Carias Primary Care Provider [phone] Reason for Referral * Therapy (Routine) - Authorized Specialty Diagnoses / Procedures Referred By Contac t Referred To Contact Occupational Therapy Diagnoses Postoperative state Adan Avilez MD [address] [place] [address] Phone: tel: fax: [facility] Occupational Therapy [address] [address] Phone: tel: fax: Referral ID Status Reason Start Date Expiration Date Visits Requested Visits Authorized [id number] Authorized Consult and Treat 03/08/2025 03/08/2026 20 20 Reason for Visit * Reason Comments Post-op Right CTR Encounter Details Date Type Department Care Team (Latest Contact Info) Description 03/08/2025 1:15 PM EST Office Visit Orthopedic Surgery [facility] [address] [address] Adan Avilez MD [address] [place], [place] [phone] Postoperative state (Primary Dx) Social History Tobacco [...] Value Date Recorded Sex Assigned at Female 03/09/2025 9:24 AM EST Legal Sex Female 3:49 PM EST Gender Identity Female 03/09/2025 9:24 AM EST Sexual Orientation Straight 03/09/2025 9: 24 AM EST documented as of this encounter Progress Notes * Adan Avilez MD - 03/08/2025 1:15 PM EST Images from the original note were not included. Date: March 07, 2025 Last seen: 02/17/25 Procedure: Right endoscopic carpal tunnel release and release of the right middle finger A1 chayo for right trigger finger performed 12/17/2024 HPI: Kianna Varela is a 34 y.o. female presenting for followup regarding persistent soreness into her right middle finger after her ball procedure. She continues to have have had resolution of the numbness and tingling. She notices pain at the base of the long finger when she is making a full fist. She also has some mild tenderness in that area. She has not had recurrent triggering or had a new injur y. She had not previously been interested in therapy, she reports that she has been doing therapy and heat at home. She has returned to work. Objective Focused Exam: Right Upper Extremity Incision well-healed proximal to the wrist flexion crease Incision well-healed in line with the distal palmar flexion crease at the base of the long finger, Sharer has some mildly hypertrophic scar formation and mild tenderness with deep palpation Does not demonstrate triggering Has full composite fist formation of the fingertip distal palmar crease distance of 0 cm Does not demonstrate any PIP contracture Fires EPL/FPL/FDP/IO /APB SILT M/R/U palpable radial pulse Imaging: No new imaging Medical Decision Making (base on 2 out of 3 elements): Problems Addressed: Low- 1 stable chronic illness Tests Ordered and/or Reviewed: Low Risk Level: Low risk Assessment: Kianna Varela presents with some persistent pain over her previous scar incision with some mild hypertrophic scar. She does not demonstrate recurrent triggering signs of infection today and has full active and passive range of motion. I discussed that I am not sure about the exact etiology for her persistent pain but appears to be possibly consistent with some postoperative scar sensitivity, she did have some delayed healing with superficial wound dehiscence at the incision which may be a factor in her persistent pain. I discussed that this stage that we could consider therapy for modalities for desensitization of the scar including scar massage or ultrasound. She once again expressed reluctance but did agree to trial therapy due to her persistent symptoms. She can follow-up in 6 weeks for any worsening or persistent symptoms. Plan: Scar sensitivity in palm right endoscopic carpal tunnel release and release of the right middle finger A1 chayo for right trigger finger performed 12/17/2024 -Hand therapy for scar desensitization - Continue with weightbearing as tolerated and scar massage - Follow-up 6 weeks Adan Avilez MD documented in this encounter Plan of Treatment Upcoming Encounters Date Type Department Care Team (Late st Contact Info) Description 04/20/2025 4:00 PM EST Office Visit Orthopedic Surgery [facility] 175 [facility] [address] [place] [address] Adan Avilez MD [address] [place] [phone] Scheduled Referrals Name Type Priority Associated Diagnoses Order Schedule Ambulatory referral to Occupational Therapy Outpatient Referral Routine Postoperative state 1 Occurrences starting 03/08/2025 until 03/08/2026 documented as of this encounter Visit Diagnoses Diagnosis Postoperative state- Primary Other postprocedural status documented in this encounter Care Teams [employer] Member Other Ranks Relationship Specialty Start Date End Date Darren Carias PA [address] [place] [phone] PCP - General Physician Vp Marketing 10/11/24 documented as of this encounter
--- OUTSIDE RECORDS SUMMARY | 2025-03-12 08:36 | XMS_ITS | Clinical Summary ---
Author Organization [employer] Address [address] [facility] 7t [place] [address] Care Team Providers Care Time Study Technologist Name Role Phone Unavailable Primary Care [...] 10/15/2021 HPV/Cotest 10/15/2021 COVID-19 Vaccine ( - 2024-2 6 season) 2024 Influenza Vaccine (#1) 2024 Zoster [...]
--- OUTSIDE RECORDS SUMMARY | 2025-03-12 08:36 | XMS_ITS | Encounter Summary ---
Author Organization [employer] Address [address] [facility] 7[address] [place] [address] Care Team Providers Care Cane Piler Name Role Phone Unavailable Primary Care Provider [...]
--- OUTSIDE RECORDS SUMMARY | 2025-03-12 08:36 | XMS_ITS | Clinical Summary ---
Author Organization [facility] Address [address] [place] [address] Phone Care Team Providers Care Hand Packager Name Role Phone Darren Carias Primary Care [...] inplanted in L arm 04/10/19 20 Active omeprazole (PriLOSEC) [address] capsule Take 1 capsule (20 mg total) by mouth 1 (one) time each day. 01/01/20 25 Active blood sugar diagnostic (FreeStyle Lite Strips) test strip TESTING ONCE A DAY NEEDED 12/21/19 25 2024 Discontinued FreeStyle [place] Lite monitoring kit See administration instructions. 06/29/19 25 2024 Discontinued FreeStyle Lancets 28 gauge lancets TESTING ONCE A DAY NEEDED 12/21/19 25 2024 Discontinued SUMAtriptan (IMITREX) 25 mg tablet Take 1 tablet (25 mg total) by mouth 1 (one) time if needed. 12/21/19 25 2024 Discontinued Active Problems Problem Noted Date Diagnosed Date Acquired trigger finger of right middle finger 0 10/26/2024 Right carpal tunnel syndrome 10/26/2024 Diarrhea 03/19/2024 Kidney stones 03/19/2024 Mucus in stool 03/19/2024 Class 2 obesity 03/19/2024 Chronic pain of right knee 11/11/2017 Obesity (BMI 30.0-34.9) 11/11/2017 Chronic tension-type headache, not intractable 0 08/29/2016 Encounters Date Type Department Care Team Description 03/08/2025 1:15 PM EST Office Visit Orthopedic Surgery [facility] [address] [phone] Adan Avilez MD Postoperative state (Primary Dx) 02/17/2025 8:15 AM EST Office Visit Orthopedic Surgery [facility] [address] [phone] Linda Figueroa PA Postoperative state (Primary Dx) 01/20/2025 9:15 AM EDT Office Visit Orthopedic Surgery [facility] [address] [phone] Adan Avilez MD Postoperative state (Primary Dx) 01/04/2025 11:00 AM EDT Office Visit Orthopedic Surgery [facility] [address] [phone] Kerry Mancia PA Postoperative state (Primary Dx) 12/28/2024 11:30 AM EDT Office Visit Orthopedic Surgery [facility] [address] [address] Adan Avilez MD Postoperative state (Primary Dx) 12/22/2024 Telephone Orthopedic Surgery [place] [phone] [address] Adan Avilez MD 12/22/2024 Telephone Orthopedic Surgery [facility] [address] [phone] Adan Avilez MD 12/17/2024 9:07 AM EDT Anesthesia Event [facility] [place] [address] [place] [phone] Vito Perez MD 12/17/2024 8:45 AM EDT - 12/17/2024 10:15 AM EDT Surgery [facility] OR [address] [place] [phone] Adan Avilez MD ENDOSCOPIC RELEASE RIGHT CARPAL TUNNEL, A-1 CHANDU RELEASE RIGHT MIDDLE FINGER [[id number] (CPT ) +1 more] 12/17/2024 6:56 AM EDT - 12/17/2024 10:54 AM EDT Hospital Encounter [facility] OR [address] [place] [phone] Adan Avilez MD Acquired trigger finger of right middle finger; Right carpal tunnel syndrome Discharge Disposition: Home or Self Care from Last 3 Months Immunizations Immunization Administration Dates Next Due HPV, Quadrivalent 01/25/2015,07/20/2014,05/25/19 15 Hepatitis B (Cbyaric-E-Bhmvw , Recombivax HB-Adult) 19yo and older 11/08/2023,10/08/2023 [...] Orientation Straight 03/09/2025 9: 24 AM EST Last Filed Vital Signs Vital Sign Reading Time Taken Comments Blood Pressure 127/83 12/17/2024 10:40 AM EDT Pulse 61 12/17/2024 10:40 AM EDT Temperature 36.7 C (98.1 F) 12/17/2024 10:06 AM EDT Respiratory Rate 14 01/04/2025 9:49 AM EDT Oxygen Saturation 100% 12/17/2024 10:40 AM EDT Inhaled Oxygen Concentration - - Weight 81.6 kg (180 lb) 02/17/2025 8:18 AM EST Height 149.9 cm (4' 11 ) 02/17/2025 8:18 AM EST Body Mass Index 36.36 02/17/2025 8:18 AM EST Plan of Treatment Upcoming Encounters Date Type Department Care Team (Late st Contact Info) Description 04/20/2025 4:00 PM EST Office Visit Orthopedic Surgery - [place] [address] [phone] Adan Avilez MD [address] [place] [address] Health Maintenance Due Date Last Done Comments Cervical Cancer Screening: Pap Smear 10/07/2020 10/07/2017, 10/07/2017 HIV Screening 02/27/2022 Social Influencers of Health Screening 02/27/2022 Depression Screening 03/31/2024 Hepatitis B Vaccines (3 of 3 - 19+ 3-dose series) 04/09/2024 11/08/2023, 10/08/2023 COVID-19 Vaccine ( - 2024- season) 2024 04/21/2021, 09/09/2020, 08/12/2020 Influenza Vaccine [...] right middle finger Right carpal tunnel syndrome AR INCISION TENDON SHEATH 12/17/2024 9:06 AM EDT Acquired trigger finger of right middle finger Right carpal tunnel syndrome Case Notes [facility] (rep Alan Virginia([phone]) AR ENDOSCOPY WRIST SURGICAL WITH RELEASE TRANSVERSE CARPAL LIGAMENT 12/17/2024 9:06 AM EDT Acquired trigger finger of right middle finger Right carpal tunnel syndrome Case Notes [facility] (rep Alan [place]([phone]) HM HEPATITIS C SCREENING Routine 04/25/2022 LIPID PANEL Routine 04/25/2022 PAP SMEAR Routine 10/07/2017 from Last 3 Months or Most Recently Relevant to Health Maintenance Results * Tissue exam (12/17/2024 9:56 AM EDT) Final Diagnosis Hand, Right, middle finger-release: -FIBROTENDINOUS TISSUE WITH DEGENERATIVE CHANGES 12/20/2024 3:16 PM EDT [facility] at 1516 EDT Gross Description A. Hand, Right, middle finger tenosynovitis: Labeled hand R, right mid . Received in formalin with a Telfa pad is a 1.1 cm aggregate of irregular corbin-white fibromembranous tissue fragments which is submitted in toto wrapped in paper in one cassette, multiple pieces. RUBINA 12/20/2024 3:16 PM EDT [facility] Disclaimer Unless otherwise specified, all tissue is 10% NB formalin fixed and paraffin embedded. 12/20/2024 3:16 PM EDT [facility] Tissue Structure of right hand / Unknown 12/17/2024 9:56 AM EDT 12/17/2024 10:26 AM EDT Adan Avilez MD LAB PATHOLOGY ORDERABLES Final R esult Performing Organization Address City/[facility]/ZIP Co de Phone Number [facility]) [facility] [address] [place] [address], [place] [phone] * Hepatitis C Screening (04/25/2022) Hepatitis C [...] RESULTING AGENCY - 10/14/2017 3:45 PM EDT [id number] THINPREP PAP, IMAGED: ATYPICAL SQUAMOUS CELLS OF [...] Most Recently Relevant to Health Maintenance Insurance [facility] [employer] Advance Directives * Full [...] currently active code status orders. Care Teams Hand Packager Relationship Specialty Start Date End Date Darren Carias PA [address] [place] [phone] PCP - General Physician Perch Mender 10/11/24
== END 2025-03-12 07:01 | disposition home or self-care (01) ==
LOC: HO.HMGCLNP 07:00
PROVIDERS: PCP Physician Assistant; Visit Provider Physician Assistant
DX: K29.70 Gastritis, unspecified, without bleeding (principal)
CPT/HCPCS: 87338

== ENCOUNTER 2025-03-23 10:21 | Outpatient (REF) | payer OTHER, SELFPAY ==
--- NOTE | ~2025-03-23 | US_ITS ---
EXAMINATION: US COMPLETE ABDOMEN WITH LIVER ELASTOGRAPHY CLINICAL INFORMATION: Fatty change of liver. Chronic elevated liver enzymes COMPARISON: Ultrasound abdomen 12/05/2022 TECHNIQUE: Real-time imaging of the abdominal viscera. Noninvasive ultrasound liver fibrosis assessment is performed using Lissette ElastPQ point quantification shear wave elastography (pSWE) with a C5-2 MHz transducer. Multiple elastography samples are obtained. FINDINGS: PANCREAS: The visualized pancreatic head and body are normal in appearance. The remainder of the pancreas is obscured from visualization by the overlying bowel gas. ABDOMINAL AORTA: No aortic aneurysm is seen. INFERIOR VENA CAVA: Visualized portions are normal. LIVER: The liver demonstrates normal contour. Increased parenchymal echogenicity.. Focal fatty sparing near the gallbladder. No focal lesion or intrahepatic biliary duct dilatation. The right lobe measures 17 cm in length. The left lobe measures 10.5 cm in length. Portal flow is hepatopedal Shear wave liver elastography median stiffness is 1.54 m/s (reference: normal median stiffness is 1.3 m/s or less). IQR/median stiffness to assess sampling precision is 0.03 (reference: good quality data set is IQR/median stiffness of 0.15 or less). GALLBLADDER: The gallbladder is physiologically distended without evidence of stones, sludge, polyps, wall thickening or pericholecystic fluid. COMMON BILE DUCT: Normal in caliber measuring 0.4 cm in diameter. RIGHT KIDNEY: No hydronephrosis. No renal calculi or focal parenchymal lesions. Question extrarenal pelvis. The kidney measures 11.3 cm in maximum dimension. LEFT KIDNEY: No hydronephrosis. No renal calculi or focal parenchymal lesions. The kidney measures 13.4 cm in maximum dimension. SPLEEN: Unremarkable. The spleen measures 11.1 cm in maximum dimension. FREE FLUID: None seen. US/US abdomen comp w elastography IMPRESSION: 1. Hepatomegaly. There is generalized increase in hepatic echotexture, consistent with fatty infiltration or hepatocellular disease. Please correlate clinically. No focal hepatic mass or intrahepatic biliary duct dilatation is seen. 2. Liver elastography: Median stiffness 1.3 m/s *Liver Stiffness equal or less than 1.3 m/s: High probability of being normal REFERENCE: Society of Radiologists in Ultrasound Liver Stiffness Thresholds (2020): LIVER STIFFNESS THRESHOLDS: *Liver Stiffness equal or less than 1.3 m/s: High probability of being normal. *Liver Stiffness less than 1.7 m/s: In the absence of other known clinical signs, rules out compensated advanced chronic liver disease. *Liver Stiffness 1.7-2.1 m/s: Suggestive of compensated advanced chronic liver disease but need further test for confirmation. *Liver Stiffness over 2.1 m/s: Rules in compensated advanced chronic liver disease. *Liver Stiffness over 2.4 m/s: Suggestive of clinically significant portal hypertension. QUALITY OF DATA SET: *IQR/Median value equal or less than 0.15 implies a quality data set. *IQR/Median value over 0.15 implies a poor quality data set. SIGNIFICANT CHANGE FROM PRIOR EXAM: Significant change if liver stiffness measurement is 10% or greater from prior exam. OTHER CONSIDERATIONS: The stage of liver fibrosis may be overestimated in the setting of acute hepatitis, liver inflammation, elevated liver function tests, hepatic vascular congestion, obstructive cholestasis, non-fasting state, and infiltrative diseases such as amyloidosis and lymphoma. In some patients with NAFLD, the liver stiffness thresholds for compensated advanced chronic liver disease may be lower. In causes other than viral hepatitis and NAFLD, liver stiffness thresholds are not well established. Electronically signed by: Krishan Rosas MD 03/25/2025 10:39 AM [facility]
--- OUTSIDE RECORDS SUMMARY | 2025-03-23 10:32 | XMS_ITS | Encounter Summary ---
Author Organization [employer] Address [address] [facility] [address] [place] [address] Care Team Providers Care Assistant Attorney General Name Role Phone Unavailable Primary Care Provider [...]
--- OUTSIDE RECORDS SUMMARY | 2025-03-23 10:32 | XMS_ITS | Clinical Summary ---
Author Organization [facility] Address [address] [place] [address] Phone Care Team Providers Care Applications Trainer Name Role Phone Darren Carias Primary Care Provider [phone] Allergies No known active allergies Medications hydrOXYzine [...] Med inplanted in L arm 0 Active omeprazole (PriLOSEC) [address] capsule Take 1 capsule (20 mg total) by mouth 1 (one) time each day. 5 Active Active Problems Problem Noted Date Diagnosed [...] 1:15 PM EST Office Visit Orthopedic Surgery [facility] [address] [phone] Adan Avilez MD Postoperative state (Primary Dx) 02/17/2025 8:15 AM EST Office Visit Orthopedic Surgery [facility] [address] [phone] Linda Figueroa PA Postoperative state (Primary Dx) 01/20/2025 9:15 AM EDT Office Visit Orthopedic Surgery [facility] [address] [phone] Adan Avilez MD Postoperative state (Primary Dx) 01/04/2025 11:00 AM EDT Office Visit Orthopedic Surgery [facility] [address] [phone] Kerry Mancia PA Postoperative state (Primary Dx) 12/28/2024 11:30 AM EDT Office Visit Orthopedic Surgery [facility] [address] [phone] Adan Avilez MD Postoperative state (Primary Dx) 12/22/2024 Telephone Orthopedic Surgery [facility] [address] [phone] Adan Avilez MD 12/22/2024 Telephone Orthopedic Surgery [place] [phone] [phone] Adan Avilez MD from Last 3 Months Immunizations Immunization Administration Dates Next Due HPV, Quadrivalent 01/25/2015,07/20/2014,05/25/19 15 Hepatitis B (Sebvlwx-O-Zffux , Recombivax HB-Adult) 19yo and older 11/08/2023,10/08/2023 [...] stoo l Liver disease fatty liver Cancer ([facility] V24, [facility] V28) Arthritis RA Trigger finger R Carpal [...] PM EST Office Visit Orthopedic Surgery - [place] 175 [facility] [address] [place] [phone] Adan Avilez MD [address] [place] [address] Health Maintenance Due Date Last Done Comments [...] 75+ series) 10/15/2066 HPV Vaccines Completed 01/25/2015, 04/2 05/2014, 05/25/2014 MMR Vaccines Aged Out 06/20/2021, [...] Maintenance Results * Hepatitis C Screening (04/25/2022) Pathologist [facility] Hepatitis C Screening abstracted Historical Provider HEALTH MAINTENANCE Final Result * (ABNORMAL) Lipid panel (04/25/2022) Pathologist [facility] LDL/HDL Ratio 3 0 - 4 Triglycerides 65 0 - 150 mg/dL Cholesterol 189 0 - 200 mg/dL HDL 64 >=40 mg/dL LDL Cholesterol 112(A) 0 - 100 mg/dL Blood Venous blood specimen / Unknown Historical Provider MD LAB BLOOD ORDERABLES Winter l Result * Pap smear (10/07/2017) 10/07/2017 Narrative HISTORICAL TESTING LAB RESULTING AGENCY - 10/14/2017 3:45 PM EDT [id number] THINPREP PAP, IMAGED: ATYPICAL SQUAMOUS CELLS OF UNDETERMINED SIGNIFICANCE (ASCUS) . RESULTS OF APTIMA HIGH RISK HPV ASSAY: NEGATIVE (SEROTYPES 16,18,31,33,35, 39,45,51,52,56,58,59,66,68) LARS RENATOREGINA PASCUAL(ASCP) (CASE SCREENED 10 09 2017) ROSITA WASHINGTON M.D., PATHOLOGIST (CASE ELECTRONICALLY SIGNED 10 14 2017) ADEQUACY: SATISFACTORY. ENDOCERVICAL/TRANSFORMATION ZONE COMPONENT PRESENT. SOURCE: THINPREP PAP HPV IF ASCUS, CERVICAL, IMAGED: CLINICAL INFORMATION: HPV IF DIAGNOSIS OF ASCUS. Z12.4, Z01.419 us Eduardo Tabor [facility] CYTOLOGY ORDERA [facility] Final Result HISTORICAL TESTING LAB RESULTING AGENCY from Last 3 Months or Most Recently Relevant to Health Maintenance Insurance [facility] [employer] PLAN Advance Directives * Full Code [...] currently active code status orders. Care Teams Applications Trainer Relationship Specialty Start Date End Date Darren Carias PA [address] [place] [phone] PCP - General Physician Word Processing Specialist 10/11/24
--- OUTSIDE RECORDS SUMMARY | 2025-03-23 10:32 | XMS_ITS | Clinical Summary ---
Author Organization [employer] Address [address] [facility] [address] [place] [address] Care Team Providers Care Loin Puller Name Role Phone Unavailable Primary Care Provider [...]
== END 2025-03-23 10:22 | disposition home or self-care (01) ==
LOC: HO.US 10:21
PROVIDERS: PCP Physician Assistant; Visit Provider Student in an Organized Health Care Education/Training Program
DX: R74.8 Abnormal levels of other serum enzymes (principal); K76.0 Fatty (change of) liver, not elsewhere classified
CPT/HCPCS: 76700; 76981